=== PATIENT | female | born 1935 | race Caucasian/White ===

== ENCOUNTER 2020-07-20 19:39 | Emergency (ER) | payer MEDICARE, OTHER, SELFPAY ==
[2020-07-20 19:41] VITALS: BP 150/90; PULSE 66; RESP 17; TEMP 36.1; O2SAT 98; BMI 19.8
[2020-07-20 19:44] VITALS: BP 150/90; PULSE 66; RESP 17; TEMP 36.1; O2SAT 98
--- NOTE | 2020-07-20 19:52 | ED.DCSUM_ITS ---
History of Present Illness Chief Complaint: Complaint Informant: Patient Onset: Today Current Severity: Mild Maximum Severity: Mild Narrative: Patient presents due to concern for possible UTI. She reports frequency and mild burning with urination that started this afternoon. She denies fever or chills. She denies abdominal pain or back pain. - Past Medical History (1) GERD (gastroesophageal reflux disease) Status: Chronic Past Medical History - Allergies and Home Meds Allergies/Adverse Reactions: Allergies aspirin Adverse Reaction (Verified 07/20/20 19:40) PT UNSURE OF REACTION Primary Care Physician: Leandra Carey MD [Primary Care Provider] - Surgical History: ligation Smoking Status: Never smoker Review of Systems General: Denies: Chills, Fever Eyes: Denies: Visual changes - bilaterally ENT: Denies: Bilateral ear pain Cardiovascular: Denies: Chest pain Respiratory: Denies: Dyspnea, Cough Gastrointestinal: Denies: Abdominal pain, Nausea, Vomiting, Diarrhea Genitourinary: Reports: Dysuria, Frequency Musculoskeletal: Denies: Extremity Pain Skin: Denies: Rash Hematologic: Denies: Easy bruising, Easy bleeding Allergy: Denies: Uticaria Physical Exam Vital Signs/Narrative: Vital Signs Temp Pulse Resp BP Pulse Ox 07/20/20 19:44 97.0 F L 66 17 150/90 H 98 07/20/20 19:41 97.0 F L 66 17 150/90 H 98 Inital Vital Signs reviewed: Yes General: Well nourished, Well developed Head: Normocephalic ENT: Moist mucous membranes Neck: Supple Cardiovascular: Regular rate, Regular rhythm Respiratory: No distress, CTA bilaterally Abdomen: Soft, Nontender Back: Negative for: CVA tenderness Skin: Normal color Neurological: Alert, Oriented x3 Psychological: Normal affect Diagnostic/Tx/Re-eval Laboratory Results 07/20/20 19:50 Urine Color Yellow Urine Clarity Sl. Cloudy Urine pH 6.0 Ur Specific [place] 1.020 Urine Protein 15 H Urine Glucose (UA) Normal Urine Ketones Negative Urine Occult Blood 25 H Urine Nitrite Negative Urine Bilirubin Negative Urine Urobilinogen Normal Ur Leukocyte Esterase 500 H Urine RBC 0-5 SEEN Urine WBC 25-50 SEEN Ur Squamous Epith Cells 0 SEEN Urine Bacteria 1+ Urine Mucus 0 SEEN - Medical Decision Making Patient's urinalysis does confirm infection. Urine culture has been sent. She will be treated with Keflex. ED Disposition - Plan for ED Patient: Disposition: Home or Assisted Living Diagnosis: Cystitis Instructions: ED CYSTITIS Female Adult Prescriptions: Cephalexin [Keflex] 500 mg PO Q12 #14 cap Transmission Status: Pending to [id number] Referrals: Leandra Carey MD [Primary Care Provider] - 3-5 Days if not improving
[2020-07-20 19:58] LABS: Mucous, Urine 0 SEEN /hpf (<or=2+); Squamous Epithelial Cells - UA 0 SEEN /hpf (5-10)
[2020-07-20 19:59] LABS: Color, Urine Yellow (Yellow); Glucose, Dipstick Normal (Normal); Ketone-Dipstick Negative (Negative); Leukocyte Esterase-Dipstick 500 /ul (Negative); Nitrite-Dipstick Negative (Negative); Occult Blood-Urine 25 /ul (Negative); Protein-Dipstick 15 mg/dl (Negative); Urine Bilirubin Dipstick Negative (Negative); Urine Clarity Sl. Cloudy (Clear); Urine Urobilinogen Normal (Normal)
[2020-07-20 20:19] LABS: Bacteria 1+ /hpf (None Seen); Red Blood Cells-Urine 0-5 SEEN /hpf (0-5); White Blood Cells 25-50 SEEN /hpf (0-5)
[2020-07-20] MEDS: Cephalexin 250 MG Capsule 500 MG PO (20:28)
== END 2020-07-20 20:32 | disposition home or self-care (01) ==
PROVIDERS: Emergency Provider Emergency Medicine; PCP Internal Medicine
DX: N30.90 Cystitis, unspecified without hematuria (principal); K21.9 Gastro-esophageal reflux disease without esophagitis
CPT/HCPCS: 81001; 87077; 87086; 87088; 87186; 99283

== ENCOUNTER 2023-04-13 20:52 | Emergency (ER) | payer MEDICARE, OTHER, SELFPAY ==
[2023-04-13 20:53] VITALS: BP 177/110; PULSE 118; RESP 18; TEMP 36.9; O2SAT 97; BMI 18.4
[2023-04-13 21:51] LABS: Absolute Neutrophil Count 3.9 X10^3/uL (2.0-7.7); Basophil# 0.05 X10^3/uL; Basophil% 0.7 % (0-1); Eosinophil# 0.17 X10^3/uL; Eosinophils% 2.3 % (0-5); Hematocrit 48.1 % (37-47); Hemoglobin 15.4 g/dL (12.0-15.0); Mean Corpuscular Hgb 26.6 pg (27.0-32.0); Mean Corpuscular Volume 82.9 fL (81-99); Mean Platelet Vol. 10.3 fl (6.2-12.0); Monocyte# 1.51 X10^3/uL; Monocyte% 20.8 % (0-10); NRBC Flagged by Analyzer 0 % (0-5); Neutrophil # 3.91 X10^3/uL (2.7-7.7); Neutrophil % 53.8 % (47-70); POSITIVE DIFFERENTIAL YES; Platelet Count 175 K/mm3 (150-450); RBC Distribution Width CV 15.5 % (11.6-14.6); RBC Distribution Width SD 46.4 fl (35.1-43.9); White Blood Count 7.3 K/mm3 (4.4-11.0)
--- NOTE | 2023-04-13 21:55 | RAD_ITS ---
STUDY: X-RAY CHEST REASON FOR EXAM: Female, 88 years old. chest pain TECHNIQUE: AP portable COMPARISON: None. FINDINGS: Minor discoid atelectasis or scarring in left lower lobe. There is no demonstrated pleural abnormality. Normal size heart. Normal mediastinum and sylvie. Normal visualized pulmonary arteries. Tortuous mildly calcified aortic arch and descending thoracic aorta. Dorsal spine and shoulders demonstrate degenerative change. Normal visualized ribs, clavicles, and shoulders. There is no demonstrated abnormality of the visualized soft tissue structures of the upper abdomen. RAD/Chest 1 View (Portable) IMPRESSION: Mild discoid atelectasis or scarring in left lower lobe. Electronically Signed: Dylon Peraza MD at 22:16 EDT ,
[2023-04-13 22:08] LABS: Anion Gap 7 (5-15); BUN 20 mg/dL (7-18); BUN/Creat Ratio 26.1 RATIO (10-20); Calcium,Total 9.5 mg/dL (8.5-10.1); Chloride 107 mmol/L (98-107); Creatinine, Serum 0.77 mg/dL (0.55-1.02); EST Glomerular Filtration Rate 76 mL/min (>60); Est Glom Filt Rate - Afr Amer 92 mL/min (>60); Glucose 153 mg/dL (74-106); Potassium 3.9 mmol/L (3.5-5.1); Sodium Level 141 mmol/L (136-145); Troponin-I HS (w/2H Reflex) 5 pg/mL (3.0-54.0)
--- NOTE | 2023-04-13 22:24 | EX.ED.DYSGE1 ---
HPI History of Present Illness Chief Complaint: Palpitations Detail of Chief Complaint: Palpitations Informant: patient Narrative Narrative: Patient presents to the emergency department complaint of heart racing is around 6:30 PM. She checked her pulse and it was 120. She denies chest pain. Denies shortness of breath. Patient states a couple of months ago she had an episode of palpitations for about 30 minutes or so and then resolved. She has no heart history. Patient has history of hypertension. She denies recent travel or surgery. No history of PE or DVT. Currently she feels improved and states her symptoms have resolved. PFSH PFS Home Medications amlodipine 2.5 mg tablet 2.5 mg PO DAILY 07/20/20 [History Last Taken Unknown] atenolol 25 mg tablet 25 mg PO DAILY 07/20/20 [History Last Taken Unknown] atorvastatin 20 mg tablet 20 mg PO DAILY 07/20/20 [History Last Taken Unknown] cephalexin 500 mg capsule 500 mg PO Q12 #14 caps 07/20/20 [Rx Last Taken Unknown] lisinopril 5 mg tablet 5 mg PO DAILY 07/20/20 [History Last Taken Unknown] apixaban 2.5 mg tablet (Eliquis) 2.5 mg PO BID #60 tabs 04/13/23 [Rx Last Taken Unknown] Allergy/AdvReac Type Severity Reaction Status Date / Time aspirin AdvReac PT UNSURE Verified 04/13/23 20:55 OF REACTION Social History Smoking Status: Never smoker ROS ROS ED Review of Systems ROS Unobtainable: other Constitutional Constitutional ED: Reports lethargy; Denies chills, fever(s), sweats or weight loss Eyes Eyes: Denies blurry vision, change in vision or diplopia ENT ENT ED: Denies rhinorrhea or sore throat Cardiovascular Cardiovascular: Reports palpitations and racing heartbeat; Denies chest pain or orthopnea Respiratory/Chest Respiratory/Chest: Denies cough, dyspnea, dyspnea on exertion, orthopnea or sputum Gastrointestinal Gastrointestinal: Denies abdominal pain, diarrhea, nausea or vomiting Genitourinary Genitourinary ED: Denies dysuria, hematuria or urinary frequency Musculoskeletal Musculoskeletal: Denies arthralgias, back pain, myalgias or neck pain Integumentary Denies abscess, Abrasions or rash Neurologic Neurologic: Denies headache(s) or weakness Psychiatric Psychiatric: Denies anxiety, depression or suicidal thoughts Endocrine Endocrinology: Denies polydipsia, polyphagia or polyuria Hematologic/Lymphatic Hematologic/Lymphatic: Denies easy bleeding, easy bruising or lymphadenopathy Allergic/Immunologic Allergic/Immunologic ED: Denies mouth swelling, tongue swelling or urticaria EXAM Physical Exam Const Vital Signs: 04/13/23 20:53 04/13/23 21:32 04/13/23 22:27 Temperature 98.4 F Temperature Source Temporal Pulse Rate 118 H 62 Respiratory Rate 18 18 Respiratory Effort Blood Pressure 177/110 H 149/86 H Blood Pressure Mean 132 107 Pulse Ox 97 95 Oxygen Delivery Method Room Air Room Air Room Air 04/13/23 22:47 Temperature Temperature Source Pulse Rate Respiratory Rate Respiratory Effort Short of Breath Blood Pressure Blood Pressure Mean Pulse Ox Oxygen Delivery Method Positive well nourished and well developed General Appearance ED: well developed and NAD HEENT Reports TM's clear and moist mucous membranes normocephalic and atraumatic; Negative for trauma or tenderness Tympanic Membrane ED: Yes TM's clear Eyes PERRL and EOMs intact bilaterally General Eye ED: Negative for pale conjunctiva or scleral icterus Neck no lymphadenopathy, supple and no JVD General: Negative for tenderness Chest Wall inspection of chest normal and palpation of chest normal Chest: Negative for tenderness Resp normal respiratory effort and clear to auscultation bilaterally Effort and Inspection: Negative for respiratory distress or pain with movement Auscultation: Negative for rhonchi, wheezes or diminished lung sounds Cardio regular rate, regular rhythm, S1 normal heart sound, S2 normal heart sound and no murmurs Peripheral Pulses: pulses 2+ throughout GI normal to inspection, nondistended, normoactive bowel sounds, soft to palpation, non-tender, non-distended and no masses Back/Spine no CVA tenderness and no thoracic nor lumbar tenderness Extremity normal to inspection General Extremety ED: Negative for edema General Extremity: Negative for edema Neuro oriented x3, CN's II-XII intact bilaterally, no sensory deficits noted and gait normal Sensorium / Orientation: awake, alert, oriented to person, oriented to place and oriented to time Motor Exam: strength 5/5 throughout and strength abnormal Psych mental status grossly normal Skin no rashes or lesions noted and no wounds MDM MDM MDM Narrative Medical decision making narrative: Patient was then in with tachycardia and palpitations. Nursing staff you protocol ordered EKG on arrival. Initial EKG showed atrial fibrillation with a rate of 118 bpm with old septal infarct. On my evaluation of the patient she is in sinus rhythm. Nursing staff ordered basic labs via protocol. EKG obtained showed a sinus rhythm on repeat EKG with a rate of 63 bpm. CBC with differential was unremarkable. Chemistries unremarkable. Troponin was normal. Case was discussed with industrial electrical engineer covering for Dr. Faustin who recommended anticoagulation with Eliquis 2.5 mg twice a day. Patient back into a sinus rhythm. She and I and her discussed risk of stroke with A-fib and risk of anticoagulation and they are comfortable proceeding with the anticoagulation. Advised to return if chest pain, shortness of breath, dizziness, or condition worsen anyway. Otherwise to follow-up with her industrial electrical engineer. Lab Data Attestation: I reviewed the patient's lab results. Labs: Laboratory Results - last 24 hr 04/13/23 04/13/23 20:21 20:21 WBC 7.3 RBC 5.80 H Hgb 15.4 H Hct 48.1 H MCV 82.9 MCH 26.6 L MCHC 32.0 RDW Std Deviation 46.4 H RDW Coeff of Jaci 15.5 H Plt Count 175 MPV 10.3 Immature Gran % (Auto) 0.400 Neut % (Auto) 53.8 Lymph % (Auto) 22.0 Howell % (Auto) 20.8 H Eos % (Auto) 2.3 Baso % (Auto) 0.7 Absolute Neuts (auto) 3.9 Absolute Lymphs (auto) 1.60 Nucleated RBC % 0 Differential Comment SEE COMMENT Platelet Estimate ADEQUATE Anisocytosis RARE Sodium 141 Potassium 3.9 Chloride 107 Carbon Dioxide 27.0 Anion Gap 7 BUN 20 H Creatinine 0.77 Estim Creat Clear Calc 31.50 Est GFR (MDRD) Af Amer 92 Est GFR (MDRD) Non-Af 76 BUN/Creatinine Ratio 26.1 H Glucose 153 H Calcium 9.5 Troponin I High Sens 5 Radiography Diagnostic Testing: Clinical Impression(s) from Imaging Studies Chest X-Ray 04/13/23 21:55 IMPRESSION: Mild discoid atelectasis or scarring in left lower lobe. Electronically Signed: Dylon Peraza MD at 22:16 EDT , 1 view chest x-ray obtained interpreted by myself as no evidence of infiltrate or pneumothorax or acute disease process. Radiology in agreement. Discharge Plan Triage Chief Complaint: Palpitations ED Provider: Uzma Lenz Dx/Rx/DC Orders Clinical Impression: AF (paroxysmal atrial fibrillation) Instructions: ED AFIB Prescriptions: New Eliquis 2.5 mg tablet 2.5 mg PO BID Qty: 60 0RF No Action atorvastatin 20 MG tablet 20 mg PO DAILY atenolol 25 MG tablet 25 mg PO DAILY amlodipine 2.5 MG tablet 2.5 mg PO DAILY lisinopril 5 MG tablet 5 mg PO DAILY cephalexin 500 MG capsule 500 mg PO Q12 Qty: 14 0RF Primary Care Provider: Leandra Carey Referrals: Leandra Carey MD [Primary Care Provider] - Activity Restrictions/Additional Instructions: Follow-up with Dr. Faustin within the next 3 to 5 days Disposition Disposition: Home, Self Care
[2023-04-13 22:26] LABS: Differential Indicated SCAN CRITERIA MET
[2023-04-13 22:27] VITALS: BP 149/86; PULSE 62; RESP 18; O2SAT 95
[2023-04-13 22:29] LABS: Anisocytosis RARE; Platelet Estimate ADEQUATE (ADEQ)
[2023-04-13 23:16] VITALS: BP 147/80; PULSE 61; RESP 17; O2SAT 97
[2023-04-13] MEDS: APIXABAN 2.5 MG TABLET (WCH) PO (23:24)
[2023-04-13 23:46] LABS: Reflex Troponin-HS? (from REC) Y
== END 2023-04-13 23:40 | disposition home or self-care (01) ==
PROVIDERS: Emergency Provider Emergency Medicine; PCP Internal Medicine; Visit Provider Emergency Medicine
DX: I48.0 Paroxysmal atrial fibrillation (principal); Z79.01 Long term (current) use of anticoagulants
CPT/HCPCS: 71045; 80048; 84484; 85025; 93005; 99285; A4216

== ENCOUNTER 2025-09-28 13:03 | Emergency (ER) | payer MEDICARE, OTHER, SELFPAY ==
[2025-09-28 13:05] VITALS: BP 198/81; PULSE 58; RESP 16; TEMP 36.5; O2SAT 97; BMI 18.3
--- NOTE | 2025-09-28 13:27 | CT_ITS ---
PROCEDURE: SPINE THORACIC WITHOUT CONTRAS 09/28/2025 REASON FOR EXAM: PAIN Initial encounter. TECHNIQUE: Procedure Code: modality: CT Procedure: SPINE THORACIC WITHOUT CONTRAS Coronal and Sagittal reconstruction series were provided. One or more dose reduction techniques were used (e.g., Automated exposure control, adjustment of the mA and/or kV according to patient size, use of iterative reconstruction technique). RADIATION DOSE SUMMARY: CTDlvol: 18 0.42; 14.41 mGy DLP: 1059.7 mGycm COMPARISON: None FINDINGS: Alignment: Grossly intact dorsal kyphosis Bones: A upper/mid thoracic spine moderate anterior wedge compression fracture. Likely T 6 but additional imaging could be performed to determine precise level of the fracture if clinically needed.. Likely osteoporotic in etiology. Indeterminate age. Comparison with older studies could help determine the age of the fracture. Minimal central canal stenosis body inferior endplate retropulsion. An endplate compression deformity of presumed T 10. Soft Tissues: Unremarkable soft tissues. Other: CT/Spine Thoracic without Contras IMPRESSION: Anterior wedge compression deformity and superior endplate compression of presu med T 6 and T 10. Additional study could be performed to determine precise level of these 2 fractures. No central spinal c anal significant stenosis. Comparison with appropriate prior imaging study could be helpful do determine age and stability of these fractures. Reading Location: [facility]
--- NOTE | 2025-09-28 13:27 | CT_ITS ---
PROCEDURE: SPINE LUMBAR WITHOUT CONTRAST 09/28/2025 REASON FOR EXAM: PAIN TECHNIQUE: Procedure Code: CTSPL Modality: CT Procedure: SPINE LUMBAR WITHOUT CONTRAST Coronal and Sagittal reconstruction series were provided. One or more dose reduction techniques were used (e.g., Automated exposure control, adjustment of the mA and/or kV according to patient size, use of iterative reconstruction technique COMPARISON: CT thoracic spine 09/28/2025 RADIATION DOSE SUMMARY: CTDlvol: 14.4 mGy DLP: 469 mGycm FINDINGS: There are 5 [id number] lumbar-type vertebral bodies. There is rightward curvature of the lumbar spine. Grade 1 retrolisthesis of L3 on L4 and L4 on L5. Mild diffuse height loss involving the L4 vertebral body. There is less than 20% height loss of L5 centrally. Diffuse osteopenia. There is multilevel disc height loss with endplate osteophyte formation and facet arthrosis, worst at L4-5 and L5-S1. Aortic atherosclerosis. Cystic lesion in the left pelvis measuring 2.3 cm. Remainder of the visualized abdominal and pelvic contents are unremarkable. CT/Spine Lumbar without Contrast IMPRESSION: 1. Age indeterminate compression deformity at L4, and possibly also of L5. 2. Advanced multilevel degenerative changes of the lumbar spine. 3. Cystic lesion in the left pelvis measuring 2.3 cm incompletely imaged, likel y a benign cyst. Reading Location: [id number]
--- NOTE | 2025-09-28 13:28 | ED.VIS.BACK ---
HPI <Naveen Carranza MD - Last Filed: 10/02/25 07:01> History of Present Illness Chief Complaint: Back Narrative Narrative: 89-year-old female past medical history of remote T7 vertebral compression fracture presents with back pain that she has had for the last 2 weeks. She denies any fevers or chills, no nausea or vomiting, no dysuria or hematuria but did notice that over the last few days she has had episodes of urinary incontinence. It is more of an urgency than incontinence. She still has a sensation that she has to urinate, but in the middle of the night was unable to make it to the bathroom in time. She denies any recent falls. However, she does note that she has osteopenia. She states that she had her last compression fractures from lifting things while they were trying to move. She now has mid to low back pain, and pain in the right paraspinal area. She denies any cough or difficulty breathing, no other symptoms. PFSH <Naveen Carranza MD - Last Filed: 10/02/25 07:01> [facility] Home Medications Medication Instructions Recorded Last Taken Type amlodipine 2.5 mg tablet 2.5 mg PO DAILY 07/20/20 Unknown History atenolol 25 mg tablet 25 mg PO DAILY 07/20/20 Unknown History atorvastatin 20 mg tablet 20 mg PO DAILY 07/20/20 Unknown History cephalexin 500 mg capsule 500 mg PO Q12 #14 caps 07/20/20 Unknown Rx lisinopril 5 mg tablet 5 mg PO DAILY 07/20/20 Unknown History apixaban 2.5 mg tablet (Eliquis) 2.5 mg PO BID #60 tabs 04/13/23 Unknown Rx Allergy/AdvReac Type Severity Reaction Status Date / Time aspirin AdvReac PT UNSURE Verified 04/13/23 20:55 OF REACTION Social History Smoking Status: Never smoker ROS <Nvaeen Carranza MD - Last Filed: 10/02/25 07:01> ROS ED ROS Narrative Review of systems positive for mid to low back pain, mainly right-sided. Sometimes sharp and stabbing. She took Tylenol and a tramadol, and feels improved. She has also had urinary frequency/urgency but no gross hematuria. No fevers or chills, no nausea or vomiting. EXAM <Naveen Carranza MD - Last Filed: 10/02/25 07:01> Physical Exam Narrative Exam Narrative: Afebrile. Vital signs noted. Nontoxic-appearing. Cardiovascular examination reveals mild bradycardia. Lungs are clear to auscultation bilaterally. No wheezing. Abdomen is soft and nontender. No CVA tenderness to percussion. No vertebral point tenderness or bony step-off, but she does have right sided paraspinal muscular tenderness without crepitance. Const Vital Signs: 09/28/25 13:05 09/28/25 17:19 Temperature 97.7 F L Temperature Source Oral Pulse Rate 58 L 54 L Respiratory Rate 16 16 Blood Pressure 198/81 H 180/83 H Blood Pressure Mean 120 115 Pulse Ox 97 98 Oxygen Delivery Method Room Air Room Air <Dr. Landen Pierson DO - Last Filed: 09/28/25 17:48> Physical Exam Const Vital Signs: 09/28/25 13:05 09/28/25 17:19 Temperature 97.7 F L Temperature Source Oral Pulse Rate 58 L 54 L Respiratory Rate 16 16 Blood Pressure 198/81 H 180/83 H Blood Pressure Mean 120 115 Pulse Ox 97 98 Oxygen Delivery Method Room Air Room Air MDM <Naveen Carranza MD - Last Filed: 10/02/25 07:01> [facility] MDM Narrative Medical decision making narrative: Differential diagnosis includes but not limited to nonspecific back pain versus upper lumbar radiculopathy. I doubt rib fracture. Regarding her urinary urgency, she may have more of a UTI versus pyelonephritis, however her exam is not indicative of this. She does have reproducible musculoskeletal back pain, and she may have more of a vertebral compression fracture given her age of 89. CT will be obtained of the thoracic and lumbar spine as well as UA to look for infection. On review of her urinalysis, she has 0-5 WBCs with 0 bacteria. I do not feel that antibiotics are indicated for a urinary tract infection. This point in time, there is delay in the reading of the CT imaging of the thoracic and lumbar spine. Patient signed out to the oncoming physician to check the CT results for compression fractures, and make disposition as appropriate. Disposition is pending. Patient is in stable condition. History & Record Review Discussion w/independent historian: Patient and Family () Lab Data Labs: Laboratory Results - last 24 hr 09/28/25 14:34 Urine Color Yellow Urine Clarity Clear Urine pH 5.0 Ur Specific [place] 1.020 Urine Protein 30 H Urine Glucose (UA) Normal Urine Ketones Negative Urine Occult Blood 25 H Urine Nitrite Negative Urine Bilirubin Negative Urine Urobilinogen Normal Ur Leukocyte Esterase 100 H Urine RBC 0 SEEN Urine WBC 0-5 SEEN Ur Squamous Epith Cells 0-5 SEEN Urine Bacteria 0 SEEN Urine Mucus 0 SEEN Radiography Diagnostic Testing: Clinical Impression(s) from Imaging Studies Lumbar Spine CT 09/28/25 13:27 IMPRESSION: 1. Age indeterminate compression deformity at L4, and possibly also of L5. 2. Advanced multilevel degenerative changes of the lumbar spine. 3. Cystic lesion in the left pelvis measuring 2.3 cm incompletely imaged, likely a benign cyst. Reading Location: [id number] Thoracic Spine CT 09/28/25 13:27 IMPRESSION: Anterior wedge compression deformity and superior endplate compression of presumed T 6 and T 10. Additional study could be performed to determine precise level of these 2 fractures. No central spinal canal significant stenosis. Comparison with appropriate prior imaging study could be helpful do determine age and stability of these fractures. Reading Location: [facility] <Dr. Landen Pierson, DO - Last Filed: 09/28/25 17:48> [facility] Lab Data Labs: Laboratory Results - last 24 hr 09/28/25 14:34 Urine Color Yellow Urine Clarity Clear Urine pH 5.0 Ur Specific [place] 1.020 Urine Protein 30 H Urine Glucose (UA) Normal Urine Ketones Negative Urine Occult Blood 25 H Urine Nitrite Negative Urine Bilirubin Negative Urine Urobilinogen Normal Ur Leukocyte Esterase 100 H Urine RBC 0 SEEN Urine WBC 0-5 SEEN Ur Squamous Epith Cells 0-5 SEEN Urine Bacteria 0 SEEN Urine Mucus 0 SEEN Radiography Diagnostic Testing: Clinical Impression(s) from Imaging Studies Lumbar Spine CT 09/28/25 13:27 IMPRESSION: 1. Age indeterminate compression deformity at L4, and possibly also of L5. 2. Advanced multilevel degenerative changes of the lumbar spine. 3. Cystic lesion in the left pelvis measuring 2.3 cm incompletely imaged, likely a benign cyst. Reading Location: [id number] Thoracic Spine CT 09/28/25 13:27 IMPRESSION: Anterior wedge compression deformity and superior endplate compression of presumed T 6 and T 10. Additional study could be performed to determine precise level of these 2 fractures. No central spinal canal significant stenosis. Comparison with appropriate prior imaging study could be helpful do determine age and stability of these fractures. Reading Location: [facility] Treatment and Re-Evaluation Narrative: Care of the patient was turned over to me pending CT results. CT scan of the thoracic spine showed compression fractures of T6 and T10 that were age-indeterminate. There is no cord compression. This was interpreted by the radiologist. I also independently reviewed the images and noted the fractures as well. CT scan of the lumbar spine showed compression fracture of L4 and possibly L5. There is no cord compression. This was interpreted by the radiologist. I also independently reviewed the images and noted the fractures. Patient and spouse were advised of the findings. Patient was instructed to follow-up with her primary care physician in 5 to 7 days. Patient was instructed to return if worse in any way. Patient understood and was agreeable with plan. All questions were answered. Discharge Plan Triage Chief Complaint: Back ED Provider: Naveen Carranza Dx/Rx/DC Orders Clinical Impression: Closed compression fracture of lumbar vertebra, Closed compression fracture of thoracic vertebra Instructions: ED Fracture, Vertebral Compression Prescriptions: No Action atorvastatin 20 MG tablet 20 mg PO DAILY atenolol 25 MG tablet 25 mg PO DAILY amlodipine 2.5 MG tablet 2.5 mg PO DAILY lisinopril 5 MG tablet 5 mg PO DAILY cephalexin 500 MG capsule 500 mg PO Q12 Qty: 14 0RF Eliquis 2.5 mg tablet 2.5 mg PO BID Qty: 60 0RF Primary Care Provider: Leandra Carey Referrals: Leandra Carey MD [Primary Care Provider, Internal Medicine] - 5-7 Days Print Language: Pashto Disposition Disposition: Home, Self Care Discharge Date/Time: 09/28/25 18:08
--- OUTSIDE RECORDS SUMMARY | 2025-09-28 14:22 | XMS RPT_ITS | CCD ---
Author Organization [facility] Care Team Providers Care Manager Rehab Name Role Phone ILIANA ZAFARNETH Unavailable Unavailable CHARISMA, SAEED Unavailable Unavailable [facility] Unavailable Unavailable CHARISMA, SAEED Unavailable Unavailable CHARISMA, SAEED Unavailable Unavailable [facility] Unavailable Unavailable Jesus Mg MD Primary Care Provider Jesus Mg MD Primary Care Provider Jesus Mg MD Primary Care Provider GANTA, JESUS Primary Care Unavailable GABE ALMANZA Referring Unavailable Uzma Lenz Attending Unavailable Ganta, Jesus Primary Care Unavailable Jesus Mg MD Primary Care Provider GANTA, JESUS Primary Care Unavailable LEVI CREWS Referring Unavailable LEVI CREWS Attending Unavailable GANTA, JESUS Primary Care Unavailable LEVI CREWS Referring Unavailable GANTA, JESUS Primary Care Unavailable LEVI CREWS Attending Unavailable GANTA, JESUS Primary Care Unavailable LEVI CREWS Referring Unavailable LEVI CREWS Attending Unavailable GANTA, JESUS Primary Care Unavailable LEVI CREWS Referring Unavailable Jesus Mg MD Primary Care Provider Kelly Joiner PA-C L Unavailable [phone] 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, Rashmi Unavailable Clifford Joe PA-Cadette Unavailable Rhys CARLSON Kelly L Unavailable [phone] Tatyana CHEN-Rocio Jeanie Unavailable GANTA, JESUS Referring Unavailable GANTA, JESUS Primary Care Unavailable GANTA, JESUS Referring Unavailable GANTA, JESUS Primary Care Unavailable GANTA, JESUS Attending Unavailable GANTA, JESUS Primary Care Unavailable GANTA, JESUS Primary Care Unavailable NEYHART GOMEZ, ANTOINETTE Referring Unavail able NEYHART GOMEZ, ANTOINETTE Attending Unavail able GANTA, JESUS Primary Care Unavailable NEYHART GOMEZ, ANTOINETTE Referring Unavail able GANTA, JESUS Primary Care Unavailable OLDER, RASHMI Attending Unavailable GANTA, JESUS Primary Care Unavailable OLDER, RASHMI Referring Unavailable GANTA, JESUS Primary Care Unavailable OLDER, RASHMI Referring Unavailable GANTA, JESUS Primary Care Unavailable OLDER, RASHMI Attending Unavailable GANTA, JESUS Referring Unavailable GANTA, JESUS Primary Care Unavailable GANTA, JESUS Attending Unavailable GANTA, JESUS Primary Care Unavailable SELF Referring Unavailable GANTA, JESUS Attending Unavailable GANTA, JESUS Primary Care Unavailable ARCHIE V, GABE Attending Unavailable GANTA, JESUS Primary Care Unavailable ARCHIE V, GABE Referring Unavailable GANTA, JESUS Primary Care Unavailable Allergies Allergy Classification Reported Allergen(s) Allergy Type Date of Onset Reaction(s) Facility (1 source) alendronate; Translations: [ALENDRONATE SODIUM] Drug Allergy [facility] Repository (20 sources) risedronate; Translations: [RISEDRONATE] Drug Allergy 7 Other: See Comments [facility] Rep[facility] (20 sources) salicylic acid; Translations: [SALICYLATES] Drug Allergy 5 [facility] (20 sources) Aspirin; Translations: [ASPIRIN] Drug Allergy 0 [facility] (1 source) Aspirin Drug Allergy 3 [facility] Repository Medications Current Medications Medication Drug Class(es) Dates Sig (Normalized) Sig (Original) acyclovir 800 mg oral tablet (20 sources) Herpesvirus Nucleoside Analog DNA Polymerase Inhibitor, Herpes Simplex Virus Nucleoside Analog DNA Polymerase Inhibitor, Herpes Zoster Virus Nucleoside Analog DNA Polymerase Inhibitor Start: 05-23-2022 End: 11-29-2023 take 1 tablet by mouth three times daily as needed acyclovir (ZOVIRAX) 800 mg tablet Indications: Blister Take 1 tablet by mouth three times a day as needed (cold sores). 30 tablet 2 11/29/2023 Active Start: 02-01-2021 End: 05-21-2022 take 1 tablet by mouth three times daily as needed acyclovir (ZOVIRAX) 800 mg tablet Indications: Blister Take 1 tablet by mouth three times daily as needed (cold sores). 30 tablet 2 02/01/2021 05/21/2022 Discontinued Comment on above: Take 1 tablet by angel th three times daily as needed (cold sores). Take 1 tablet by angel th three times a day as needed (cold sores). amLODIPine 5 mg oral tablet (20 sources) Dihydropyridine Calcium Channel Ricky Start: 12-27-19 End: 11-28-19 take 1 tablet by mouth once daily amLODIPine (NORVASC) 5 mg tablet Indications: Essential hypertension TAKE 1 TABLET BY MOUTH EVERY DAY 90 tablet 3 11/28/2024 Active Start: 07-20-2020 take 2.5 mg by mouth once you y Amlodipine Active 2.5 MG PO DAILY July 20, 2020 12:00am Comment on above: Take 1 tablet by angel th once daily. TAKE 1 TABLET BY ANGEL TH EVERY DAY apixaban 2.5 mg oral tablet (20 sources) Factor Xa Inhibitor Start: 01-26-2024 End: 01-15-2025 take 1 tablet by mouth twice daily ELIQUIS 2.5 mg tab(s) Indications: Paroxysmal atrial fibrillation (HCC) Take 1 tablet by mouth two times a day. 180 tablet 3 01/15/2025 Active Start: 04-13-2023 End: 01-24-2024 take 1 tablet by mouth twice daily ELIQUIS 2.5 mg tab(s) Indications: Paroxysmal atrial fibrillation (HCC) Take 1 tablet by mouth twice daily. 180 tablet 3 05/01/2023 01/24/2024 Discontinued Comment on above: Take 1 tablet by angel th twice daily. twice daily. Take 1 tablet by angel th two times a day. atenolol 25 mg oral tablet (20 sources) beta-Adrenergic Ricky Start: 05-26-2025 take 0.5 tablet by mouth every twelve hours atenolol (TENORMIN) 25 mg tablet Indications: Paroxysmal atrial fibrillation (HCC) Take 0.5 tablets by mouth every 12 hours. 90 tablet 1 05/26/2025 Active Start: 05-01-2023 End: 05-21-2025 take 0.5 tablet by mouth twice daily atenolol (TENORMIN) 25 mg tablet Indications: Paroxysmal atrial fibrillation (HCC) TAKE 1/2 TABLET BY MOUTH TWICE A DAY 90 tablet 1 09/13/2024 05/21/2025 Discontinued Start: 01-12-2022 End: 05-01-2023 take 0.5 tablet by mouth once daily atenolol (TENORMIN) 25 mg tablet Take 0.5 tablets by mouth once daily. 45 tablet 3 01/12/2022 01/24/2023 Discontinued Start: 07-20-2020 take 25 mg by mouth once daily Atenolol Active 25 MG PO DAILY July 20, 2020 12:00am Comment on above: Take 0.5 tablets by mouth once daily. Take 0.5 tablets by mouth twice daily. atorvastatin 10 mg oral tablet (20 sources) HMG-CoA Reductase Inhibitor Start: take 0.5 tablet by mouth once daily at bedtime atorvastatin (LIPITOR) 10 mg tablet Take 0.5 tablets by mouth daily at bedtime. 45 tablet 3 05/22/2025 Active Start: 06-02-2023 End: 05-20-2025 take 0.5 tablet by mouth once daily at bedtime atorvastatin (LIPITOR) 10 mg tablet Take 0.5 tablets by mouth daily at bedtime. 45 tablet 3 05/07/2024 05/20/2025 Discontinued Start: 04-16-2021 End: 05-29-2023 take 0.5 tablet by mouth once daily at bedtime atorvastatin (LIPITOR) 10 mg tablet Take 0.5 tablets by mouth daily at bedtime. 45 tablet 3 04/16/2021 03/30/2022 Discontinued Start: 07-20-2020 take 20 mg by mouth once daily Atorvastatin Active 20 MG PO DAILY July 20, 2020 12:00am Comment on above: Take 0.5 tablets by mouth daily at bedtime. TAKE 1/2 TABLET YOU Y AT BEDTIME Calcium Citrate-Vitamin D3 630-400 mg-unit ORAL (20 sources) Start: 02-27-2012 take 1 tablet by mouth every other day Calcium Citrate-Vitamin D3 630-400 mg-unit ORAL Take 1 tablet by mouth every other day. Takes daily 60 Each 02/27/2012 Active Start: 02-27-2012 take 1 tablet by angel th every other day Calcium Citrate-Vitamin D3 630-400 mg-unit ORAL Take 1 tablet by mouth every other day. 60 Each 02/27/2012 Active Comment on above: Take 1 tablet by angel th every other day. Take 1 tablet by angel th every other day. Takes daily cephalexin 500 mg oral capsule (1 source) Cephalosporin Antibacterial Start: take 500 mg by mouth every twelve hours Cephalexin Active 500 MG PO EVERY 12 HOURS July 20, 2020 12:00am 1 ml denosumab 60 mg/ml prefilled syringe (1 source) RANK Ligand Inhibitor Start: End: inject 1 mL by subcutaneous injection once denosumab (PROLIA) 60 mg/mL Indications: Age-related osteoporosis with current pathological fracture with routine healing, subsequent encounter Inject 1 mL subcutaneously one time only for 1 dose. 1 mL 08/15/2024 08/15/2024 Active fluticasone propionate 0.05 mg/actuat metered dose nasal spray (15 sources) Corticosteroid Start: 025 take 2 spray(s) by mouth once daily fluticasone (FLONASE) 50 mcg/actuation nasal spray Use 2 sprays in each nostril once daily. Rinse mouth after use. 1 each 3 07/04/2025 Active Start: 08-04-2023 End: 02-20-2024 take 2 spray(s) by mouth once daily fluticasone (FLONASE) 50 mcg/actuation nasal spray Use 2 Sprays in each nostril once daily. Rinse mouth after use. 1 Each 5 08/04/2023 02/20/2024 Discontinued (Discontinued by Patient) Comment on above: Use 2 Sprays in each nostril once daily. Rinse mouth after use. gabapentin 100 mg oral capsule (19 sources) Anti-epileptic Agent Start: 5 End: 5 take 1 capsule by mouth once daily at bedtime gabapentin (NEURONTIN) 100 mg capsule Take 1 capsule by mouth daily at bedtime for 90 days. 30 capsule 2 02/03/2025 Active 12 hr guaiFENesin 600 mg extended release oral tablet (8 sources) Start: 5 take 1 tablet by mouth twice daily guaiFENesin (MUCINEX) 600 mg 12 hr tablet Indications: Cough, unspecified type Take 1 tablet by mouth two times a day. 60 tablet 1 03/10/2025 Active levothyroxine sodium 0.025 mg oral tablet (20 sources) l-Thyroxine Start: levothyroxine (LEVOXYL) 25 mcg tablet Indications: Hypothyroidism, unspecified type Take 1 tablet by mouth once daily. Except take 1.5 tablets on Monday and Monday . Take on empty stomach. For Thyroid 100 tablet 3 08/30/2024 Active Start: 10-23-2023 levothyroxine (LEVOXYL) 25 mcg tablet Indications: Hypothyroidism, unspecified type Take 1 tablet by mouth once daily. Except take 1.5 tablets on Monday. Take on empty stomach. For Thyroid 90 tablet 1 10/23/2023 Active Start: 02-03-2022 End: 08-14-2023 levothyroxine (LEVOXYL) 25 m cg tablet Indications: Hypothyroidism, unspecified type Take 1 tablet by mouth once daily. Except take 1.5 tablets on Monday. Take on empty stomach. For Thyroid 90 tablet 1 08/14/2023 Active Comment on above: Take 1 tablet by angel th once daily. Take on empty stomach. For Thyroid Take 1 tablet by angel th once daily. Except take 1.5 tablets on Monday. Take on empty stomach. For Thyroid Take 1 tablet by angel th once daily. Except take 1/2 tablet on Monday. Take on empty stomach. For Thyroid lisinopril 40 mg oral tablet (20 sources) Angiotensin Converting Enzyme Inhibitor Start: 12-09-2024 End: 06-13-2025 take 1 tablet by mouth once daily lisinopril (ZESTRIL) 40 mg tablet Take 1 tablet by mouth once daily. 30 tablet 11 06/13/2025 Active Start: 03-19-2024 End: 12-09-2024 take 1 tablet by mouth once daily lisinopril (ZESTRIL) 20 mg tablet Take 1 tablet by mouth once daily. 90 tablet 1 12/06/2024 12/09/2024 Discontinued Start: 02-05-2024 End: 03-19-2024 take 1 tablet by mouth once daily lisinopril (ZESTRIL) 10 mg tablet Indications: Essential hypertension TAKE 1 TABLET BY MOUTH EVERY DAY 90 tablet 1 03/04/2024 03/19/2024 Discontinued (Dosage adjustment) Start: 01-29-2024 End: 02-05-2024 take 1 tablet by mouth once daily lisinopril (ZESTRIL) 5 mg tablet Indications: Essential hypertension Take 1 tablet by mouth once daily. 90 tablet 3 01/29/2024 02/05/2024 Discontinued Start: 07-20-2020 End: 01-24-2024 take 1 tablet by mouth once daily lisinopril (ZESTRIL, PRINIVIL) 5 mg tablet Indications: Essential hypertension Take 1 tablet by mouth once daily. 90 tablet 3 07/26/2021 07/22/2022 Discontinued Comment on above: Take 1 tablet by angel th once daily. MULTIVITAMIN TAB (20 sources) Start: 10-27-2005 take 1 tablet by mouth every other day MULTIVITAMIN TAB Take 1 tablet by mouth. Every other day 0 10/27/2005 Active Start: 10-27-2005 MULTIVITAMIN T AB Take one(1) tablet every other day 0 10/27/2005 Active Comment on above: Take one(1) tablet e very other day perflutren lipid microspheres 1.3 mL in NaCl (PF) 0.9% 10 mL injection (DEFINITY) (20 sources) Start: 05-01-2023 End: 07-30-2024 perflutren lipid microspheres 1.3 mL in NaCl (PF) 0.9% 10 mL injection (DEFINITY) 125 ml sodium chloride 9 mg/ml prefilled syringe (20 sources) Start: 05-01-2023 End: 07-30-2024 sodium chloride 0.9 % (flush) 10 mL (BD POSIFLUSH) Completed/Discontinued Medications Medication Drug Class(es) Dates Sig (Normalized) Sig (Original) alendronic acid 70 mg oral tablet (20 sources) Bisphosphonate Start: 02-28-2023 End: 10-17-2023 take 1 tablet by mouth every week alendronate (FOSAMAX) 70 mg tablet Take 1 tablet by mouth one time a week. Take with a full glass of water, on an empty stomach; do NOT lie down for 30minutes. 12 tablet 1 02/28/2023 10/17/2023 Discontinued Start: 01-02-2023 take 1 tablet by angel th every week alendronate (FOSAMAX) 70 mg tablet TAKE 1 TABLET BY MOUTH ONCE A WEEK. TAKE ON AN EMPTY STOMACH WITH FULL GLASS OF WATER. DO NOT LIE DOWN FOR 30 MINUTES AFTER TAKING 12 tablet 1 01/02/2023 Active Start: 07-06-2022 take 1 tablet by angel th every week alendronate (FOSAMAX) 70 mg tablet Take 1 tablet by mouth one time a week. Take with a full glass of water, on an empty stomach; do NOT lie down for 30minutes. 12 tablet 1 07/06/2022 Active Start: 01-17-2022 End: 07-03-2022 take 1 tablet by mouth every week alendronate (FOSAMAX) 70 mg tablet Take 1 tablet by mouth one time a week. Take with a full glass of water, on an empty stomach; do NOT lie down for 30minutes. 12 tablet 1 01/17/2022 07/03/2022 Discontinued Comment on above: Take 1 tablet by angel th one time a week. Take with a full glass of water, on an empty stomach; do NOT lie down for 30minutes. TAKE 1 TABLET BY ANGEL TH ONCE A WEEK. TAKE ON AN EMPTY STOMACH WITH FULL GLASS OF WATER. DO NOT LIE DOWN FOR 30 MINUTES AFTER TAKING ascorbic acid 113 mg / beta carotene 7160 mg / cuprous oxide 0.4 mg / dl-alpha tocopheryl acetate 100 unt / zinc oxide 17.4 mg oral tablet (20 sources) Vitamin C Start: 02-27-20 12 End: 08-15-20 vit A,C,H-Pyls-Rnusbg (PRESERVISION AREDS) 2,148 mcg-113 mg-45 mg-17.4mg tab Take by mouth once daily. 0 02/27/2012 08/15/2024 Discontinued Comment on above: Take by mouth once d aily. lidocaine 0.05 mg/mg medicated patch (6 sources) Antiarrhythmic, Amide Local Anesthetic Start: 02-04-20 End: 02-18-20 23 apply 1 dose transdermal route once daily, then apply 1 dose transdermal route every twelve hours lidocaine (LIDODERM) 5 % Indications: Pain Apply 1 Patch as directed once daily for 14 days. Remove old patch prior to placing new patch. Location: Patch on for 12 hours take the edge off for [address] a new patch on for another 12 hours. 14 Patch 02/03/2023 02/17/2023 Comment on above: Apply 1 Patch as dir ected once daily for 14 days. Remove old patch prior to placing new patch. Location: Patch on for 12 hours take the edge off for [address] a new patch on for another 12 hours. 24 hr mirabegron 25 mg extended release oral tablet (4 sources) beta3-Adrenergic Agonist Start: 06-29-20 End: 08-28-20 take 1 tablet by mouth once daily mirabegron (MYRBETRIQ) 25 mg Tb24 Take 1 tablet by mouth once daily. 30 tablet 1 06/29/2023 08/28/2023 Comment on above: Take 1 tablet by angel th once daily. tiZANidine 4 mg oral tablet (16 sources) Central alpha-2 Adrenergic Agonist Start: 02-03-20 End: 08-04-20 take 1 tablet by mouth every eight hours as needed tiZANidine (ZANAFLEX) 4 mg tablet Take 1 tablet by mouth every 8 hours as needed (muscle spasms). 15 tablet 02/02/2023 08/04/2023 Discontinued Comment on above: Take 1 tablet by angel th every 8 hours as needed (muscle spasms). traMADol hydrochloride 50 mg oral tablet (20 sources) Opioid Agonist Start: 10-28-20 End: 06-13-20 take 1 tablet by mouth twice daily as needed for pain traMADol (ULTRAM) 50 mg tablet Indications: Compression fracture of L1 vertebra, sequela Take 1 tablet by mouth two times a day as needed for pain for up to 30 days. 30 tablet 10/28/2024 06/13/2025 Discontinued Start: 02-15-2023 End: 08-04-2023 take 1 tablet by mouth twice daily as needed for pain traMADol (ULTRAM) 50 mg tablet Indications: Compression fracture of T7 vertebra, initial encounter ([facility]) Take 1 tablet by mouth twice daily as needed for pain (take at bedtime). 14 tablet 0 02/15/2023 08/04/2023 Discontinued Comment on above: Take 1 tablet by angel th twice daily as needed for pain (take at bedtime). Problems Active Problems Problem Classification Problem Date Documented Da te Episodic/Chronic Cardiac dysrhythmias (20 sources) Supraventricular tachycardia; Translations: [Supraventricular tachycardia] Onset: 8 09-24-2018 Chronic Cardiac dysrhythmias (1 source) Palpitations; Translations: [Palpitations] Onset: 3 Episodic Diabetes mellitus without complication (6 sources) Prediabetes; Translations: [Prediabetes] Onset: 5 Episodic Diseases of mouth; excluding dental (3 sources) Xerostomia; Translations: [Dry mouth, unspecified] Onset: 5 06-13-2025 Episodic Disorders of lipid metabolism (20 sources) Hyperlipidemia; Translations: [Hyperlipidemia, unspecified] Onset: 5 11-08-2021 Chronic Diverticulosis and diverticulitis (20 sources) Diverticulosis of colon; Translations: [Diverticulosis of large intestine without perforation or abscess without bleeding] Onset: 2 03-01-2012 Chronic Esophageal disorders (20 sources) Gastroesophageal reflux disease; Translations: [Gastro-esophageal reflux disease without esophagitis] Onset: 5 12-15-2008 Chronic Essential hypertension (20 sources) Essential hypertension; Translations: [Essential (primary) hypertension] Onset: 5 10-01-2015 Chronic Genitourinary symptoms and ill-defined conditions (20 sources) Female stress incontinence; Translations: [Stress incontinence (female) (male)] Onset: 8 Resolved: 3 12-05-2014 Chronic Genitourinary symptoms and ill-defined conditions (2 sources) Increased frequency of urination; Translations: [Frequency of micturition] Episodic Hypertension with complications and secondary hypertension (1 source) Secondary hypertension; Translations: [Secondary hypertension, unspecified] 12-09-2024 Chronic Malaise and fatigue (1 source) Fatigue; Translations: [Other fatigue] 08-15-2024 Episodic Neoplasms of unspecified nature or uncertain behavior (1 source) Monoclonal gammopathy of uncertain significance; Translations: [Monoclonal gammopathy] 08-15-2024 Chronic Nutritional deficiencies (1 source) Vitamin D deficiency; Translations: [Vitamin D deficiency, unspecified] 08-15-2024 Chronic Nutritional deficiencies (2 sources) Cobalamin deficiency; Translations: [Deficiency of other specified B group vitamins] 08-15-2024 Episodic Osteoporosis (20 sources) Osteoporosis; Translations: [Age-related osteoporosis without current pathological fracture] Onset: 5 11-08-2021 Chronic Other circulatory disease (20 sources) Raynaud's disease; Translations: [Raynaud's syndrome without gangrene] Onset: 6 11-24-2015 Chronic Other circulatory disease (1 source) Stricture of artery; 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] Onset: 5 Chronic Other connective tissue disease (1 source) Muscle pain; Translations: [Myalgia, unspecified site] Episodic Other connective tissue disease (1 source) Cramp in lower limb; Translations: [Cramp and spasm] Episodic Other fractures (2 sources) Compression fracture of lumbar spine; Translations: [Wedge compression fracture of first lumbar vertebra, sequela] 10-28-2024 Episodic Other gastrointestinal disorders (20 sources) Irritable bowel syndrome; Translations: [Mixed irritable bowel syndrome] Onset: 6 10-10-2016 Chronic Other hematologic conditions (1 source) Increased globulin; Translations: [Abnormality of globulin] Episodic Other injuries and conditions due to external causes (1 source) Blister; Translations: [Other injury of unspecified body region, initial encounter] Episodic Other lower respiratory disease (2 sources) Cough; Translations: [Cough, unspecified type] 06-13-2025 Episodic Other nervous system disorders (1 source) Other chronic pain; Translations: [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] Onset: 5 Chronic Other non-traumatic joint disorders (3 sources) Hip pain; Translations: [Pain in unspecified hip] 01-24-2022 Episodic Other non-traumatic joint disorders (1 source) Pain in right knee; Translations: [Pain in joint, lower leg] 12-01-2021 Episodic Other nutritional; endocrine; and metabolic disorders (1 source) Weight loss; Translations: [Abnormal weight loss] Episodic Other nutritional; endocrine; and metabolic disorders (1 source) Weight increased; Translations: [Abnormal weight gain] 08-15-2024 Episodic Other screening for suspected conditions (not mental disorders or infectious disease) (1 source) Abnormal findings on diagnostic imaging of other specified body structures; Translations: [Abnormal chest x-ray] Onset: 5 Chronic Other screening for suspected conditions (not mental disorders or infectious disease) (20 sources) Mammography abnormal; Translations: [Other abnormal and inconclusive findings on diagnostic imaging of breast] Onset: 9 Resolved: 6 Episodic Other upper respiratory disease (1 source) Congestion of nasal sinus; Translations: [Nasal congestion] 08-04-2023 Episodic Rehabilitation care; fitting of prostheses; and adjustment of devices (20 sources) Patient encounter status; Translations: [Other physical therapy] Onset: 0 Resolved: 5 10-27-2010 Episodic Residual codes; unclassified (3 sources) Pain; Translations: [Pain, unspecified] Episodic Residual codes; unclassified (1 source) Personal history of other specified conditions; Translations: [H/O syncope] Onset: 5 Episodic Retinal detachments; defects; vascular occlusion; and retinopathy (20 sources) Nonexudative age-related macular degeneration; Translations: [Nonexudative age-related macular degeneration, unspecified eye, early dry stage] Onset: 1 07-26-2021 Chronic Thyroid disorders (20 sources) Hypothyroidism; Translations: [Hypothyroidism, unspecified] Onset: 4 Chronic Unclassified (1 source) Unknown / UNK(Unknown) Onset: 8 Unclassified (1 source) Cough, unspecified type; Translations: [Cough, unspecified type] Onset: 5 Unclassified (1 source) 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; Translations: [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] Onset: 5 Urinary tract infections (1 source) Cystitis; Translations: [Cystitis, unspecified without hematuria] 07-21-2020 Episodic Past or Other Problems Problem Classification Problem Date Documented Date Episodic/Chronic Allergic reactions (20 sources) Radiation-induced dermatosis; Translations: [Other skin changes due to chronic exposure to nonionizing radiation] Onset: 7 Resolved: 5 12-06-2013 Episodic Disorders of teeth and jaw (20 sources) Temporomandibular [id number] syndrome; Translations: [Arthralgia of temporomandibular joint, unspecified side] Onset: 9 01-07-2010 Episodic Immunizations and screening for infectious disease (1 source) Encounter for immunization; Translations: [Encounter for immunization] Onset: 5 Episodic Neoplasms of unspecified nature or uncertain behavior (20 sources) Neoplasm of uncertain behavior of skin; Translations: [Neoplasm of uncertain behavior of skin] Onset: 7 Resolved: 3 12-24-2012 Episodic Nonspecific chest pain (20 sources) Chest pain, unspecified; Translations: [Chest pain] Onset: 0 Resolved: 0 08-23-2010 Episodic Open wounds of head; neck; and trunk (20 sources) Open wound of nose; Translations: [Unspecified open wound of nose, initial encounter] Onset: 9 Resolved: 3 12-24-2012 Episodic Other and unspecified benign neoplasm (20 sources) History of polyp of colon; Translations: [Personal history of colonic polyps] Onset: 2 03-01-2012 Episodic Other and unspecified benign neoplasm (20 sources) Melanocytic nevus of lower limb; Translations: [Melanocytic nevi of unspecified lower limb, including hip] Onset: 2 05-29-2012 Episodic Other and unspecified benign neoplasm (20 sources) Melanocytic nevus of trunk; Translations: [Melanocytic nevi of trunk] Onset: 4 12-06-2013 Episodic Other and unspecified benign neoplasm (20 sources) Benign neoplasm of skin of face; Translations: [Other benign neoplasm of skin of unspecified part of face] Onset: 7 Resolved: 4 12-06-2013 Episodic Other and unspecified benign neoplasm (20 sources) Hemangioma; Translations: [Hemangioma unspecified site] Onset: 2 Resolved: 5 10-01-2015 Episodic Other and unspecified benign neoplasm (20 sources) Senile angioma; Translations: [Hemangioma of skin and subcutaneous tissue] Onset: 2 Resolved: 5 10-01-2015 Episodic Other bone disease and musculoskeletal deformities (20 sources) Osteopenia; Translations: [Other specified disorders of bone density and structure, unspecified site] Onset: 9 Resolved: 1 01-14-2021 Episodic Other circulatory disease (20 sources) Non-neoplastic nevus; Translations: [Nevus, non-neoplastic] Onset: 7 Resolved: 4 12-06-2013 Episodic Other fractures (20 sources) Fracture of seventh thoracic vertebra; Translations: [Wedge compression fracture of T7-T8 vertebra, initial encounter for closed fracture] Onset: 3 Episodic Other fractures (1 source) Wedge compression fracture of T7-T8 vertebra, initial encounter for closed fracture; Translations: [Compression fracture of T7 vertebra, initial encounter ([facility])] Onset: 3 Episodic Other inflammatory condition of skin (20 sources) Lichen planus; Translations: [Lichen planus, unspecified] Onset: 6 11-09-2021 Episodic Other injuries and conditions due to external causes (20 sources) Open wound; Translations: [Other injury of unspecified body region, initial encounter] Onset: 7 Resolved: 0 08-23-2010 Episodic Other non-epithelial cancer of skin (20 sources) Malignant neoplasm of skin of face; Translations: [Other and unspecified malignant neoplasm of skin of other and unspecified parts of face] Onset: 7 Resolved: 5 12-24-2012 Episodic Other non-traumatic joint disorders (1 source) Pain in left hip; Translations: [Pain in left hip] Onset: 4 Episodic Other skin disorders (20 sources) Seborrheic keratosis; Translations: [Other seborrheic keratosis] Onset: 7 Resolved: 5 12-06-2013 Episodic Other skin disorders (20 sources) Disorder of sebaceous gland; Translations: [Follicular disorder, unspecified] Onset: 7 Resolved: 3 12-24-2012 Episodic Other skin disorders (20 sources) Inflamed seborrheic keratosis; Translations: [Inflamed seborrheic keratosis] Onset: 7 Resolved: 4 12-06-2013 Episodic Other skin disorders (20 sources) Scar conditions and fibrosis of skin; Translations: [Scar conditions and fibrosis of skin] Onset: 7 Resolved: 4 12-06-2013 Episodic Other skin disorders (20 sources) Disorder of skin pigmentation; Translations: [Disorder of pigmentation, unspecified] Onset: 7 Resolved: 3 12-24-2012 Episodic Other skin disorders (20 sources) Keloid scar; Translations: [Hypertrophic scar] Onset: 7 Resolved: 4 12-06-2013 Episodic Other skin disorders (20 sources) Solar lentigo; Translations: [Other melanin hyperpigmentation] Onset: 2 Resolved: 5 10-01-2015 Episodic Other skin disorders (20 sources) Scar; Translations: [Scar conditions and fibrosis of skin] Onset: 4 Resolved: 5 10-01-2015 Episodic Other skin disorders (20 sources) Actinic keratosis; Translations: [Actinic keratosis] Onset: 4 Resolved: 5 10-01-2015 Episodic Pathological fracture (6 sources) Pathological fracture; Translations: [Pathological fracture, other site, initial encounter for fracture] Onset: 1 Episodic Screening and history of mental health and substance abuse codes (2 sources) Encounter for screening for depression; Translations: [Encounter for screening examination for other mental health and behavioral disorders] Onset: 5 Episodic Spondylosis; intervertebral disc disorders; other back problems (20 sources) Backache; Translations: [Dorsalgia, unspecified] Onset: 0 Resolved: 6 Episodic Sprains and strains (20 sources) Low back strain; Translations: [Strain of muscle, fascia and tendon of lower back, subsequent encounter] Onset: 9 06-24-2019 Episodic Unclassified (1 source) Patient encounter status 07-07-2025 Viral infection (20 sources) Viral disease; Translations: [Viral infection, unspecified] Onset: 2 Resolved: 5 Episodic Results Test Name Value Interpretation Reference Range Facility [facility] 08-18-2025 CNOV Office Visit (INTMWS ) TAWANA FARRAR ([id number]) 1935 F Date Time Provider Department 08/18/25 3:40 PM JESUS MG During your visit today, we recorded the following information about you: Pulse Respiration Blood pressure Weight 54/minute 16/minute 206/100 49.7 kg Jesus Mg MD 09/03/2025 6:22 PM Signed Reason for Visit Follow up HPI The Tawana is a 89-year-old female, with a history of HTN, presenting for evaluation of a recent episode of lightheadedness and diaphoresis. The Tawana reports an episode of lightheadedness and diaphoresis that occurred one week ago on Monday morning. She woke up feeling fine, but upon going to the restroom, she felt lightheaded and as if she would faint if she did not sit down. Her checked her blood pressure at that time, which was 120/70-80 mmHg. She lay down and felt better after an hour. She denies any changes to her antihypertensive medication and cannot recall any specific triggers for the episode. She does note having a glass of wine the evening before, which is a usual occurrence once a week. She denies any significant changes in her diet or activity level that day. The Tawana reports drinking approximately 5.5-6.5 cups of fluid daily, including 3-4 cups of water, 1.5 cups of coffee, 1 cup of milk, and occasionally some orange juice. She lives in independent living at [place] with her and has been there for 2.5 years. Today, she reports a mild headache that started just now, described as a "strange" feeling rather than a typical headache. She notes that her blood pressure was over 200 mmHg, which is higher than usual for her. She has been waiting for about an hour and needs to pickle processor her from physical therapy, which she thinks might be contributing to her elevated blood pressure. She reports that her blood pressure is usually in the 130s-140s mmHg. SOCIAL HISTORY[1] Past medical history, appointments, medications, allergies reviewed. Pertinent Lab/Diagnostic Studies are reviewed and discussed today Current Outpatient Medications: lisinopril (ZESTRIL) 40 mg tablet atenolol (TENORMIN) 25 mg tablet atorvastatin (LIPITOR) 10 mg tablet ELIQUIS 2.5 mg tab(s) amLODIPine (NORVASC) 5 mg tablet levothyroxine (LEVOXYL) 25 mcg tablet acyclovir (ZOVIRAX) 800 mg tablet Calcium Citrate-Vitamin D3 630-400 mg-unit ORAL MULTIVITAMIN TAB gabapentin (NEURONTIN) 100 mg capsule fluticasone (FLONASE) 50 mcg/actuation nasal spray guaiFENesin (MUCINEX) 600 mg 12 hr tablet Health Maintenance DTaP,Tdap,Td Vaccine(1 - Tdap) Medicare Annual Wellness Visit Bone Density Screening@ Review Of Systems Head: (+) headache Psychiatric: (+) anxiety Physical Exam BP (!) 206/100 Pulse (!) 54 Resp 16 Wt 49.7 kg (109 lb 9.6 oz) BMI 19.41 kg/m? GENERAL: NAD, alert and oriented SKIN: unremarkable, no rash or skin lesions. HEAD: normocephalic EYES: PERRLA, EOMI, conjunctiva clear EARS: external ears normal, canals clear, TM's normal. LUNGS: Clear to auscultation bilaterally, no wheezes/rhonchi/rales . HEART: Regular rate and rhythm, no murmurs. No ectopy. EXTREMITIES: Normal, No deformities, No skin discoloration, No edema. NEURO: Awake, alert and oriented x3, cranial nerves II-XII grossly intact, normal gait, no involuntary motions Assessment and Plan 1. Uncontrolled hypertension (I10) Systolic BP measured over 200 in clinic today, likely exacerbated by acute situational anxiety; home BP readings over the past week have generally been in the 130s-140s. - Advised patient to increase daily fluid intake to at least 8 cups per day. - Will call patient at 5:00 PM to confirm safe arrival with her . 2. H/O syncope (Z87.898) Single episode of lightheadedness and near-syncope one week ago, resolved with rest and hydration; no recent changes in medication or routine identified. - Orthostatic vital signs to be obtained by nursing staff. Voice recognition software was used to compose this office note. Please excuse any unintended typographical errors. Recording using ambient Within3 software for draft documentation of the visit was discussed with the patient/authorized school admissions representative; all questions welcomed and answered. Patient/authorized school admissions representative agreed to proceed Jesus Mg MD [1] Social History Tobacco Use Smoking status: Never Smokeless tobacco: Never Vaping Use Vaping status: Never Used Substance Use Topics Alcohol use: Yes Comment: Occasionally Drug use: No Allergies As of Date: 08/18/2025 Noted Allergy Reaction ASA (SALICYLATES) 10/05/2005 Comments: THROMBOCYTOPENIA ASPIRIN 07/20/2020 2 - Rash RISEDRONATE 04/11/2017 14 - Other: See Comments Comments: Jaw issues Date Reviewed: 08/18/2025 Reviewed by: Theresa Henriquez MA - Fully Assessed Reason for Visit: (more content not included)... Normal [facility] CNOVon 07-07-2025 CNOV Office Visit (OBGYWM ) TAWANA FARRAR ([id number]) 1935 F Date Time Provider Department 07/07/25 2:00 PM ANTOINETTE MALIK OBGYWM During your visit today, we recorded the following information about you: Blood pressure Weight Height 126/72 49.9 kg 1.6 m Antoinette Malik MD 07/07/2025 2:50 PM Signed Morale Officer offered: Patient declines. Gilliam is a 89 year old who presents for an annual gynecologic exam with complaints of urinary leaking at night intermittently and occasional incontinence with urgency. Pt reports is drinking fluids until around 10pm, drinks about 1.5 cups of caffeine per day. Pt reports no dysuria. Postmenopausal: yes HRT use: No. History of abnormal pap: No Bothersome pelvic pain: No Last mammogram: 2024 pending today History of abnormal mammogram: No OB History Gravida3 Para3 Term3 Preterm0 AB0 Living3 SAB0 IAB0 Ectopic0 Multiple0 Live Births0 Medical Insurance Collector History LMP: Postmenopausal Age at Menarche: Age at First : Age at Menopause: Medical Insurance Collector History Comments: Sexual Activity: Not Currently; Male Contraception: Tubal Ligation PAST MEDICAL HISTORY Diagnosis Date Arrhythmia Benign neoplasm of colon Compression fracture of cervical spine (HCC) 2022 Esophageal reflux 10/05/2005 HYPERLIPIDEMIA NEC/NOS 10/05/2005 HYPERTENSION NOS 10/05/2005 Macular degeneration of both eyes 2020 MGUS (monoclonal gammopathy of unknown significance) OSTEOPOROSIS NOS 10/05/2005 PAST SURGICAL HISTORY Procedure Laterality Date COAPTITE INJECTION 1ML 12/05/[address] Luo COLONOSCOPY FLX DX W/COLLJ SPEC WHEN PFRMD Colonoscopy COLONOSCOPY FLX DX W/COLLJ SPEC WHEN PFRMD 03/05/15 Colonoscopy Repeat 02/2020 COLONOSCOPY FLX DX W/COLLJ SPEC WHEN PFRMD 01/29/2018 Colonoscopy COLONOSCOPY W/BIOPSY SINGLE/MULTIPLE 01/24/11 repeat in COLONOSCOPY W/BIOPSY SINGLE/MULTIPLE 03/01/2012 HYSTEROSCOPY BX W/WO DANDC 01/14/14 Hysteroscopy DANDC LIG/TRNSXJ FLP TUBE ABDL/VAG APPR UNI/BI 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 2017 spot taken off of back PAST SURGICAL HISTORY OF cataract SIMP REPAIR FACE,EAR,EYE <2.5CM 02/04/09 Simple repair nasal bridge laceration SLING OPER STRES INCONTINENCE 01/15/08 Midurethral sling, transobturator approach FAMILY HISTORY Problem Relation Age of Onset Osteoporosis Mother Heart Father - [place] Prostate Cancer Son Heart Brother Breast Cancer Maternal Aunt SOCIAL HISTORY Social History Tobacco Use Smoking status: Never Smokeless tobacco: Never Vaping Use Vaping status: Never Used Substance Use Topics Alcohol use: Yes Comment: Occasionally Drug use: No REVIEW OF SYSTEMS Abdomen: No abdominal pain, nausea, vomiting, diarrhea, or constipation. No bloating, early satiety, indigestion, or increased flatulence. Bladder: see hpi Breast: No breast lumps, nipple d/c, overlying skin changes, redness or skin retraction Allergies and current medication updated:Yes SENSITIVE EXAM: The sensitive examination was discussed with the Patient or Patient's Authorized House Wirer. As applicable, any other physician, advance practice provider, medical student, or other health professional student that will be observing or involved in the sensitive examination for educational or training purposes was discussed with the Patient or Authorized House Wirer. The Patient or Authorized House Wirer has agreed to proceed with the sensitive examination. (Sensitive examination includes inspection and/or palpation of the breasts, pelvis, prostate and anorectal regions). EXAM: BP 126/72 Ht 5' 3" (1.60m) Wt 110 lb (49.9kg) BMI 19.49 kg/(m2). GENERAL: pleasant, female in no apparent distress HEENT: Normocephalic, atraumatic, mucus membranes moist, and no lesions NECK: Supple, full range of motion, no adenopathy, and thyroid normal DERMATOLOGY: Normal, without lesions, non-icteric, and non-hirsute BREAST: soft, non-tender, symmetric, no dominant mass, normal nipple-areolar complex, no lymphadenopathy, and no nipple discharge CHEST: Normal inspiratory effort ABDOMEN: soft, non-tender, and no masses PELVIC: external genitalia normal, normal Bartholin's glands, urethra, [place]'s glands, no vulvar lesions, no cervical lesions, good vaginal support, physiologic discharge present, normal appearing perineal body and perianal region BIMANUAL: uterus normal size, shape and consistency, no adnexal masses, and non-tender RECTOVAGINAL: deferred. NEURO: alert and oriented x3,exam grossly non-focal EXTREMITIES: normal ASSESSMENT/PLAN: 1) Health maintenance: Pap/HPV screening no longer needed Mammogram ordered Mammogram up to date Nutrition, exercise and routine health maintenance exams reviewed. Colon cancer screening: up to date with screening BMD (more content not included)... Normal [facility] SCREENING W TOMOon 07-07 ARASH SCREENING W TRISTIN * * *Final Report* * * DATE OF EXAM: Jul 07 2025 1:42PM [facility] [id number] - RAASH SCREENING W TRISTIN / PROCEDURE REASON: Encounter for screening mammogram for breast cancer * * * * Physician Interpretation * * * * RESULT: [facility] [address] [id number] #[id number] - ARASH SCREENING W TRISTIN HISTORY: 89 year-old patient presents for screening. Patient is asymptomatic in both breasts. Patient states no personal history of breast cancer. The patient has a family history of breast cancer. COMPARISON STUDIES: The present examination has been compared to prior imaging studies dated 06/23/2021 (mammogram), 06/28/2022 (mammogram), 06/29/2023 (mammogram) and 07/02/2024 (mammogram). MAMMOGRAM TECHNIQUE: The study was acquired using full field digital technology and interpreted from soft copy. Digital Breast Tomosynthesis (DBT) images were obtained and used to assist in the interpretation of this examination. MAMMOGRAM FINDINGS: There are scattered areas of fibroglandular density. No suspicious masses, calcifications or other abnormalities are seen in either breast. The study is limited in positioning due to the patient's limited mobility. IMPRESSION: There is no mammographic evidence of malignancy in either breast. Routine screening mammogram is recommended. Annual mammogram will be due in 1 year. BI-RADS Category 1: Negative Interpreting Radiologist: Sudha Alfred M.D. Electronically signed on: 07/08/2025 Cell Operation Supervisor: MEGHAN Transcribe Date/Time: Jul 07 2025 1:27P Dictated by: SUDHA ALFERD MD This examination was interpreted and the report reviewed and electronically signed by: SUDHA ALFRED MD on Jul 08 2025 1:56PM EST [id number] Normal [facility] CNOVon 07-04-2025 CNOV Office Visit (INTMWS ) TAWANA FARRAR ([id number]) 1935 F Date Time Provider Department 07/04/25 9:40 AM RASHMI HENDRIX INTMTRINITY During your visit today, we recorded the following information about you: Pulse Respiration Blood pressure Weight 60/minute 16/minute 132/80 49.4 kg Rashmi Hendrix APRN.CNP 07/04/2025 11:19 AM Signed CC: Patient presents with: Recheck: BP follow up, review results HPI Tawana Olena Charan is a 89 year old female who presents today for BP follow up. Recording using Penxy software for draft documentation of the visit was discussed with the patient/authorized school admissions representative; all questions welcomed and answered. Patient/authorized school admissions representative agreed to proceed Hypertension: - Home BP readings since April: majority in 120s/70s mmHg,. - Three readings <110 mmHg; several readings >140 mmHg. - Noted improvement in BP readings after sitting for 10-15 minutes. - Denies chest pain edema, palpitations, or dyspnea. Chronic Cough: - Persistent cough x6 months, initiated in winter and occurs in AM. - Described as a "heavy cough" that almost induces gagging. - Often followed by sneezing and rhinorrhea or epiphora. - Cough is intermittent, not occurring every morning. - Last episode occurred this morning. - Tried mucolytic 4 months ago with no significant improvement. - Denies sinus pain, sinus drainage, headaches, or otalgia. - Suspects sleeping with mouth open; experiences xerostomia at night. - Recent CXR showed potential aortic abnormality; echocardiogram revealed normal aorta, normal LV and RV size, normal EF, and no valvular issues. Gastroesophageal Reflux Disease: - History of GERD; cough potentially related to reflux. - Consumed quiche, corn on the cob, bread, and milk yesterday. - Takes Tums PRN, approximately once every three weeks. - Denies frequent heartburn, abdominal pain, or nausea. REVIEW OF SYSTEMS See HPI PAST MEDICAL HISTORY Diagnosis Date Arrhythmia Benign neoplasm of colon Compression fracture of cervical spine (HCC) 2022 Esophageal reflux 10/05/2005 HYPERLIPIDEMIA NEC/NOS 10/05/2005 HYPERTENSION NOS 10/05/2005 Macular degeneration of both eyes 2020 MGUS (monoclonal gammopathy of unknown significance) OSTEOPOROSIS NOS 10/05/2005 PAST SURGICAL HISTORY Procedure Laterality Date COAPTITE INJECTION 1ML 12/05/[address] Luo COLONOSCOPY FLX DX W/COLLJ SPEC WHEN PFRMD Colonoscopy COLONOSCOPY FLX DX W/COLLJ SPEC WHEN PFRMD 03/05/15 Colonoscopy Repeat 02/2020 COLONOSCOPY FLX DX W/COLLJ SPEC WHEN PFRMD 01/29/2018 Colonoscopy COLONOSCOPY W/BIOPSY SINGLE/MULTIPLE 01/24/11 repeat in -2013 COLONOSCOPY W/BIOPSY SINGLE/MULTIPLE 03/01/2012 HYSTEROSCOPY BX W/WO DANDC 01/14/14 Hysteroscopy DANDC LIG/TRNSXJ FLP TUBE ABDL/VAG APPR UNI/BI 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 2018 spot taken off of back PAST SURGICAL HISTORY OF cataract SIMP REPAIR FACE,EAR,EYE <2.5CM 02/04/09 Simple repair nasal bridge laceration SLING OPER STRES INCONTINENCE 01/15/08 Midurethral sling, transobturator approach ALLERGIES Asa [Salicylates], Aspirin, and Risedronate MEDICATIONS fluticasone (FLONASE) 50 mcg/actuation nasal spray Use 2 sprays in each nostril once daily. Rinse mouth after use. lisinopril (ZESTRIL) 40 mg tablet Take 1 tablet by mouth once daily. atenolol (TENORMIN) 25 mg tablet Take 0.5 tablets by mouth every 12 hours. atorvastatin (LIPITOR) 10 mg tablet Take 0.5 tablets by mouth daily at bedtime. guaiFENesin (MUCINEX) 600 mg 12 hr tablet Take 1 tablet by mouth two times a day. gabapentin (NEURONTIN) 100 mg capsule Take 1 capsule by mouth daily at bedtime for 90 days. ELIQUIS 2.5 mg tab(s) Take 1 tablet by mouth two times a day. amLODIPine (NORVASC) 5 mg tablet TAKE 1 TABLET BY MOUTH EVERY DAY levothyroxine (LEVOXYL) 25 mcg tablet Take 1 tablet by mouth once daily. Except take 1.5 tablets on Monday and Monday . Take on empty stomach. For Thyroid acyclovir (ZOVIRAX) 800 mg tablet Take 1 tablet by mouth three times a day as needed (cold sores). Calcium Citrate-Vitamin D3 630-400 mg-unit ORAL Take 1 tablet by mouth every other day. Takes daily MULTIVITAMIN TAB Take 1 tablet by mouth. Every other day FAMILY HISTORY Problem Relation Age of Onset Osteoporosis Mother Heart Father - [place] Prostate Cancer Son Heart Brother Breast Cancer Maternal Aunt SOCIAL HISTORY[1] PHYSICAL EXAM BP 142/84 Pulse 60 Resp 16 Wt 49.4 kg (109 lb) SpO2 97% BMI 18.38 kg/m? General Appearance: well appearing, in no acute distress, alert Eyes: conjunctiva pink and moist, no icterus, sclera white, non-injected Nose/sinus: No sinus tenderness Neck: Thyroid normal size and symmetric without palpable nodules, Neck supple, No adenopathy Oropharynx: normal Lymph nodes: No cervical lymphaden (more content not included)... Normal [facility] ECHOon 06-27-2025 Echocardiography Echocardiography Report: Transthoracic Echo [facility] Date of service: 06/27/2025 10:27:50 AM APPRENTICE WOOD Ordering physician: RASHMI HENDRIX Exam indication: Atrial fibrillation Technologist: Elly Jeffrey [facility] Interpreting physician: Alessandra Dunlap MD PATIENT: Name: MRS. TAWANA FARRAR : 1935 Age: 89 years Gender: F History of hypertension and dyslipidemia. Primary rhythm: sinus. Height: 164.00 cm BSA: 1.49 m Weight: 48.99 kg BMI: 18.2 kg/m Heart rate 54 bpm Technically difficult exam due to body habitus. Color Doppler was utilized to interrogate the cardiac valves assessed and spectral Doppler was utilized to determine the flow velocities and pressure gradients reported in this exam. MEASUREMENTS: Value Indexed Normal Max aortic dimension 3.0 cm Ao < 3.8 Left atrial volume 41 ml (biplane A-L) 28 ml/m Anibal <= 34 LV ID (diastole) 3.5 cm (2D) 2.33 cm/m LV ID (systole) 1.9 cm (2D) 1.30 cm/m IVS, leaflet tips 1.1 cm (2D) Posterior wall thickness 0.9 cm (2D) Left ventricular mass 107 g (2D) 72 g/m LV stroke volume 34 ml (2D biplane) LV end diastolic volume 56 ml (2D biplane) 37.2 ml/m 29<=EDVi<62 LV end systolic volume 21 ml (2D biplane) 14.3 ml/m Ejection Fraction 62 % (2D biplane) EF > 54 FINDINGS: LEFT VENTRICLE The left ventricle is normal in size. Left ventricular systolic function is normal. Indeterminate left ventricular diastolic function. Mitral annular lateral E/e': 11.1. Mitral annular septal E/e': 17.7. Wall Motion: All scored segments are normal. RIGHT VENTRICLE The right ventricle is normal in size. Right ventricular systolic function is normal. RV systolic tissue Doppler velocity is 12.0 cm/s. Tricuspid annular displacement is 1.7 cm. Estimated right ventricular systolic pressure is 34 mmHg consistent with normal pulmonary artery pressures. Estimated right atrial pressure is 3 mmHg (although IVC not seen). LEFT ATRIUM The left atrial cavity is normal in size. RIGHT ATRIUM The right atrial cavity is normal in size. Inferior Vena Cava: The inferior vena cava appears normal measuring 1.8 cm. MITRAL VALVE The mitral valve leaflets are structurally normal. There is trace (trace - 1+) mitral valve regurgitation. The pressure half time is 46 msec. The peak mitral E/A ratio is 1.55. The average mitral E/e' ratio is 14.4. The mitral flow deceleration time is 157 msec. TRICUSPID VALVE The tricuspid valve leaflets are structurally normal. There is mild (1+) tricuspid valve regurgitation. AORTIC VALVE The aortic valve cusps are structurally normal. There is trace (trace - 1+) aortic valve regurgitation. Tricuspid aortic valve. The peak gradient is 5 mmHg (peak velocity = 106.5 cm/s). PULMONIC VALVE The pulmonic valve cusps are structurally normal. There is no pulmonic valve regurgitation. AORTA The visualized aorta is normal in size. Measurements - Mid ascending aorta 3.0 cm. INTERATRIAL SEPTUM There is no evidence of intracardiac shunting as detected by Doppler. PERICARDIUM There is no pericardial effusion. There is an epicardial fat pad. CONCLUSIONS: - Technically difficult exam due to body habitus. - Exam indication: Atrial fibrillation - The left ventricle is normal in size. Left ventricular systolic function is normal. EF = 62 5% (2D biplane) Indeterminate left ventricular diastolic function. - The right ventricle is normal in size. Right ventricular systolic function is normal. - There are no significant valvular abnormalities. - Exam was compared with the prior echocardiographic exam performed on 05/23/2023, no significant change. * * * Final * * * [facility] Medical Image : [id number] amicsSISUID Normal [facility] XR CHEST 2V FRONTAL/LATon XR CHEST 2V FRONTAL/LAT * * *Final Repor t* * * DATE OF EXAM: Jun 19 2025 2:09PM WOX [id number] - XR CHEST 2V FRONTAL/LAT / PROCEDURE REASON: Cough, unspecified type * * * * Physician Interpretation * * * * EXAMINATION: CHEST RADIOGRAPH (2 VIEW FRONTAL and LATERAL) CLINICAL HISTORY: Cough, unspecified type MQ: XC2_6 EXAM DATE/TIME: 06/19/2025 2:09 PM COMPARISON: 04/02/2015 RESULT: Lines, tubes, and devices: None. Lungs and pleura: Mild inflation. No atelectasis, consolidation, or pleural effusions, and no evidence of pneumothorax. Cardiomediastinal silhouette: Stable cardiac size. Tortuous aorta. Bones and soft tissues: Unremarkable. IMPRESSION: No acute radiographic abnormality. Cell Operation Supervisor: PSCB Transcribe Date/Time: Jun 20 2025 10:34A Dictated by : KARLEE HU MD This examination was interpreted and the report reviewed and electronically signed by: KARLEE HU MD on Jun 20 2025 10:35AM EST [id number] N Normal [facility] CNOVon 06-13-2025 CNOV Office Visit (INTMWS ) [place] Olena ([id number]) 1935 F Date Time Provider Department 06/13/25 9:40 AM RASHMI HENDRIX During your visit today, we recorded the following information about you: Pulse Respiration Blood pressure Weight 60/minute 16/minute 140/82 49 kg Rashmi Hendrix APRN.CNP 06/13/2025 4:25 PM Signed CC: Patient presents with: Recheck: 3 month follow up HPI Tawanadarryn Farrar is a 89 year old female who presents today for follow up but with multiple concerns. Recording using Penxy software for draft documentation of the visit was discussed with the patient/authorized school admissions representative; all questions welcomed and answered. Patient/authorized school admissions representative agreed to proceed Chronic Cough: - Persistent cough, primarily in the mornings, with occasional clear sputum production. - No associated wheezing, dyspnea, fever, chills, chest pressure, palpitations, orthopnea, heartburn, or upper abdominal pain. - No history of acid reflux. - No changes in sleeping environment or presence of animals in the bedroom. - No known snoring or mouth breathing during sleep. - Mucinex has been ineffective. Xerostomia: - Onset 3-4 months ago, primarily at night. - No associated increased thirst, hunger, or urination. - No new medications or supplements. - No recent dental issues or cavities. - Denies daytime xerostomia. - does take gabapentin sometimes at bedtime for back pain but the dry mouth occurs even without usage of this Prediabetes: - A1c I office today 6.0. - Diet includes carbohydrates such as bread and sandwiches. With carbs typically at dinner as well. Denies any increase hunger or urination. No symptoms of hypoglycemia dizziness or syncope. HTN: Ms. Farrar denies headache, chest pain, palpitations, dyspnea, and peripheral edema. Patient denies any side effects of her medication(s) and is compliant with their regimen. She does check BP's away from this office with average BP's varying but 120-130s/80s after resting. . Last 3 Encounter BP Readings: Date: BP: 06/13/2025 140/82 03/10/2025 126/80 12/09/2024 126/82 Sacroiliac Pain: - has this chronically as it comes and goes and she treats with gabapentin when this flares up. - Onset last Monday; no known trauma or new activities. - Pain localized to the left side, no radiation to legs. - No loss of bowel or bladder control, weakness, numbness, or falls. - Aggravated by lifting heavy objects and excessive activity. - Alleviated by gabapentin and rest. - Tawana denies use of tramadol, physical therapy, or pain management. - [facility] Osteoporosis: - History of compression fractures at L1, L2, and T7. - Tawana declined Prolia injections due to concerns about side effects. REVIEW OF SYSTEMS See HPI PAST MEDICAL HISTORY Diagnosis Date Arrhythmia Benign neoplasm of colon Compression fracture of cervical spine (HCC) 2022 Esophageal reflux 10/05/2005 HYPERLIPIDEMIA NEC/NOS 10/05/2005 HYPERTENSION NOS 10/05/2005 Macular degeneration of both eyes 2020 MGUS (monoclonal gammopathy of unknown significance) OSTEOPOROSIS NOS 10/05/2005 PAST SURGICAL HISTORY Procedure Laterality Date COAPTITE INJECTION 1ML 12/05/[address] Luo COLONOSCOPY FLX DX W/COLLJ SPEC WHEN PFRMD Colonoscopy COLONOSCOPY FLX DX W/COLLJ SPEC WHEN PFRMD 03/05/15 Colonoscopy Repeat 02/2020 COLONOSCOPY FLX DX W/COLLJ SPEC WHEN PFRMD 01/29/2018 Colonoscopy COLONOSCOPY W/BIOPSY SINGLE/MULTIPLE 01/24/11 repeat in COLONOSCOPY W/BIOPSY SINGLE/MULTIPLE 03/01/2012 HYSTEROSCOPY BX W/WO DANDC 01/14/14 Hysteroscopy DANDC LIG/TRNSXJ FLP TUBE ABDL/VAG APPR UNI/BI 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 atenolol (TENORMIN) 25 mg tablet Take 0.5 tablets by mouth every 12 hours. atorvastatin (LIPITOR) 10 mg tablet Take 0.5 tablets by mouth daily at bedtime. guaiFENesin (MUCINEX) 600 mg 12 hr tablet Take 1 tablet by mouth two times a day. gabapentin (NEURONTIN) 100 mg capsule Take 1 capsule by mouth daily at bedtime for 90 days. ELIQUIS 2.5 mg tab(s) Take 1 tablet by mouth two times a day. amLODIPine (NORVASC) 5 mg tablet TAKE 1 TABLET BY MOUTH EVERY DAY levothyroxine (LEVOXYL) 25 mcg tablet Take 1 tablet by mouth once daily. Except take 1.5 tablets on Monday and Monday . Take on empty stomach. For Thyroid acyclovir (ZOVIRAX) 800 mg tablet Take 1 tablet by mouth three times a day as needed (cold sore (more content not included)... Normal [facility] HEMOGLOBIN A1C (POC)on 06-13 HbA1c (Bld) [Mass fraction] 6 % Abnormal 4.3 - 5.6 % [facility] Comment on above: Location: [place], [address] [place] [address] Rd, [place], [address] Point of care (POC) Hemoglobin A1c (HGBA1C) testing is intended to assess glucose control and provide a management tool for patients known to have diabetes and their healthcare providers. Target HGBA1C levels may depend on specific clinical circumstances. POC HGBA1C is not intended for use as a diagnostic or screening test; laboratory-based testing should be used for diagnostic purposes. The following information is supplemental and may not be applicable to specific diabetes management situations: The POC device call center operations manager provides a normal range of 4.2% to 6.5% for the HGBA1C POC test. However, the [place] Diabetes Association guidelines indicate that patients with HGBA1C in the range of 5.7% to 6.4% are at increased risk for development of diabetes and that intervention by lifestyle modification may be beneficial. A HGBA1C level greater than or equal to 6.5% is considered diagnostic of diabetes, pending confirmatory testing. Use of HGBA1C testing to evaluate glucose control may not be appropriate for patients with hemoglobin variants or other conditions (e.g. anemia) that alter red blood cell lifespan. Interpretation and review of laboratory results Abnormal [facility] CBC panel Auto (Bld)on 06-09 Erythrocyte distribution width (RBC) [Ratio] 17.6 % High 11.5-15.0 [facility] Comment on above: Order Comment: Alma chairez Type: BLOOD SPECIMENOrdering Facility: [facility] Address: [address] [place] [address] Performed By: #### 5 8410-2 ####[facility] LABIA [id number] [place] [address] [place] Hematocrit (Bld) [Volume fraction] 49.2 % High 36.0-46.0 [facility] Comment on above: Order Comment: Alma chairez Type: BLOOD SPECIMENOrdering Facility: [facility] Address: [address] [place] [address] Performed By: #### 5 8410-2 ####[facility] LABIA [id number] [place] [address] [place] Hemoglobin (Bld) [Mass/Vol] 15.7 g/dL High 11.5-15.5 [facility] Comment on above: Order Comment: Speci men Type: BLOOD SPECIMENOrdering Facility: [facility] Address: [address] [place] [address] Performed By: #### 5 8410-2 ####[facility] LABIA [id number] [place] [address] [place] MCH (RBC) [Entitic mass] 25.0 pg Low 26.0-34.0 [facility] Comment on above: Order Comment: Speci men Type: BLOOD SPECIMENOrdering Facility: [facility] Address: [address] [place] [address] Performed By: #### 5 8410-2 ####[facility] LABIA [id number] [place] [address] [place] MCHC (RBC) [Mass/Vol] 31.9 g/dL Normal 30.5-36.0 [facility] Comment on above: Order Comment: Speci men Type: BLOOD SPECIMENOrdering Facility: [facility] Address: [address] [place] [address] Performed By: #### 5 8410-2 ####[facility] [id number] [place] [address] [place] MCV (RBC) [Entitic vol] 78.5 fL Low 80.0-100.0 [facility] Comment on above: Order Comment: Speci men Type: BLOOD SPECIMENOrdering Facility: [facility] Address: [address] [place] [address] Performed By: #### 5 8410-2 ####[facility] LABIA [id number] [place] [address] [place] Nucleated RBC (Bld) [#/Vol] 10*3/uL Normal <0.01 [facility] Comment on above: Order Comment: Speci men Type: BLOOD SPECIMENOrdering Facility: [facility] Address: [address] [place] [address] Performed By: #### 5 8410-2 ####[facility] LABCLIA [id number] [address] [place] [address] [place] Platelet mean volume (Bld) [Entitic vol] 11.1 fL Normal 9.0-12.7 [facility] Comment on above: Order Comment: Speci men Type: BLOOD SPECIMENOrdering Facility: [facility] Address: [address] [place] [address] Performed By: #### 5 8410-2 ####[facility] LABCLIA [id number] [address] [place] [address] [place] Platelets (Bld) [#/Vol] 180 10*3/uL Normal 150-400 [facility] Comment on above: Order Comment: Speci men Type: BLOOD SPECIMENOrdering Facility: [facility] Address: [address] [place] [address] Performed By: #### 5 8410-2 ####[facility] LABIA [id number] [address], [place] [address] [place] RBC (Bld) [#/Vol] 6.27 10*6/uL High 3.90-5.20 [facility] Comment on above: Order Comment: Speci men Type: BLOOD SPECIMENOrdering Facility: [facility] Address: [address] [place] [address] Performed By: #### 5 8410-2 ####[facility] LABIA [id number] [address] [address] [place] WBC (Bld) [#/Vol] 7.81 10*3/uL Normal 3.70-11.00 [facility] Comment on above: Order Comment: Speci men Type: BLOOD SPECIMENOrdering Facility: [facility] Address: [address] [place] [address] Performed By: #### 5 8410-2 ####[facility] LABIA [id number] [address] [address] [place] Comprehensive metabolic 2000 panelon 06-09-2025 Albumin [Mass/Vol] 4.0 g/dL Normal 3.9-4.9 [facility] Comment on above: Order Comment: Speci men Type: BLOOD SPECIMENOrdering Facility: [facility] Address: [address] [place] [address] Performed By: #### 3 016-3, LIPNF, 82332-0 ####[facility] LABCLIA [id number] [place] [address] [place] ALP [Catalytic activity/Vol] 81 U/L Normal 34-123 [facility] Comment on above: Order Comment: Speci men Type: BLOOD SPECIMENOrdering Facility: [facility] Address: [address] [place] [address] Performed By: #### 3 016-3, LIPNF, 58637-1 ####[facility] LABCLIA [id number] [place] [address] [place] ALT [Catalytic activity/Vol] 19 U/L Normal 7-38 [facility] Comment on above: Order Comment: Speci men Type: BLOOD SPECIMENOrdering Facility: [facility] Address: [address] [place] [address] Performed By: #### 3 016-3, LIPNF, 58639-7 ####[facility] LABIA [id number] [place] [id number] [place] Anion gap [Moles/Vol] 11 mmol/L Normal 8-15 [facility] Comment on above: Order Comment: Speci men Type: BLOOD SPECIMENOrdering Facility: [facility] Address: [address] [place] [address] Performed By: #### 3 016-3, LIPNF, 75328-0 ####[facility] LABCLIA [id number] [place] [id number] [place] AST [Catalytic activity/Vol] 21 U/L Normal 13-35 [facility] Comment on above: Order Comment: Speci men Type: BLOOD SPECIMENOrdering Facility: [facility] Address: [address] [place] [address] Performed By: #### 3 016-3, LIPNF, ####[facility] LABCLIA [id number] [place] [id number] [place] Bilirubin [Mass/Vol] 0.6 mg/dL Normal 0.2-1.3 [facility] Comment on above: Order Comment: Speci men Type: BLOOD SPECIMENOrdering Facility: [facility] Address: [address] [place] [address] Performed By: #### 3 016-3, LIPNF, ####[facility] LABCLIA [id number] [place] [address] [place] Calcium [Mass/Vol] 9.2 mg/dL Normal 8.5-10.2 [facility] Comment on above: Order Comment: Speci men Type: BLOOD SPECIMENOrdering Facility: [facility] Address: [address] [place] [address] Performed By: #### 3 016-3, LIPNF, ####[facility] LABCLIA [id number] [place] [address] [place] Chloride [Moles/Vol] 103 mmol/L Normal 98-107 [facility] Comment on above: Order Comment: Speci men Type: BLOOD SPECIMENOrdering Facility: [facility] Address: [address] [place], [place] [address] Performed By: #### 3 016-3, LIPNF, 93236-0 ####[facility] LABCLIA [id number] [place] [address] [place] CO2 [Moles/Vol] 26 mmol/L Normal 22-30 [facility] Comment on above: Order Comment: Speci men Type: BLOOD SPECIMENOrdering Facility: [facility] Address: [address] [place] [address] Performed By: #### 3 016-3, LIPNF, 95120-3 ####[facility] [id number] [place] [address] [place] Creatinine [Mass/Vol] 0.78 mg/dL Normal 0.58-0.96 [facility] Comment on above: Order Comment: Speci men Type: BLOOD SPECIMENOrdering Facility: [facility] Address: [address] [place] [address] Performed By: #### 3 016-3, LIPNF, 79185-7 ####[facility] [id number] [place] [address] [place] eGFRcr SerPlBld CKD-EPI 2020 73 mL/min/1.73m??? Normal >=60 [facility] Comment on above: Order Comment: Speci men Type: BLOOD SPECIMENOrdering Facility: [facility] Address: [address] [place] [address] Result Comment: Chelsie mated Glomerular Filtration Rate (eGFR) is calculated using the 2020 CKD-EPI creatinine equation. This equation utilizes serum creatinine, sex, and age as parameters. The creatinine assay has traceable calibration to isotope dilution-mass spectrometry. Refer to KDIGO guidelines for clinical interpretation. In patients with unstable renal function, e.g. those with acute kidney injury, the eGFR may not accurately reflect actual GFR. Performed By: #### 3 016-3, LIPNF, 62044-4 ####[facility] LABIA [id number] [place] [address] [place] Glucose [Mass/Vol] 118 mg/dL High 74-99 [facility] Comment on above: Order Comment: Speci men Type: BLOOD SPECIMENOrdering Facility: [facility] Address: [address] [place] [address] Result Comment: The [place] Diabetes Association (ADA) provides guidance for cutoff values for fasting glucose and random glucose. The ADA defines fasting as no caloric intake for at least 8 hours. Fasting plasma glucose results between 100 to 125 mg/dL indicate increased risk for diabetes (prediabetes). Fasting plasma glucose results greater than or equal to 126 mg/dL meet the criteria for diagnosis of diabetes. In the absence of unequivocal hyperglycemia, results should be confirmed by repeat testing. In a patient with classic symptoms of hyperglycemia or hyperglycemic crisis, random plasma glucose results greater than or equal to 200 mg/dL meet the criteria for diagnosis of diabetes. Reference: Standards of Medical Care in Diabetes 2016, [place] Diabetes Association. Diabetes Care. 2016.39(Suppl 1). Performed By: #### 3 016-3, LIPNF, ####[facility] LABCLIA [id number] [place] [address] [place] Potassium [Moles/Vol] 4.0 mmol/L Normal 3.7-5.1 [facility] Comment on above: Order Comment: Speci men Type: BLOOD SPECIMENOrdering Facility: [facility] Address: [address] [place] [address] Performed By: #### 3 016-3, LIPNF, 57247-9 ####[facility] LABCLIA [id number] [place] [address] [place] Protein [Mass/Vol] 7.1 g/dL Normal 6.3-8.0 [facility] Comment on above: Order Comment: Speci men Type: BLOOD SPECIMENOrdering Facility: [facility] Address: [address] [place] [address] Performed By: #### 3 016-3, LIPNF, ####[facility] LABCLIA [id number] [place] [id number] [place] Sodium [Moles/Vol] 140 mmol/L Normal 136-144 [facility] Comment on above: Order Comment: Speci men Type: BLOOD SPECIMENOrdering Facility: [facility] Address: [address] [place] [address] Performed By: #### 3 016-3, LIPNF, 34418-1 ####[facility] LABCLIA [id number] [address] [place] [address] [place] Urea nitrogen [Mass/Vol] 12 mg/dL Normal 7-21 [facility] Comment on above: Order Comment: Speci men Type: BLOOD SPECIMENOrdering Facility: [facility] Address: [address] [place] [address] Performed By: #### 3 016-3, LIPNF, 05164-2 ####[facility] LABCLIA [id number] [address] [place] [address] [place] LIPID PANEL, NONFASTINGon Cholesterol [Mass/Vol] 175 mg/dL Normal <200 [facility] Comment on above: Order Comment: Speci men Type: BLOOD SPECIMENOrdering Facility: [facility] Address: [address] [place] [address] Result Comment: <200 mg/dL, Desirable 200-239 mg/dL, Borderline high >239 mg/dL, High Performed By: #### 3 016-3, LIPNF, 76500-0 ####[facility] LABCLIA [id number] [address] [place] [address] [place] HDL CHOLESTEROL, NF 48 mg/dL Normal >39 [facility] Comment on above: Order Comment: Speci men Type: BLOOD SPECIMENOrdering Facility: [facility] Address: [address] [place] [address] Result Comment: 40-5 9 mg/dL, Acceptable >59 mg/dL, High: Negative risk factor for coronary heart disease <40 mg/dL, Low: Positive risk factor for coronary heart disease Performed By: #### 3 016-3, LIPNF, 93999-7 ####[facility] LABCLIA [id number] [address] [place] [address] [place] LDL CHOLESTEROL CALCULATED, NF 107 mg/dL High <100 [facility] Comment on above: Order Comment: Speci men Type: BLOOD SPECIMENOrdering Facility: [facility] Address: [address] [place] [address] Result Comment: <100 mg/dL, Optimal 100-129 mg/dL, Near optimal/above optimal 130-159 mg/dL, Borderline high 160-189 mg/dL, High >189 mg/dL, Very high Secondary prevention optimal LDL Cholesterol levels are recommended to be <70 mg/dL LDL cholesterol is calculated using the Queen-NIH equation. Performed By: #### 3 016-3, LIPCASSY, 73434-1 ####[facility] LABCLIA [id number] [address] [facility] LDL/HDL RATIO, NF 2.23 mg/dL Normal <2.54 [facility] Comment on above: Order Comment: Alma chairez Type: BLOOD SPECIMENOrdering Facility: [facility] Address: [address] [place] [address] Result Comment: Refe rence: 1. National Cholesterol Education Program ATP III Guideline At-A-Glance Quick Desk Reference: National Heart, Lung, and Blood [place]. National Institutes of Health. 2001: NIH Publication No. 01-3305. 2. An International Atherosclerosis Society position paper: global recommendations for the management of dyslipidemia: executive summary, Atherosclerosis. 2014: 232(2):410-413. Performed By: #### 3 016-3, TRIHN, ####[facility] LABCLIA [id number] [address] NON HDL CHOL, NF 127 mg/dL Normal <130 [facility] Comment on above: Order Comment: Alma chairez Type: BLOOD SPECIMENOrdering Facility: [facility] Address: [address] [place] [address] Result Comment: <130 mg/dL, Optimal 130-159 mg/dL, Near optimal/above optimal 160-189 mg/dL, Borderline high 190-219 mg/dL, High >219 mg/dL, Very high Secondary prevention optimal non HDL Cholesterol levels are recommended to be <100 mg/dL Performed By: #### 3 016-3, LIPNF, 78314-1 ####[facility] LABCLIA [id number] [address] [facility] T CHOL/HDL RATIO NF 3.65 mg/dL Normal <5.10 [facility] Comment on above: Order Comment: Speci men Type: BLOOD SPECIMENOrdering Facility: [facility] Address: [address] [place] [address] Performed By: #### 3 016-3, LIPNF, 25497-2 ####[facility] LABCLIA [id number] [place] [address] [place] TRIGLYCERIDES, NF 109 mg/dL Normal <150 [facility] Comment on above: Order Comment: Speci men Type: BLOOD SPECIMENOrdering Facility: [facility] Address: [address] [place] [address] Result Comment: <150 mg/dL, Normal 150-199 mg/dL, Borderline high 200-499 mg/dL, High >499 mg/dL, Very high Performed By: #### 3 016-3, LIPNF, 81656-3 ####[facility] LABCLIA [id number] [address] [place] VLDL CHOLESTEROL, NF 18 mg/dL Normal <30 [facility] Comment on above: Order Comment: Speci men Type: BLOOD SPECIMENOrdering Facility: [facility] Address: [address] [place] [address] Performed By: #### 3 016-3, LIPNF, 82234-7 ####[facility] LABCLIA [id number] [place] [address] [place] TSH SerPl-aCncon 06-09-2025 TSH Qn 3.480 m[IU]/L Normal 0.270-4.200 [facility] Comment on above: Order Comment: Speci men Type: BLOOD SPECIMENOrdering Facility: [facility] Address: [address] [place] [address] Performed By: #### 3 016-3, LIPNF, 78535-4 ####[facility]CLIA [id number] [address] [address] [facility] CNOVon 03-10-2025 CNOV Office Visit (INTMWS ) TAWANA FARRAR ([id number]) 1935 F Date Time Provider Department 03/10/25 9:20 AM JESUS MG INTMWS During your visit today, we recorded the following information about you: Temperature Pulse Respiration Blood pressure 69.6 degrees 58/minute 12/minute 126/80 Weight 49.4 kg Jesus Mg MD 03/10/2025 11:22 AM Signed Reason for Visit Follow up SRINIVASA Gilliam is a 89-year-old female, with a history of back pain, presenting with a 2-week history of a productive cough. Tawana reports a 2-week history of a productive cough, described as "juicy" and originating from the chest. The cough is more pronounced in the evening and has been disruptive to sleep and social interactions. She has been using cough drops for relief and notes that the cough is gradually improving. She denies fever, chills, fatigue, or exposure to sick contacts. She also denies any recent choking incidents or changes in medication. She has a history of back pain and is currently taking gabapentin at night, which has provided some relief. The pain is described as periodic and is exacerbated by prolonged standing. She has not tried Prolia due to concerns about potential side effects. She also reports home blood pressure readings ranging from 140-150 mmHg, noting that she has not been resting before taking these measurements. She is on multiple antihypertensive medications. She also reports a slight weight loss, with her current weight at 109 lbs, down from 110 lbs. She is on cholesterol-lowering medication and Eliquis for a history of paroxysmal atrial fibrillation. She is also taking thyroid medication. Social History Tobacco Use Smoking status: Never Smokeless tobacco: Never Vaping Use Vaping status: Never Used Substance Use Topics Alcohol use: Yes Comment: Occasionally Drug use: No Past medical history, appointments, medications, allergies reviewed. Pertinent Lab/Diagnostic Studies are reviewed and discussed today Current Outpatient Medications: gabapentin (NEURONTIN) 100 mg capsule ELIQUIS 2.5 mg tab(s) lisinopril (ZESTRIL) 40 mg tablet amLODIPine (NORVASC) 5 mg tablet atenolol (TENORMIN) 25 mg tablet levothyroxine (LEVOXYL) 25 mcg tablet atorvastatin (LIPITOR) 10 mg tablet acyclovir (ZOVIRAX) 800 mg tablet Calcium Citrate-Vitamin D3 630-400 mg-unit ORAL MULTIVITAMIN TAB traMADol (ULTRAM) 50 mg tablet Health Maintenance Depression Screening Anxiety Screening DTaP,Tdap,Td Vaccine(1 - Tdap) Advance Directive Discussion Covid-19 Vaccine( season)@ Review Of Systems Physical Exam BP 126/80 Pulse (!) 58 Temp (!) 20.9 ?C (69.6 ?F) (Temporal) Resp 12 Wt 49.4 kg (109 lb) SpO2 98% BMI 18.38 kg/m? GENERAL: NAD, alert and oriented. SKIN: Unremarkable, no rash or skin lesions. HEAD: Normocephalic. EYES: PERRLA, EOMI, conjunctiva clear. EARS: External ears normal, canals clear, TM's normal. NOSE/SINUSES: Nares normal. Septum midline. OROPHARYNX: Lips, mucosa, and tongue normal, good dentition. No oral lesions noted. NECK: Supple, no lymphadenopathy, normal thyroid, no carotid bruits. LUNGS: Clear to auscultation bilaterally, no wheezes/rhonchi/rales . HEART: Regular rate and rhythm, no murmurs. No ectopy. EXTREMITIES: Normal, no deformities, no skin discoloration, no edema. NEURO: Awake, alert and oriented x3, cranial nerves II-XII grossly intact, normal gait, no involuntary motions. Assessment and Plan 1. Cough, unspecified type (R05.9) Acute onset, productive cough for 2 weeks, no associated fever, chills, or significant fatigue. No history of asthma or bronchitis. Lungs clear on auscultation. - Recommended Mucinex to facilitate expectoration. - Advised monitoring for symptoms such as confusion, extreme fatigue, or fever with chills, which may indicate pneumonia. 2. Hypothyroidism, unspecified type (E03.9) Stable on current thyroid medication. - Ordered TSH level to be drawn at next visit. 3. Encounter for immunization (Z23) 4. Essential hypertension (I10) Blood pressure readings at home reportedly between 140-150 mmHg. Office BP readings are satisfactory. Patient not resting before home measurements. - Educated patient on the importance of resting for 10 minutes before taking BP measurements at home. - Continue current antihypertensive regimen. 5. Mixed hyperlipidemia (E78.2) Well-controlled on current lipid-lowering therapy. Recent lipid panel results are near target levels. 6. Paroxysmal atrial fibrillation (HCC) (I48.0) On Eliquis for anticoagulation. 7. Screening for depression (Z13.31) 8. Encounter for screening examination for other mental health and behavioral disorders (Z13.39) Voice recognition software was used to compose this office note. Please excuse any unintended typographical errors. Recordin (more content not included)... Normal [facility] CNOVon 12-09-2024 CNOV Office Visit (INTMWS ) CHARANTAWANA Olena ([id number]) 1935 F Date Time Provider Department 12/09/24 9:20 AM JESUS MG INTMWS During your visit today, we recorded the following information about you: Pulse Respiration Blood pressure Weight 60/minute 16/minute 126/82 49.9 kg Jesus Mg MD 12/09/2024 11:08 AM Signed Reason for Visit Patient presents with: Follow Up Tawanadarryn Farrar is a 89 year old female who presents here today for Above Complaints.. Health Maintenance Depression Screening Anxiety Screening Influenza Vaccine(1) Covid-19 Vaccine( season) HPI This is a very pleasant 89-year-old woman with a past medical history of MGUS, Raynaud's phenomena, paroxysmal A-fib ASCUS in female, hypothyroidism, kyphosis, severe osteoporosis, early stage nonexudative macular degeneration, essential hypertension. In November 04 she was seen for severe osteoporosis and was advised to get onto Forteo, followed by Prolia. She has not yet got onto the. She does have a T12 fracture. She has been at least on 10 years on Fosamax. She and her are not very happy to consider the teriparatide for many reasons, but will consider the prolia. Has been feeling tired of late. She is not going to the [employer] to exercise due to back pain Hypertension: BP controlled today at 112/64. Occasionally checks BP at home. Averages around 130/70. Compliant with medication. Voices no issues. No chest pain, palpitations, edema or SOB. Monitors sodium, fat, and cholesterol - eats 3 meals a day with some snacks throughout the day. Good fluid intake. Takes part in [employer] twice a week, followed by some walking. Hypothyroidism: Stable. Last TSH level 4.040. Tolerating levothyroxine well. Voices no side effects. CARDIO: HR is stable. Denies any recent tachycardic episodes. Hx of SVT. Plans to see cardio in the new year. MGUS: Mild elevation is M protein. Recent calcium and creatinine levels were stable. No concerns aside to mild incontinence. Denies any achy bones. Sleep: Sleeping well. Average 6-7 hours a night. Stress: Denies being stressed. 12/09/24: Has a lumbar 1 fracture which is causing her to have pain, on gabapentin, seeing Dr Almanza, no procedure was offered. Discussed in detail about worsening bone density despite being on oral Bisphosphonates and the need for prolia or IV meds. She will consider it. Bp is high likely due to the pain in the back. It is a getting now, but it was very painful at night time No problem-specific Assessment AND Plan notes found for this encounter. PAST MEDICAL HISTORY Diagnosis Date Arrhythmia Benign neoplasm of colon Compression fracture of cervical spine (HCC) 2022 Esophageal reflux 10/05/2005 HYPERLIPIDEMIA NEC/NOS 10/05/2005 HYPERTENSION NOS 10/05/2005 Macular degeneration of both eyes 2020 MGUS (monoclonal gammopathy of unknown significance) OSTEOPOROSIS NOS 10/05/2005 PAST SURGICAL HISTORY Procedure Laterality Date COAPTITE INJECTION 1ML 12/05/[address] Luo COLONOSCOPY FLX DX W/COLLJ SPEC WHEN PFRMD Colonoscopy COLONOSCOPY FLX DX W/COLLJ SPEC WHEN PFRMD 03/05/15 Colonoscopy Repeat 02/2020 COLONOSCOPY FLX DX W/COLLJ SPEC WHEN PFRMD 01/29/2018 Colonoscopy COLONOSCOPY W/BIOPSY SINGLE/MULTIPLE 01/24/11 repeat in COLONOSCOPY W/BIOPSY SINGLE/MULTIPLE 03/01/2012 HYSTEROSCOPY BX W/WO DANDC 01/14/14 Hysteroscopy DANDC LIG/TRNSXJ FLP TUBE ABDL/VAG APPR UNI/BI 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 2017 spot taken off of back PAST SURGICAL HISTORY OF cataract SIMP REPAIR FACE,EAR,EYE <2.5CM 02/04/09 Simple repair nasal bridge laceration SLING OPER STRES INCONTINENCE 01/15/08 Midurethral sling, transobturator approach FAMILY HISTORY Problem Relation Age of Onset Osteoporosis Mother Heart Father - [place] Prostate Cancer Son Heart Brother Breast Cancer Maternal Aunt Social History Tobacco Use Smoking status: Never Smokeless tobacco: Never Vaping Use Vaping status: Never Used Substance Use Topics Alcohol use: Yes Comment: Occasionally Drug use: No Past medical history, appointments, medications, allergies reviewed. Pertinent Lab/Diagnostic Studies are reviewed and discussed today Current Outpatient Medications: lisinopril (ZESTRIL) 20 mg tablet amLODIPine (NORVASC) 5 mg tablet gabapentin (NEURONTIN) 100 mg capsule traMADol (ULTRAM) 50 mg tablet atenolol (TENORMIN) 25 mg tablet levothyroxine (LEVOXYL) 25 mcg tablet atorvastatin (LIPITOR) 10 mg tablet ELIQUIS 2.5 mg tab(s) acyclovir (ZOVIRAX) 800 mg tablet Calcium Citrate-Vitamin D3 630-400 mg-unit ORAL MULTIVITAMIN TAB Review of Systems CONSTITUTIONAL: No fevers, chills night sweats, unintended weight loss CARDIOVASCULAR: No chest pain, dyspnea, palpitations, orthopne (more content not included)... Normal [facility] Lipid 1996 panelon 5 Cholesterol [Mass/Vol] 207 mg/dL High <200 Cl [facility] Comment on above: Order Comment: Speci men Type: BLOOD SPECIMENOrdering Facility: [facility] Address: [address] [place] [address] Result Comment: <200 mg/dL, Desirable 200-239 mg/dL, Borderline high >239 mg/dL, High Performed By: #### 2 4331-1 ####[facility] LABCLIA [id number] [address] Cholesterol in HDL [Mass/Vol] 54 mg/dL Normal >39 [facility] Comment on above: Order Comment: Gabrielai men Type: BLOOD SPECIMENOrdering Facility: [facility] Address: [address] [place] [address] Result Comment: 40-5 9 mg/dL, Acceptable >59 mg/dL, High: Negative risk factor for coronary heart disease <40 mg/dL, Low: Positive risk factor for coronary heart disease Performed By: #### 2 4331-1 ####[facility]CLIA [id number] [address] Cholesterol in LDL [Mass/Vol] 125 mg/dL High <100 [facility] Comment on above: Order Comment: [facility] Type: BLOOD SPECIMENOrdering Facility: [facility] Address: [address] [place] [address] Result Comment: <100 mg/dL, Optimal 100-129 mg/dL, Near optimal/above optimal 130-159 mg/dL, Borderline high 160-189 mg/dL, High >189 mg/dL, Very high Secondary prevention optimal LDL Cholesterol levels are recommended to be < 70 mg/dL Performed By: #### 2 4331-1 ####[facility]CLIA [id number] [address] [facility] Cholesterol in LDL/Cholesterol in HDL [Mass ratio] 2.31 {ratio} Normal <2.54 [facility] Comment on above: Order Comment: Gabrielarhoda chairez Type: BLOOD SPECIMENOrdering Facility: [facility] Address: [address] [place] [address] Result Comment: Eva andres: 1. National Cholesterol Education Program ATP III Guideline At-A-Glance Quick Desk Reference: National Heart, Lung, and Blood [place]. National Institutes of Health. 2001: NIH Publication No. 01-3305. 2. An International Atherosclerosis Society position paper: global recommendations for the management of dyslipidemia: executive summary, Atherosclerosis. 2014: 232(2):410-413. Performed By: #### 2 4331-1 ####[facility] LABCLIA [id number] [place] [address] [place] Cholesterol in VLDL [Mass/Vol] 28 mg/dL Normal <30 [facility] Comment on above: Order Comment: Speci men Type: BLOOD SPECIMENOrdering Facility: [facility] Address: [address] [place] [address] Performed By: #### 2 4331-1 ####[facility] LABCLIA [id number] [place] [address] [place] Cholesterol non HDL [Mass/Vol] 153 mg/dL High <130 [facility] Comment on above: Order Comment: Speci men Type: BLOOD SPECIMENOrdering Facility: [facility] Address: [address] [place] [address] Result Comment: <130 mg/dL, Optimal 130-159 mg/dL, Near optimal/above optimal 160-189 mg/dL, Borderline high 190-219 mg/dL, High >219 mg/dL, Very high Secondary prevention optimal non HDL Cholesterol levels are recommended to be <100 mg/dL Performed By: #### 2 4331-1 ####[facility]CLIA [id number] [place] [address] [place] Cholesterol.total/Shena sterol in HDL [Mass ratio] 3.83 {ratio} Normal <5.10 [facility] Comment on above: Order Comment: Speci men Type: BLOOD SPECIMENOrdering Facility: [facility] Address: [address] [place] [address] Performed By: #### 2 4331-1 ####[facility] LABCLIA [id number] [place] [address] [place] FASTING TIME 12 hrs Normal [facility] Comment on above: Order Comment: Speci men Type: BLOOD SPECIMENOrdering Facility: [facility] Address: [address] [id number] Performed By: #### 2 4331-1 ####[facility] LABCLIA [id number] [place] [address] [place] Triglyceride [Mass/Vol] 140 mg/dL Normal <150 C [facility] Comment on above: Order Comment: Speci men Type: BLOOD SPECIMENOrdering Facility: [facility] Address: [address] [place] [address] Result Comment: <150 mg/dL, Normal 150-199 mg/dL, Borderline high 200-499 mg/dL, High >499 mg/dL, Very high Performed By: #### 2 4331-1 ####[facility] LABCLIA [id number] [address] [place] CNOVon 11-20-2024 CNOV Office Visit (FRWS ) TAWANA FARRAR ([id number]) 1935 F Date Time Provider Department 11/20/24 1:30 PM GABE ALMANZA V [facility] During your visit today, we recorded the following information about you: Anne Lane MA 11/20/2024 2:08 PM Signed Patient presents with: Back Pain AMB ROOMING INTAKE FLOWSHEET DATA Pain Pain Level: 7 Pain Location: Back-Lower Description: Sharp, Dull Duration Amount of Time: 6 Duration Units: Weeks Frequency: Intermittent Intervention/Comfort measure: Medication Patient states she is having low back, SI joint pain. Taking Tylenol for the pain and helps some. Gabe Almanza V, DO 11/20/2024 2:08 PM Signed SERVICE DATE: November 20, 2024 PCP: Jesus Mg MD Subjective Patient ID: Tawana is a 89 year old female. Chief Complaint: Patient presents with: Back Pain PAIN EVALUATION 11/13/2024 1738 11/20/2024 1325 Pain Level: -- 7 Pain Location: Back-Lower Back-Lower Description: Stiffness Sharp;Dull Duration Amount of Time: -- 6 Duration Units: Days Weeks Frequency: Intermittent Intermittent Intervention/Comfort measure: Medication Medication SRINIVASA Gilliam presents today for low back pain and left hip pain. She has a L1 compression fracture that is recent. She states the pain is worse at night particularly when if she has to get up to go to the bathroom. She takes Tylenol approximately 1100 mg daily and tramadol 1 a day as needed for more severe pain. Review of Systems ACTIVE PROBLEM LIST Esophageal Reflux Essential Hypertension Osteoporosis Hyperlipidemia TMJ Syndrome Other Physical Therapy Personal History of Colonic Polyps Diverticulosis of Colon (Without Mention of Hemorrhage) Melanocytic Nevu of lower extremity: R leg: mid anterior thigh: Intradermal Nevus Melanocytic Nevus of trunk: IDN Nevus at right upper outer chest area Female Stress Incontinence Raynaud's Disease Without Gangrene Lichen Planus Irritable Bowel Syndrome With Both Constipation and Diarrhea Svt (Supraventricular Tachycardia) (Hcc) Lumbar Spine Strain, Subsequent Encounter 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 Compression Fracture of T7 Vertebra (Hcc) Paroxysmal Atrial Fibrillation (Hcc) Hypothyroidism Acute Midline Low Back Pain With Sciatica PAST MEDICAL HISTORY Diagnosis Date Arrhythmia Benign neoplasm of colon Compression fracture of cervical spine (HCC) 2022 Esophageal reflux 10/05/2005 HYPERLIPIDEMIA NEC/NOS 10/05/2005 HYPERTENSION NOS 10/05/2005 Macular degeneration of both eyes 2020 MGUS (monoclonal gammopathy of unknown significance) OSTEOPOROSIS NOS 10/05/2005 PAST SURGICAL HISTORY Procedure Laterality Date COAPTITE INJECTION 1ML 12/05/[address] Luo COLONOSCOPY FLX DX W/COLLJ SPEC WHEN PFRMD Colonoscopy COLONOSCOPY FLX DX W/COLLJ SPEC WHEN PFRMD 03/05/15 Colonoscopy Repeat 02/2020 COLONOSCOPY FLX DX W/COLLJ SPEC WHEN PFRMD 01/29/2018 Colonoscopy COLONOSCOPY W/BIOPSY SINGLE/MULTIPLE 01/24/11 repeat in -2013 COLONOSCOPY W/BIOPSY SINGLE/MULTIPLE 03/01/2012 HYSTEROSCOPY BX W/WO DANDC 01/14/14 Hysteroscopy DANDC LIG/TRNSXJ FLP TUBE ABDL/VAG APPR UNI/BI 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 2017 spot taken off of back PAST SURGICAL HISTORY OF cataract SIMP REPAIR FACE,EAR,EYE <2.5CM 02/04/09 Simple repair nasal bridge laceration SLING OPER STRES INCONTINENCE 01/15/08 Midurethral sling, transobturator approach FAMILY HISTORY Problem Relation Age of Onset Osteoporosis Mother Heart Father - [place] Prostate Cancer Son Heart Brother Breast Cancer Maternal Aunt Social History Tobacco Use Smoking status: Never Smokeless tobacco: Never Vaping Use Vaping status: Never Used Substance Use Topics Alcohol use: Yes Comment: Occasionally Drug use: No ALLERGIES Allergen Reactions Asa [Salicylates] THROMBOCYTOPENIA Aspirin Rash Risedronate Other: See Comments Jaw issues MEDICATIONS: traMADol (ULTRAM) 50 mg tabletTake 1 tablet by mouth two times a day as needed for pain for up to 30 days.Disp: 30 tabletRfl: 0 atenolol (TENORMIN) 25 mg tabletTAKE 1/2 TABLET BY MOUTH TWICE A DAYDisp: 90 tabletRfl: 1 levothyroxine (LEVOXYL) 25 mcg tabletTake 1 tablet by mouth once daily. Except take 1.5 tablets on Monday and Monday . Take on empty stomach. For ThyroidDisp: 100 tabletRfl: 3 lisinopril (ZESTRIL) 20 mg tabletTAKE 1 TABLET BY MOUTH EVERY DAYDisp: 90 tabletRfl: 1 atorvastatin (LIPITOR) 10 mg tabletTake 0.5 tablets by mouth daily at bedtime.Disp: 45 tabletRfl: 3 ELIQUIS 2.5 mg tab(s)Take 1 tablet by mouth two times a day.Disp: 180 tabletRfl: 3 amLODIPine (NORVASC) 5 mg tabletTake 1 tablet by mouth once daily.Disp: 90 tabletRfl: 3 acyclovir (ZOVIRAX) 800 mg tabletTake 1 tablet by mouth three times a day as nee (more content not included)... 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 Degenerative change in the lower lumbar spine. No fracture or dislocation. Significant colonic stool content suggesting constipation. IMPRESSION: Stable findings. Cell Operation Supervisor: JORDI Transcribe Date/Time: Nov 08 2024 9:36A Dictated by : REINA FRENCH MD This examination was interpreted and the report reviewed and electronically signed by: REINA FRENCH MD on Nov 08 2024 9:37AM EST [id number] Normal [facility] TSH SerPl-aCncon 10-05-2024 TSH Qn 3.840 m[IU]/L Normal 0.270-4.200 [facility] Comment on above: Order Comment: Speci men Type: BLOOD SPECIMENOrdering Facility: [facility] Address: [address] [place] [address] Performed By: #### 3 016-3 ####[facility] LABCLIA [id number] [place] [address] [place] CBC W Auto Differential pane l (Bld)on 08-15-2024 Basophils (Bld) [#/Vol] 0.06 10*3/uL [facility] Basophils/100 WBC (Bld) 0.8 % [facility] Differential cell count method Nom (Bld) Auto [facility] Eosinophils (Bld) [#/Vol] 0.25 10*3/uL [facility] Eosinophils/100 WBC (Bld) 3.3 % [facility] Erythrocyte distribution width (RBC) [Ratio] 15.1 % High 11.5 - 15.0 % [facility] Hematocrit (Bld) [Volume fraction] 49.2 % High 36.0 - 46.0 % [facility] Hemoglobin (Bld) [Mass/Vol] 15.6 g/dL High 11.5 - 15.5 g/dL [facility] Immature granulocytes (Bld) [#/Vol] 0.03 10*3/uL [facility] Immature granulocytes/100 WBC (Bld) 0.4 % [facility] Interpretation and review of laboratory results Abnormal [facility] Lymphocytes (Bld) [#/Vol] 1.39 10*3/uL [facility] Lymphocytes/100 WBC (Bld) 18.2 % [facility] MCH (RBC) [Entitic mass] 25.7 pg Low 26.0 - 34.0 pg [facility] MCHC (RBC) [Mass/Vol] 31.7 g/dL 30.5 - 36.0 g/dL [facility] MCV (RBC) [Entitic vol] 80.9 fL 80.0 - 100.0 fL [facility] Monocytes (Bld) [#/Vol] 1.64 10*3/uL High [facility] Monocytes/100 WBC (Bld) 21.4 % [facility] Neutrophils (Bld) [#/Vol] 4.28 10*3/uL [facility] Neutrophils/100 WBC (Bld) 55.9 % [facility] Nucleated RBC (Bld) [#/Vol] [facility] Nucleated RBC/100 WBC (Bld) [Ratio] 0.0 % /100 WBC [facility] Platelet mean volume (Bld) [Entitic vol] 10.6 fL 9.0 - 12.7 fL [facility] Platelets (Bld) [#/Vol] 189 10*3/uL [facility] RBC (Bld) [#/Vol] 6.08 10*6/uL High 3.90 - 5.2 0 m/uL [facility] WBC (Bld) [#/Vol] 7.65 10*3/uL [facility] DBT Breast - bilateral scree liat 07-02-2024 IMPRESSION: NEGATIVE There is no mammographic evidence of malignancy. A 1 year screening mammogram is recommended. The exam was reviewed by a staff physician. Jaime Alcantara M.D. ghassan,radha/dipti: 12:05:13 Slubber Hand(s): RT Sheila(R)(M), [facility] letter sent: Normal over 40 Mammogram BI-RADS: Category 1: Negative Multiple national specialty organizations have released breast cancer screening guidelines for women at average risk for developing breast cancer - guidelines that are based on both evidence and opinion, yet differ on when to start and how often to screen for breast cancer. With representation from Breast Imaging, Internal Medicine, Women's Health, Family Medicine, and Medical/Surgical Oncology, the [facility] has carefully reviewed the data and reached the following consensus: 1) All women should engage in shared decision-making with their providers to decide when to start and how often to screen; 2) All women should have the opportunity to start screening mammography at age 40; 3) For women ages 45-55, we recommend annual screening mammograms; 4) For women ages 55 and over, we support both the transition from an annual to a biennial interval if this aligns more with patient's values and preferences, or continuation with annual screening; 5) All women should discuss with their providers when to stop screening mammograms. Cell Operation Supervisor: Dipti Transcribe Date/Time: Jul 02 2024 9:10A Dictated by: SETH ALCANTARA MD This examination was interpreted and the report reviewed and electronically signed by: JAIME JOYA MD on Jul 02 2024 12:05PM [facility] DIVISION OF RADIOLOGY * * *Final Report* * * DATE OF EXAM: Jul 02 2024 2:26PM [facility] [id number] - [facility] SCREENING W TRISTIN / PROCEDURE REASON: Encounter for screening mammogram for malignant neoplasm of breast * * * * Physician Interpretation * * * * RESULT: #[id number] - [facility] SCREENING W TRISTIN BILATERAL DIGITAL SCREENING MAMMOGRAM TOMOSYNTHESIS WITH CAD: 07/02/2024 HISTORY: Encounter For Screening Mammogram For Malignant Neoplasm Of Breast / Screening Mammogram-Patient reports NO symptoms. /priors available for comparison The technologist notes that positioning was limited secondary to physical constraints of the patient. The best images possible were obtained. RESULT: TECHNIQUE: The study was acquired using full field digital technology and interpreted from soft copy. Digital Breast Tomosynthesis (DBT) images were obtained and used to assist in the interpretation of this examination. Current study was also evaluated with a Computer Aided Detection (CAD). Comparison is made to exams dated: 06/29/2023 mammogram, 07/27/2022 mammogram, 06/28/2022 mammogram, and 06/23/2021 mammogram - [facility]. There are scattered areas of fibroglandular density. No significant masses, calcifications, or other findings are seen in either breast. There has been no significant interval change. DIVISION [facility]OLOGY [facility] * * *Final Report* * * DATE OF EXAM: Jul 02 2024 2:26PM [id number] [id number] - [facility] SCREENING W TRISTIN / PROCEDURE REASON: Encounter for screening mammogram for malignant neoplasm of breast * * * * Physician Interpretation * * * * RESULT: #[id number] - [facility] SCREENING W TRISTIN BILATERAL DIGITAL SCREENING MAMMOGRAM TOMOSYNTHESIS WITH CAD: 07/02/2024 HISTORY: Encounter For Screening Mammogram For Malignant Neoplasm Of Breast / Screening Mammogram-Patient reports NO symptoms. /priors available for comparison The technologist notes that positioning was limited secondary to physical constraints of the patient. The best images possible were obtained. RESULT: TECHNIQUE: The study was acquired using full field digital technology and interpreted from soft copy. Digital Breast Tomosynthesis (DBT) images were obtained and used to assist in the interpretation of this examination. Current study was also evaluated with a Computer Aided Detection (CAD). Comparison is made to exams dated: 06/29/2023 mammogram, 07/27/2022 mammogram, 06/28/2022 mammogram, and 06/23/2021 mammogram - [facility]. There are scattered areas of fibroglandular density. No significant masses, calcifications, or other findings are seen in either breast. There has been no significant interval change. IMPRESSION IMPRESSION: NEGATIVE There is no mammographic evidence of malignancy. A 1 year screening mammogram is recommended. The exam was reviewed by a staff physician. Jaime Alcantara M.D. radha ferrell/dipti: 4 12:05:13 Slubber Hand(s): RT Sheila(R)(M), [facility] letter sent: Normal over 40 Mammogram BI-RADS: Category 1: Negative Multiple national specialty organizations have released breast cancer screening guidelines for women at average risk for developing breast cancer - guidelines that are based on both evidence and opinion, yet differ on when to start and how often to screen for breast cancer. With representation from Breast Imaging, Internal Medicine, Women's Health, Family Medicine, and Medical/Surgical Oncology, the [facility] has carefully reviewed the data and reached the following consensus: 1) All women should engage in shared decision-making with their providers to decide when to start and how often to screen; 2) All women should have the opportunity to start screening mammography at age 40; 3) For women ages 45-55, we recommend annual screening mammograms; 4) For women ages 55 and over, we support both the transition from an annual to a biennial interval if this aligns more with patient's values and preferences, or continuation with annual screening; 5) All women should discuss with their providers when to stop screening mammograms. Cell Operation Supervisor: Dipti Transcribe Date/Time: Jul 02 2024 9:10A Dictated by: SETH ALCANTARA MD This examination was interpreted and the report reviewed and electronically signed by: JAIME JOYA MD on Jul 02 2024 12:05PM EST [facility] Radiology Study observation (narrative) [place] [facility] DBT Breast - bilateral scree ningOrdered By: Ccf Provider on 07-02-2024 [facility] CNOVon 09-29-2023 CNOV Office Visit (AGOCMR ) TAWANA FARRAR ([id number]) 1935 F Date Time Provider Department 09/29/23 11:00 AM LEVI CREWS AGOCMR During your visit today, we recorded the following information about you: Pulse Blood pressure Weight Height 65/minute 153/87 51.2 kg 1.651 Levi Ashraf MD 09/29/2023 11:30 AM Signed Levi Crews M.D. ORTHOPEDIC SPINE FOLLOW UP NOTE Date of visit: September 29, 2023 Patient Name: Ms.Catherine Olena Farrar Date of : 1935 Current Age: [age] year old Sex: female PCP: Jesus Mg MD Chief Complaint:Patient presents with: Established Patient HPI Ms.Catherine Olena Farrar has a past medical history of arrhythmia, HLD, HTN, and osteoporosis- was on fosamax for 7 years, discontinued in October of 2022. Patient was last seen in the office on 03/29/2023 and reported improved mid back pain from T7 compression fracture since February 2023 after moving heavy objects. She denied lower extremity radiculopathy, weakness, or bowel/bladder incontinence. Denied dexterity or imbalance issues as well. Denied any falls or use of assistive devices. Radiographic imaging of thoracic spine demonstrated slight interval increase of the compression fracture, kyphotic alignment through the thoracic spine. She was recommended to mobilize as tolerated, participate in physical therapy and follow-up in 6 months time, prompting visit today. She reports doing well since last office visit. She denies any pain or radicular symptoms. She notes mild low back discomfort with prolonged standing and notes after participating at [employer] she gets sore between her shoulder blades. Additionally, she notices some imbalance issues recently, denies any falls. Full symptomology and conservative treatment outlined below. She presents to the office for image review, evaluation and plan of care. Pain: Denies Duration: February 2023 Radiation: Denies Numbness / tingling: Denies Weakness: Denies Dexterity: Denies Imbalance: Endorses Bowel/bladder dysfcn: Denies PREVIOUS CONSERVATIVE TREATMENT: 1) Medication: Tramadol, Zanaflex, Tylenol 2) Physical therapy: 2-3 times a week at [employer] for 5-6 years 3) Pain Management: No recent participation 4) Injections: No recent injections PREVIOUS SPINE SURGERY: Denies Surgical Risk Factors: Smoking status: Denies Anticoagulants/antipl atelets: No Diabetic: No BMI: 18.47 Osteoporosis- dexa scan from 02/2021. Treated with fosamax for 7 years, discontinued in October 2022 REVIEW OF SYSTEMS: Review of Systems Constitutional: Negative for chills, fatigue, fever and unexpected weight change. HENT: Negative for trouble swallowing and voice change. Eyes: Negative for visual disturbance. Respiratory: Negative for shortness of breath, wheezing and stridor. Cardiovascular: Negative for chest pain, palpitations and leg swelling. Gastrointestinal: Negative for diarrhea, nausea and vomiting. Endocrine: Negative for cold intolerance and heat intolerance. Genitourinary: Negative for difficulty urinating, dysuria and urgency. Musculoskeletal: Negative for back pain, gait problem and neck pain. Skin: Negative for color change and pallor. Allergic/Immunologic: Negative for immunocompromised state. Neurological: Negative for speech difficulty, weakness, numbness and headaches. Hematological: Does not bruise/bleed easily. Psychiatric/Behaviora l: Negative for agitation, behavioral problems and confusion. OBJECTIVE: BP 153/87 (BP Site: Right Arm, BP Position: Sitting, BP Cuff Size: Small Adult) Pulse 65 Ht 5' 5" (1.651 m) Wt 112 lb 14 oz (51.2 kg) SpO2 98% BMI 18.78 kg/m? PHYSICAL EXAM: 5 out of 5 motor strength bilateral upper and lower extremities. Sensation tact light touch throughout. slight +left dallas's sign and hyperreflexic in left bicep Data Review: XR of thoracic spine from 09/29/2023: Stable appearance of T7 compression fracture and alignment compared to previous imaging ASSESSMENT/PLAN Tawana Farrar will continue with medical management of his/her condition. Chronic T7 compression fracture Activity as tolerated Natural history of compression fractures discussed For pain management purposes they may take OTC NSAIDs such as Advil or Aleve, and Tylenol if tolerated and if the patient knows of no allergies or contraindications. The risks and complications of these medications were discussed. The patient understands that if they are currently taking a NSAIDs or are prescribed one in the future they should not take Advil, Aleve, ibuprofen, naproxen or other OTC NSAIDs. They were also told that if any unusual symptoms develop, that the medication should be stopped immediately and that their primary care physician as well as our office should be notified. If they take this medication chcf (more content not included)... Normal [facility] XR THORACIC 2V AP/LATon 09-13 XR THORACIC 2V AP/LAT * * *Final Report* * * DATE OF EXAM: Sep 29 2023 10:47AM [id number] - XR THORACIC 2V AP/LAT / PROCEDURE REASON: Compression fracture of T7 vertebra, initial encounter ([facility]) * * * * Physician Interpretation * * * * HISTORY: 88-YEAR-OLD FEMALE WITH Compression fracture of T7 vertebra, initial encounter ([facility]) . injury january 2023, T7 compression fracture, pt states her back feels good TECHNIQUE: XR THORACIC 2V AP/LAT Laterality: NOT APPLICABLE Number of different views (projections): 2 COMPARISON: 03/29/2023 RESULT: Thoracic spine: Counting reference, the first rib-bearing vertebral bodies considered T1. There are 12 thoracic vertebrae. Mild dextroscoliosis of the thoracic spine centered at T5. As the second curve in the lower thoracic spine convex left centered at T10. Superior, in near vertebral plana compression fracture of T7. Prominent thoracic kyphosis centered at T7. Degenerative disc disease throughout the thoracic spine. Bones are osteopenic. 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 Cell Operation Supervisor: PSCB Transcribe Date/Time: Sep 30 2023 11:45A Dictated by : DONNA MANNING MD This examination was interpreted and the report reviewed and electronically signed by: DONNA MANNING MD on Sep 30 2023 11:48AM EST [id number] Normal [facility] DXA-AXIAL SKELETONon 023 [facility] ARASH SCREENING W TOMOon 06-29 [facility] UA DIP, URINE (POC)on 2022 BILIRUBIN UA (POCT) Negative Negative [facility] CLARITY UA (POCT) Clear [facility] COLOR UA (POCT) Yellow [facility] GLUCOSE UA (POCT) Negative Negative mg/dL [facility] Hemoglobin Ql (U) Trace-intact Abnormal Negative [facility] KETONE UA (POCT) Negative Negative mg/dL [facility] LEUKOCYTES UA (POCT) Negative Negative [facility] NITRITE UA (POCT) Negative Negative [facility] PH UA (POCT) 5.5 4.5 - 8.0 [facility] Protein Ql (U) Negative Negative mg/dL [facility] SPECIFIC GRAVITY UA (POCT) 1.010 1.005 - 1.030 [facility] UROBILINOGEN UA (POCT) 0.2 E.U./dL Allegra l E.U./dL [facility] CNPNon 05-24-2023 CNPN Telephone (AGCARDHWW ) TAWANA FARRAR ([id number]) 1935 F Date Time Provider Department 05/24/23 CARLITA GILLIS AGCARDHWW During your visit today, we recorded the following information about you: Pallavi Lind LPN 05/24/2023 4:13 PM Signed ----- Message from Carlita Gillis APRN.MACHINE [employer]ER sent at 05/24/2023 3:46 PM EDT ----- Please call the patient and report echo results revealed preserved EF of 60% and did not reveal any significant valvular or structural abnormalities. Carlita Gillis APRN.MACHINE [employer]ER Pallavi Lind LPN 05/24/2023 4:17 PM Signed Spoke with patient about test results. Patient verbalizes understanding. Pallavi Lind LPN Allergies As of Date: 05/24/2023 Noted Allergy Reaction ASA (SALICYLATES) 10/05/2005 Comments: THROMBOCYTOPENIA ASPIRIN 07/20/2020 2 - Rash RISEDRONATE 04/11/2017 14 - Other: See Comments Comments: Jaw issues Date Reviewed: 05/01/2023 Reviewed by: Rancho Michaud MD - Fully Assessed Reason for Visit: Results [95] Prescriptions as of 08/07/2023 - fluticasone (FLONASE) 50 mcg/actuation nasal spray Use 2 Sprays in each nostril once daily. Rinse mouth after use. - mirabegron (MYRBETRIQ) 25 mg Tb24 Take 1 tablet by mouth once daily. - atorvastatin (LIPITOR) 10 mg tablet Take 0.5 tablets by mouth daily at bedtime. - ELIQUIS 2.5 mg tab(s) Take 1 tablet by mouth twice daily. - atenolol (TENORMIN) 25 mg tablet Take 0.5 tablets by mouth twice daily. - levothyroxine (LEVOXYL) 25 mcg tablet Take 1 tablet by mouth once daily. Take on empty stomach. For Thyroid - alendronate (FOSAMAX) 70 mg tablet Take 1 tablet by mouth one time a week. Take with a full glass of water, on an empty stomach; do NOT lie down for 30minutes. - lisinopril (ZESTRIL) 5 mg tablet Take 1 tablet by mouth once daily. - amLODIPine (NORVASC) 5 mg tablet TAKE 1 TABLET BY MOUTH EVERY DAY - acyclovir (ZOVIRAX) 800 mg tablet Take 1 tablet by mouth three times daily as needed (cold sores). - Calcium Citrate-Vitamin D3 630-400 mg-unit ORAL Take 1 tablet by mouth every other day. Takes daily - vit A,C,U-Bmiu-Snmmiq (PRESERVISION AREDS) 2,148 mcg-113 mg-45 mg-17.4mg tab Take by mouth once daily. - MULTIVITAMIN TAB Take one(1) tablet every other day Facility-Administered Medications as of 08/07/2023 - perflutren lipid microspheres 1.3 mL in NaCl (PF) 0.9% 10 mL injection (DEFINITY) - sodium chloride 0.9 % (flush) 10 mL (BD POSIFLUSH) Problem List As Of Date 05/24/2023 Noted Resolved ESOPHAGEAL REFLUX [K21.9] 10/05/2005 Essential hypertension [I10] 10/05/2005 Osteoporosis [M81.0] 10/05/2005 Hyperlipidemia [E78.5] 10/05/2005 Neoplasm of uncertain behavior of skin [D48.5] 11/29/2006 12/24/2012 Other seborrheic keratosis [L82.1] 11/29/2006 12/06/2013 SEBACEOUS HYPERPLASIA///SEBACEO US GLAND DIS NOS*11/29/2006 12/24/2012 Benign neoplasm of skin of other and unspecifie*11/29/2006 12/06/2013 [place] ANGIOMA///NEVUS, NON-NEOPLASTIC [I78.1] 11/29/2006 12/06/2013 Other chronic 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*11/29/2006 12/06/2013 Inflamed seborrheic keratosis [L82.0] 01/04/2007 12/06/2013 BCC///MALIG NEOPLASM SKIN FACE NEC [173.3] 01/11/2007 12/24/2012 Open wnd site [T14.8XXA] 01/31/2007 08/23/2010 Scar condition and fibrosis of skin [L90.5] 05/14/2007 12/06/2013 H/O BCC'S///PERS HX SKIN MALIGNANCY NEC [Z85.82*05/14/2007 12/24/2012 SOLAR LENGINES///DYSCHROMIA OTHER [L81.9] 05/14/2007 12/24/2012 Keloid scar [L91.0] 09/05/2007 12/06/2013 Female stress incontinence [N39.3] 12/28/2007 12/24/2012 HYPERGLYCEMIA [R79.89] 12/15/2008 10/10/2016 LACERATION -NOT COMPLICATED NOSE [S01.20XA] 02/04/2009 12/24/2012 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] 07/10/2009 Chest pain [R07.9] 04/07/2010 08/23/2010 Lumbago [M54.50] 10/01/2010 10/10/2016 Other physical therapy [HBZ0242] 10/27/2010 Special screening for malignant neoplasms, colo*01/24/2011 10/01/2015 Personal history of colonic polyps [Z86.010] 03/01/2012 Diverticulosis of colon (without mention of hem*03/01/2012 Viral warts, unspecified [B07.9] 05/29/2012 10/01/2015 Melanocytic Nevu of lower extremity: R leg: mid*05/29/2012 Solar Lentigines [L81.4] 05/29/2012 10/01/2015 Actinic skin damage [L57.8] 05/29/2012 10/01/2015 Hemangioma [D18.00] 05/29/2012 10/01/2015 [place]enport angiomas [D18.01] 05/29/2012 10/01/2015 Seborrheic Keratoses [L82.1] 12/06/2013 10/01/2015 Melanocytic Nevus of trunk: IDN Nevus at right *12/06/2013 Personal history of other malignant neoplasm of*12/06/2013 10/01/2015 Scars [L90.5] 12/06/2013 10/01/2015 Actinic Keratoses: 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 Normal [facility] ECHOon 05-23-2023 [facility] Basic Metabolic Profile (BMP )on 04-14-2023 BUN/CRE 26.1 RATIO High 10-20 [facility] Comment on above: Order Comment: 1 Y Performed By: #### L 100.0100, L501.5425, L500.2500 #### [facility] [address] [place], [address] CA,Total 9.5 mg/dL Normal 8.5-10.1 [facility] Comment on above: Order Comment: 1 Y Performed By: #### L 100.0100, L501.5425, L500.2500 #### [facility] [address] [place], [address] Chloride [Moles/Vol] 107 mmol/L Normal 98-107 [facility] Comment on above: Order Comment: 1 Y Performed By: #### L 100.0100, L501.5425, L500.2500 #### [facility] [address] [place], [address] CO2 [Moles/Vol] 27.0 mmol/L Normal 21.0-32.0 [facility] Comment on above: Order Comment: 1 Y Performed By: #### L 100.0100, L501.5425, L500.2500 #### [facility] [address] [place], [address] Creatinine [Mass/Vol] 0.77 mg/dL Normal 0.55-1.02 [facility] Comment on above: Order Comment: 1 Y Result Comment: The validity of the calculated GFR GFRAA in patients over 70 years has not been determined. Clinical correlation is essential. Performed By: #### L 100.0100, L501.5425, L500.2500 #### [facility] [address] [place], [address] ECRCL 31.50 ml/min Normal [facility] Comment on above: Order Comment: 1 Y Performed By: #### L 100.0100, L501.5425, L500.2500 #### [facility] [address] [place], [address] EST GFR - AA 92 mL/min Normal >60 [facility] Comment on above: Order Comment: 1 Y Result Comment: Afri can Eritrean GFR Calc Performed By: #### L 100.0100, L501.5425, L500.2500 #### [facility] [address] [place], [address] GAP 7 Normal 5-15 [facility] Comment on above: Order Comment: 1 Y Performed By: #### L 100.0100, L501.5425, L500.2500 #### [facility] [address] [place], [address] GFR/1.73 sq M.predicted among non-blacks MDRD (S/P/Bld) [Vol rate/Area] 76 mL/min/{1.73_m2} Normal >60 [facility] Comment on above: Order Comment: 1 Y Result Comment: Non- GFR Calc Performed By: #### L 100.0100, L501.5425, L500.2500 #### [facility] [address] [place], [address] Glucose [Mass/Vol] 153 mg/dL High 74-106 [facility] Comment on above: Order Comment: 1 Y Result Comment: Fast ing Glucose result greater than or equal to 126 mg/dL suggests DIABETES MELLITUS per A.D.A. criteria. Performed By: #### L 100.0100, L501.5425, L500.2500 #### [facility] [address] [place], [address] Potassium [Moles/Vol] 3.9 mmol/L Normal 3.5-5.1 [facility] Comment on above: Order Comment: 1 Y Performed By: #### L 100.0100, L501.5425, L500.2500 #### [facility] [address] [place], [address] Sodium [Moles/Vol] 141 mmol/L Normal 136-145 [facility] Comment on above: Order Comment: 1 Y Performed By: #### L 100.0100, L501.5425, L500.2500 #### [facility] [address] [place], [address] Urea nitrogen [Mass/Vol] 20 mg/dL High 7-18 [facility] Comment on above: Order Comment: 1 Y Performed By: #### L 100.0100, L501.5425, L500.2500 #### [facility] [address] [place], [address] CBC W/Diff, Automatedon 06-0 Anisocytosis Ql (Bld) RARE Normal [facility] Comment on above: Performed By: #### L 100.0100, L501.5425, L500.2500 #### [facility] [address] [place], [address] PLT EST ADEQUATE Normal ADEQ [facility] Comment on above: Performed By: #### L 100.0100, L501.5425, L500.2500 #### [facility] [address] [place], [address] SMEAR COMMENT SEE COMMENT Normal [facility] Comment on above: Result Comment: MONO CYTOSIS NOTED Performed By: #### L 100.0100, L501.5425, L500.2500 #### [facility] [address] [place], [address] CNPNon 04-14-2023 CNPN Telephone (AGCARDPOB ) TAWANA FARRAR ([id number]) 1935 F Date Time Provider Department 04/14/23 RANCHO ROSA During your visit today, we recorded the following information about you: Rancho Rosa MD 04/14/2023 6:30 AM Signed I received a call last night from [place] [facility] on this patient of Rancho Michaud: She was there with fluttering and initially had some A-fib with slightly elevated rate but then about an hour later converted back to sinus and they sent her home. They were thinking about starting her on low-dose Eliquis but I was not clear that they would do this. She is already on atenolol. Heart rate was 62 after conversion. Please call her this morning for follow-up and to arrange management of A-fib Thx Lisandro Shelley Lind LPN 04/14/2023 9:26 AM Signed Spoke with patient to get update on how she is doing since ER visit. Patient reports she is feeling well, HR is around 70. RIKI Lucas LPN 04/17/2023 9:20 AM Signed Spoke to the patient. Instructed her to take her Atenolol 12.5 mg two times per day (currently taking once per day). She was given an Rx for Eliquis 2.5 mg bid which she is taking. She has an office visit with me on May 01 Lisandro Michaud Allergies As of Date: 04/14/2023 Noted Allergy Reaction ASA (SALICYLATES) 10/05/2005 Comments: THROMBOCYTOPENIA ASPIRIN 07/20/2020 2 - Rash RISEDRONATE 04/11/2017 14 - Other: See Comments Comments: Jaw issues Date Reviewed: 03/29/2023 Reviewed by: Chiqui Arceo Ma - Fully Assessed Reason for Visit: Patient Update [1234] Prescriptions as of 04/17/2023 - alendronate (FOSAMAX) 70 mg tablet Take 1 tablet by mouth one time a week. Take with a full glass of water, on an empty stomach; do NOT lie down for 30minutes. - traMADol (ULTRAM) 50 mg tablet Take 1 tablet by mouth twice daily as needed for pain (take at bedtime). - levothyroxine (LEVOXYL) 25 mcg tablet Take 1 tablet by mouth once daily. Take on empty stomach. For Thyroid - tiZANidine (ZANAFLEX) 4 mg tablet Take 1 tablet by mouth every 8 hours as needed (muscle spasms). - atenolol (TENORMIN) 25 mg tablet Take 0.5 tablets by mouth once daily. - lisinopril (ZESTRIL) 5 mg tablet Take 1 tablet by mouth once daily. - amLODIPine (NORVASC) 5 mg tablet TAKE 1 TABLET BY MOUTH EVERY DAY - acyclovir (ZOVIRAX) 800 mg tablet Take 1 tablet by mouth three times daily as needed (cold sores). - atorvastatin (LIPITOR) 10 mg tablet TAKE 1/2 TABLET DAILY AT BEDTIME - Calcium Citrate-Vitamin D3 630-400 mg-unit ORAL Take 1 tablet by mouth every other day. Takes daily - vit A,C,X-Pbmz-Vkcjfu (PRESERVISION AREDS) 2,148 mcg-113 mg-45 mg-17.4mg tab Take by mouth once daily. - MULTIVITAMIN TAB Take one(1) tablet every other day Problem List As Of Date 04/14/2023 Noted Resolved ESOPHAGEAL REFLUX [K21.9] 10/05/2005 Essential hypertension [I10] 10/05/2005 Osteoporosis [M81.0] 10/05/2005 Hyperlipidemia [E78.5] 10/05/2005 Neoplasm of uncertain behavior of skin [D48.5] 11/29/2006 12/24/2012 Other seborrheic keratosis [L82.1] 11/29/2006 12/06/2013 SEBACEOUS HYPERPLASIA///SEBACEO US GLAND DIS NOS*11/29/2006 12/24/2012 Benign neoplasm of skin of other and unspecifie*11/29/2006 12/06/2013 [place] ANGIOMA///NEVUS, NON-NEOPLASTIC [I78.1] 11/29/2006 12/06/2013 Other chronic 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*11/29/2006 12/06/2013 Inflamed seborrheic keratosis [L82.0] 01/04/2007 12/06/2013 BCC///MALIG NEOPLASM SKIN FACE NEC [173.3] 01/11/2007 12/24/2012 Open wnd site [T14.8XXA] 01/31/2007 08/23/2010 Scar condition and fibrosis of skin [L90.5] 05/14/2007 12/06/2013 H/O BCC'S///PERS HX SKIN MALIGNANCY NEC [Z85.82*05/14/2007 12/24/2012 SOLAR LENGINES///DYSCHROMIA OTHER [L81.9] 05/14/2007 12/24/2012 Keloid scar [L91.0] 09/05/2007 12/06/2013 Female stress incontinence [N39.3] 12/28/2007 12/24/2012 HYPERGLYCEMIA [R79.89] 12/15/2008 10/10/2016 LACERATION -NOT COMPLICATED NOSE [S01.20XA] 02/04/2009 12/24/2012 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] 07/10/2009 Chest pain [R07.9] 04/07/2010 08/23/2010 Lumbago [M54.50] 10/01/2010 10/10/2016 Other physical therapy [YCX3202] 10/27/2010 Special screening for malignant neoplasms, colo*01/24/2011 10/01/2015 Personal history of colonic polyps [Z86.010] 03/01/2012 Diverticulosis of colon (without mention of hem*03/01/2012 Viral warts, unspecified [B07.9] 05/29/2012 10/01/2015 Melanocytic Nevu of lower extremity: R leg: mid*05/29/2012 Solar Lentigines [L81.4] 05/29/2012 10/01/2015 Actinic skin damage [L57.8] 05/29/2012 10/01/2015 Hemangioma [D18.00] 05/29/2012 10/01/2015 [place]en[place] angiomas [D18.01] 05/29/2012 10/01/2015 Seborrheic Keratoses [L82.1] 12/06/2013 10/01/2015 Melanocytic Nevus of trunk: IDN Nevus at right *12/06/2013 Personal history of other malignant neoplasm of*12/06/2013 10/01/2015 Scars [L90.5] 12/06/ (more content not included)... Normal [facility] Emergency Department Summary on 04-14-2023 Emergency Department Summary [facility] Medical Records Department [address] [place] [address] Emergency Department Summary 04/13/23 MR#: [id number] Acct: [id number] Name: TAWANA FARRAR Rep #: [id number] : 1935 88 From: Uzma Lenz DO PCP: Dr. Jesus Mg MD Status:DEP ER Location: ED HPI History of Present Illness Chief Complaint: Palpitations Detail of Chief Complaint: Palpitations Informant: patient Narrative Narrative: Patient presents to the emergency department complaint of heart racing is around 6:30 PM. She checked her pulse and it was 120. She denies chest pain. Denies shortness of breath. Patient states a couple of months ago she had an episode of palpitations for about 30 minutes or so and then resolved. She has no heart history. Patient has history of hypertension. She denies recent travel or surgery. No history of PE or DVT. Currently she feels improved and states her symptoms have resolved. PFSH [facility] Home Medications amlodipine 2.5 mg tablet 2.5 mg PO DAILY 07/20/20 [History Last Taken Unknown] atenolol 25 mg tablet 25 mg PO DAILY 07/20/20 [History Last Taken Unknown] atorvastatin 20 mg tablet 20 mg PO DAILY 07/20/20 [History Last Taken Unknown] cephalexin 500 mg capsule 500 mg PO Q12 #14 caps 07/20/20 [Rx Last Taken Unknown] lisinopril 5 mg tablet 5 mg PO DAILY 07/20/20 [History Last Taken Unknown] apixaban 2.5 mg tablet (Eliquis) 2.5 mg PO BID #60 tabs 04/13/23 [Rx Last Taken Unknown] Allergy/AdvReac Type Severity Reaction Status Date / Time aspirin AdvReac PT UNSURE Verified 04/13/23 20:55 OF REACTION Social History Smoking Status: Never smoker ROS ROS ED Review of Systems ROS Unobtainable: other Constitutional Constitutional ED: Reports lethargy; Denies chills, fever(s), sweats or weight loss Eyes Eyes: Denies blurry vision, change in vision or diplopia ENT ENT ED: Denies rhinorrhea or sore throat Cardiovascular Cardiovascular: Reports palpitations and racing heartbeat; Denies chest pain or orthopnea Respiratory/Chest Respiratory/Chest: Denies cough, dyspnea, dyspnea on exertion, orthopnea or sputum Gastrointestinal Gastrointestinal: Denies abdominal pain, diarrhea, nausea or vomiting Genitourinary Genitourinary ED: Denies dysuria, hematuria or urinary frequency Musculoskeletal Musculoskeletal: Denies arthralgias, back pain, myalgias or neck pain Integumentary Denies abscess, Abrasions or rash Neurologic Neurologic: Denies headache(s) or weakness Psychiatric Psychiatric: Denies anxiety, depression or suicidal thoughts Endocrine Endocrinology: Denies polydipsia, polyphagia or polyuria Hematologic/Lymphatic Hematologic/Lymphatic : Denies easy bleeding, easy bruising or lymphadenopathy Allergic/Immunologic Allergic/Immunologic ED: Denies mouth swelling, tongue swelling or urticaria EXAM Physical Exam Const Vital Signs: 04/13/23 20:53 04/13/23 21:32 04/13/23 22:27 Temperature 98.4 F Temperature Source Temporal Pulse Rate 118 H 62 Respiratory Rate 18 18 Respiratory Effort Blood Pressure 177/110 H 149/86 H Blood Pressure Mean 132 107 Pulse Ox 97 95 Oxygen Delivery Method Room Air Room Air Room Air 04/13/23 22:47 Temperature Temperature Source Pulse Rate Respiratory Rate Respiratory Effort Short of Breath Blood Pressure Blood Pressure Mean Pulse Ox Oxygen Delivery Method Positive well nourished and well developed General Appearance ED: well developed and NAD HEENT Reports TM's clear and moist mucous membranes normocephalic and atraumatic; Negative for trauma or tenderness Tympanic Membrane ED: Yes TM's clear Eyes PERRL and EOMs intact bilaterally General Eye ED: Negative for pale conjunctiva or scleral icterus Neck no lymphadenopathy, supple and no JVD General: Negative for tenderness Chest Wall inspection of chest normal and palpation of chest normal Chest: Negative for tenderness Resp normal respiratory effort and clear to auscultation bilaterally Effort and Inspection: Negative for respiratory distress or pain with movement Auscultation: Negative for rhonchi, wheezes or diminished lung sounds Cardio regular rate, regular rhythm, S1 normal heart sound, S2 normal heart sound and no murmurs Peripheral Pulses: pulses 2+ throughout GI normal to inspection, nondistended, normoactive bowel sounds, soft to palpation, non-tender, non- distended and no masses Back/Spine no CVA tenderness and no thoracic nor lumbar tenderness Extremity normal to inspection General Extremety ED: Negative for edema General Extremity: Negative for edema Neuro oriented x3, CN's II-XII intact bilaterally, no sensory deficits noted and gait normal Sensorium / Orientation: awake, alert, oriented to person, oriented to place and oriented to (more content not included)... Normal [facility] L501.5425on 04-14-2023 TROPONIN-I HS 5 pg/mL Normal 3.0-54.0 [facility] Comment on above: Order Comment: 1 Y Result Comment: Martin hamilton Note: New Test Units and Gender Specific Reference Ranges. For more information see Policy Stat Procedure [place] High Sensitivity Troponin (TNIH) and attachments. Performed By: #### L 100.0100, L501.5425, L500.2500 #### [facility] Laboratory [address] [place], [address] Absolute lymphocyte countOrd ered By: Dr. Lenz on 04-13-2023 Lymphocytes Auto (Unsp spec) [#/Vol] 1.60 10*3/uL 0.83-4.51 [facility] Basophil percentageOrdered B y: Dr. Lenz on 04-13-2023 Basophils/100 WBC (Bld) 0.7 % 0-1 [facility] Eosinophils/100 WBC (Bld) 2.3 % 0-5 [facility] Neutrophils (Bld) [#/Vol] 3.9 10*3/uL 2.0-7.7 [facility] Neutrophils/100 WBC (Bld) 53.8 % 47-70 [facility] WBC (Bld) [#/Vol] 7.3 10*3/uL 4.4-11.0 [facility] Basophil percentageOrdered B y: ED PROVIDER on 04-13-2023 Chloride [Moles/Vol] 107 mmol/L 98-107 [facility] Glucose [Mass/Vol] 153 mg/dL 74-106 [facility] Comment on above: Fasting Glucose resu lt greater than or equal to 126 mg/dL suggests DIABETES MELLITUS per A.D.A. criteria. Potassium [Moles/Vol] 3.9 mmol/L 3.5-5.1 [facility] Sodium [Moles/Vol] 141 mmol/L 136-145 [facility] Blood erythrocytes count (nu mber/volume)Ordered By: Dr. Lenz on 04-13-2023 RBC (Bld) [#/Vol] 5.80 10*6/uL 4.2-5.4 [facility] Blood hemoglobin measurement (mass/volume)Ordered By: Dr. Lenz on 04-13-2023 Hemoglobin (Bld) [Mass/Vol] 15.4 g/dL 12.0-15.0 [facility] Blood lymphocytes/100 leukoc ytesOrdered By: Dr. Lenz on 04-13-2023 Lymphocytes/100 WBC (Bld) 22.0 % 19-41 [facility] Blood manual differential co mment interpretation (narrative result)Ordered By: Dr. Lenz on 04-13-2023 Manual differential comment Keith (Bld) [Interp] SEE COMMENT [facility] Comment on above: MONOCYTOSIS NOTED Blood monocytes/100 leukocyt esOrdered By: Dr. Lenz on 04-13-2023 Monocytes/100 WBC (Bld) 20.8 % 0-10 [facility] Blood platelet adequacy dete ction by light microscopyOrdered By: Dr. Lenz on 04-13-2023 Platelets LM Ql (Bld) ADEQUATE ADEQ [facility] Blood platelet mean volumeOr dered By: Dr. Lenz on 04-13-2023 Platelet mean volume (Bld) [Entitic vol] 10.3 fL 6.2-12.0 [facility] Chest 1 View (Portable)on Chest 1 View (Portable) [facility] Imaging Services [address] [place] [address] Chest 1 View (Portable) MR#: [id number] Acct: [id number] Name: TAWANA FARRAR Rep #: [id number] : 1935 F 88 From: Dylon Peraza MD PCP: Dr. Jesus Mg MD Status: REG ER Study: Chest 1 View (Portable) Date of Exam: 04/13/23 Exam# [id number] Ordering Dr: Uzma Lenz DO STUDY: X-RAY CHEST REASON FOR EXAM: Female, 88 years old. chest pain TECHNIQUE: AP portable COMPARISON: None. FINDINGS: Minor discoid atelectasis or scarring in left lower lobe. There is no demonstrated pleural abnormality. Normal size heart. Normal mediastinum and sylvie. Normal visualized pulmonary arteries. Tortuous mildly calcified aortic arch and descending thoracic aorta. Dorsal spine and shoulders demonstrate degenerative change. Normal visualized ribs, clavicles, and shoulders. There is no demonstrated abnormality of the visualized soft tissue structures of the upper abdomen. RAD/Chest 1 View (Portable) IMPRESSION: Mild discoid atelectasis or scarring in left lower lobe. Electronically Signed: Dylon Peraza MD at 22:16 EDT , CC: Dr. Jesus Mg MD; Dr. Uzma Lenz DO Cell Operation Supervisor: Signed Normal [facility] Determination of erythrocyte mean corpuscular volume (MCV)Ordered By: Dr. Lenz on 04-13-2023 MCV (RBC) [Entitic vol] 82.9 fL 81-99 [facility] Hematocrit Auto (Bld) [Volum e fraction]Ordered By: Dr. Lenz on 04-13-2023 Hematocrit (Bld) [Volume fraction] 48.1 % 37-47 [facility] Laboratory - Chemistry and C hemistry - challengeOrdered By: ED PROVIDER on 04-13-2023 CO2 [Moles/Vol] 27.0 mmol/L 21.0-32.0 [facility] Urea nitrogen/Creatinine [Mass ratio] 26.1 mg/mg 10-20 [facility] Laboratory - Hematology and Cell countsOrdered By: Dr. Lenz on 04-13-2023 Anisocytosis Ql (Bld) RARE [facility] Erythrocyte distribution width (RBC) [Entitic vol] 46.4 fL 35.1-43.9 [facility] Erythrocyte distribution width (RBC) [Ratio] 15.5 % 11.6-14.6 [facility] Immature granulocytes/100 WBC (Bld) 0.400 % 0.0-0.9 [facility] Comment on above: IG% - Immature Granu locytes (promyelocytes, myelocytes and metamyelocytes) > 1% indicates that a LEFT SHIFT is Present. MCH (RBC) [Entitic mass] 26.6 pg 27.0-32.0 [facility] Nucleated RBC/100 WBC (Bld) [Ratio] 0 % 0-5 [facility] MCHC Auto (RBC) [Mass/Vol]Or dered By: Dr. Lenz on 04-13-2023 MCHC (RBC) [Mass/Vol] 32.0 g/dL 32-36 [facility] No Panel InformationOrdered By: ED PROVIDER on 04-13-2023 Estimated Creatinine Clearance Calc 31.50 ml/min [facility] Estimated GFR (MDRD) Amer 92 mL/min >60 [facility] Comment on above: GFR Calc Estimated GFR (MDRD) Non-Af Amer 76 mL/min >60 [facility] Comment on above: Non- GFR Calc Troponin I High Sensitivity 5 pg/mL 3.0-54.0 [facility] Comment on above: Please Note: [place] t Units and Gender Specific Reference Ranges. For more information see Policy Stat Procedure [place] High Sensitivity Troponin (TNIH) and attachments. Platelets bldOrdered By: Dr. Lenz on 04-13-2023 Platelets (Bld) [#/Vol] 175 10*3/uL 150-450 [facility] Serum or plasma calcium mikhail urement (mass/volume)Ordered By: ED PROVIDER on 04-13-2023 Calcium [Mass/Vol] 9.5 mg/dL 8.5-10.1 [facility] Serum or plasma creatinine m easurement (mass/volume)Ordered By: ED PROVIDER on 04-13-2023 Creatinine [Mass/Vol] 0.77 mg/dL 0.55-1.02 [facility] Comment on above: The validity of the calculated GFR & GFRAA in patients over 70 years has not been determined. Clinical correlation is essential. Serum or plasma urea nitroge n measurement (mass/volume)Ordered By: ED PROVIDER on 04-13-2023 Urea nitrogen [Mass/Vol] 20 mg/dL 7-18 [facility] Thin prep Papanicolaou smear with manual screeningOrdered By: ED PROVIDER on 04-13-2023 Thin prep Papanicolaou smear with manual screening 7 5-15 [facility] CNOVon 03-29-2023 CNOV Office Visit (AGOCMR ) TAWANA FARRAR ([id number]) 1935 F Date Time Provider Department 03/29/23 12:00 PM LEVI CREWS [facility] During your visit today, we recorded the following information about you: Pulse Blood pressure Weight Height 60/minute 170/90 49.4 kg 1.651 m Levi Crews MD 03/31/2023 7:49 AM Signed Levi Crews M.D. ORTHOPEDIC SPINE FOLLOW UP NOTE Date of visit: March 29, 2023 Patient Name: Ms.Catherine Olena Farrar Date of : 1935 Current Age: [age] year old Sex: female PCP: Jesus Mg MD Chief Complaint:Patient presents with: Established Patient HPI Ms.Catherine Olena Farrar has a past medical history of arrhythmia, HLD, HTN, and osteoporosis- was on fosamax for 7 years, discontinued in October of 2022. Patient reported mid back pain for 4 weeks after moving heavy objects. Radiographic images demonstrated T7 compression fracture. She was recommended to follow-up with myself after obtaining MRI of thoracic spine for possible kyphoplasty discussion. She was last seen on 02/24/2023 and reported improved pain. Denied lower extremity pain, paresthesia, weakness or bowel/bladder incontinence. Pain worsened with prolonged standing and walking, relieved with sitting. Radiographic imaging of thoracic spine demonstrated acute T7 compression fracture, no stenosis, no PLC injury. Discussed to continue with conservative treatment due to improving pain. She was recommended to follow-up in 4 weeks time with repeat radiographs of the thoracic spine, prompting visit today. She reports improved mid back pain. She denies lower extremity radiculopathy, weakness, or bowel/bladder incontinence. Denies dexterity or imbalance issues as well. She continues to deny falls or use of assistive devices. She presents to the office for image review, evaluation and plan of care. PREVIOUS CONSERVATIVE TREATMENT: 1) Medication: Tramadol, Zanaflex, Tylenol 2) Physical therapy: No recent participation 3) Pain Management: No recent participation 4) Injections: No recent injections PREVIOUS SPINE SURGERY: Denies Surgical Risk Factors: Smoking status: Denies Anticoagulants/antipl atelets: No Diabetic: No BMI: 18.27 Osteoporosis- dexa scan from 02/2021. Treated with fosamax for 7 years, discontinued in October 2022 PAIN EVALUATION 03/26/2023 193 Pain Level: 6 Pain Location: Back-Middle Description: Burning;Radiating Duration Amount of Time: 2 Duration Units: Hours Frequency: Intermittent Intervention/Comfort measure: Medication;Relaxation ;Heat;Massage;Positio dk Comments: More common in late afternoon and evening ACTIVE PROBLEM LIST Esophageal Reflux Essential Hypertension Osteoporosis Hyperlipidemia TMJ Syndrome Other Physical Therapy Personal History of Colonic Polyps Diverticulosis of Colon (Without Mention of Hemorrhage) Melanocytic Nevu of lower extremity: R leg: mid anterior thigh: Intradermal Nevus Melanocytic Nevus of trunk: IDN Nevus at right upper outer chest area Female Stress Incontinence Raynaud's Disease Without Gangrene Lichen Planus Irritable Bowel Syndrome With Both Constipation and Diarrhea Svt (Supraventricular Tachycardia) (Hcc) Lumbar Spine Strain, Subsequent Encounter 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 Compression Fracture of T7 Vertebra (Hcc) PAST MEDICAL HISTORY Diagnosis Date Arrhythmia Benign neoplasm of colon Esophageal reflux 10/05/2005 HYPERLIPIDEMIA NEC/NOS 10/05/2005 HYPERTENSION NOS 10/05/2005 Macular degeneration of both eyes 2020 MGUS (monoclonal gammopathy of unknown significance) OSTEOPOROSIS NOS 10/05/2005 PAST SURGICAL HISTORY Procedure Laterality Date COAPTITE INJECTION 1ML 12/05/[address] Luo COLONOSCOPY FLX DX W/COLLJ SPEC WHEN PFRMD Colonoscopy COLONOSCOPY FLX DX W/COLLJ SPEC WHEN PFRMD 03/05/15 Colonoscopy Repeat 02/2020 COLONOSCOPY FLX DX W/COLLJ SPEC WHEN PFRMD 01/29/2018 Colonoscopy COLONOSCOPY W/BIOPSY SINGLE/MULTIPLE 01/24/11 repeat in COLONOSCOPY W/BIOPSY SINGLE/MULTIPLE 03/01/2012 HYSTEROSCOPY BX W/WO DANDC 01/14/14 Hysteroscopy DANDC LIG/TRNSXJ FLP TUBE ABDL/VAG APPR UNI/BI 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 2017 spot taken off of back PAST SURGICAL HISTORY OF cataract SIMP REPAIR FACE,EAR,EYE <2.5CM 02/04/09 Simple repair nasal bridge laceration SLING OPER STRES INCONTINENCE 01/15/08 Midurethral sling, transobturator approach FAMILY HISTORY Problem Relation Age of Onset Osteoporosis Mother Heart Father - [place] Prostate Cancer Son Heart Brother Breast Cancer Maternal Aunt Social History Tobacco Use Smoking status: Never Smokeless tobacco: Never Vaping Use Vaping Use: Never used Substance Use Topics Alcohol use: Yes Comment: Occasionally Drug use: No ALLERGIES (more content not included)... Normal [facility] CNPNon 03-29-2023 CNPN Telephone (TOTEMS (formerly Nitrogram)R) TAWANA FARRAR ([id number]) 1935 F Date Time Provider Department 03/29/23 LEVI CREWS [facility] During your visit today, we recorded the following information about you: Chiqui Arceo Ma 03/29/2023 3:00 PM Signed Referral placed for physical therapy in the [facility] Internal Referral Portal. Confirmation # [id number] Chiqui Arceo Ma Allergies As of Date: 03/29/2023 Noted Allergy Reaction ASA (SALICYLATES) 10/05/2005 Comments: THROMBOCYTOPENIA ASPIRIN 07/20/2020 2 - Rash RISEDRONATE 04/11/2017 14 - Other: See Comments Comments: Jaw issues Date Reviewed: 03/29/2023 Reviewed by: Chiqui Arceo Ma - Fully Assessed Reason for Visit: Internal Referrals/resources [908] Prescriptions as of 03/29/2023 - alendronate (FOSAMAX) 70 mg tablet Take 1 tablet by mouth one time a week. Take with a full glass of water, on an empty stomach; do NOT lie down for 30minutes. - traMADol (ULTRAM) 50 mg tablet Take 1 tablet by mouth twice daily as needed for pain (take at bedtime). - levothyroxine (LEVOXYL) 25 mcg tablet Take 1 tablet by mouth once daily. Take on empty stomach. For Thyroid - tiZANidine (ZANAFLEX) 4 mg tablet Take 1 tablet by mouth every 8 hours as needed (muscle spasms). - atenolol (TENORMIN) 25 mg tablet Take 0.5 tablets by mouth once daily. - lisinopril (ZESTRIL) 5 mg tablet Take 1 tablet by mouth once daily. - amLODIPine (NORVASC) 5 mg tablet TAKE 1 TABLET BY MOUTH EVERY DAY - acyclovir (ZOVIRAX) 800 mg tablet Take 1 tablet by mouth three times daily as needed (cold sores). - atorvastatin (LIPITOR) 10 mg tablet TAKE 1/2 TABLET DAILY AT BEDTIME - Calcium Citrate-Vitamin D3 630-400 mg-unit ORAL Take 1 tablet by mouth every other day. Takes daily - vit A,C,E-Mggl-Bxohfm (PRESERVISION AREDS) 2,148 mcg-113 mg-45 mg-17.4mg tab Take by mouth once daily. - MULTIVITAMIN TAB Take one(1) tablet every other day Problem List As Of Date 03/29/2023 Noted Resolved ESOPHAGEAL REFLUX [K21.9] 10/05/2005 Essential hypertension [I10] 10/05/2005 Osteoporosis [M81.0] 10/05/2005 Hyperlipidemia [E78.5] 10/05/2005 Neoplasm of uncertain behavior of skin [D48.5] 11/29/2006 12/24/2012 Other seborrheic keratosis [L82.1] 11/29/2006 12/06/2013 SEBACEOUS HYPERPLASIA///SEBACEO US GLAND DIS NOS*11/29/2006 12/24/2012 Benign neoplasm of skin of other and unspecifie*11/29/2006 12/06/2013 [place] ANGIOMA///NEVUS, NON-NEOPLASTIC [I78.1] 11/29/2006 12/06/2013 Other chronic 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*11/29/2006 12/06/2013 Inflamed seborrheic keratosis [L82.0] 01/04/2007 12/06/2013 BCC///MALIG NEOPLASM SKIN FACE NEC [173.3] 01/11/2007 12/24/2012 Open wnd site [T14.8XXA] 01/31/2007 08/23/2010 Scar condition and fibrosis of skin [L90.5] 05/14/2007 12/06/2013 H/O BCC'S///PERS HX SKIN MALIGNANCY NEC [Z85.82*05/14/2007 12/24/2012 SOLAR LENGINES///DYSCHROMIA OTHER [L81.9] 05/14/2007 12/24/2012 Keloid scar [L91.0] 09/05/2007 12/06/2013 Female stress incontinence [N39.3] 12/28/2007 12/24/2012 HYPERGLYCEMIA [R79.89] 12/15/2008 10/10/2016 LACERATION -NOT COMPLICATED NOSE [S01.20XA] 02/04/2009 12/24/2012 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] 07/10/2009 Chest pain [R07.9] 04/07/2010 08/23/2010 Lumbago [M54.50] 10/01/2010 10/10/2016 Other physical therapy [RDZ0549] 10/27/2010 Special screening for malignant neoplasms, colo*01/24/2011 10/01/2015 Personal history of colonic polyps [Z86.010] 03/01/2012 Diverticulosis of colon (without mention of hem*03/01/2012 Viral warts, unspecified [B07.9] 05/29/2012 10/01/2015 Melanocytic Nevu of lower extremity: R leg: mid*05/29/2012 Solar Lentigines [L81.4] 05/29/2012 10/01/2015 Actinic skin damage [L57.8] 05/29/2012 10/01/2015 Hemangioma [D18.00] 05/29/2012 10/01/2015 Davenport angiomas [D18.01] 05/29/2012 10/01/2015 Seborrheic Keratoses [L82.1] 12/06/2013 10/01/2015 Melanocytic Nevus of trunk: IDN Nevus at right *12/06/2013 Personal history of other malignant neoplasm of*12/06/2013 10/01/2015 Scars [L90.5] 12/06/2013 10/01/2015 Actinic Keratoses: 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] 03/25/2014 10/01/2015 Female stress incontinence [N39.3] 12/05/2014 Encounter for screening colonoscopy [Z12.11] 03/05/2015 03/05/2015 Raynaud's disease without gangrene [I73.00] 11/24/2015 Lichen planus [L43.9] 10/10/2016 Irritable bowel syndrome with both constipation*10/10/20 16 SVT (supraventricular tachycardia) (HCC) [I47.1]09/24/2018 Osteopenia [M85.80] 04/09/2019 01/14/2021 Lumbar spine strain, subsequent encounter [S39.*06/24/2019 Early dry stage nonexudative age-related macula*07/26/2021 Compression fracture of T7 vertebra (HCC) [S22.*02/24/2023 Encounter Status:Closed by CHIQUI ARCEO MA on 03/29/23 [facility] XR THORACIC 2V AP/LATon 05- XR THORACIC 2V AP/LAT * * *Final Report* * * DATE OF EXAM: Mar 29 2023 11:37AM A1X 5262 - XR THORACIC 2V AP/LAT / PROCEDURE REASON: Compression fracture of T7 vertebra, initial encounter ([facility]) * * * * Physician Interpretation * * * * CLINICAL: Back pain TECHNIQUE:3 views of the thoracic spine RESULT: COMPARISON: 02/11/2023 THORACIC SPINE FINDINGS: A moderate anterior T7 compression deformity is again noted with slight interval increase in the degree of compression 10 mm compared to 7 mm on the current exam anteriorly. The vertebral body height and discs spaces are well maintained. The alignment demonstrates mild S-shaped scoliosis. IMPRESSION: Slight interval increase in the compression deformity of T7 anteriorly. Cell Operation Supervisor: PSCB Transcribe Date/Time: Apr 01 2023 7:35A Dictated by : TOÑITO ARELLANO MD This examination was interpreted and the report reviewed and electronically signed by: TOÑITO ARELLANO MD on Apr 01 2023 7:41AM EST [id number] Normal [facility] CNOVon 02-24-2023 CNOV Office Visit (AGOCMR ) TAWANA FARRAR ([id number]) 1935 F Date Time Provider Department 02/24/23 2:15 PM [facility] During your visit today, we recorded the following information about you: Pulse Blood pressure Weight Height 81/minute 160/88 49.8 kg 1.651 m Levi Crews MD 02/24/2023 2:43 PM Signed Levi Crews M.D. ORTHOPEDIC SPINE CONSULT NOTE Date of visit: February 24, 2023 Patient Name: Ms.Catherine Olena Farrar Date of : 1935 Current Age: [age] year old Sex: female PCP: Jesus Mg MD Chief Complaint:Patient presents with: New Patient HPI Ms.Catherine Olena Farrar has a past medical history of arrhythmia, HLD, HTN, and osteoporosis. Patient presents to the office today as a new patient with MRI and radiographic imaging for evaluation of thoracic fracture . The patient is referred by Dr. Gabe Almanza, Orthopedic, for orthopedic spine evaluation. She reported mid back pain for the past few weeks after moving heavy objects. Radiographic images demonstrated T7 compression fracture. She was recommended to follow-up with myself after obtaining MRI of thoracic spine for possible kyphoplasty discussion, prompting visit today. She reports continued mid back pain for the last few weeks. Denies lower extremity pain, paresthesia, weakness or bowel/bladder incontinence. Pain worsens with prolonged standing and walking, relieved with sitting. She denies recent participation in conservative treatment. She has a history of osteoporosis and was on fosamax for 7 years, discontinued in October of 2022. She presents to the office for image review, evaluation and plan of care. PREVIOUS CONSERVATIVE TREATMENT: 1) Medication: Tramadol, Zanaflex, Tylenol 2) Physical therapy: No recent participation 3) Pain Management: No recent participation 4) Injections: No recent injections PREVIOUS SPINE SURGERY: Denies Surgical Risk Factors: Smoking status: Denies Anticoagulants/antipl atelets: No Diabetic: No BMI: 18.84 Osteoporosis- dexa scan from 02/2021. Treated with fosamax for 7 years, discontinued in October 2022 PAIN EVALUATION 02/17/2023 1509 Pain Level: 7 Pain Location: Back-Middle Description: Aching;Burning Duration Amount of Time: 3 Duration Units: Weeks Frequency: Continuous Intervention/Comfort measure: Medication;Relaxation ;Cold;Heat;Massage Comments: TEMPORARY REDUCTION WITH Tylenol ACTIVE PROBLEM LIST Esophageal Reflux Essential Hypertension Osteoporosis Hyperlipidemia TMJ Syndrome Other Physical Therapy Personal History of Colonic Polyps Diverticulosis of Colon (Without Mention of Hemorrhage) Melanocytic Nevu of lower extremity: R leg: mid anterior thigh: Intradermal Nevus Melanocytic Nevus of trunk: IDN Nevus at right upper outer chest area Female Stress Incontinence Raynaud's Disease Without Gangrene Lichen Planus Irritable Bowel Syndrome With Both Constipation and Diarrhea Svt (Supraventricular Tachycardia) (Hcc) Lumbar Spine Strain, Subsequent Encounter 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 PAST MEDICAL HISTORY Diagnosis Date Arrhythmia Benign neoplasm of colon Esophageal reflux 10/05/2005 HYPERLIPIDEMIA NEC/NOS 10/05/2005 HYPERTENSION NOS 10/05/2005 Macular degeneration of both eyes 2020 MGUS (monoclonal gammopathy of unknown significance) OSTEOPOROSIS NOS 10/05/2005 PAST SURGICAL HISTORY Procedure Laterality Date COAPTITE INJECTION 1ML 12/05/[address] Luo COLONOSCOPY FLX DX W/COLLJ SPEC WHEN PFRMD Colonoscopy COLONOSCOPY FLX DX W/COLLJ SPEC WHEN PFRMD 03/05/15 Colonoscopy Repeat 02/2020 COLONOSCOPY FLX DX W/COLLJ SPEC WHEN PFRMD 01/29/2018 Colonoscopy COLONOSCOPY W/BIOPSY SINGLE/MULTIPLE 01/24/11 repeat in COLONOSCOPY W/BIOPSY SINGLE/MULTIPLE 03/01/2012 HYSTEROSCOPY BX W/WO DANDC 01/14/14 Hysteroscopy DANDC LIG/TRNSXJ FLP TUBE ABDL/VAG APPR UNI/BI 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 2018 spot taken off of back PAST SURGICAL HISTORY OF cataract SIMP REPAIR FACE,EAR,EYE <2.5CM 02/04/09 Simple repair nasal bridge laceration SLING OPER STRES INCONTINENCE 01/15/08 Midurethral sling, transobturator approach FAMILY HISTORY Problem Relation Age of Onset Osteoporosis Mother Heart Father - [place] Prostate Cancer Son Heart Brother Breast Cancer Maternal Aunt Social History Tobacco Use Smoking status: Never Smokeless tobacco: Never Vaping Use Vaping Use: Never used Substance Use Topics Alcohol use: Yes Comment: Occasionally Drug use: No ALLERGIES Allergen Reactions Asa [Salicylates] THROMBOCYTOPENIA Aspirin Rash Risedronate Other: See Comments Jaw issues MEDICATIONS: levothyroxine (LEVOXYL) 25 mcg tablet Take 1 tablet by mouth once daily. Take on empty stomach. For Thyroid atenolol (TE (more content not included)... Normal [facility] MRI THORACIC SPINE WO IVCONo n 02-18-2023 MRI THORACIC SPINE WO IVCON * * *Final Report* * * DATE OF EXAM: Feb 18 2023 1:58PM [facility] 0325 - MRI THORACIC SPINE WO IVCON / PROCEDURE REASON: M84.48XA-Pathological fracture, other site, initial encounter for fracture * * * * Physician Interpretation * * * * EXAMINATION: MRI THORACIC SPINE WO IVCON CLINICAL HISTORY: Pathological fracture, other site, initial encounter for fracture T7 compression deformity. TECHNIQUE: Routine thoracic spine MR protocol. MQ: [id number] COMPARISON: Thoracic spine radiographs 02/11/2023. CT chest 01/31/2012. RESULT: Counting reference: Craniocervical and lumbosacral junctions. For the purposes of this report, L4-5 is considered the level of the iliac crest and assume there are 5 lumbar-type vertebrae. Anatomic variant: None. Localizer images: No significant findings. Alignment: Focal kyphosis at T7 due to compression deformity. Cord: The visualized cord is within normal limits of signal intensity and morphology. Bone marrow signal/fracture: There is moderate to severe compression deformity of T7 with approximately 65% loss of height, without involvement of the posterior elements, and only minimal retropulsion of bone. There is edema in this fracture likely indicating acute to subacute fracture. Type I degenerative change at T7-T8, T8-T9, T9-T10, T10-T11, and T11-T12 anteriorly. Thoracic paraspinal soft tissues: Only minimal paraspinal edema adjacent to the T7 compression deformity, likely indicating non-pathologic fracture. Small amount of edema in the dorsal paraspinous ligaments and T7-T8, likely mechanical stress. Canal and foramina: Mild retropulsion of bone at T7-T8 and facet arthropathy causes mild to moderate canal narrowing, without significant foraminal stenosis. No cord compression or abnormal cord signal. Otherwise, mild thoracic spondylosis with diffuse disc bulges at T1-T2, T2-T3, T9-T10, T11-T12, and T12-L1 without significant canal or foraminal narrowing. Incompletely evaluated lower thoracic spondylosis, with moderate canal narrowing at C6-C7. IMPRESSION: Acute to subacute moderate to severe compression deformity T7 with only minimal retropulsion of bone causing mild to moderate canal narrowing. No cord compression or abnormal cord signal. Partially visualized lower cervical spondylosis with moderate canal narrowing at C6-C7. Anatomic Thoracic/Lumbar Variant: None. L4-5 is considered the level of the iliac crest and assume there are 5 lumbar-type vertebrae. Cell Operation Supervisor: JRODI Transcribe Date/Time: Feb 18 2023 2:15P Dictated by : CHANDA HALL MD This examination was interpreted and the report reviewed and electronically signed by: CHANDA HALL MD on Feb 18 2023 2:24PM EST [id number] N [facility] XR [facility]ula - [facility] IMPRESSION: Osseous demineralization. Cell Operation Supervisor[facility] Transcribe Date/Time: Feb 14 2023 5:32A Dictated by : CHALO PRUITT MD This examination was interpreted and the report reviewed and electronically signed by: CHALO PRUITT MD on Feb 14 2023 5:34AM EST DIVISION OF RADIOLOGY * * *Final Report* * * DATE OF EXAM: Feb 11 2023 10:19AM WOX [id number] - XR SCAPULA 2V AP/LAT LT / PROCEDURE REASON: multiple diagnoses * * * * Physician Interpretation * * * * TITLE: XR SCAPULA 2V AP/LAT LT CLINICAL INDICATION: Osteoporosis. Pain. TECHNIQUE: 2 view radiographic study of the left scapula COMPARISON: Correlation made to bone survey dated December 14, 2015 FINDINGS: Osseous demineralization. No acute fracture or dislocation identified. DIVISION OF RADIOLOGY Provider, [facility] - 02/14/2023 * * *Final Report* * * DATE OF EXAM: Feb 11 2023 10:19AM WOX [id number] - XR SCAPULA 2V AP/LAT LT / PROCEDURE REASON: multiple diagnoses * * * * Physician Interpretation * * * * TITLE: XR SCAPULA 2V AP/LAT LT CLINICAL INDICATION: Osteoporosis. Pain. TECHNIQUE: 2 view radiographic study of the left scapula COMPARISON: Correlation made to bone survey dated December 14, 2015 FINDINGS: Osseous demineralization. No acute fracture or dislocation identified. IMPRESSION IMPRESSION: Osseous demineralization. Cell Operation Supervisor[facility] Transcribe Date/Time: Feb 14 2023 5:32A Dictated by : CHALO PRUITT MD This examination was interpreted and the report reviewed and electronically signed by: CHALO PRUITT MD on Feb 14 2023 5:34AM [facility] XR Thoracic spine AP and Lat [facility] 02-14-2023 IMPRESSION: Moderate age indeterminate wedge compression deformity of a mid thoracic vertebral body, likely T7. Cell Operation Supervisor: [facility] Transcribe Date/Time: Feb 14 2023 10:35A Dictated by : CHALO PRUITT MD This examination was interpreted and the report reviewed and electronically signed by: CHALO PRUITT MD on Feb 14 2023 10:37AM [facility] DIVISION OF RADIOLOGY * * *Final Report* * * DATE OF EXAM: Feb 11 2023 10:19AM WOX [id number] - XR THORACIC 2V AP/LAT / PROCEDURE REASON: multiple diagnoses * * * * Physician Interpretation * * * * TITLE: XR THORACIC 2V AP/LAT CLINICAL INDICATION: Pain. Osteoporosis TECHNIQUE: AP and lateral radiographs of the thoracic spine COMPARISON: Radiograph dated October 23, 2018 FINDINGS: Osseous demineralization. Stable mild S-shaped curvature. Multilevel degenerative changes with scattered mild to moderate disc space narrowing, endplate sclerosis and marginal osteophyte formation which appears most pronounced in the mid to lower thoracic spine. Moderate age indeterminate wedge compression deformity of a mid thoracic vertebral body, likely T7. DIVISION OF RADIOLOGY Provider, [facility] - 02/14/2023 * * *Final Report* * * DATE OF EXAM: Feb 11 2023 10:19AM WOX [id number] - XR THORACIC 2V AP/LAT / PROCEDURE REASON: multiple diagnoses * * * * Physician Interpretation * * * * TITLE: XR THORACIC 2V AP/LAT CLINICAL INDICATION: Pain. Osteoporosis TECHNIQUE: AP and lateral radiographs of the thoracic spine COMPARISON: Radiograph dated October 23, 2018 FINDINGS: Osseous demineralization. Stable mild S-shaped curvature. Multilevel degenerative changes with scattered mild to moderate disc space narrowing, endplate sclerosis and marginal osteophyte formation which appears most pronounced in the mid to lower thoracic spine. Moderate age indeterminate wedge compression deformity of a mid thoracic vertebral body, likely T7. IMPRESSION IMPRESSION: Moderate age indeterminate wedge compression deformity of a mid thoracic vertebral body, likely T7. Cell Operation Supervisor: JORDI Transcribe Date/Time: Feb 14 2023 10:35A Dictated by : CHALO PRUITT MD This examination was interpreted and the report reviewed and electronically signed by: CHALO PRUITT MD on Feb 14 2023 10:37AM EST [facility] XR Thoracic spine AP and Lat eralOrdered By: Ccf Provider on 02-14-2023 [facility] No Panel Informationon 02-11 Radiology Study observation (narrative) [place] [facility] URINE CULTUREon 02-04-2023 Bacteria identified Cx Nom (U) 10,000 -<50,000 CFU/ml Mixed microbiota Abnormal [facility] CBC W Auto Differential pane l (Bld)on 02-03-2023 Anisocytosis Ql (Bld) Present [facility] Basophils (Bld) [#/Vol] 0.00 10*3/uL <0.11 k/uL [facility] Basophils/100 WBC (Bld) 0.0 % [facility] Differential cell count method Nom (Bld) Manual [facility] Eosinophils (Bld) [#/Vol] 0.10 10*3/uL <0.46 k/uL [facility] Eosinophils/100 WBC (Bld) 1.0 % [facility] Erythrocyte distribution width (RBC) [Ratio] 15.5 % High 11.5 - 15.0 % [facility] Hematocrit (Bld) [Volume fraction] 45.2 % 36.0 - 46.0 % [facility] Hemoglobin (Bld) [Mass/Vol] 14.7 g/dL 11.5 - 15.5 g/dL [facility] Lymphocytes (Bld) [#/Vol] 1.56 10*3/uL 1.00 - 4.00 k/uL [facility] Lymphocytes/100 WBC (Bld) 16.0 % [facility] MCH (RBC) [Entitic mass] 26.3 pg 26.0 - 34.0 pg [facility] MCHC (RBC) [Mass/Vol] 32.5 g/dL 30.5 - 36.0 g/dL [facility] MCV (RBC) [Entitic vol] 80.7 fL 80.0 - 100.0 fL [facility] Monocytes (Bld) [#/Vol] 1.66 10*3/uL High <0.87 k/uL [facility] Monocytes/100 WBC (Bld) 17.0 % [facility] Neutrophils (Bld) [#/Vol] 6.44 10*3/uL 1.45 - 7.50 k/uL [facility] Neutrophils/100 WBC (Bld) 66.0 % [facility] Nucleated RBC (Bld) [#/Vol] <0.01 k/uL [facility] Nucleated RBC/100 WBC (Bld) [Ratio] 0.0 /100 WBC [facility] Ovalocytes LM Ql (Bld) Few Cl [facility] Platelet mean volume (Bld) [Entitic vol] 11.1 fL 9.0 - 12.7 fL [facility] Platelets (Bld) [#/Vol] 177 10*3/uL 150 - 400 k/uL [facility] Platelets Estimate (Bld) [#/Vol] Adequate [facility] Polychromasia LM Ql (Bld) Slight [facility] RBC (Bld) [#/Vol] 5.60 10*6/uL High 3.90 - 5.2 0 m/uL [facility] Red Cell Morph Reviewed: see result s of individual morphologies [facility] WBC (Bld) [#/Vol] 9.76 10*3/uL 3.70 - 11. 00 k/uL [facility] Comprehensive metabolic 2000 panelon 02-03-2023 Albumin [Mass/Vol] 4.3 g/dL 3.9 - 4.9 g/dL [facility] ALP [Catalytic activity/Vol] 76 U/L 34 - 123 U/L [facility] ALT [Catalytic activity/Vol] 18 U/L 7 - 38 U/L [facility] Anion gap [Moles/Vol] 11 mmol/L 9 - 18 mmol/L [facility] AST [Catalytic activity/Vol] 18 U/L 13 - 35 U/L [facility] Bilirubin [Mass/Vol] 0.5 mg/dL 0.2 - 1 .3 mg/dL [facility] Calcium [Mass/Vol] 9.4 mg/dL 8.5 - 10. 2 mg/dL [facility] Chloride [Moles/Vol] 104 mmol/L 97 - 10 5 mmol/L [facility] CO2 [Moles/Vol] 24 mmol/L 22 - 30 mmol/L [facility] Creatinine [Mass/Vol] 0.75 mg/dL 0.58 - 0.96 mg/dL [facility] Estimated Glomerular Filtration Rate 78 mL/min/1.73m >=60 mL/min/1.73m [facility] Glucose [Mass/Vol] 105 mg/dL High 74 - 99 mg/dL [facility] Potassium [Moles/Vol] 4.3 mmol/L 3.7 - 5.1 mmol/L [facility] Protein [Mass/Vol] 7.3 g/dL 6.3 - 8.0 g/dL [facility] Sodium [Moles/Vol] 139 mmol/L 136 - 144 mmol/L [facility] Urea nitrogen [Mass/Vol] 13 mg/dL 7 - 21 mg/dL [facility] MAGNESIUM [facility] 02-03-2023 Magnesium [Mass/Vol] 2.4 mg/dL High 1.7 - 2 .3 mg/dL [facility] T3 [facility] 02-03-2023 T3 [Mass/Vol] 79 ng/dL 79 - 165 ng/dL [facility] T4 FREE/FREE THYROXon 2022 Free T4 [Mass/Vol] 1.3 ng/dL 0.9 - 1.7 ng/dL [facility] TSH [facility] 02-03-2023 TSH Qn 3.670 m[IU]/L 0.270 - 4.200 mIU/L [facility] Urinalysis complete panel (U )on 02-03-2023 Bilirubin Ql (U) Negative Negative [facility] Clarity (Unsp spec) Clear Clear [facility] Color (U) Yellow Yellow [facility] Epithelial cells LM.HPF (Urine sed) [#/Area] Few [facility] Glucose Test strip (U) [Mass/Vol] 2+ Abnormal Trace, Negative [facility] Hemoglobin Ql (U) Negative Negative, Trace [facility] Hyaline casts (Urine sed) [#/Area] 1-3 /LPF Abnormal 0 /LPF [facility] Ketones Ql (U) Negative Trace, Negative [facility] Leukocyte esterase Test strip Ql (U) 75 Erica/uL Abnormal Negative, 25 Erica/uL [facility] Nitrite Ql (U) Negative Negative [facility] pH (U) 6.0 [pH] 5.0 - 8.0 [facility] Protein (U) [Mass/Vol] Trace Trace , Negative [facility] RBC LM.HPF (Urine sed) [#/Area] 3-5 /HPF Abnormal 0-3 /HPF [facility] Specific gravity (U) [Rel density] 1.022 1.005 - 1.030 [facility] Urobilinogen Ql (U) Negative Negative [facility] WBC LM.HPF (Urine sed) [#/Area] 11-25 /HPF Abnormal 0-5 /HPF [facility] HbA1c (Bld)on 02-02-2023 Average glucose Estimated from glycated hemoglobin (Bld) [Mass/Vol] 123 mg/dL [facility] HbA1c (Bld) [Mass fraction] 5.9 % High 4.3 - 5.6 % [facility] UA DIP, URINE (POC)on 2022 BILIRUBIN UA (POCT) Negative Negative [facility] CLARITY UA (POCT) Clear [facility] COLOR UA (POCT) Yellow [facility] GLUCOSE UA (POCT) 100 mg/dL Abnormal Negative mg/dL [facility] HEMOGLOBIN/BLOOD UA (POCT) Negative Negative [facility] KETONE UA (POCT) Trace Negative mg/dL [facility] LEUKOCYTES UA (POCT) Small Abnormal Negative [facility] NITRITE UA (POCT) Negative Negative [facility] PH UA (POCT) 5.5 4.5 - 8.0 [facility] Protein Ql (U) Trace Abnormal Negative mg/dL [facility] SPECIFIC GRAVITY UA (POCT) 1.015 1.005 - 1.030 [facility] UROBILINOGEN UA (POCT) 0.2 E.U./dL Allegra l E.U./dL [facility] ARASH JONO CROW RTon 022 [facility] UA DIP, URINE (POC)on 2021 BILIRUBIN UA (POCT) Negative Negative [facility] CLARITY UA (POCT) Clear [facility] COLOR UA (POCT) Yellow [facility] GLUCOSE UA (POCT) Negative Negative mg/dL [facility] HEMOGLOBIN/BLOOD UA (POCT) Negative Negative [facility] KETONE UA (POCT) Negative Negative mg/dL [facility] LEUKOCYTES UA (POCT) Negative Negative [facility] NITRITE UA (POCT) Negative Negative [facility] PH UA (POCT) 5.5 4.5 - 8.0 [facility] Protein Ql (U) Negative Negative mg/dL [facility] SPECIFIC GRAVITY UA (POCT) 1.010 1.005 - 1.030 [facility] UROBILINOGEN UA (POCT) 0.2 E.U./dL Allegra l E.U./dL [facility] XR Pelvis and Hip - left AP and Lateral frogon 01-24-2022 IMPRESSION: 1. LEFT hip joint appears well-preserved. 2. Very large amount of fecal debris 3. 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 Cell Operation Supervisor: JORDI Transcribe Date/Time: Jan 24 2022 11:59A Dictated by : PALOMA LIZ DO This examination was interpreted and the report reviewed and electronically signed by: PALOMA LIZ DO on Jan 24 2022 12:00PM [facility] DIVISION OF RADIOLOGY * * *Final Report* * * DATE OF EXAM: Jan 24 2022 10:39AM WOX [id number] - XR HIP 3V PELV+ AP/LAT LT / PROCEDURE REASON: Hip pain * * * * Physician Interpretation * * * * Pelvis and left hip HISTORY: Indication: Hip pain TECHNIQUE: Images: XR HIP 3V PELV+ AP/LAT LT Comparison: \\ Spine lumbar 09/09/2010 RESULT: Findings: Very large amount fecal debris is present throughout the colon. Severe degenerative changes throughout the lumbar spine again noted. Pelvis: No fractures or dislocations are seen. Left hip: No fractures or dislocations are seen. Hip joint appears well-preserved. DIVISION OF RADIOLOGY Provider, Ledy Garcialakeshia fragoso [place] - 01/24/2022 * * *Final Report* * * DATE OF EXAM: Jan 24 2022 10:39AM WOX 5351 - XR HIP 3V PELV+ AP/LAT LT / PROCEDURE REASON: Hip pain * * * * Physician Interpretation * * * * Pelvis and left hip HISTORY: Indication: Hip pain TECHNIQUE: Images: XR HIP 3V PELV+ AP/LAT LT Comparison: \\ Spine lumbar 09/09/2010 RESULT: Findings: Very large amount fecal debris is present throughout the colon. Severe degenerative changes throughout the lumbar spine again noted. Pelvis: No fractures or dislocations are seen. Left hip: No fractures or dislocations are seen. Hip joint appears well-preserved. IMPRESSION IMPRESSION: 1. LEFT hip joint appears well-preserved. 2. Very large amount of fecal debris 3. 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 XR Pelvis and Hip - left AP and Lateral frogOrdered By: Ccf Provider on 01-24-2022 [facility] XR Knee - right AP and Later mariely 12-01-2021 IMPRESSION: 1. Mild degenerative changes. 2. Meniscal chondrocalcinosis. 3. Atherosclerotic disease. Cell Operation Supervisor: JORDI Transcribe Date/Time: Dec 01 2021 4:23P Dictated by : CHALO PRUITT MD This examination was interpreted and the report reviewed and electronically signed by: CHALO PRUITT MD on Dec 01 2021 4:26PM [facility] DIVISION OF RADIOLOGY * * *Final Report* * * DATE OF EXAM: Dec 01 2021 4:20PM WOX 5207 - XR KNEE 2V AP/LAT RT / PROCEDURE REASON: Acute pain of right knee * * * * Physician Interpretation * * * * CLINICAL INDICATION: Knee pain TECHNIQUE: AP and lateral radiographs of the right knee COMPARISON: None FINDINGS: Right knee: Small suprapatellar joint effusion. No acute fracture or dislocation. Mild medial compartmental joint space narrowing. Superior patellar enthesophyte. Meniscal chondrocalcinosis. Atherosclerotic calcification of the vasculature. Comparison radiograph of the left knee demonstrates mild medial compartmental joint space narrowing and atherosclerotic calcifications. DIVISION OF RADIOLOGY Provider, Effie Madelaine [facility] - 12/01/2021 * * *Final Report* * * DATE OF EXAM: Dec 01 2021 4:20PM WOX 5207 - XR KNEE 2V AP/LAT RT / PROCEDURE REASON: Acute pain of right knee * * * * Physician Interpretation * * * * CLINICAL INDICATION: Knee pain TECHNIQUE: AP and lateral radiographs of the right knee COMPARISON: None FINDINGS: Right knee: Small suprapatellar joint effusion. No acute fracture or dislocation. Mild medial compartmental joint space narrowing. Superior patellar enthesophyte. Meniscal chondrocalcinosis. Atherosclerotic calcification of the vasculature. Comparison radiograph of the left knee demonstrates mild medial compartmental joint space narrowing and atherosclerotic calcifications. IMPRESSION IMPRESSION: 1. Mild degenerative changes. 2. Meniscal chondrocalcinosis. 3. Atherosclerotic disease. Cell Operation Supervisor: JORDI Transcribe Date/Time: Dec 01 2021 4:23P Dictated by : CHALO PRUITT MD This examination was interpreted and the report reviewed and electronically signed by: CHALO PRUITT MD on Dec 01 2021 4:26PM EST [facility] Radiology Study observation (narrative) Joseluis story [facility] XR Knee - right AP and Later alOrdered By: Ccf Provider on 12-01-2021 [facility] Vital Signs Date Time Vital Sign Value Performing Clinician Facility 07-07-2025 14:05-0400 Body height 160 cm Antoinette Gomez MD Work Phone: [facility] 07-07-2025 14:05-0400 Body mass index (BMI) [Ratio] 19.49 kg/m2 Antoinette Gomez MD Work Phone: [facility] 07-07-2025 14:05-0400 Body weight 49.9 kg Antoinette Gomez MD Work Phone: [facility] 07-07-2025 14:05-0400 Diastolic blood pressure 72 mm[Hg] Antoinette Gomez MD Work Phone: [facility] 07-07-2025 14:05-0400 Systolic blood pressure 126 mm[Hg] Antoinette Gomez MD Work Phone: [facility] 07-04-2025 09:55-0400 Diastolic blood pressure 80 mm[Hg] Rashmi 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 Work Phone: [facility] 07-04-2025 09:55-0400 Systolic blood pressure 132 mm[Hg] Rashmi 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 Work Phone: [facility] 07-04-2025 09:32-0400 Body mass index (BMI) [Ratio] 18.38 kg/m2 Rashmi 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 Work Phone: [facility] 07-04-2025 09:32-0400 Body weight 49.44 kg Rashmi 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 Work Phone: [facility] 07-04-2025 09:32-0400 Heart rate 60 /min Rashmi 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 Work Phone: [facility] 07-04-2025 09:32-0400 Respiratory rate 16 /min Rashmi 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 Work Phone: [facility] 07-04-2025 09:32-0400 SaO2% (BldA) [Mass fraction] 97 % Rashmi 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 Work Phone: [facility] 06-13-2025 09:43-0400 Body mass index (BMI) [Ratio] 18.21 kg/m2 Rashmi 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 Work Phone: [facility] 06-13-2025 09:43-0400 Body weight 48.99 kg Rashmi 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 Work Phone: [facility] 06-13-2025 09:43-0400 Diastolic blood pressure 82 mm[Hg] Rashmi 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 Work Phone: [facility] 06-13-2025 09:43-0400 Heart rate 60 /min Rashmi 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 Work Phone: [facility] 06-13-2025 09:43-0400 Respiratory rate 16 /min Rashmi 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 Work Phone: [facility] 06-13-2025 09:43-0400 SaO2% (BldA) [Mass fraction] 92 % Rashmi 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 Work Phone: [facility] 06-13-2025 09:43-0400 Systolic blood pressure 140 mm[Hg] Rashmi 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 Work Phone: [facility] 12-09-2024 09:26-0500 Body mass index (BMI) [Ratio] 18.55 kg/m2 Jesus Mg MD Work Phone: [facility] 12-09-2024 09:26-0500 Body weight 49.9 kg Jesus Mg MD Work Phone: [facility] 12-09-2024 09:26-0500 Diastolic blood pressure 82 mm[Hg] Jesus Mg MD Work Phone: [facility] 12-09-2024 09:26-0500 Heart rate 60 /min Jesus Mg MD Work Phone: [facility] 12-09-2024 09:26-0500 Respiratory rate 16 /min Jesus Mg MD Work Phone: [facility] 12-09-2024 09:26-0500 Systolic blood pressure 126 mm[Hg] Jesus Mg MD Work Phone: [facility] 08-15-2024 09:59-0400 Body height 164 cm Jesus Mg MD Work Phone: [facility] 08-15-2024 09:59-0400 Body mass index (BMI) [Ratio] 19.08 kg/m2 Jesus Mg MD Work Phone: [facility] 08-15-2024 09:59-0400 Body weight 51.31 kg Jesus Mg MD Work Phone: [facility] 08-15-2024 09:59-0400 Diastolic blood pressure 64 mm[Hg] Jesus Mg MD Work Phone: [facility] 08-15-2024 09:59-0400 Heart rate 51 /min Jesus Mg MD Work Phone: [facility] 08-15-2024 09:59-0400 SaO2% (BldA) [Mass fraction] 97 % Jesus Mg MD Work Phone: [facility] 08-15-2024 09:59-0400 Systolic blood pressure 112 mm[Hg] Jesus Mg MD Work Phone: [facility] 07-02-2024 08:54-0400 Body height 160 cm Antoinette Gomez MD Work Phone: [facility] 07-02-2024 08:54-0400 Body mass index (BMI) [Ratio] 20.02 kg/m2 Antoinette Gomez MD Work Phone: [facility] 07-02-2024 08:54-0400 Body weight 51.26 kg Antoinette Gomez MD Work Phone: [facility] 07-02-2024 08:54-0400 Diastolic blood pressure 60 mm[Hg] Antoinette Gomez MD Work Phone: [facility] 07-02-2024 08:54-0400 Systolic blood pressure 114 mm[Hg] Antoinette Gomez MD Work Phone: [facility] 04-01-2024 10:29-0400 Diastolic blood pressure 72 mm[Hg] Rancho Michaud MD Work Phone: [facility] 04-01-2024 10:29-0400 Systolic blood pressure 138 mm[Hg] Rancho Michaud MD Work Phone: [facility] 04-01-2024 10:18-0400 Body height 163.8 cm Rancho Michaud MD Work Phone: [facility] 04-01-2024 10:18-0400 Body mass index (BMI) [Ratio] 19.23 kg/m2 Rancho Michaud MD Work Phone: [facility] 04-01-2024 10:18-0400 Body weight 51.62 kg Rancho Michaud MD Work Phone: [facility] 04-01-2024 10:18-0400 Heart rate 49 /min Rancho Michaud MD Work Phone: [facility] 04-01-2024 10:18-0400 SaO2% (BldA) [Mass fraction] 97 % Rancho Michaud MD Work Phone: [facility] 03-19-2024 09:24-0400 Diastolic blood pressure 76 mm[Hg] Lizett Martínez 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 [employer] Work Phone: [facility] Comment on above: bp rao average 03-19-2024 09:24-0400 Heart rate 50 /min Lizett Martínez 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 [employer] Work Phone: [facility] 03-19-2024 09:24-0400 Systolic blood pressure 153 mm[Hg] Lizett Martínez 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 [employer] Work Phone: [facility] Comment on above: bp rao average 03-19-2024 09:04-0400 Body mass index (BMI) [Ratio] 19.06 kg/m2 Lizett Martínez 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 [employer] Work Phone: [facility] 03-19-2024 09:04-0400 Body weight 51.26 kg Lizett Martínez 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 [employer] Work Phone: [facility] 03-19-2024 09:04-0400 Respiratory rate 16 /min Lizett Martínez 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 [employer] Work Phone: [facility] 03-19-2024 09:04-0400 SaO2% (BldA) [Mass fraction] 95 % Lizett Martínez 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 [employer] Work Phone: [facility] 02-20-2024 11:07-0400 Diastolic blood pressure 80 mm[Hg] Lizett Martínez 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 [employer] Work Phone: [facility] 02-20-2024 11:07-0400 Systolic blood pressure 148 mm[Hg] Lizett Martínez 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 [employer] Work Phone: [facility] 02-20-2024 10:41-0400 Body weight 50.8 kg Lizett Martínez 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 [employer] Work Phone: [facility] 02-20-2024 10:41-0400 Heart rate 80 /min Lizett Martínez 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 [employer] Work Phone: [facility] 02-20-2024 10:41-0400 Respiratory rate 14 /min Lizett Martínez 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 [employer] Work Phone: [facility] 02-20-2024 10:41-0400 SaO2% (BldA) [Mass fraction] 95 % Lizett Martínez 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 [employer] Work Phone: [facility] 02-05-2024 11:50-0400 Diastolic blood pressure 86 mm[Hg] Rashmi 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 Work Phone: [facility] 02-05-2024 11:50-0400 Systolic blood pressure 166 mm[Hg] Rashmi 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 Work Phone: [facility] 02-05-2024 11:27-0400 Body height 164 cm Rashmi 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 Work Phone: [facility] 02-05-2024 11:27-0400 Body weight 51.26 kg Rashmi 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 Work Phone: [facility] 02-05-2024 11:27-0400 Heart rate 52 /min Rashmi 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 Work Phone: [facility] 02-05-2024 11:27-0400 Respiratory rate 16 /min Rashmi 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 Work Phone: [facility] 02-05-2024 11:27-0400 SaO2% (BldA) [Mass fraction] 97 % Rashmi 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 Work Phone: [facility] 10-17-2023 11:01-0500 Diastolic blood pressure 81 mm[Hg] Aleksey Nina 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 [employer] Work Phone: [facility] 10-17-2023 11:01-0500 Heart rate 60 /min Aleksey Nina 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 [employer] Work Phone: [facility] 10-17-2023 11:01-0500 Systolic blood pressure 187 mm[Hg] Aleksey Nina 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 [employer] Work Phone: [facility] 10-17-2023 10:58-0500 Body height 163.8 cm Aleksey Nina 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 [employer] Work Phone: [facility] 10-17-2023 10:58-0500 Body temperature 97.5 [degF] Aleksey Maico 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 [employer]ER Work Phone: [facility] 10-17-2023 10:58-0500 Body weight 49.9 kg Aleksey Nina 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 [employer] Work Phone: [facility] 08-04-2023 10:07-0400 Body weight 50.35 kg Rashmi 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 Work Phone: [facility] 08-04-2023 10:07-0400 Diastolic blood pressure 82 mm[Hg] Rashmi 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 Work Phone: [facility] 08-04-2023 10:07-0400 Heart rate 62 /min Rashmi 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 Work Phone: [facility] 08-04-2023 10:07-0400 Respiratory rate 16 /min Rashmi 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 Work Phone: [facility] 08-04-2023 10:07-0400 SaO2% (BldA) [Mass fraction] 98 % Rashmi 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 Work Phone: [facility] 08-04-2023 10:07-0400 Systolic blood pressure 144 mm[Hg] Rashmi 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 Work Phone: [facility] 06-29-2023 08:05-0400 Body height 165.1 cm Antoinette Gomez MD Work Phone: [facility] 06-29-2023 08:05-0400 Body weight 49.44 kg Antoinette Gomez MD Work Phone: [facility] 06-29-2023 08:05-0400 Diastolic blood pressure 80 mm[Hg] Antoinette Gomez MD Work Phone: [facility] 06-29-2023 08:05-0400 Systolic blood pressure 128 mm[Hg] Atnoinette Gomez MD Work Phone: [facility] 05-01-2023 10:58-0400 Body weight 50.35 kg Rancho Michaud MD Work Phone: [facility] 05-01-2023 10:58-0400 Diastolic blood pressure 90 mm[Hg] Rancho Michaud MD Work Phone: [facility] 05-01-2023 10:58-0400 Heart rate 56 /min Rancho Michaud MD Work Phone: [facility] 05-01-2023 10:58-0400 SaO2% (BldA) [Mass fraction] 98 % Rancho Michaud MD Work Phone: [facility] 05-01-2023 10:58-0400 Systolic blood pressure 160 mm[Hg] Rancho Michaud MD Work Phone: [facility] 04-13-2023 23:16-0400 Diastolic blood pressure 80 mm[Hg] [facility] 04-13-2023 23:16-0400 Heart rate 61 /min [facility] 04-13-2023 23:16-0400 Respiratory rate 17 /min [facility] 04-13-2023 23:16-0400 SaO2% (BldA) [Mass fraction] 97 % [facility] 04-13-2023 23:16-0400 Systolic blood pressure 147 mm[Hg] [facility] 04-13-2023 20:53-0400 Body height 165.1 cm [facility] 04-13-2023 20:53-0400 Body mass index (BMI) [Ratio] 18.4 kg/m2 [facility] 04-13-2023 20:53-0400 Body temperature 98.4 [degF] [facility] 04-13-2023 20:53-0400 Body weight 50.34 kg [facility] 02-03-2023 17:09-0400 Body temperature 97.59 [degF] Julianna Hong APRN.MACHINE [employer] Work Phone: [facility] 02-03-2023 17:09-0400 Body weight 51.35 kg Julianna Hong APRN.MACHINE [employer] Work Phone: [facility] 02-03-2023 17:09-0400 Diastolic blood pressure 80 mm[Hg] Julianna Hong APRN.MACHINE [employer] Work Phone: [facility] 02-03-2023 17:09-0400 Heart rate 66 /min Julianna Hong APRN.MACHINE [employer] Work Phone: [facility] 02-03-2023 17:09-0400 Respiratory rate 18 /min Julianna Hong APRN.MACHINE [employer] Work Phone: [facility] 02-03-2023 17:09-0400 SaO2% (BldA) [Mass fraction] 97 % Julianna Hong APRN.MACHINE [employer] Work Phone: [facility] 02-03-2023 17:09-0400 Systolic blood pressure 126 mm[Hg] Julianna Hong APRN.MACHINE [employer] Work Phone: [facility] 02-02-2023 11:01-0400 Body temperature 97.81 [degF] Rashmi Hendrix APRN.MACHINE [employer] Work Phone: [facility] 02-02-2023 11:01-0400 Body weight 50.8 kg Rashmi Hendrix 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 [employer]ER Work Phone: [facility] 02-02-2023 11:01-0400 Diastolic blood pressure 72 mm[Hg] Rashmi 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 Work Phone: [facility] 02-02-2023 11:01-0400 Heart rate 58 /min Rashmi 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 Work Phone: [facility] 02-02-2023 11:01-0400 Respiratory rate 16 /min Rashmi 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 Work Phone: [facility] 02-02-2023 11:01-0400 SaO2% (BldA) [Mass fraction] 98 % Rashmi 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 Work Phone: [facility] 02-02-2023 11:01-0400 Systolic blood pressure 128 mm[Hg] Rashmi 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 Work Phone: [facility] 10-28-2022 16:20-0500 Body height 165.1 cm Jesus Mg MD Work Phone: [facility] 10-28-2022 16:20-0500 Body temperature 98.91 [degF] Jesus Mg MD Work Phone: [facility] 10-28-2022 16:20-0500 Body weight 51.71 kg Jesus Mg MD Work Phone: [facility] 10-28-2022 16:20-0500 Diastolic blood pressure 70 mm[Hg] Jesus Mg MD Work Phone: [facility] 10-28-2022 16:20-0500 Heart rate 60 /min Jesus Mg MD Work Phone: [facility] 10-28-2022 16:20-0500 Respiratory rate 12 /min Jesus Mg MD Work Phone: [facility] 10-28-2022 16:20-0500 SaO2% (BldA) [Mass fraction] 97 % Jesus Mg MD Work Phone: [facility] 10-28-2022 16:20-0500 Systolic blood pressure 134 mm[Hg] Jesus Mg MD Work Phone: [facility] 07-27-2022 08:58-0400 Body weight 52.16 kg Jesus Mg MD Work Phone: [facility] 07-27-2022 08:58-0400 Diastolic blood pressure 82 mm[Hg] Jesus Mg MD Work Phone: [facility] 07-27-2022 08:58-0400 Heart rate 52 /min Jesus Mg MD Work Phone: [facility] 07-27-2022 08:58-0400 Respiratory rate 14 /min Jesus Mg MD Work Phone: [facility] 07-27-2022 08:58-0400 SaO2% (BldA) [Mass fraction] 100 % Jesus Mg MD Work Phone: [facility] 07-27-2022 08:58-0400 Systolic blood pressure 134 mm[Hg] Jesus Mg MD Work Phone: [facility] 07-25-2022 09:14-0400 Body height 165.1 cm Rancho Michaud MD Work Phone: [facility] 07-25-2022 09:14-0400 Body weight 52.62 kg Rancho Michaud MD Work Phone: [facility] 07-25-2022 09:14-0400 Diastolic blood pressure 64 mm[Hg] Rancho Michaud MD Work Phone: [facility] 07-25-2022 09:14-0400 Heart rate 56 /min Ranhco Michaud MD Work Phone: [facility] 07-25-2022 09:14-0400 Respiratory rate 14 /min Rancho Michaud MD Work Phone: [facility] 07-25-2022 09:14-0400 Systolic blood pressure 116 mm[Hg] Rancho Michaud MD Work Phone: [facility] 06-28-2022 11:02-0400 Body weight 51.71 kg Antoinette Gomez MD Work Phone: [facility] 06-28-2022 11:02-0400 Diastolic blood pressure 72 mm[Hg] Antoinette Gomez MD Work Phone: [facility] 06-28-2022 11:02-0400 Systolic blood pressure 120 mm[Hg] Antoinette Gomez MD Work Phone: [facility] Encounters Encounter Date Encounter Type Care Provider Facility Start: 08-18-2025 End: 08-18-2025 [facility] Facility:[facility] Start: 07-07-2025 End: 07-07-2025 Patient encounter procedure Antoinette Gomez MD Work Phone: OB/Gynecology Comment on above: Encounter for gyneco logical examination (general) (routine) without abnormal findings (Primary Dx); Encounter for screening mammogram for breast cancer Start: 07-07-2025 End: 07-07-2025 Patient encounter status Antoinette Gomez MD Work Phone: [facility] Start: 07-07-2025 Encounter for gynecological examination (general) (routine) without abnormal findings ANTOINETTE GOMEZ [facility] Start: 07-07-2025 End: 07-07-2025 [facility] Facility:[facility] Start: 07-07-2025 End: 07-07-2025 Subsequent hospital visit by physician Screen Mammo [facility] Comment on above: Encounter for screen ing mammogram for breast cancer [Z12.31] Start: 07-04-2025 End: 07-04-2025 Office outpatient visit 25 minutes Rashmi Hendrix APRN.CNP Work Phone: [facility] [place] Comment on above: Essential hypertensi on (Primary Dx); Cough, unspecified type; Dry mouth; Gastro-esophageal reflux disease without esophagitis Start: 07-04-2025 End: 07-04-2025 [facility] Facility:[facility] Start: 06-27-2025 End: 06-27-2025 [facility] Facility:[facility] Start: 06-19-2025 [facility] Start: 06-13-2025 End: 06-13-2025 Office outpatient visit 25 minutes Rashmi Hendrix APRN.MACHINE [employer] Work Phone: [facility] [place] Comment on above: Essential hypertensi on (Primary Dx); Cough, unspecified type; Dry mouth; Elevated glucose; Pre-diabetes; Age-related osteoporosis with current pathological fracture, sequela; 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 Start: 06-13-2025 End: 06-13-2025 [facility] Facility:[facility] Start: 06-09-2025 End: 06-09-2025 [facility] Facility:[facility] Start: 05-26-2025 End: 05-26-2025 ambulatory Rashmi Hendrix APRN.MACHINE [employer] Work Phone: [facility] Comment on above: Lab work Start: 05-23-2025 End: 05-23-2025 Refill Rancho Michaud MD Work Phone: [facility] Cardiology [place] Comment on above: Refill Request Start: 05-21-2025 End: 05-26-2025 Refill Rancho Michaud MD Work Phone: [facility] Cardiology [place] Comment on above: Refill Request Start: 05-20-2025 End: 05-22-2025 Refill Jesus Mg MD Work Phone: Internal [facility] [place] Comment on above: Refill Request Start: 03-10-2025 End: 03-10-2025 [facility] Facility:[facility] Start: 02-03-2025 End: 02-03-2025 Refill Gabe Almanza DO Work Phone: Orthopaedics Start: 02-01-2025 End: 02-04-2025 ambulatory Gabe Almanza DO Work Phone: [facility] Comment on above: Gabapentin Start: 01-15-2025 End: 01-15-2025 Refill Rancho Michaud MD Work Phone: Cardiology Comment on above: Refill Request Start: 12-09-2024 End: 12-17-2024 ambulatory Gabe Almanza DO Work Phone: [facility] [place] Comment on above: Osteoporosis treatme nt Prolia Start: 12-09-2024 End: 12-09-2024 Office outpatient visit 25 minutes Jesus Mg MD Work Phone: [facility] Comment on above: Age-related osteopor osis with current pathological fracture with delayed healing, subsequent encounter (Primary Dx); Chronic thoracic back pain, unspecified back pain laterality; Secondary hypertension; Hypothyroidism, unspecified type Start: 12-05-2024 End: 12-06-2024 Refill Vicky Miller APRN.CNP Work Phone: [facility] [place] Comment on above: Refill Request Start: 11-30-2024 End: 11-30-2024 ambulatory JESUS MG Facility:[facility] Start: 11-28-2024 End: 11-28-2024 Refill Rancho Michaud MD Work Phone: Cardiology Comment on above: Refill Request Start: 11-26-2024 End: 11-29-2024 ambulatory Jesus Mg MD Work Phone: Internal Medicine [place] [id number] Start: 11-20-2024 End: 11-20-2024 ambulatory GABE ALMANZA V Facility:[facility] Start: 11-20-2024 End: 11-20-2024 Patient encounter procedure Gabe Almanza DO Work Phone: [facility] [place] Comment on above: Compression fracture of L1 lumbar vertebra, with delayed healing, subsequent encounter (Primary Dx) Start: 11-01-2024 End: 11-01-2024 Orders Only Gabe Almanza DO Work Phone: Orthopaedics Comment on above: Pain in left hip (Pr imary Dx) Pain in left hip [M2 5.552] Start: 10-29-2024 End: 10-29-2024 Refill Rancho Michaud MD Work Phone: Cardiology Comment on above: Refill Request Start: 10-28-2024 End: 10-28-2024 Orders Only Gabe Almanza DO Work Phone: Orthopaedics Comment on above: Compression fracture of L1 vertebra, sequela (Primary Dx) Start: 10-27-2024 End: 10-31-2024 ambulatory Gabe Archie DO Work Phone: [facility] [place] Comment on above: Tawana's low back pain Start: 10-05-2024 End: 10-05-2024 ambulatory JESUS MG Facility:[facility] Start: 09-13-2024 End: 09-13-2024 Refill Rancho Michaud MD Work Phone: Cardiology Comment on above: Refill Request Start: 08-30-2024 End: 08-30-2024 ambulatory Jesus Mg MD Work Phone: [facility] [place] Comment on above: Thyroid medication Start: 08-24-2024 End: 08-24-2024 ambulatory [facility] Work Phone: [facility] Start: 08-24-2024 End: 08-24-2024 Patient encounter procedure [facility] Nurse [place] Work Phone: [facility] Start: 08-15-2024 End: 08-15-2024 Office outpatient visit 25 minutes Jesus Mg MD Work Phone: [facility] [place] Comment on above: Age-related osteopor osis with current pathological fracture with routine healing, subsequent encounter (Primary Dx); MGUS (monoclonal gammopathy of unknown significance); Vitamin D deficiency; Vitamin B12 deficiency; Weight gain; Fatigue, unspecified type; Iron deficiency Start: 07-16-2024 End: 07-16-2024 ambulatory Rex Lind PT Work Phone: [facility] Comment on above: Acute midline low ba ck pain with sciatica, sciatica laterality unspecified (Primary Dx) Start: 07-09-2024 End: 07-09-2024 ambulatory Rex Lind PT Work Phone: [facility] Comment on above: Acute midline low ba ck pain with sciatica, sciatica laterality unspecified (Primary Dx) Start: 07-02-2024 End: 07-03-2024 Documentation procedure Mammography Coordinator [facility] inic Department Start: 07-02-2024 End: 07-03-2024 Letter encounter Mammography Coordinator [facility] Department Start: 07-02-2024 End: 07-02-2024 Subsequent hospital visit by physician Screen Mammo [facility] Comment on above: Encounter for screen ing mammogram for malignant neoplasm of breast [Z12.31] Start: 07-02-2024 End: 07-02-2024 Patient encounter procedure Antoinette Gomez MD Work Phone: OB/Gynecology Comment on above: Encounter for gyneco logical examination (general) (routine) without abnormal findings (Primary Dx); Encounter for screening mammogram for breast cancer Start: 07-02-2024 End: 07-02-2024 Patient encounter status Antoinette Gomez MD Work Phone: [facility] Start: 06-17-2024 End: 06-17-2024 ambulatory Rex Lind PT Work Phone: [facility] Comment on above: Acute midline low ba ck pain with sciatica, sciatica laterality unspecified Start: 06-13-2024 Refill Vicky ALVARADOMACHINE [employer] Work Phone: Internal Medicine [place] Comment on above: Med Change Request Start: 06-07-2024 End: 06-07-2024 Subsequent hospital visit by physician [facility] [facility] Work Phone: Radiology Comment on above: Acute midline low ba ck pain with sciatica, sciatica laterality unspecified [M54.40] Start: 06-07-2024 End: 06-07-2024 Patient encounter procedure Gabe Almanza DO Work Phone: Family Medicine [facility] Comment on above: Acute midline low ba ck pain with sciatica, sciatica laterality unspecified (Primary Dx) Start: 05-13-2024 Refill Lizett latham 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 [employer] WINDER Work Phone: Internal Medicine [facility] Comment on above: Refill Request Start: 05-13-2024 Refill Rancho wei MD Work Phone: Cardiology Comment on above: Refill Request Start: 05-07-2024 Refill Lizett latham 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 [employer] W[employer]ER Work Phone: [facility] Comment on above: Refill Request Start: 04-01-2024 End: 04-01-2024 Patient encounter procedure Rancho Michaud MD Work Phone: Cardiology Comment on above: Paroxysmal atrial fi brillation (HCC) (Primary Dx); SVT (supraventricular tachycardia) (HCC); Essential hypertension; Mixed hyperlipidemia; Raynaud's disease without gangrene Start: 03-19-2024 End: 03-19-2024 Patient encounter procedure Lizett Soliz 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 [employer] WINDER Work Phone: Internal Medicine [facility] Comment on above: Essential hypertensi on (Primary Dx) Start: 03-03-2024 Refill Rashmi Hendrix APRN .MACHINE [employer] W[employer] Work Phone: Internal Medicine [facility] Comment on above: Med Change Request Start: 02-20-2024 End: 02-20-2024 Patient encounter procedure Lizett Soliz 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 [employer] W[employer]ER Work Phone: Internal Medicine [facility] Comment on above: Primary hypertension (Primary Dx); Hypothyroidism, unspecified type Start: 02-05-2024 End: 02-05-2024 Patient encounter procedure Rashmi Hendrix APRN.MACHINE [employer] Work Phone: Internal Medicine [facility] Comment on above: Essential hypertensi on (Primary Dx); Hypothyroidism, unspecified type; Paroxysmal atrial fibrillation (HCC) Start: 01-29-2024 ambulatory Rashmi Hendrix APRN .MACHINE [employer] Work Phone: Internal Medicine [facility] Comment on above: My oversight Start: 01-24-2024 Refill Rancho wei MD Work Phone: Cardiology Comment on above: Refill Request Start: 10-18-2023 Telephone encounter Aleksey mccormick 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 [employer] W[employer]ER Work Phone: Rheumatology Comment on above: Results Start: 10-17-2023 End: 10-17-2023 Patient encounter procedure Aleksey Nina 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 [employer] W[employer]ER Work Phone: Rheumatology Comment on above: Osteoporosis, unspec ified osteoporosis type, unspecified pathological fracture presence Start: 09-29-2023 End: 09-29-2023 ambulatory LEVI CREWS Facility:[facility] Start: 09-29-2023 End: 09-29-2023 Subsequent hospital visit by physician Xr [place] [facility] [employer] [facility] [employer] Comment on above: Compression fracture of T7 vertebra, initial encounter ([facility]) [S22.060A] Start: 09-11-2023 ambulatory Rashmi Ruma HYDROMETER FINISHER .MACHINE [employer] Work Phone: Internal Medicine [facility] Comment on above: RSV vaccine Start: 08-14-2023 Telephone encounter Rashmiedmundo Hendrix 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 [employer] Work Phone: Internal Medicine [facility] Comment on above: Results Start: 08-09-2023 End: 08-09-2023 Subsequent hospital visit by physician Bone Density [facility] Work Phone: Radiology Comment on above: Osteoporosis, unspec ified osteoporosis type, unspecified pathological fracture presence [M81.0] Start: 08-04-2023 End: 08-04-2023 Patient encounter procedure Rashmi Ruma HERNANDEZN.MACHINE [employer] W[employer]ER Work Phone: Internal Medicine [place] Comment on above: Essential hypertensi on (Primary Dx); Other hyperlipidemia; Paroxysmal atrial fibrillation (HCC); Prediabetes; Hypothyroidism, unspecified type; Osteoporosis, unspecified osteoporosis type, unspecified pathological fracture presence; Sinus congestion Start: 06-29-2023 End: 06-29-2023 Patient encounter procedure Antoinette Gomez MD Work Phone: OB/Gynecology Comment on above: Encounter for gyneco logical examination (general) (routine) without abnormal findings (Primary Dx); Encounter for screening mammogram for malignant neoplasm of breast; Continuous leakage of urine Start: 06-29-2023 End: 06-29-2023 Patient encounter status Antoinette Gomez MD Work Phone: [facility] Start: 06-29-2023 End: 06-29-2023 Subsequent hospital visit by physician Screen Mammo [facility] Comment on above: Encounter for screen ing mammogram for malignant neoplasm of breast [Z12.31] Start: 06-09-2023 Refuriel wei MD Work Phone: Cardiology Comment on above: Refill Request Start: 05-27-2023 Refill Rashmi Hendrix HYDROMETER FINISHER .MACHINE [employer] W[employer] Work Phone: Internal Medicine [place] Comment on above: Refill Request Start: 05-24-2023 Telephone encounter Carlita Kj Gillis APRN.MACHINE [employer] W[employer]ER Work Phone: [facility] Comment on above: Results Start: 05-23-2023 End: 05-23-2023 Patient encounter procedure [facility] Work Phone: Cardiology Comment on above: Paroxysmal atrial fi brillation (HCC) Start: 05-01-2023 End: 05-01-2023 Patient encounter procedure Rancho Michaud MD Work Phone: Cardiology Comment on above: Paroxysmal atrial fi brillation (HCC) (Primary Dx); SVT (supraventricular tachycardia) (HCC); Essential hypertension; Other hyperlipidemia; Raynaud's disease without gangrene Start: 04-14-2023 Telephone encounter Rancho carl MD Work Phone: [facility] Comment on above: Patient Update Start: 04-13-2023 End: 04-14-2023 Emergency department patient visit [facility] Facility:[facility] Start: 04-13-2023 End: 04-13-2023 Emergency department patient visit [facility] Start: 03-29-2023 End: 03-29-2023 ambulatory EMERSON Rocio [facility] Facility:[facility] Start: 02-24-2023 End: 02-24-2023 ambulatory [facility] Facility:[facility] Start: 02-18-2023 ambulatory [facility] Facility:[facility] Start: 02-18-2023 End: 02-18-2023 Subsequent hospital visit by physician [facility] (1.5t) Radiology Comment on above: Pathological fractur e, other site, initial encounter for fracture [M84.48XA] Start: 02-17-2023 Telephone encounter Gabe raza DO Work Phone: Orthopaedics Comment on above: Patient Update Start: 02-15-2023 End: 02-15-2023 Patient encounter procedure Gabe Almanza DO Work Phone: Family Medicine [facility] Comment on above: Compression fracture of T7 vertebra, initial encounter ([facility]) (Primary Dx) Start: 02-15-2023 Telephone encounter Gabe raza DO Work Phone: Orthopaedics Comment on above: Medication Problem Start: 02-11-2023 End: 02-11-2023 Subsequent hospital visit by physician Mary [facility] Work Phone: Radiology Comment on above: Pain [R52] Start: 02-07-2023 ambulatory Rashmi Hendrix APRN .MACHINE [employer] W[employer]ER Work Phone: Internal Medicine [facility] Comment on above: Tawana Doll ba ck pain Start: 02-03-2023 End: 02-03-2023 Patient encounter procedure Julianna Hong APRN.MACHINE [employer]LE[employer] WINDER Work Phone: [facility] Comment on above: Pain (Primary Dx); Muscle pain Start: 02-02-2023 End: 02-02-2023 Patient encounter procedure Rashmi Hendrix APRN.MACHINE [employer] W[employer]ER Work Phone: Internal Medicine [place] Comment on above: Medicare annual well ness visit, subsequent (Primary Dx); Acute back pain, unspecified back location, unspecified back pain laterality; Weight loss; Essential hypertension; Other hyperlipidemia; Hypothyroidism, unspecified type; Prediabetes; Leg cramps; Osteoporosis, unspecified osteoporosis type, unspecified pathological fracture presence; Abnormal urinalysis Start: 01-24-2023 Refill Rashmi Hendrix APRN .MACHINE [employer] W[employer]ER Work Phone: Internal Medicine [place] Comment on above: Refill Request Start: 01-16-2023 ambulatory Jesus Story Work Phone: Internal Medicine [place] Comment on above: Fosamax Start: 10-28-2022 End: 10-28-2022 Patient encounter procedure Jesus Mg MD Work Phone: Internal Medicine [place] Comment on above: Osteoporosis, unspec ified osteoporosis type, unspecified pathological fracture presence (Primary Dx); Viral illness; Essential hypertension; Other hyperlipidemia Start: 09-01-2022 ambulatory Jesus Story Work Phone: Internal Medicine [facility] Comment on above: Fosamax Start: 08-13-2022 End: 08-13-2022 ambulatory Immun[facility] Nurse [facility] Work Phone: Family Medicine [facility] Start: 07-27-2022 Telephone encounter Jesus garcia MD Work Phone: Internal Medicine [facility] Comment on above: Erroneous encounter- disregard Start: 07-27-2022 End: 07-27-2022 Subsequent hospital visit by physician Diagnostic Mammo [facility] Start: 07-27-2022 End: 07-27-2022 Patient encounter procedure Jesus Mg MD Work Phone: Internal Medicine [place] Comment on above: Essential hypertensi on (Primary Dx); Other hyperlipidemia; SVT (supraventricular tachycardia) (HCC); Hypothyroidism, unspecified type; Elevated serum globulin level Start: 07-25-2022 End: 07-25-2022 Patient encounter procedure Rancho Michaud MD Work Phone: Cardiology Comment on above: SVT (supraventricula r tachycardia) (HCC) (Primary Dx); Essential hypertension; Other hyperlipidemia; Raynaud's disease without gangrene Start: 07-22-2022 Refill Jesus Story Work Phone: Internal Medicine [facility] Comment on above: Refill Request Start: 07-03-2022 Refill Rashmi Hendrix APRN, .CNP Work Phone: Internal Medicine [facility] Comment on above: Refill Request Start: 06-28-2022 Documentation procedure Mammography Coordinator [facility] Start: 06-28-2022 Letter encounter Mammography Coordin ator [facility] Department Start: 06-28-2022 Telephone encounter Antoinette Gomez MD Work Phone: OB/Gynecology Comment on above: Results Start: 06-28-2022 End: 06-28-2022 Patient encounter procedure Antoinette Gomez MD Work Phone: OB/Gynecology Comment on above: Encounter for screen ing mammogram for malignant neoplasm of breast (Primary Dx); Urinary incontinence, unspecified type; Encounter for gynecological examination with abnormal finding; Urinary frequency Start: 06-28-2022 End: 06-28-2022 Patient encounter status Antoinette Gomez MD Work Phone: OB/Gynecology Start: 05-21-2022 Refill Mook Diaz PRN.MACHINE [employer] W[employer]ER Work Phone: Internal Medicine [facility] Comment on above: Refill Request Start: 03-30-2022 Refill Mook Diaz PRN.MACHINE [employer] W[employer]ER Work Phone: Internal Medicine [facility] Comment on above: Refill Request Start: 03-17-2022 Telephone encounter Jesus garcia MD Work Phone: Internal Medicine [facility] Comment on above: Results Start: 01-24-2022 End: 01-24-2022 Subsequent hospital visit by physician Xr [facility] Work Phone: Radiology Comment on above: Hip pain [M25.559] Start: 12-01-2021 End: 12-01-2021 Subsequent hospital visit by physician Xr [facility] Work Phone: Radiology Comment on above: Acute pain of right knee [M25.561] Start: 09-24-2018 [facility] Facility :[facility] Start: 01-22-2018 End: 01-22-2018 [facility] Facility:[facility] Procedures Date Procedure Procedure Detail Performing Clinician Start: 06-13-2025 Hemoglobin A1c/Hemoglobin.total in Blood Rashmi 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 Work Phone: Start: 03-10-2025 Adult depression scr eening assessment Jesus Mg MD Work Phone: Start: 08-24-2024 PFIZER-BIONTECH COVI D-19 VACCINE AGE 12+ YR (COMIRNATY) Viki Castellanos MD Work Phone: Start: 07-02-2024 Screening digital br east tomosynthesis bi Antoinette Gomez MD Work Phone: Start: 08-09-2023 Dxa bone density ida dy 1/> sites axial skel Rashmi 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 Work Phone: Start: 06-29-2023 Screening digital br east tomosynthesis bi Antoinette Yi Gomez MD Work Phone: Start: 06-29-2023 Urnls dip stick/tabl et rgnt auto w/o microscopy Antoinette Gomez MD Work Phone: Start: 05-23-2023 Echo tthrc r-t 2d w/wom-mode compl spec&colr d Rancho Michaud MD Work Phone: Start: 04-13-2023 Plain chest X-ray Start: 02-18-2023 Mri spinal canal tho racic w/o contrast matrl Gabe Almanza DO Work Phone: Start: 02-11-2023 Radex scapula complete Rashmi 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 Work Phone: Start: 02-02-2023 Culture bacterial quanttative colony count urine Rashmi 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 Work Phone: Start: 02-02-2023 Urnls dip stick/tabl et rgnt auto w/o microscopy Rashmi 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 Work Phone: Start: 08-13-2022 [employer] COVI D-19 BIVALENT BOOSTER VACCINE, AGE 12+ YR Jesus Mg MD Work Phone: Start: 08-13-2022 INFLUENZA SEASONAL QUADRIVALENT HIGH DOSE AGE 65+ Jesus Mg MD Work Phone: Start: 07-27-2022 ARASH DIAG W TRISTIN RT Deid re Yi Gomez MD Work Phone: Start: 06-28-2022 Urnls dip stick/tabl et rgnt auto w/o microscopy Antoinette Gomez MD Work Phone: Start: 01-24-2022 Radex hip unilateral with pelvis 2-3 views Jesus Mg MD Work Phone: Start: 12-01-2021 Radiologic examinati on knee 1/2 views Goldy Roman MD Work Phone: Plan of Treatment Date Care Activity Detail Author Start: 06-13-2028 Diabetes Screening Diabetes Screenin g [facility] Start: 08-15-2027 Diabetes Screening Diabetes Screenin g [facility] Start: 02-04-2027 Diabetes Screening Diabetes Screenin g [facility] Start: 08-11-2026 Diabetes Screening Diabetes Screenin g [facility] Start: 03-10-2026 Anxiety Screening Anxiety Screening [facility] Start: 03-10-2026 Depression Screening Depression Scre ening [facility] Start: 02-02-2026 DIABETES SCREEN DIABETES SCREEN [facility] Start: 02-02-2026 Diabetes Screening Diabetes Screenin g [facility] Start: 09-29-2025 End: 09-29-2025 Patient encounter procedure 09/29/2025 10:00 AM EST Office Visit [facility] [address] [place], [place] [phone] Jesus Mg MD [address] [place], [place] [id number] Medicare Wellness [facility] Comment on above: Medicare Wellness Start: 08-18-2025 End: 08-18-2025 Patient encounter procedure 08/18/2025 2:40 PM EDT Office Visit Cardiology [address] [place], [place] [phone] Rancho Michaud MD [address] [facility] [address] [place], [place] [phone] 6 month follow up Cardiology Comment on above: 6 month follow up Start: 08-09-2025 Screening for osteoporosis Bone Density Screening [facility] Start: 07-29-2025 DIABETES SCREEN DIABETES SCREEN [facility] Start: 07-14-2025 Influenza vaccination Influenza Vacc ine (#1) [facility] Start: 07-07-2025 End: 07-07-2025 Patient encounter procedure Mammogram Comment on above: Encounter for screen ing mammogram for breast cancer [Z12.31] annual Start: 07-03-2025 End: 07-03-2025 Patient encounter procedure Mammogram Comment on above: Encounter for screen ing mammogram for breast cancer [Z12.31] annual Start: 06-27-2025 End: 06-27-2025 Patient encounter procedure 06/27/2025 9:20 AM EDT Office Visit [facility] [address] [facility] [place] [address] Rashmi Hendrix APRN.MACHINE [employer]LE[employer] WINDER [address] [place] [address] 2 week follow up Internal Medicine [facility] Comment on above: 2 week follow up Start: 06-19-2025 End: 06-19-2025 Patient encounter procedure 06/19/2025 2:00 PM EDT Appointment Radiology [address] [place] [address] Dx: Cough, unspecified type [R05.9] Radiology Comment on above: Dx: Cough, unspecifi ed type [R05.9] Start: 06-13-2025 End: 06-13-2025 Patient encounter procedure 06/13/2025 9:40 AM EDT Office Visit Internal Medicine [facility] [address] [facility] [place] [address] Rashmi Hendrix APRN.MACHINE DEIC[employer]LEMENT WINDER [address] [facility] [place] [address] follow up 3 months Internal Medicine [facility] Comment on above: follow up 3 months Start: 03-10-2025 End: 03-10-2025 Patient encounter procedure 03/10/2025 9:20 AM EDT Office Visit Internal Medicine [facility] [address] [facility] [place] [address] Jesus Mg MD [address] [facility] [place] [place] [address] 3 month follow up Internal Medicine [facility] Comment on above: 3 month follow up Start: 02-22-2025 Covid-19 Vaccine ( season) Covid-19 Vaccine ( season) [facility] Start: 02-04-2025 Urine microalbumin profile DTaP,Tdap,Td Vaccine (1 - Tdap) [facility] Comment on above: Postponed from 07/22 (Declined at this time) Start: 01-25-2025 DIABETES SCREEN DIABETES SCREEN [facility] Start: 01-20-2025 End: 01-20-2025 Patient encounter procedure Cardiology Comment on above: 6 month follow up Start: 12-09-2024 End: 12-09-2024 Patient encounter procedure Internal Medicine [facility] Comment on above: 3 month follow up 3 month follow up/re view lab results Start: 11-30-2024 End: 11-30-2024 ambulatory 11/30/2024 8:30 AM EST [facility] [address] [facility] [place] [address] [facility] Start: 11-26-2024 End: 2025 Lipid 1996 panel - Serum or Plasma LIPID PANEL BASIC Lab Routine Hyperlipidemia Expected: 11/26/2024, Expires: [address] [facility] Work Phone: Comment on above: Expected: 11/26/2024 , Expires: 2025 Start: 11-20-2024 End: 11-20-2024 Patient encounter procedure 11/20/2024 1:30 PM EST Office Visit [facility] [address] [place] [address] Gabe Almanza V, DO [address] [place] [address] Back pain Family Medicine [facility] Comment on above: Back pain Start: 11-15-2024 End: 11-15-2024 Patient encounter procedure 11/15/2024 9:20 AM EST Office Visit [facility] [address] [place] [address] Jesus Mg MD [address] [place] [address] 3 month follow up Internal Medicine [facility] Comment on above: 3 month follow up Start: 11-13-2024 Advance Directive Discussion Advance Directive Discussion [facility] Start: 11-11-2024 End: 11-11-2024 Patient encounter procedure 11/11/2024 3:20 PM EST Office Visit Cardiology [address] [place] [address] Rancho Michaud MD [address] [place] [address] 6 month follow up Cardiology Comment on above: 6 month follow up Start: 10-05-2024 End: 10-05-2024 ambulatory 10/05/2024 10:00 AM EST Results Only [facility] [address] [place] [address] [facility] Start: 09-16-2024 End: 09-16-2024 Nursing evaluation of patient and report 09/16/2024 9:45 AM EST Nurse Visit [facility] [address] [place] [address] Nurse, Mi [address] [place], [place] [phone] nurse visit [facility] Comment on above: nurse visit Start: 08-26-2024 End: 08-26-2024 Patient encounter procedure 08/26/2024 3:45 PM EDT Office Visit General Surgery [address] [place] [address] Kentrell Dumont MD [address] [place] [address] groin lymph node, no referral, no imaging bjs General Surgery Comment on above: groin lymph node, no referral, no imaging bjs Start: 08-24-2024 End: 08-24-2024 Patient encounter procedure 08/24/2024 10:00 AM EDT Immunization [facility] [address] [place] [address] [facility] Immun[facility] Clinic Nurse [address] [place] [address] flu vaccine/ covid vaccine [facility] Comment on above: flu vaccine/ covid v accine Start: 08-15-2024 End: 11-14-2024 25-hydroxyvitamin D3 [Mass/volume] in Serum or Plasma [facility] Work Phone: Comment on above: Expected: 08/15/2024 , Expires: 11/14/2024 Start: 08-15-2024 End: 11-14-2024 Cobalamin (Vitamin B12) [Mass/volume] in Serum or Plasma [facility] Comment on above: Expected: 08/15/2024 , Expires: 11/14/2024 Start: 08-15-2024 End: 11-14-2024 Comprehensive metabolic 2000 panel - Serum or Plasma [facility] Comment on above: Expected: 08/15/2024 , Expires: 11/14/2024 Start: 08-15-2024 End: 11-14-2024 Ferritin [Mass/volume] in Serum or Plasma [facility] Comment on above: Expected: 08/15/2024 , Expires: 11/14/2024 Start: 08-15-2024 End: 11-14-2024 Iron and Iron binding capacity panel - Serum or Plasma [facility] Comment on above: Expected: 08/15/2024 , Expires: 11/14/2024 Start: 07-30-2024 End: 07-30-2024 ambulatory 07/30/2024 9:30 AM EDT OT/PT/Speech Visit [facility] [address] [place] [address] Rex Lind, PT [address] [place], [place] [id number] M54.40 (ICD-10-CM) - Acute midline low back pain with sciatica, sciatica laterality unspecified [facility] Comment on above: M54.40 (ICD-10-CM) - Acute midline low back pain with sciatica, sciatica laterality unspecified Start: 07-23-2024 End: 07-23-2024 ambulatory 07/23/2024 9:30 AM EDT OT/PT/Speech Visit [facility] [address] [place] [address] Rex Lind, PT [address] [place] [address] M54.40 (ICD-10-CM) - Acute midline low back pain with sciatica, sciatica laterality unspecified [facility] Comment on above: M54.40 (ICD-10-CM) - Acute midline low back pain with sciatica, sciatica laterality unspecified Start: 07-16-2024 End: 07-16-2024 ambulatory 07/16/2024 11:00 AM EDT OT/PT/Speech Visit [facility] [address] [place] [address] Rex Lind, PT [address] [place], [place] [address] M54.40 (ICD-10-CM) - Acute midline low back pain with sciatica, sciatica laterality unspecified [facility] Comment on above: M54.40 (ICD-10-CM) - Acute midline low back pain with sciatica, sciatica laterality unspecified Start: 07-14-2024 Covid-19 Vaccine ( season) Covid-19 Vaccine ( season) [facility] Start: 07-14-2024 Covid-19 Vaccine ( season) Covid-19 Vaccine ( season) [facility] Start: 07-14-2024 Influenza vaccination Influenza Vacc ine (#1) [facility] Start: 07-09-2024 End: 07-09-2024 ambulatory 07/09/2024 9:30 AM EDT OT/PT/Speech Visit [facility] [address] [place] [address] Rex Lind, PT [address] [place], [place] [address] M54.40 (ICD-10-CM) - Acute midline low back pain with sciatica, sciatica laterality unspecified [facility] Comment on above: M54.40 (ICD-10-CM) - Acute midline low back pain with sciatica, sciatica laterality unspecified Start: 07-02-2024 End: 07-02-2024 Patient encounter procedure OB/Gynecology Comment on above: Annual Exam Encounter for screen ing mammogram for malignant neoplasm of breast [Z12.31 Start: 06-17-2024 End: 06-17-2024 ambulatory 06/17/2024 3:30 PM EDT OT/PT/Speech Visit [facility] [address] [place] [address] Rex Lind, PT [address] [place] [address] Acute midline low back pain with sciatica, sciatica laterality unspecified [M54.40] [facility] Comment on above: Acute midline low ba ck pain with sciatica, sciatica laterality unspecified [M54.40] Start: 05-21-2024 End: 08-20-2024 Thyrotropin [Units/volume] in Serum or Plasma TSH BLD Lab Routine Hypothyroidism, unspecified type Expected: 05/21/2024 (Approximate), Expires: 08/20/[address] [facility] Work Phone: Comment on above: Expected: 05/21/2024 (Approximate), Expires: 08/20/2024 Start: 05-12-2024 Influenza vaccination Influenza Vacc ine (#1) [facility] Comment on above: Postponed from 07/14 (Declined at this time) Start: 04-01-2024 End: 04-01-2024 Patient encounter procedure 04/01/2024 10:20 AM EDT Office Visit Cardiology [address] [place] [id number] Rancho Michaud MD [address] [address] 4 month follow up per jaswant to nazia at time chose Cardiology Comment on above: 4 month follow up stephanie michaud to nazia at time gary Start: 03-19-2024 End: 03-19-2024 Patient encounter procedure 03/19/2024 9:00 AM EDT Office Visit [facility] [address] [facility] [place] [id number] Lizett Soliz, 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 DEICER ELEMENT WINDER [address] [facility] [place] [address] 4 week follow up Internal Medicine [facility] Comment on above: 4 week follow up Start: 02-05-2024 End: 05-06-2024 Basic metabolic 2000 panel - Serum or Plasma [facility] Work Phone: Comment on above: Expected: 02/05/2024 , Expires: 05/06/2024 Start: 02-05-2024 End: 05-06-2024 Thyrotropin [Units/volume] in Serum or Plasma [facility] Work Phone: Comment on above: Expected: 02/05/2024 , Expires: 05/06/2024 Start: 02-03-2024 Medicare Annual Well ness Visit Medicare Annual Wellness Visit [facility] Start: 02-03-2024 Urine microalbumin profile [facility] Comment on above: Postponed from 07/22 (Declined at this time) Start: 12-26-2023 Covid-19 Vaccine () Covid-19 Vaccine () [facility] Start: 11-13-2023 Advance Directive Discussion Advance Directive Discussion [facility] Start: 11-13-2023 Behavioral Health Screening Behavioral Health Screening [facility] Start: 11-13-2023 Depression Assessment Depression Ass essment [facility] Start: 10-17-2023 End: 10-16-2024 25-hydroxyvitamin D3 [Mass/volume] in Serum or Plasma [facility] Work Phone: Comment on above: Expected: 10/17/2023 (Approximate), Expires: 10/16/2024 Start: 10-17-2023 End: 10-16-2024 Calcium [Mass/volume] in Serum or Plasma [facility] Work Phone: Comment on above: Expected: 10/17/2023 (Approximate), Expires: 10/16/2024 Start: 10-17-2023 End: 10-16-2024 CREATININE BLD [facility] Work Phone: Comment on above: Expected: 10/17/2023 (Approximate), Expires: 10/16/2024 Start: 10-17-2023 End: 01-16-2024 Magnesium [Mass/volume] in Serum or Plasma [facility] Work Phone: Comment on above: Expected: 10/17/2023 (Approximate), Expires: 01/16/2024 Start: 10-17-2023 End: 01-16-2024 Parathyrin.intact [Mass/volume] in Serum or Plasma [facility] Work Phone: Comment on above: Expected: 10/17/2023 (Approximate), Expires: 01/16/2024 Start: 10-17-2023 End: 01-16-2024 Phosphate [Mass/volume] in Serum or Plasma [facility] Work Phone: Comment on above: Expected: 10/17/2023 (Approximate), Expires: 01/16/2024 Start: 09-14-2023 End: 11-14-2023 Thyrotropin [Units/volume] in Serum or Plasma TSH BLD Lab Routine Hypothyroidism, unspecified type Expected: 09/14/2023 (Approximate), Expires: 11/14/[address] [facility] Work Phone: Comment on above: Expected: 09/14/2023 (Approximate), Expires: 11/14/2023 Start: 08-04-2023 End: 10-04-2023 CBC panel - Blood by Automated count CBC Lab Routine Essential hypertension Paroxysmal atrial fibrillation (HCC) Prediabetes Expected: 08/04/2023, Expires: 10/04/[address] [facility] Work Phone: Comment on above: Expected: 08/04/2023 , Expires: 10/04/2023 Start: 08-04-2023 End: 10-04-2023 Comprehensive metabolic 2000 panel - Serum or Plasma COMP METABOLIC PANEL Lab Routine Essential hypertension Other hyperlipidemia Paroxysmal atrial fibrillation (HCC) Prediabetes Expected: 08/04/2023, Expires: 10/04/[address] [facility] Work Phone: Comment on above: Expected: 08/04/2023 , Expires: 10/04/2023 Start: 08-04-2023 End: 10-04-2023 Hemoglobin A1c in Blood HGB A1C Lab Routine Prediabetes Expected: 08/04/2023, Expires: 10/04/[address] [facility] Work Phone: Comment on above: Expected: 08/04/2023 , Expires: 10/04/2023 Start: 08-04-2023 End: 10-04-2023 Lipid 1996 panel - Serum or Plasma LIPID PANEL BASIC Lab Routine Other hyperlipidemia Expected: 08/04/2023, Expires: 10/04/[address] [facility] Work Phone: Comment on above: Expected: 08/04/2023 , Expires: 10/04/2023 Start: 08-04-2023 End: 10-04-2023 Thyrotropin [Units/volume] in Serum or Plasma TSH BLD Lab Routine Hypothyroidism, unspecified type Expected: 08/04/2023, Expires: 10/04/[address] [facility] Work Phone: Comment on above: Expected: 08/04/2023 , Expires: 10/04/2023 Start: 08-04-2023 End: 10-04-2023 Thyroxine (T4) free [Mass/volume] in Serum or Plasma T4 FREE/FREE THYROX Lab Routine Hypothyroidism, unspecified type Expected: 08/04/2023, Expires: 10/04/[address] [facility] Work Phone: Comment on above: Expected: 08/04/2023 , Expires: 10/04/2023 Start: 07-14-2023 Covid-19 Vaccine ( season) Covid-19 Vaccine ( season) [facility] Start: 07-14-2023 Influenza vaccination INFLUENZA (#1) [facility] Start: 05-12-2023 Influenza vaccination INFLUENZA (#1) [facility] Comment on above: Postponed from 07/14 (Declined at this time) Start: 04-13-2023 [facility] Start: 04-13-2023 Blood chemistry [facility] Start: 04-13-2023 [facility] Start: 12-14-2022 COVID-19 VACCINE (6 - Moderna series) COVID-19 VACCINE (6 - Moderna series) [facility] Start: 11-13-2022 ADVANCE DIRECTIVE DISCUSSION ADVANCE DIRECTIVE DISCUSSION [facility] Start: 11-13-2022 DEPRESSION ASSESSMENT DEPRESSION ASS ESSMENT [facility] Start: 07-27-2022 End: 09-26-2022 CBC W Auto Differential panel - Blood CBC + DIFF Lab Routine Essential hypertension Expected: 07/27/2022, Expires: 09/26/[address] [facility] Work Phone: Comment on above: Expected: 07/27/2022 , Expires: 09/26/2022 Start: 07-27-2022 End: 09-26-2022 Comprehensive metabolic 2000 panel - Serum or Plasma COMP METABOLIC PANEL Lab Routine Essential hypertension Expected: 07/27/2022, Expires: 09/26/[address] [facility] Work Phone: Comment on above: Expected: 07/27/2022 , Expires: 09/26/2022 Start: 07-27-2022 End: 09-26-2022 Lipid 1996 panel - Serum or Plasma LIPID PANEL BASIC Lab Routine Other hyperlipidemia Expected: 07/27/2022, Expires: 09/26/[address] [facility] Work Phone: Comment on above: Expected: 07/27/2022 , Expires: 09/26/2022 Start: 07-27-2022 End: 09-26-2022 PROTEIN ELECTROPHORESIS SERUM W/INTERP PROTEIN ELECTROPHORESIS SERUM W/INTERP Lab Routine Elevated serum globulin level Expected: 07/27/2022, Expires: 09/26/[address] [facility] Work Phone: Comment on above: Expected: 07/27/2022 , Expires: 09/26/2022 Start: 07-27-2022 End: 09-26-2022 Thyrotropin [Units/volume] in Serum or Plasma TSH BLD Lab Routine Hypothyroidism, unspecified type Expected: 07/27/2022, Expires: 09/26/[address] [facility] Work Phone: Comment on above: Expected: 07/27/2022 , Expires: 09/26/2022 Start: 07-14-2022 Influenza vaccination INFLUENZA (#1) [facility] Start: 11-13-2021 ADVANCE DIRECTIVE DISCUSSION ADVANCE DIRECTIVE DISCUSSION [facility] Start: 11-13-2021 DEPRESSION ASSESSMENT DEPRESSION ASS ESSMENT [facility] Start: 01-16-2012 SHINGRIX VACCINE (2 of 3) COOK GRIX VACCINE (2 of 3) [facility] Start: 07-22-2010 Urine microalbumin profile [facility] Start: 02-24-1953 Anxiety Screening Anxiety Screening [facility] Start: 02-24-1953 Depression Screening Depression Scre ening [facility] Bacteria identified in Urine by Culture URINE CULTURE Microbiology Routine Continuous leakage of urine 06/29/2023 8:52 AM EDT [facility] Work Phone: CBC W Auto Different ial panel - Blood CBC + DIFF Lab Routine Essential hypertension 02/05/2024 12:11 PM EDT [facility] Work Phone: End: 08-01-2025 DBT Breast - bilateral screening ARASH SCREENING W TRISTIN Radiology Routine Encounter for screening mammogram for breast cancer 1 Occurrences starting 07/02/2024 until 08/01/[address] [facility] Work Phone: Comment on above: 1 Occurrences starti ng 07/02/2024 until 08/01/2025 End: 08-06-2026 DBT Breast - bilateral screening ARASH SCREENING W [facility] Radiology Routine Encounter for screening mammogram for breast cancer 1 Occurrences starting 07/07/2025 until 08/06/[address] [facility] Work Phone: Comment on above: 1 Occurrences starti ng 07/07/2025 until 08/06/2026 DBT Breast - bilater al screening ARASH SCREENING W TRISTIN Radiology Routine Encounter for screening mammogram for breast cancer 07/07/2025 1:42 PM EDT [facility] Work Phone: End: 07-28-2023 Diagnostic mammography computer-aided detcj uni ARASH DIAGNOSTIC RT Radiology Routine Abnormal screening mammogram 1 Occurrences starting 06/28/2022 until 07/28/[address] [facility] Work Phone: Comment on above: 1 Occurrences starti ng 06/28/2022 until 07/28/2023 End: 09-02-2024 DXA-AXIAL SKELETON DXA-AXIAL SKELETON Radiology Routine Osteoporosis, unspecified osteoporosis type, unspecified pathological fracture presence 1 Occurrences starting 08/04/2023 until 09/02/[address] [facility] Work Phone: Comment on above: 1 Occurrences starti ng 08/04/2023 until 09/02/2024 End: 04-24-2024 ECG COMPLETE ECG COMPLETE ECG Routine 1 Occurrences starting 04/24/2023 until 04/24/[address] [facility] Work Phone: Comment on above: 1 Occurrences starti ng 04/24/2023 until 04/24/2024 End: 05-01-2024 Echocardiography ECHO Cardiology Routine Paroxysmal atrial fibrillation (HCC) 1 Occurrences starting 05/01/2023 until 05/01/[address] [facility] Work Phone: Comment on above: 1 Occurrences starti ng 05/01/2023 until 05/01/2024 End: 07-28-2023 ARASH SCREENING W TRISTIN ARASH SCREENING W TRISTIN Radiology Routine Encounter for screening mammogram for malignant neoplasm of breast 1 Occurrences starting 06/28/2022 until 07/28/[address] [facility] Work Phone: Comment on above: 1 Occurrences starti ng 06/28/2022 until 07/28/2023 End: 07-28-2024 ARASH SCREENING W TRISTIN ARASH SCREENING W [facility]IN Radiology Routine Encounter for screening mammogram for malignant neoplasm of breast 1 Occurrences starting 06/29/2023 until 07/28/[address] [facility] Work Phone: Comment on above: 1 Occurrences starti ng 06/29/2023 until 07/28/20[address] AFIB [facility] Work Phone: Patient referral [facility] Work Phone: Radex spine thoracic 2 views XR THORACIC LIMITED 2V AP/LAT Radiology Routine Compression fracture of T7 vertebra, initial encounter ([facility]) 09/29/2023 10:47 AM EST [facility] Work Phone: End: 07-28-2023 Us breast uni real time with image limited US BREAST LTD RT Radiology Routine Abnormal screening mammogram 1 Occurrences starting 06/28/2022 until 07/28/[address] [facility] Work Phone: Comment on above: 1 Occurrences starti ng 06/28/2022 until 07/28/2023 End: 07-13-2026 XR Chest PA and Lateral XR CHEST 2V FRONTAL/LAT Radiology Routine Cough, unspecified type 1 Occurrences starting 06/13/2025 until 07/13/[address] [facility] Work Phone: Comment on above: 1 Occurrences starti ng 06/13/2025 until 07/13/2026 End: 07-07-2025 XR Lumbar spine 3 Views XR LUMBAR GENERAL 3V AP/LAT/L5-S1 Radiology Routine Acute midline low back pain with sciatica, sciatica laterality unspecified 1 Occurrences starting 06/07/2024 until 07/07/[address] [facility] Work Phone: Comment on above: 1 Occurrences starti ng 06/07/2024 until 07/07/2025 XR Lumbar spine 3 Views XR LUMBA R GENERAL 3V AP/LAT/L5-S1 Radiology Routine Acute midline low back pain with sciatica, sciatica laterality unspecified 06/07/2024 3:35 PM EDT [facility] End: 12-01-2025 XR Pelvis and Hip - left AP and Lateral frog XR HIP GENERAL 3V PELV/AP/LAT LEFT Radiology Routine Pain in left hip 1 Occurrences starting 11/01/2024 until 12/01/[address] [facility] Work Phone: Comment on above: 1 Occurrences starti ng 11/01/2024 until 12/01/2025 XR Pelvis and Hip - left AP and Lateral frog XR HIP GENERAL 3V PELV/AP/LAT LEFT Radiology Routine Pain in left hip 11/01/2024 2:55 PM EST [facility] Immunizations Immunization Date Immunization Notes Care Provider Irasema cervantes 03-10-2025 COVID-19 vaccine, ag e 12+ yr (PFIZER-BIONTECH COMIRNATY) Jesus Mg MD Work Phone: [facility] 08-24-2024 COVID-19 vaccine, ag e 12+ yr (PFIZER-BIONTECH COMIRNATY) Immunization [facility] Work Phone: [facility] 08-24-2024 influenza, high dose seasonal, preservative-free Immunization [facility] Work Phone: [facility] 08-24-2024 influenza virus vaccine, unspecified formulation Jesus Mg MD Work Phone: [facility] 09-10-2023 respiratory syncytia l virus (RSV) vaccine, adjuvanted (AREXVY) Rashmi Hendrix 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 DEICER ELEMENT WINDER Work Phone: [facility] 08-25-2023 COVID-19 vaccine, ag e 12+ yr, season (PFIZER-BIONTECH) Rashmi Hendrix 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 DEICER ELEMENT WINDER Work Phone: [facility] Work Phone: 08-25-2023 influenza (HD-IIV4) vaccine, age 65+ yr, high dose, quadrivalent, PF (FLUZONE HIGH-DOSE) Rashmi Hendrix 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 DEICER ELEMENT WINDER Work Phone: [facility] Work Phone: 08-25-2023 influenza virus vaccine, unspecified formulation Lizett Soliz 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 DEICER ELEMENT WINDER Work Phone: [facility] 08-13-2022 COVID-19 booster vaccine, age 12+ yr, bivalent (PFIZER-BIONTECH) Immunization [facility] Work Phone: [facility] Work Phone: 08-13-2022 influenza, high-dose , quadrivalent vaccine (FLUZONE HIGH DOSE QUADRIVALENT) Immunization [facility] Work Phone: [facility] 08-13-2022 influenza virus vaccine, unspecified formulation Rsahmi Hendrix 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 DEICER ELEMENT WINDER Work Phone: [facility] 07-26-2021 influenza, high-dose , quadrivalent vaccine (FLUZONE HIGH DOSE QUADRIVALENT) Jesus Mg MD Work Phone: [facility] 12-04-2020 COVID-19 vaccine, fu ll dose (MODERNA) Jesus Mg MD Work Phone: [facility] 08-15-2020 influenza, high-dose , quadrivalent vaccine (FLUZONE HIGH DOSE QUADRIVALENT) Jesus Mg MD Work Phone: [facility] 12-16-2019 zoster vaccine recombinant Rashmi Hendrix 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 DEIC[employer] ELEMENT WINDER Work Phone: [facility] Work Phone: 09-10-2019 zoster vaccine recombinant Rashmi Hendrix 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 DEIC[employer]MENT WINDER Work Phone: [facility] Work Phone: 08-16-2019 influenza, high dose seasonal, preservative-free Jesus Mg MD Work Phone: [facility] 08-25-2018 influenza, high dose seasonal, preservative-free Jesus Mg MD Work Phone: [facility] 08-23-2017 influenza, high dose seasonal, preservative-free Jesus Mg MD Work Phone: [facility] Work Phone: 09-03-2016 influenza, high dose seasonal, preservative-free Jesus Mg MD Work Phone: [facility] Work Phone: 10-01-2015 pneumococcal conjuga te vaccine, 13 valent Jesus Mg MD Work Phone: [facility] 09-03-2015 influenza, high dose seasonal, preservative-free Jesus Mg MD Work Phone: [facility] Work Phone: 08-28-2014 influenza, seasonal, injectable Jesus Mg MD Work Phone: [facility] 09-28-2013 influenza virus vaccine, unspecified formulation Jesus Mg MD Work Phone: [facility] Work Phone: 09-11-2012 influenza virus vaccine, unspecified formulation Jesus Mg MD Work Phone: [facility] 11-21-2011 zoster vaccine, live Jesus Mg MD Work Phone: [facility] 09-03-2011 influenza virus vaccine, unspecified formulation Jesus Mg MD Work Phone: [facility] Work Phone: 12-24-2010 hepatitis A and hepatitis B vaccine Jesus Mg MD Work Phone: [facility] Work Phone: 08-23-2010 influenza virus vaccine, unspecified formulation Jesus Mg MD Work Phone: [facility] Work Phone: 07-23-2010 hepatitis A and hepatitis B vaccine Jesus Mg MD Work Phone: [facility] Work Phone: 07-21-2010 tetanus and diphther ia toxoids, not adsorbed, for adult use Jesus Mg MD Work Phone: [facility] Work Phone: 07-05-2010 typhoid vaccine, unspecified formulation Jesus Mg MD Work Phone: [facility] Work Phone: 06-21-2010 hepatitis A and hepatitis B vaccine Jesus Mg MD Work Phone: [facility] Work Phone: 06-21-2010 yellow fever vaccine Jesus Mg MD Work Phone: [facility] Work Phone: 11-10-2009 novel [id number], all formulations Jesus Mg MD Work Phone: [facility] 08-15-2009 influenza virus vaccine, unspecified formulation Jesus Mg MD Work Phone: [facility] 09-19-2008 influenza virus vaccine, unspecified formulation Jesus Mg MD Work Phone: [facility] Work Phone: 09-12-2007 influenza virus vaccine, unspecified formulation Jesus Mg MD Work Phone: [facility] Work Phone: 09-11-2006 influenza virus vaccine, unspecified formulation Jesus Mg MD Work Phone: [facility] Work Phone: 10-27-2005 pneumococcal polysaccharide vaccine, 23 valent Jesus Mg MD Work Phone: [facility] Work Phone: 09-08-2005 influenza virus vaccine, unspecified formulation Jesus Mg MD Work Phone: [facility] Work Phone: Payers Date Payer Category Payer Private Health Insurance [id number] 2023 Self-pay [id number] 2021 Private Health Insurance [facility] AET NA EHP RETIREE OVER 65 / EHP CC Retiree Over 65 [id number] 2021-Present [address] [place] [address] [facility] [id number] 2021 Private Health Insurance [id number] 2021 Unknown [id number] 2007 Unknown [facility] [id number] 2001 Medicare MEDICARE MEDICAR E A AND B [id number] 2001-Present [phone] [address] [address] [place] [address] Medicare [id number] 2001 Medicare [id number] 2001 Medicare [id number] Medicare [id number] Unknown [facility] [id number] Unknown [id number] Social History Date Type Detail Facility Tobacco smoking stat us NHIS Never smoked tobacco [facility] Start: 01-24-2022 End: 07-07-2025 Alcohol intake Current drinker of alcohol (finding) [facility] Start: 01-12-2021 History SDOH Alcohol Frequency 2 [facility] Start: 01-12-2021 History SDOH Alcohol Std Drinks 1 [facility] Start: 01-12-2021 History SDOH Social Connections Phone 5 [facility] Start: 01-12-2021 History SDOH Social Connections Get Together 3 [facility] Start: 01-12-2021 Education 17 [facility] Start: 1935 Sex Assigned At Not on file [facility] Start: 01-14-2022 End: 08-09-2022 Exposure to SARS-CoV-2 (event) Not sure [facility] Start: 04-13-2023 Tobacco smoking status NHIS Unknown if ever smoked [facility] Start: 04-13-2023 Homeless [facility] Start: 1935 Sex Assigned At Female [facility] Start: 01-12-2021 End: 08-15-2024 History of Social function [facility] Start: 01-12-2021 End: 08-15-2024 Social connection and isolation panel [facility] Start: 10-14-2012 Active Member of Clubs or Organizations Not on file [facility] Work Phone: Are you now , , , , never or living with a partner? [facility] How often to you hav e a drink containing alcohol? Monthly or less [facility] How many standard dr inks containing alcohol do you have on a typical day? 1 or 2 [facility] How often do you hav e 6 or more drinks on 1 occasion? Never [facility] Do you feel stress - tense, restless, nervous, or anxious, or unable to sleep at night because your mind is troubled all the time - these days [OSQ] Only a little [facility] (I/We) worried saranya er (my/our) food would run out before (I/we) got money to buy more. Never true [facility] In the past 12 month s, was there a time when you were not able to pay the mortgage or rent on time? No [facility] Start: 10-25-2021 Gender identity Identifies as female gender (finding) [facility] Start: 02-23-2021 Sexual orientation Heterosexual (finding) [facility] Start: 11-01-2021 End: 12-01-2021 Do you belong to any clubs or organizations such as evangelical groups, unions, fraternal or athletic groups, or school groups? Yes [facility] How often to you hav e a drink containing alcohol? 2-4 times a month [facility] Do you feel stress - tense, restless, nervous, or anxious, or unable to sleep at night because your mind is troubled all the time - these days [OSQ] Not at all [facility] Functional Status Date Assessment Result Facility 05-13-2015 Are you deaf, or do you have serious difficulty hearing No 05/13/2015 1:12 PM EDT Amber Nino (Riki)(Hist) No [facility] 05-13-2015 Are you blind, or do you have serious difficulty seeing, even when wearing glasses No 05/13/2015 1:12 PM EDT Amber Nino (Riki)(Hist) No [facility] 05-13-2015 Do you have serious difficulty walking or climbing stairs No 05/13/2015 1:12 PM EDT Amber Nino (Riki)(Hist) No [facility] 05-13-2015 Do you have difficul ty dressing or bathing No 05/13/2015 1:12 PM EDT Amber Nino (Riki)(Hist) No [facility] 05-13-2015 Because of a physica l, mental, or emotional condition, do you have difficulty doing errands alone such as visiting a physician's office or shopping No 05/13/2015 1:12 PM EDT TrungAmber marcano (Gypsum Roofer)(Hist) No [facility] Mental Status Date Assessment Result Facility 04-13-2023 Cognitive function Level Of Cons ciousness Awake;Alert;Appropriate;Fol lows Commands [facility] Work Phone: 05-13-2015 Because of a physica l, mental, or emotional condition, do you have serious difficulty concentrating, remembering, or making decisions No 05/13/2015 1:12 PM EDT Amber Nino (Gypsum Roofer)(Hist) No [facility] Clinical Notes 04-09-2019 to 08-18-2025 Antoinette Malik MD - 07/07/2025 2:04 PM EDTBTrinh morales Mammo Tech - 07/07/2025 1:30 PM EDTPatient InstructionsRashmi Hendrix APRN.[employer] - 07/04/2025 9:52 AM EDTPatient Instructions Note Date & Type Note Facility 08-18-2025 Note HNO ID: [id number] Author: JESUS MG MD Service: ? Author Type: Physician Type: Progress Notes Filed: 09/03/2025 18:22 Note Text: Reason for Visit Follow up HPI The Taawna is a 89-year-old female, with a history of HTN, presenting for evaluation of a recent episode of lightheadedness and diaphoresis. The Tawana reports an episode of lightheadedness and diaphoresis that occurred one week ago on Monday morning. She woke up feeling fine, but upon going to the restroom, she felt lightheaded and as if she would faint if she did not sit down. Her checked her blood pressure at that time, which was 120/70-80 mmHg. She lay down and felt better after an hour. She denies any changes to her antihypertensive medication and cannot recall any specific triggers for the episode. She does note having a glass of wine the evening before, which is a usual occurrence once a week. She denies any significant changes in her diet or activity level that day. The Tawana reports drinking approximately 5.5-6.5 cups of fluid daily, including 3-4 cups of water, 1.5 cups of coffee, 1 cup of milk, and occasionally some orange juice. She lives in independent living at [place] with her and has been there for 2.5 years. Today, she reports a mild headache that started just now, described as a "strange" feeling rather than a typical headache. She notes that her blood pressure was over 200 mmHg, which is higher than usual for her. She has been waiting for about an hour and needs to pickle processor her from physical therapy, which she thinks might be contributing to her elevated blood pressure. She reports that her blood pressure is usually in the 130s-140s mmHg. SOCIAL HISTORY[1] Past medical history, appointments, medications, allergies reviewed. Pertinent Lab/Diagnostic Studies are reviewed and discussed today Current Outpatient Medications: lisinopril (ZESTRIL) 40 mg tablet atenolol (TENORMIN) 25 mg tablet atorvastatin (LIPITOR) 10 mg tablet ELIQUIS 2.5 mg tab(s) amLODIPine (NORVASC) 5 mg tablet levothyroxine (LEVOXYL) 25 mcg tablet acyclovir (ZOVIRAX) 800 mg tablet Calcium Citrate-Vitamin D3 630-400 mg-unit ORAL MULTIVITAMIN TAB gabapentin (NEURONTIN) 100 mg capsule fluticasone (FLONASE) 50 mcg/actuation nasal spray guaiFENesin (MUCINEX) 600 mg 12 hr tablet Health Maintenance DTaP,Tdap,Td Vaccine(1 - Tdap) Medicare Annual Wellness Visit Bone Density Screening@ Review Of Systems Head: (+) headache Psychiatric: (+) anxiety Physical Exam BP (!) 206/100 Pulse (!) 54 Resp 16 Wt 49.7 kg (109 lb 9.6 oz) BMI 19.41 kg/m? GENERAL: NAD, alert and oriented SKIN: unremarkable, no rash or skin lesions. HEAD: normocephalic EYES: PERRLA, EOMI, conjunctiva clear EARS: external ears normal, canals clear, TM's normal. LUNGS: Clear to auscultation bilaterally, no wheezes/rhonchi/rales. HEART: Regular rate and rhythm, no murmurs. No ectopy. EXTREMITIES: Normal, No deformities, No skin discoloration, No edema. NEURO: Awake, alert and oriented x3, cranial nerves II-XII grossly intact, normal gait, no involuntary motions Assessment and Plan 1. Uncontrolled hypertension (I10) Systolic BP measured over 200 in clinic today, likely exacerbated by acute situational anxiety; home BP readings over the past week have generally been in the 130s-140s. - Advised patient to increase daily fluid intake to at least 8 cups per day. - Will call patient at 5:00 PM to confirm safe arrival with her . 2. H/O syncope (Z87.898) Single episode of lightheadedness and near-syncope one week ago, resolved with rest and hydration; no recent changes in medication or routine identified. - Orthostatic vital signs to be obtained by nursing staff. Voice recognition software was used to compose this office note. Please excuse any unintended typographical errors. Recording using Penxy software for draft documentation of the visit was discussed with the patient/authorized school admissions representative; all questions welcomed and answered. Patient/authorized school admissions representative agreed to proceed Jesus Mg MD [1] Social History Tobacco Use Smoking status: Never Smokeless tobacco: Never Vaping Use Vaping status: Never Used Substance Use Topics Alcohol use: Yes Comment: Occasionally Drug use: No [facility] 07-07-2025 Note HNO ID: [id number] Author: ANTOINETTE MALIK MD Service: ? Author Type: Physician Type: Progress Notes Filed: 07/07/2025 14:50 Note Text: Morale Officer offered: Patient declinesNicholas Gilliam is a 89 year old who presents for an annual gynecologic exam with complaints of urinary leaking at night intermittently and occasional incontinence with urgency. Pt reports is drinking fluids until around 10pm, drinks about 1.5 cups of caffeine per day. Pt reports no dysuria. Postmenopausal: yes HRT use: No. History of abnormal pap: No Bothersome pelvic pain: No Last mammogram: 2024 pending today History of abnormal mammogram: No OB History Gravida3 Para3 Term3 Preterm0 AB0 Living3 SAB0 IAB0 Ectopic0 Multiple0 Live Births0 Medical Insurance Collector History LMP: Postmenopausal Age at Menarche: Age at First : Age at Menopause: Medical Insurance Collector History Comments: Sexual Activity: Not Currently; Male Contraception: Tubal Ligation PAST MEDICAL HISTORY Diagnosis Date Arrhythmia Benign neoplasm of colon Compression fracture of cervical spine (HCC) 2022 Esophageal reflux 10/05/2005 HYPERLIPIDEMIA NEC/NOS 10/05/2005 HYPERTENSION NOS 10/05/2005 Macular degeneration of both eyes 2020 MGUS (monoclonal gammopathy of unknown significance) OSTEOPOROSIS NOS 10/05/2005 PAST SURGICAL HISTORY Procedure Laterality Date COAPTITE INJECTION 1ML 12/05/[address] Luo COLONOSCOPY FLX DX W/COLLJ SPEC WHEN PFRMD Colonoscopy COLONOSCOPY FLX DX W/COLLJ SPEC WHEN PFRMD 03/05/15 Colonoscopy Repeat 02/2020 COLONOSCOPY FLX DX W/COLLJ SPEC WHEN PFRMD 01/29/2018 Colonoscopy COLONOSCOPY W/BIOPSY SINGLE/MULTIPLE 01/24/11 repeat in COLONOSCOPY W/BIOPSY SINGLE/MULTIPLE 03/01/2012 HYSTEROSCOPY BX W/WO DANDC 01/14/14 Hysteroscopy DANDC LIG/TRNSXJ FLP TUBE ABDL/VAG APPR UNI/BI 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 2017 spot taken off of back PAST SURGICAL HISTORY OF cataract SIMP REPAIR FACE,EAR,EYE <2.5CM 02/04/09 Simple repair nasal bridge laceration SLING OPER STRES INCONTINENCE 01/15/08 Midurethral sling, transobturator approach FAMILY HISTORY Problem Relation Age of Onset Osteoporosis Mother Heart Father - [place] Prostate Cancer Son Heart Brother Breast Cancer Maternal Aunt SOCIAL HISTORY Social History Tobacco Use Smoking status: Never Smokeless tobacco: Never Vaping Use Vaping status: Never Used Substance Use Topics Alcohol use: Yes Comment: Occasionally Drug use: No REVIEW OF SYSTEMS Abdomen: No abdominal pain, nausea, vomiting, diarrhea, or constipation. No bloating, early satiety, indigestion, or increased flatulence. Bladder: see hpi Breast: No breast lumps, nipple d/c, overlying skin changes, redness or skin retraction Allergies and current medication updated:Yes SENSITIVE EXAM: The sensitive examination was discussed with the Patient or Patient's Authorized House Wirer. As applicable, any other physician, advance practice provider, medical student, or other health professional student that will be observing or involved in the sensitive examination for educational or training purposes was discussed with the Patient or Authorized House Wirer. The Patient or Authorized House Wirer has agreed to proceed with the sensitive examination. (Sensitive examination includes inspection and/or palpation of the breasts, pelvis, prostate and anorectal regions). EXAM: BP 126/72 Ht 5' 3" (1.60m) Wt 110 lb (49.9kg) BMI 19.49 kg/(m2). GENERAL: pleasant, female in no apparent distress HEENT: Normocephalic, atraumatic, mucus membranes moist, and no lesions NECK: Supple, full range of motion, no adenopathy, and thyroid normal DERMATOLOGY: Normal, without lesions, non-icteric, and non-hirsute BREAST: soft, non-tender, symmetric, no dominant mass, normal nipple-areolar complex, no lymphadenopathy, and no nipple discharge CHEST: Normal inspiratory effort ABDOMEN: soft, non-tender, and no masses PELVIC: external genitalia normal, normal Bartholin's glands, urethra, [place]'s glands, no vulvar lesions, no cervical lesions, good vaginal support, physiologic discharge present, normal appearing perineal body and perianal region BIMANUAL: uterus normal size, shape and consistency, no adnexal masses, and non-tender RECTOVAGINAL: deferred. NEURO: alert and oriented x3,exam grossly non-focal EXTREMITIES: normal ASSESSMENT/PLAN: 1) Health maintenance: Pap/HPV screening no longer needed Mammogram ordered Mammogram up to date Nutrition, exercise and routine health maintenance exams reviewed. Colon cancer screening: up to date with screening BMD: up to date- osteoporosis- declines treatment. 2) Follow up one year or sooner as needed 3) voiding diary, restriction of fluids and lifestyle modifications reviewed for urinary symptoms Antoinette Barbosa MD [facility] 07-07-2025 History of Presen t illness Narrative Morale Officer offered: Patient declines. Tawana is a 89 year old who presents for an annual gynecologic exam with complaints of urinary leaking at night intermittently and occasional incontinence with urgency. Pt reports is drinking fluids until around 10pm, drinks about 1.5 cups of caffeine per day. Pt reports no dysuria. Postmenopausal: yes HRT use: No. History of abnormal pap: No Bothersome pelvic pain: No Last mammogram: 2024 pending today History of abnormal mammogram: No OB History Gravida3 Para3 Term3 Preterm0 AB0 Living3 SAB0 IAB0 Ectopic0 Multiple0 Live Births0 Medical Insurance Collector History LMP: Postmenopausal Age at Menarche: Age at First : Age at Menopause: Medical Insurance Collector History Comments: Sexual Activity: Not Currently; Male Contraception: Tubal Ligation PAST MEDICAL HISTORY Diagnosis Date Arrhythmia Benign neoplasm of colon Compression fracture of cervical spine (HCC) 2022 Esophageal reflux 10/05/2005 HYPERLIPIDEMIA NEC/NOS 10/05/2005 HYPERTENSION NOS 10/05/2005 Macular degeneration of both eyes 2020 MGUS (monoclonal gammopathy of unknown significance) OSTEOPOROSIS NOS 10/05/2005 PAST SURGICAL HISTORY Procedure Laterality Date COAPTITE INJECTION 1ML 12/05/[address] Luo COLONOSCOPY FLX DX W/COLLJ SPEC WHEN PFRMD Colonoscopy COLONOSCOPY FLX DX W/COLLJ SPEC WHEN PFRMD 03/05/15 Colonoscopy Repeat 02/2020 COLONOSCOPY FLX DX W/COLLJ SPEC WHEN PFRMD 01/29/2018 Colonoscopy COLONOSCOPY W/BIOPSY SINGLE/MULTIPLE 01/24/11 repeat in COLONOSCOPY W/BIOPSY SINGLE/MULTIPLE 03/01/2012 HYSTEROSCOPY BX W/WO D&C 01/14/14 Hysteroscopy D&C LIG/TRNSXJ FLP TUBE ABDL/VAG APPR UNI/BI 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 2017 spot taken off of back PAST SURGICAL HISTORY OF cataract SIMP REPAIR FACE,EAR,EYE <2.5CM 02/04/09 Simple repair nasal bridge laceration SLING OPER STRES INCONTINENCE 01/15/08 Midurethral sling, transobturator approach FAMILY HISTORY Problem Relation Age of Onset Osteoporosis Mother Heart Father - [place] Prostate Cancer Son Heart Brother Breast Cancer Maternal Aunt SOCIAL HISTORY Social History Tobacco Use Smoking status: Never Smokeless tobacco: Never Vaping Use Vaping status: Never Used Substance Use Topics Alcohol use: Yes Comment: Occasionally Drug use: No REVIEW OF SYSTEMS Abdomen: No abdominal pain, nausea, vomiting, diarrhea, or constipation. No bloating, early satiety, indigestion, or increased flatulence. Bladder: see hpi Breast: No breast lumps, nipple d/c, overlying skin changes, redness or skin retraction Allergies and current medication updated:Yes SENSITIVE EXAM: The sensitive examination was discussed with the Patient or Patient's Authorized House Wirer. As applicable, any other physician, advance practice provider, medical student, or other health professional student that will be observing or involved in the sensitive examination for educational or training purposes was discussed with the Patient or Authorized House Wirer. The Patient or Authorized House Wirer has agreed to proceed with the sensitive examination. (Sensitive examination includes inspection and/or palpation of the breasts, pelvis, prostate and anorectal regions). EXAM: BP 126/72 Ht 5' 3" (1.60m) Wt 110 lb (49.9kg) BMI 19.49 kg/(m^2). GENERAL: pleasant, female in no apparent distress HEENT: Normocephalic, atraumatic, mucus membranes moist, and no lesions NECK: Supple, full range of motion, no adenopathy, and thyroid normal DERMATOLOGY: Normal, without lesions, non-icteric, and non-hirsute BREAST: soft, non-tender, symmetric, no dominant mass, normal nipple-areolar complex, no lymphadenopathy, and no nipple discharge CHEST: Normal inspiratory effort ABDOMEN: soft, non-tender, and no masses PELVIC: external genitalia normal, normal Bartholin's glands, urethra, [place]'s glands, no vulvar lesions, no cervical lesions, good vaginal support, physiologic discharge present, normal appearing perineal body and perianal region BIMANUAL: uterus normal size, shape and consistency, no adnexal masses, and non-tender RECTOVAGINAL: deferred. NEURO: alert and oriented x3,exam grossly non-focal EXTREMITIES: normal ASSESSMENT/PLAN: 1) Health maintenance: Pap/HPV screening no longer needed Mammogram ordered Mammogram up to date Nutrition, exercise and routine health maintenance exams reviewed. Colon cancer screening: up to date with screening BMD: up to date- osteoporosis- declines treatment. 2) Follow up one year or sooner as needed 3) voiding diary, restriction of fluids and lifestyle modifications reviewed for urinary symptoms Antoinette Barbosa MD documented in this encounter [facility] 07-07-2025 History of Presen t illness Narrative Radiology Service Progress Note PATIENT NAME: Tawana Farrar DATE OF SERVICE: July 07, 2025 TIME: 2:08 PM PATIENT IDENTITY VERIFICATION COMPLETED USING TWO (2) IDENTIFIERS: Name and Date of confirmed by patient verbally. FALL SCREENING: Has the patient had 2 falls in the last year or 1 fall with injury or currently using an Ambulatory Assistive Device (Walker, Cane, Wheelchair, Crutches, etc.)? No PATIENT GENDER DATA: Assigned female at . status: : No status: NO. PATIENT RELEVANT IMPLANT DATA REVIEWED: Not Applicable PATIENT PRESENTS WITH AN IMPLANTABLE OR ATTACHED CHAIRLIFT OPERATOR: No RADIOLOGY DEPARTMENT: Mammography PERIPHERAL IV DATA: Not applicable SIGNED BY: Domi De La Rosa July 07, 2025 2:08 PM documented in this encounter [facility] 07-07-2025 Note HNO ID: [id number] Author: TRINH ARRINGTON Mammo Tech Service: ? Author Type: Manager Hydraulic Type: Progress Notes Filed: 07/07/2025 14:08 Note Text: Radiology Service Progress Note PATIENT NAME: Tawana Farrar DATE OF SERVICE: July 07, 2025 TIME: 2:08 PM PATIENT IDENTITY VERIFICATION COMPLETED USING TWO (2) IDENTIFIERS: Name and Date of confirmed by patient verbally. FALL SCREENING: Has the patient had 2 falls in the last year or 1 fall with injury or currently using an Ambulatory Assistive Device (Walker, Cane, Wheelchair, Crutches, etc.)? No PATIENT GENDER DATA: Assigned female at . status: : No status: NO. PATIENT RELEVANT IMPLANT DATA REVIEWED: Not Applicable PATIENT PRESENTS WITH AN IMPLANTABLE OR ATTACHED CHAIRLIFT OPERATOR: No RADIOLOGY DEPARTMENT: Mammography PERIPHERAL IV DATA: Not applicable SIGNED BY: Domi De La Rosa July 07, 2025 2:08 PM [facility] 07-04-2025 Instructions Rashmi Hendrix APRN.[facility] - 07/04/2025 9:53 AM EDT - Your Flonase (steroid nasal spray) prescription has been sent to [facility]. Use 2 sprays in each nostril at bedtime, then rinse your mouth and throat. Aim the spray slightly outward (away from the middle of your nose). Stop the spray if you develop very dry sinuses, nosebleeds, or headaches. - If your morning cough does not improve after using Flonase, we can add a medicine to reduce stomach acid before bed. - Continue checking your blood pressure at home and stay on your current plan, since most readings are around 120/70s. - You are due for your Medicare wellness visit in [address] Mg; please schedule and attend that appointment. documented in this encounter [facility] 07-04-2025 Note HNO ID: [id number] Author: RASHMI HENDRIX APRN.CNP Service: ? Author Type: Nurse Practitioner Type: Progress Notes Filed: 07/04/2025 11:19 Note Text: CC: Patient presents with: Recheck: BP follow up, review results HPI Tawana Farrar is a 89 year old female who presents today for BP follow up. Recording using Penxy software for draft documentation of the visit was discussed with the patient/authorized school admissions representative; all questions welcomed and answered. Patient/authorized school admissions representative agreed to proceed Hypertension: - Home BP readings since April: majority in 120s/70s mmHg,. - Three readings <110 mmHg; several readings >140 mmHg. - Noted improvement in BP readings after sitting for 10-15 minutes. - Denies chest pain edema, palpitations, or dyspnea. Chronic Cough: - Persistent cough x6 months, initiated in winter and occurs in AM. - Described as a "heavy cough" that almost induces gagging. - Often followed by sneezing and rhinorrhea or epiphora. - Cough is intermittent, not occurring every morning. - Last episode occurred this morning. - Tried mucolytic 4 months ago with no significant improvement. - Denies sinus pain, sinus drainage, headaches, or otalgia. - Suspects sleeping with mouth open; experiences xerostomia at night. - Recent CXR showed potential aortic abnormality; echocardiogram revealed normal aorta, normal LV and RV size, normal EF, and no valvular issues. Gastroesophageal Reflux Disease: - History of GERD; cough potentially related to reflux. - Consumed quiche, corn on the cob, bread, and milk yesterday. - Takes Tums PRN, approximately once every three weeks. - Denies frequent heartburn, abdominal pain, or nausea. REVIEW OF SYSTEMS See HPI PAST MEDICAL HISTORY Diagnosis Date Arrhythmia Benign neoplasm of colon Compression fracture of cervical spine (HCC) 2022 Esophageal reflux 10/05/2005 HYPERLIPIDEMIA NEC/NOS 10/05/2005 HYPERTENSION NOS 10/05/2005 Macular degeneration of both eyes 2020 MGUS (monoclonal gammopathy of unknown significance) OSTEOPOROSIS NOS 10/05/2005 PAST SURGICAL HISTORY Procedure Laterality Date COAPTITE INJECTION 1ML 12/05/[address] Luo COLONOSCOPY FLX DX W/COLLJ SPEC WHEN PFRMD Colonoscopy COLONOSCOPY FLX DX W/COLLJ SPEC WHEN PFRMD 03/05/15 Colonoscopy Repeat 02/2020 COLONOSCOPY FLX DX W/COLLJ SPEC WHEN PFRMD 01/29/2018 Colonoscopy COLONOSCOPY W/BIOPSY SINGLE/MULTIPLE 01/24/11 repeat in COLONOSCOPY W/BIOPSY SINGLE/MULTIPLE 03/01/2012 HYSTEROSCOPY BX W/WO DANDC 01/14/14 Hysteroscopy DANDC LIG/TRNSXJ FLP TUBE ABDL/VAG APPR UNI/BI 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 2017 spot taken off of back PAST SURGICAL HISTORY OF cataract SIMP REPAIR FACE,EAR,EYE <2.5CM 02/04/09 Simple repair nasal bridge laceration SLING OPER STRES INCONTINENCE 01/15/08 Midurethral sling, transobturator approach ALLERGIES Asa [Salicylates], Aspirin, and Risedronate MEDICATIONS fluticasone (FLONASE) 50 mcg/actuation nasal spray Use 2 sprays in each nostril once daily. Rinse mouth after use. lisinopril (ZESTRIL) 40 mg tablet Take 1 tablet by mouth once daily. atenolol (TENORMIN) 25 mg tablet Take 0.5 tablets by mouth every 12 hours. atorvastatin (LIPITOR) 10 mg tablet Take 0.5 tablets by mouth daily at bedtime. guaiFENesin (MUCINEX) 600 mg 12 hr tablet Take 1 tablet by mouth two times a day. gabapentin (NEURONTIN) 100 mg capsule Take 1 capsule by mouth daily at bedtime for 90 days. ELIQUIS 2.5 mg tab(s) Take 1 tablet by mouth two times a day. amLODIPine (NORVASC) 5 mg tablet TAKE 1 TABLET BY MOUTH EVERY DAY levothyroxine (LEVOXYL) 25 mcg tablet Take 1 tablet by mouth once daily. Except take 1.5 tablets on Monday and Monday . Take on empty stomach. For Thyroid acyclovir (ZOVIRAX) 800 mg tablet Take 1 tablet by mouth three times a day as needed (cold sores). Calcium Citrate-Vitamin D3 630-400 mg-unit ORAL Take 1 tablet by mouth every other day. Takes daily MULTIVITAMIN TAB Take 1 tablet by mouth. Every other day FAMILY HISTORY Problem Relation Age of Onset Osteoporosis Mother Heart Father - [place] Prostate Cancer Son Heart Brother Breast Cancer Maternal Aunt SOCIAL HISTORY[1] PHYSICAL EXAM BP 142/84 Pulse 60 Resp 16 Wt 49.4 kg (109 lb) SpO2 97% BMI 18.38 kg/m? General Appearance: well appearing, in no acute distress, alert Eyes: conjunctiva pink and moist, no icterus, sclera white, non-injected Nose/sinus: No sinus tenderness Neck: Thyroid normal size and symmetric without palpable nodules, Neck supple, No adenopathy Oropharynx: normal Lymph nodes: No cervical lymphadenopathy and No supraclavicular lymphadenopathy Lungs: Lungs clear to auscultation. No wheezing, rhonchi, rales. Heart: RRR without murmur, gallop, or rubs. No ectopy Health maintenance reviewed with patient: DTaP,Tdap,Td Vaccine(1 - Tdap) due on 07/22/2010 (more content not included)... [facility] 07-04-2025 History of Presen t illness Narrative CC: Patient presents with: Recheck: BP follow up, review results HPI Tawana Farrar is a 89 year old female who presents today for BP follow up. Recording using Penxy software for draft documentation of the visit was discussed with the patient/authorized school admissions representative; all questions welcomed and answered. Patient/authorized school admissions representative agreed to proceed Hypertension: - Home BP readings since April: majority in 120s/70s mmHg,. - Three readings <110 mmHg; several readings >140 mmHg. - Noted improvement in BP readings after sitting for 10-15 minutes. - Denies chest pain edema, palpitations, or dyspnea. Chronic Cough: - Persistent cough x6 months, initiated in winter and occurs in AM. - Described as a "heavy cough" that almost induces gagging. - Often followed by sneezing and rhinorrhea or epiphora. - Cough is intermittent, not occurring every morning. - Last episode occurred this morning. - Tried mucolytic 4 months ago with no significant improvement. - Denies sinus pain, sinus drainage, headaches, or otalgia. - Suspects sleeping with mouth open; experiences xerostomia at night. - Recent CXR showed potential aortic abnormality; echocardiogram revealed normal aorta, normal LV and RV size, normal EF, and no valvular issues. Gastroesophageal Reflux Disease: - History of GERD; cough potentially related to reflux. - Consumed quiche, corn on the cob, bread, and milk yesterday. - Takes Tums PRN, approximately once every three weeks. - Denies frequent heartburn, abdominal pain, or nausea. REVIEW OF SYSTEMS See HPI PAST MEDICAL HISTORY Diagnosis Date Arrhythmia Benign neoplasm of colon Compression fracture of cervical spine (HCC) 2022 Esophageal reflux 10/05/2005 HYPERLIPIDEMIA NEC/NOS 10/05/2005 HYPERTENSION NOS 10/05/2005 Macular degeneration of both eyes 2020 MGUS (monoclonal gammopathy of unknown significance) OSTEOPOROSIS NOS 10/05/2005 PAST SURGICAL HISTORY Procedure Laterality Date COAPTITE INJECTION 1ML 12/05/[address] Luo COLONOSCOPY FLX DX W/COLLJ SPEC WHEN PFRMD Colonoscopy COLONOSCOPY FLX DX W/COLLJ SPEC WHEN PFRMD 03/05/15 Colonoscopy Repeat 02/2020 COLONOSCOPY FLX DX W/COLLJ SPEC WHEN PFRMD 01/29/2018 Colonoscopy COLONOSCOPY W/BIOPSY SINGLE/MULTIPLE 01/24/11 repeat in COLONOSCOPY W/BIOPSY SINGLE/MULTIPLE 03/01/2012 HYSTEROSCOPY BX W/WO D&C 01/14/14 Hysteroscopy D&C LIG/TRNSXJ FLP TUBE ABDL/VAG APPR UNI/BI 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 2017 spot taken off of back PAST SURGICAL HISTORY OF cataract SIMP REPAIR FACE,EAR,EYE <2.5CM 02/04/09 Simple repair nasal bridge laceration SLING OPER STRES INCONTINENCE 01/15/08 Midurethral sling, transobturator approach ALLERGIES Asa [Salicylates], Aspirin, and Risedronate MEDICATIONS fluticasone (FLONASE) 50 mcg/actuation nasal spray Use 2 sprays in each nostril once daily. Rinse mouth after use. lisinopril (ZESTRIL) 40 mg tablet Take 1 tablet by mouth once daily. atenolol (TENORMIN) 25 mg tablet Take 0.5 tablets by mouth every 12 hours. atorvastatin (LIPITOR) 10 mg tablet Take 0.5 tablets by mouth daily at bedtime. guaiFENesin (MUCINEX) 600 mg 12 hr tablet Take 1 tablet by mouth two times a day. gabapentin (NEURONTIN) 100 mg capsule Take 1 capsule by mouth daily at bedtime for 90 days. ELIQUIS 2.5 mg tab(s) Take 1 tablet by mouth two times a day. amLODIPine (NORVASC) 5 mg tablet TAKE 1 TABLET BY MOUTH EVERY DAY levothyroxine (LEVOXYL) 25 mcg tablet Take 1 tablet by mouth once daily. Except take 1.5 tablets on Monday and Monday . Take on empty stomach. For Thyroid acyclovir (ZOVIRAX) 800 mg tablet Take 1 tablet by mouth three times a day as needed (cold sores). Calcium Citrate-Vitamin D3 630-400 mg-unit ORAL Take 1 tablet by mouth every other day. Takes daily MULTIVITAMIN TAB Take 1 tablet by mouth. Every other day FAMILY HISTORY Problem Relation Age of Onset Osteoporosis Mother Heart Father - [place] Prostate Cancer Son Heart Brother Breast Cancer Maternal Aunt SOCIAL HISTORY[1] PHYSICAL EXAM BP 142/84 Pulse 60 Resp 16 Wt 49.4 kg (109 lb) SpO2 97% BMI 18.38 kg/m General Appearance: well appearing, in no acute distress, alert Eyes: conjunctiva pink and moist, no icterus, sclera white, non-injected Nose/sinus: No sinus tenderness Neck: Thyroid normal size and symmetric without palpable nodules, Neck supple, No adenopathy Oropharynx: normal Lymph nodes: No cervical lymphadenopathy and No supraclavicular lymphadenopathy Lungs: Lungs clear to auscultation. No wheezing, rhonchi, rales. Heart: RRR without murmur, gallop, or rubs. No ectopy Health maintenance reviewed with patient: DTaP,Tdap,Td Vaccine(1 - Tdap) due on 07/22/2010 Medicare Annual Wellness Visit due on 02/03/2024 Influenza Vaccine(1) due on 07/14/2025 Bone Density Screening due on 08/09/2025 Depression Screening due on 03/10/2026 Anxiety Screening due on 03/10/2026 Diabetes Screening due on 06/13/2028 Advance Directive Discussion Completed RSV Vaccine Completed Shingrix Vaccine Completed Pneumococcal Vaccine: 50+ Completed DATA REVIEWED: Most recent labs and imaging results. Assessment/Plan 1. Essential hypertension (I10) - controlled - Home BP readings predominantly in the 120s/70s, with occasional readings above 140 and a few below 110; no chest pain or dyspnea reported. - No changes to antihypertensive regimen at this time due to risk of hypotension. - Recheck BP at end of visit. - Follow-up in 3 months for Medicare wellness visit with Dr. Mg. 2. Cough, unspecified type (R05.9) 3. Dry mouth (R68.2) 4. Gastro-esophageal reflux disease without esophagitis (K21.9) - Chronic cough (6 months, improving) with associated dry mouth at night; no sinus or ear pain. - Echocardiogram normal; no aortic or valvular abnormalities. - Differential includes postnasal drip and GERD. - Start Flonase nasal spray, 2 sprays each nostril before bed; instructed to rinse mouth and throat after use and to avoid spraying directly at septum. - Advised to monitor for side effects (dryness, nosebleeds, headaches) and discontinue if they occur. - If no improvement, consider trial of acid suppression therapy before bed. Call if no improvement so this can be ordered. - Educated on potential link between reflux and cough; advised to monitor dietary triggers. Prescription instructions reviewed with patient as applicable. Potential red flag symptoms discussed with the patient. Reviewed appropriate action plan to take if red flag symptoms occur. Patient agreeable to treatment plan. Rashmi Hendrix APRN.CNP [1] Social History Tobacco Use Smoking status: Never Smokeless tobacco: Never Vaping Use Vaping status: Never Used Substance Use Topics Alcohol use: Yes Comment: Occasionally Drug use: No documented in this encounter [facility] 06-19-2025 Note HNO ID: [id number] Author: FARHANA VELA RT(R) Service: ? Author Type: Manager Hydraulic Type: Progress Notes Filed: 06/19/2025 14:08 Note Text: Radiology Service Progress Note PATIENT NAME: Tawana Farrar DATE OF SERVICE: June 19, 2025 TIME: 1:59 PM PATIENT IDENTITY VERIFICATION COMPLETED USING TWO (2) IDENTIFIERS: Name and Date of confirmed by patient verbally. FALL SCREENING: Has the patient had 2 falls in the last year or 1 fall with injury or currently using an Ambulatory Assistive Device (Walker, Cane, Wheelchair, Crutches, etc.)? No PATIENT GENDER DATA: Assigned female at . status: : No status: NO. PATIENT RELEVANT IMPLANT DATA REVIEWED: Yes PATIENT PRESENTS WITH AN IMPLANTABLE OR ATTACHED CHAIRLIFT OPERATOR: No RADIOLOGY DEPARTMENT: General X-ray: Exam(s) Completed: Chest X-Ray PERIPHERAL IV DATA: Not applicable SIGNED BY: RT Lizzie(R) June 19, 2025 1:59 PM [facility] 06-13-2025 Instructions Rashmi Hendrix APRN.CNP - 06/13/2025 10:36 AM EDT - Continue taking gabapentin at night as prescribed to help with sleep and low back pain; avoid heavy lifting and give it a few weeks to see if your symptoms improve. - Continue levothyroxine 1 tablet daily (and 1 tablets on Saturdays and Sundays) as before; - Hemoglobin A1c was checked today (6.0%), which is in the pre-diabetic range. - At dinner, limit carbohydrate portions and focus on higher-protein, high-fiber foods to help control blood sugar and possibly reduce nighttime dry mouth. - Note if you sleep with your mouth open or snore; ask your to observe and let us know. - Sip water during the night as needed for dry mouth. - Obtain a chest x-ray to evaluate your ongoing morning cough; results will help guide next steps. - Return in about 2 weeks to review your chest x-ray, recheck blood pressure in the office (please bring your home blood pressure monitor and your home readings), and discuss results. - If you decide to start Prolia injections for osteoporosis, schedule a dental exam within 6 months before your first dose and consider a consultation with an osteoporosis specialist (rheumatology or endocrinology) to discuss risks and benefits. documented in this encounter [facility] 06-13-2025 Note HNO ID: [id number] Author: RASHMI HENDRIX APRN.CNP Service: ? Author Type: Nurse Practitioner Type: Progress Notes Filed: 06/13/2025 16:25 Note Text: CC: Patient presents with: Recheck: 3 month follow up HPI Tawana Farrar is a 89 year old female who presents today for follow up but with multiple concerns. Recording using Penxy software for draft documentation of the visit was discussed with the patient/authorized school admissions representative; all questions welcomed and answered. Patient/authorized school admissions representative agreed to proceed Chronic Cough: - Persistent cough, primarily in the mornings, with occasional clear sputum production. - No associated wheezing, dyspnea, fever, chills, chest pressure, palpitations, orthopnea, heartburn, or upper abdominal pain. - No history of acid reflux. - No changes in sleeping environment or presence of animals in the bedroom. - No known snoring or mouth breathing during sleep. - Mucinex has been ineffective. Xerostomia: - Onset 3-4 months ago, primarily at night. - No associated increased thirst, hunger, or urination. - No new medications or supplements. - No recent dental issues or cavities. - Denies daytime xerostomia. - does take gabapentin sometimes at bedtime for back pain but the dry mouth occurs even without usage of this Prediabetes: - A1c I office today 6.0. - Diet includes carbohydrates such as bread and sandwiches. With carbs typically at dinner as well. Denies any increase hunger or urination. No symptoms of hypoglycemia dizziness or syncope. HTN: Ms. Farrar denies headache, chest pain, palpitations, dyspnea, and peripheral edema. Patient denies any side effects of her medication(s) and is compliant with their regimen. She does check BP's away from this office with average BP's varying but 120-130s/80s after resting. . Last 3 Encounter BP Readings: Date: BP: 06/13/2025 140/82 03/10/2025 126/80 12/09/2024 126/82 Sacroiliac Pain: - has this chronically as it comes and goes and she treats with gabapentin when this flares up. - Onset last Monday; no known trauma or new activities. - Pain localized to the left side, no radiation to legs. - No loss of bowel or bladder control, weakness, numbness, or falls. - Aggravated by lifting heavy objects and excessive activity. - Alleviated by gabapentin and rest. - Tawana denies use of tramadol, physical therapy, or pain management. - [facility] Osteoporosis: - History of compression fractures at L1, L2, and T7. - Tawana declined Prolia injections due to concerns about side effects. REVIEW OF SYSTEMS See HPI PAST MEDICAL HISTORY Diagnosis Date Arrhythmia Benign neoplasm of colon Compression fracture of cervical spine (HCC) 2022 Esophageal reflux 10/05/2005 HYPERLIPIDEMIA NEC/NOS 10/05/2005 HYPERTENSION NOS 10/05/2005 Macular degeneration of both eyes 2020 MGUS (monoclonal gammopathy of unknown significance) OSTEOPOROSIS NOS 10/05/2005 PAST SURGICAL HISTORY Procedure Laterality Date COAPTITE INJECTION 1ML 12/05/[address] Luo COLONOSCOPY FLX DX W/COLLJ SPEC WHEN PFRMD Colonoscopy COLONOSCOPY FLX DX W/COLLJ SPEC WHEN PFRMD 03/05/15 Colonoscopy Repeat 02/2020 COLONOSCOPY FLX DX W/COLLJ SPEC WHEN PFRMD 01/29/2018 Colonoscopy COLONOSCOPY W/BIOPSY SINGLE/MULTIPLE 01/24/11 repeat in COLONOSCOPY W/BIOPSY SINGLE/MULTIPLE 03/01/2012 HYSTEROSCOPY BX W/WO DANDC 01/14/14 Hysteroscopy DANDC LIG/TRNSXJ FLP TUBE ABDL/VAG APPR UNI/BI 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 atenolol (TENORMIN) 25 mg tablet Take 0.5 tablets by mouth every 12 hours. atorvastatin (LIPITOR) 10 mg tablet Take 0.5 tablets by mouth daily at bedtime. guaiFENesin (MUCINEX) 600 mg 12 hr tablet Take 1 tablet by mouth two times a day. gabapentin (NEURONTIN) 100 mg capsule Take 1 capsule by mouth daily at bedtime for 90 days. ELIQUIS 2.5 mg tab(s) Take 1 tablet by mouth two times a day. amLODIPine (NORVASC) 5 mg tablet TAKE 1 TABLET BY MOUTH EVERY DAY levothyroxine (LEVOXYL) 25 mcg tablet Take 1 tablet by mouth once daily. Except take 1.5 tablets on Monday and Monday . Take on empty stomach. For Thyroid acyclovir (ZOVIRAX) 800 mg tablet Take 1 tablet by mouth three times a day as needed (cold sores). Calcium Citrate-Vitamin D3 630-400 mg-unit ORAL Take 1 tablet by mouth every other day. Takes daily MULTIVITAMIN TAB Take 1 tablet by mouth. Every other day FAMILY HISTORY Problem Relation Age of Onset Osteoporosis Mother Heart Fath (more content not included)... [facility] 06-13-2025 History of en t illness Narrative CC: Patient presents with: Recheck: 3 month follow up HPI Tawana Farrar is a 89 year old female who presents today for follow up but with multiple concerns. Recording using Penxy software for draft documentation of the visit was discussed with the patient/authorized school admissions representative; all questions welcomed and answered. Patient/authorized school admissions representative agreed to proceed Chronic Cough: - Persistent cough, primarily in the mornings, with occasional clear sputum production. - No associated wheezing, dyspnea, fever, chills, chest pressure, palpitations, orthopnea, heartburn, or upper abdominal pain. - No history of acid reflux. - No changes in sleeping environment or presence of animals in the bedroom. - No known snoring or mouth breathing during sleep. - Mucinex has been ineffective. Xerostomia: - Onset 3-4 months ago, primarily at night. - No associated increased thirst, hunger, or urination. - No new medications or supplements. - No recent dental issues or cavities. - Denies daytime xerostomia. - does take gabapentin sometimes at bedtime for back pain but the dry mouth occurs even without usage of this Prediabetes: - A1c I office today 6.0. - Diet includes carbohydrates such as bread and sandwiches. With carbs typically at dinner as well. Denies any increase hunger or urination. No symptoms of hypoglycemia dizziness or syncope. HTN: Ms. Farrar denies headache, chest pain, palpitations, dyspnea, and peripheral edema. Patient denies any side effects of her medication(s) and is compliant with their regimen. She does check BP's away from this office with average BP's varying but 120-130s/80s after resting. . Last 3 Encounter BP Readings: Date: BP: 06/13/2025 140/82 03/10/2025 126/80 12/09/2024 126/82 Sacroiliac Pain: - has this chronically as it comes and goes and she treats with gabapentin when this flares up. - Onset last Monday; no known trauma or new activities. - Pain localized to the left side, no radiation to legs. - No loss of bowel or bladder control, weakness, numbness, or falls. - Aggravated by lifting heavy objects and excessive activity. - Alleviated by gabapentin and rest. - Tawana denies use of tramadol, physical therapy, or pain management. - [facility] to [facility]. Osteoporosis: - History of compression fractures at L1, L2, and T7. - Tawana declined Prolia injections due to concerns about side effects. REVIEW OF SYSTEMS See HPI PAST MEDICAL HISTORY Diagnosis Date Arrhythmia Benign neoplasm of colon Compression fracture of cervical spine (HCC) 2022 Esophageal reflux 10/05/2005 HYPERLIPIDEMIA NEC/NOS 10/05/2005 HYPERTENSION NOS 10/05/2005 Macular degeneration of both eyes 2020 MGUS (monoclonal gammopathy of unknown significance) OSTEOPOROSIS NOS 10/05/2005 PAST SURGICAL HISTORY Procedure Laterality Date COAPTITE INJECTION 1ML 12/05/[address] Luo COLONOSCOPY FLX DX W/COLLJ SPEC WHEN PFRMD Colonoscopy COLONOSCOPY FLX DX W/COLLJ SPEC WHEN PFRMD 03/05/15 Colonoscopy Repeat 02/2020 COLONOSCOPY FLX DX W/COLLJ SPEC WHEN PFRMD 01/29/2018 Colonoscopy COLONOSCOPY W/BIOPSY SINGLE/MULTIPLE 01/24/11 repeat in COLONOSCOPY W/BIOPSY SINGLE/MULTIPLE 03/01/2012 HYSTEROSCOPY BX W/WO D&C 01/14/14 Hysteroscopy D&C LIG/TRNSXJ FLP TUBE ABDL/VAG APPR UNI/BI 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 atenolol (TENORMIN) 25 mg tablet Take 0.5 tablets by mouth every 12 hours. atorvastatin (LIPITOR) 10 mg tablet Take 0.5 tablets by mouth daily at bedtime. guaiFENesin (MUCINEX) 600 mg 12 hr tablet Take 1 tablet by mouth two times a day. gabapentin (NEURONTIN) 100 mg capsule Take 1 capsule by mouth daily at bedtime for 90 days. ELIQUIS 2.5 mg tab(s) Take 1 tablet by mouth two times a day. amLODIPine (NORVASC) 5 mg tablet TAKE 1 TABLET BY MOUTH EVERY DAY levothyroxine (LEVOXYL) 25 mcg tablet Take 1 tablet by mouth once daily. Except take 1.5 tablets on Monday and Monday . Take on empty stomach. For Thyroid acyclovir (ZOVIRAX) 800 mg tablet Take 1 tablet by mouth three times a day as needed (cold sores). Calcium Citrate-Vitamin D3 630-400 mg-unit ORAL Take 1 tablet by mouth every other day. Takes daily MULTIVITAMIN TAB Take 1 tablet by mouth. Every other day FAMILY HISTORY Problem Relation Age of Onset Osteoporosis Mother Heart Father - [place] Prostate Cancer Son Heart Brother Breast Cancer Maternal Aunt Social History Tobacco Use Smoking status: Never Smokeless tobacco: Never Vaping Use Vaping status: Never Used Substance Use Topics Alcohol use: Yes Comment: Occasionally Drug use: No PHYSICAL EXAM BP 140/82 Pulse 60 Resp 16 Wt 49 kg (108 lb) SpO2 92% BMI 18.21 kg/m General Appearance: well appearing, in no acute distress, alert Pysch: mood and affect broad and appropriate Eyes: conjunctiva pink and moist, no icterus, sclera white, non-injected Neck: Thyroid normal size and symmetric without palpable nodules, Neck supple, No adenopathy Oropharynx: normal Lymph nodes: No cervical lymphadenopathy and No supraclavicular lymphadenopathy Lungs: Lungs clear to auscultation. No wheezing, rhonchi, rales. Heart: RRR without murmur, gallop, or rubs. No ectopy Health maintenance reviewed with patient: DTaP,Tdap,Td Vaccine(1 - Tdap) due on 07/22/2010 Medicare Annual Wellness Visit due on 02/03/2024 Influenza Vaccine(1) due on 07/14/2025 Bone Density Screening due on 08/09/2025 Depression Screening due on 03/10/2026 Anxiety Screening due on 03/10/2026 Diabetes Screening due on 06/13/2028 Advance Directive Discussion Completed RSV Vaccine Completed Shingrix Vaccine Completed Pneumococcal Vaccine: 50+ Completed DATA REVIEWED: No new labs Assessment/Plan 1. Essential hypertension (I10) - Blood pressure readings at home are variable but generally well-controlled when patient rests prior to measurement. - Continue current antihypertensive regimen. - Return in 2 weeks to recheck blood pressure; patient to bring home BP machine for validation along with home readings to review. 2. Cough, unspecified type (R05.9) 3. Dry mouth (R68.2) - Chronic morning cough with clear sputum; no associated wheezing, dyspnea, fever, chills, chest pressure, or orthopnea. - Differential includes post-nasal drip, mouth breathing, or asymptomatic reflux. - Lungs clear on auscultation; oropharynx without visible drainage. - Order chest X-ray to evaluate for underlying pulmonary pathology. - Advised patient to monitor for mouth breathing or snoring at night and to ask spouse for observations. - Discussed potential causes of dry mouth, including mouth breathing and elevated blood glucose. - Advised patient to maintain hydration and monitor for dental issues. 4. Elevated glucose (R73.09) 5. Pre-diabetes (R73.03) - Hemoglobin A1c 6.0%, consistent with pre-diabetes and higher than previous readings. - No increased hunger, or urination reported. - Advised patient to reduce carbohydrate intake, especially in the evening, and increase high-protein and high-fiber foods. 6. 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 - Discussed risks and benefits of Prolia injections for osteoporosis management, including potential side effects and the importance of dental evaluation prior to initiation. - Patient expressed concerns about side effects and has declined Prolia in the past. - Recommended consultation with rheumatology or endocrinology for specialized osteoporosis management and further discussion of treatment options. 7. 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 (M54.50) - Chronic left-sided sacroiliac pain without radiculopathy; recent flare-up since last Monday. - No new injuries or activities reported; no loss of bowel or bladder control, weakness, numbness, or falls. - Gabapentin recently started with some improvement in sleep; advised to continue gabapentin and rest. - If pain worsens or does not improve, will consider updated X-rays, physical therapy, or pain management referral. Prescription instructions reviewed with patient as applicable. Potential red flag symptoms discussed with the patient. Reviewed appropriate action plan to take if red flag symptoms occur. Patient agreeable to treatment plan. Rashmi Hendrix APRN.WIN documented in this encounter [facility] 05-23-2025 Telephone encounter Note Duplicate encounter. Grace Oreilly MA [facility] 05-23-2025 Miscellaneous Notes Duplicate encounter. Grace Oreilly MA documented in this encounter [facility] 05-21-2025 Telephone encounter Note Patient's request for medication is as follows: Requested Prescriptions Pending Prescriptions Disp Refills atenolol (TENORMIN) 25 mg tablet 90 tablet 1 Sig: Take 0.5 tablets by mouth every 12 hours. Last seen 04/01/2024. Next visit in [place] 08/18/2025. Prescription(s) as above. Please process accordingly. Pallavi Lind LPN [facility] 05-21-2025 Miscellaneous Notes Patient's request for medication is as follows: Requested Prescriptions Pending Prescriptions Disp Refills atenolol (TENORMIN) 25 mg tablet 90 tablet 1 Sig: Take 0.5 tablets by mouth every 12 hours. Last seen 04/01/2024. Next visit in [place] 08/18/2025. Prescription(s) as above. Please process accordingly. Pallavi Lind LPN documented in this encounter [facility] 05-20-2025 Telephone encounter Note Patient has been identified by name and date of : Yes Patient phones for refill(s): Requested Prescriptions Pending Prescriptions Disp Refills atorvastatin (LIPITOR) 10 mg tablet 45 tablet 3 Sig: Take 0.5 tablets by mouth daily at bedtime. Date of last office visit in primary care: 03/10/2025 Date of next office visit in primary care: 06/13/2025 Please advise. Thank you. Rylee Lin LPN. [facility] 05-20-2025 Miscellaneous Notes Patient has been identified by name and date of : Yes Patient phones for refill(s): Requested Prescriptions Pending Prescriptions Disp Refills atorvastatin (LIPITOR) 10 mg tablet 45 tablet 3 Sig: Take 0.5 tablets by mouth daily at bedtime. Date of last office visit in primary care: 03/10/2025 Date of next office visit in primary care: 06/13/2025 Please advise. Thank you. Rylee Lin LPN. documented in this encounter [facility] 03-10-2025 Note HNO ID: [id number] Author: JESUS MG MD Service: ? Author Type: Physician Type: Progress Notes Filed: 03/10/2025 11:22 Note Text: Reason for Visit Follow up SRINIVASA Gilliam is a 89-year-old female, with a history of back pain, presenting with a 2-week history of a productive cough. Tawana reports a 2-week history of a productive cough, described as "juicy" and originating from the chest. The cough is more pronounced in the evening and has been disruptive to sleep and social interactions. She has been using cough drops for relief and notes that the cough is gradually improving. She denies fever, chills, fatigue, or exposure to sick contacts. She also denies any recent choking incidents or changes in medication. She has a history of back pain and is currently taking gabapentin at night, which has provided some relief. The pain is described as periodic and is exacerbated by prolonged standing. She has not tried Prolia due to concerns about potential side effects. She also reports home blood pressure readings ranging from 140-150 mmHg, noting that she has not been resting before taking these measurements. She is on multiple antihypertensive medications. She also reports a slight weight loss, with her current weight at 109 lbs, down from 110 lbs. She is on cholesterol-lowering medication and Eliquis for a history of paroxysmal atrial fibrillation. She is also taking thyroid medication. Social History Tobacco Use Smoking status: Never Smokeless tobacco: Never Vaping Use Vaping status: Never Used Substance Use Topics Alcohol use: Yes Comment: Occasionally Drug use: No Past medical history, appointments, medications, allergies reviewed. Pertinent Lab/Diagnostic Studies are reviewed and discussed today Current Outpatient Medications: gabapentin (NEURONTIN) 100 mg capsule ELIQUIS 2.5 mg tab(s) lisinopril (ZESTRIL) 40 mg tablet amLODIPine (NORVASC) 5 mg tablet atenolol (TENORMIN) 25 mg tablet levothyroxine (LEVOXYL) 25 mcg tablet atorvastatin (LIPITOR) 10 mg tablet acyclovir (ZOVIRAX) 800 mg tablet Calcium Citrate-Vitamin D3 630-400 mg-unit ORAL MULTIVITAMIN TAB traMADol (ULTRAM) 50 mg tablet Health Maintenance Depression Screening Anxiety Screening DTaP,Tdap,Td Vaccine(1 - Tdap) Advance Directive Discussion Covid-19 Vaccine( season)@ Review Of Systems Physical Exam BP 126/80 Pulse (!) 58 Temp (!) 20.9 ?C (69.6 ?F) (Temporal) Resp 12 Wt 49.4 kg (109 lb) SpO2 98% BMI 18.38 kg/m? GENERAL: NAD, alert and oriented. SKIN: Unremarkable, no rash or skin lesions. HEAD: Normocephalic. EYES: PERRLA, EOMI, conjunctiva clear. EARS: External ears normal, canals clear, TM's normal. NOSE/SINUSES: Nares normal. Septum midline. OROPHARYNX: Lips, mucosa, and tongue normal, good dentition. No oral lesions noted. NECK: Supple, no lymphadenopathy, normal thyroid, no carotid bruits. LUNGS: Clear to auscultation bilaterally, no wheezes/rhonchi/rales. HEART: Regular rate and rhythm, no murmurs. No ectopy. EXTREMITIES: Normal, no deformities, no skin discoloration, no edema. NEURO: Awake, alert and oriented x3, cranial nerves II-XII grossly intact, normal gait, no involuntary motions. Assessment and Plan 1. Cough, unspecified type (R05.9) Acute onset, productive cough for 2 weeks, no associated fever, chills, or significant fatigue. No history of asthma or bronchitis. Lungs clear on auscultation. - Recommended Mucinex to facilitate expectoration. - Advised monitoring for symptoms such as confusion, extreme fatigue, or fever with chills, which may indicate pneumonia. 2. Hypothyroidism, unspecified type (E03.9) Stable on current thyroid medication. - Ordered TSH level to be drawn at next visit. 3. Encounter for immunization (Z23) 4. Essential hypertension (I10) Blood pressure readings at home reportedly between 140-150 mmHg. Office BP readings are satisfactory. Patient not resting before home measurements. - Educated patient on the importance of resting for 10 minutes before taking BP measurements at home. - Continue current antihypertensive regimen. 5. Mixed hyperlipidemia (E78.2) Well-controlled on current lipid-lowering therapy. Recent lipid panel results are near target levels. 6. Paroxysmal atrial fibrillation (HCC) (I48.0) On Eliquis for anticoagulation. 7. Screening for depression (Z13.31) 8. Encounter for screening examination for other mental health and behavioral disorders (Z13.39) Voice recognition software was used to compose this office note. Please excuse any unintended typographical errors. Recording using Penxy software for draft documentation of the visit was discussed with the patient/authorized school admissions representative; all questions welcomed and answered. Patient/authorized school admissions representative agreed to proceed Jesus Mg MD [facility] 02-03-2025 Telephone encounter Note Left message on 's phone Rx was sent to [facility]. [facility] 02-03-2025 Miscellaneous Notes Left message on 's phone Rx was sent to [facility]. See pt message, okay to restart Gabapentin? Please advise. Elmira Bella MA documented in this encounter [facility] 02-03-2025 Telephone encounter Note See pt message, okay to restart Gabapentin? Please advise. Elmira Bella MA [facility] 01-15-2025 Telephone encounter Note Patient requesting refills as follows: CALVIN - 04/01/24 Next OV 08/18/25 Requested Prescriptions Pending Prescriptions Disp Refills ELIQUIS 2.5 mg tab(s) 180 tablet 3 Sig: Take 1 tablet by mouth two times a day. Please review and advise. Isa Rosa RN [facility] 01-15-2025 Miscellaneous Notes Patient requesting refills as follows: CALVIN - 04/01/24 Next OV 08/18/25 Requested Prescriptions Pending Prescriptions Disp Refills ELIQUIS 2.5 mg tab(s) 180 tablet 3 Sig: Take 1 tablet by mouth two times a day. Please review and advise. Isa Rosa RN documented in this encounter [facility] 12-10-2024 Note HNO ID: [id number] Author: REX LIND PT Service: ? Author Type: Physical Therapist Type: Progress Notes Filed: 12/10/2024 12:41 Note Text: 12/10/2024 [facility] PHYSICAL THERAPY DISCONTINUANCE OF CARE Plan of Care Period: Start of Care Date: 06/17/24 Last Visit Date: 07/16/2024 Therapy Program: The following is a summary of the interventions provided for this episode of care; Therapeutic exercise Assessment: Based on most recent visit, patient was progressing as expected toward functional goals based on documented subjective information on progress. Unable to formally assess goal achievement, as patient has not returned to therapy or scheduled additional follow-up appointments. Reason for Discontinuation of Care: Patient has not returned to therapy or scheduled additional follow-up appointments. Rex Lind PT [facility] 12-09-2024 Instructions Jesus Mg MD - 12/09/2024 9:58 AM EST Not from last visit for to review She has severe osteoporosis of the back with a fragility fracture, and with being on 10 years of fosamax we would consider that it is not efficacious for her Current recommendations with her condition are for the daily shot- teriparatide- which is an anabolic medication and will help build bones but she does not want to take it Her other considerations are either prolia or zolindronic acid. The prolia is a 6 months shot and should be on of the better ones that may have a little more efficacy than all zolindronic acid, but coverage may be an issue. We could do the zolindronic acid infusion if needed. Currently we have ordered for the prolia I have also order a lot of labs to identify any cause of fatigue Please take the lisinopril [address] you choose, either morning and night 20 mgs or once a day. Let us know if any particular way helps with better sugar control. documented in this encounter [facility] 12-09-2024 Note HNO ID: [id number] Author: JESUS MG MD Service: ? Author Type: Physician Type: Progress Notes Filed: 12/09/2024 11:08 Note Text: Reason for Visit Patient presents with: Follow Up Tawana Farrar is a 89 year old female who presents here today for Above Complaints.. Health Maintenance Depression Screening Anxiety Screening Influenza Vaccine(1) Covid-19 Vaccine( season) HPI This is a very pleasant 89-year-old woman with a past medical history of MGUS, Raynaud's phenomena, paroxysmal A-fib ASCUS in female, hypothyroidism, kyphosis, severe osteoporosis, early stage nonexudative macular degeneration, essential hypertension. In November 04 she was seen for severe osteoporosis and was advised to get onto Forteo, followed by Prolia. She has not yet got onto the. She does have a T12 fracture. She has been at least on 10 years on Fosamax. She and her are not very happy to consider the teriparatide for many reasons, but will consider the prolia. Has been feeling tired of late. She is not going to the [employer] to exercise due to back pain Hypertension: BP controlled today at 112/64. Occasionally checks BP at home. Averages around 130/70. Compliant with medication. Voices no issues. No chest pain, palpitations, edema or SOB. Monitors sodium, fat, and cholesterol - eats 3 meals a day with some snacks throughout the day. Good fluid intake. Takes part in [employer] twice a week, followed by some walking. Hypothyroidism: Stable. Last TSH level 4.040. Tolerating levothyroxine well. Voices no side effects. CARDIO: HR is stable. Denies any recent tachycardic episodes. Hx of SVT. Plans to see cardio in the new year. MGUS: Mild elevation is M protein. Recent calcium and creatinine levels were stable. No concerns aside to mild incontinence. Denies any achy bones. Sleep: Sleeping well. Average 6-7 hours a night. Stress: Denies being stressed. 12/09/24: Has a lumbar 1 fracture which is causing her to have pain, on gabapentin, seeing Dr Almanza, no procedure was offered. Discussed in detail about worsening bone density despite being on oral Bisphosphonates and the need for prolia or IV meds. She will consider it. Bp is high likely due to the pain in the back. It is a getting now, but it was very painful at night time No problem-specific Assessment AND Plan notes found for this encounter. PAST MEDICAL HISTORY Diagnosis Date Arrhythmia Benign neoplasm of colon Compression fracture of cervical spine (HCC) 2022 Esophageal reflux 10/05/2005 HYPERLIPIDEMIA NEC/NOS 10/05/2005 HYPERTENSION NOS 10/05/2005 Macular degeneration of both eyes 2020 MGUS (monoclonal gammopathy of unknown significance) OSTEOPOROSIS NOS 10/05/2005 PAST SURGICAL HISTORY Procedure Laterality Date COAPTITE INJECTION 1ML 12/05/[address] Luo COLONOSCOPY FLX DX W/COLLJ SPEC WHEN PFRMD Colonoscopy COLONOSCOPY FLX DX W/COLLJ SPEC WHEN PFRMD 03/05/15 Colonoscopy Repeat 02/2020 COLONOSCOPY FLX DX W/COLLJ SPEC WHEN PFRMD 01/29/2018 Colonoscopy COLONOSCOPY W/BIOPSY SINGLE/MULTIPLE 01/24/11 repeat in COLONOSCOPY W/BIOPSY SINGLE/MULTIPLE 03/01/2012 HYSTEROSCOPY BX W/WO DANDC 01/14/14 Hysteroscopy DANDC LIG/TRNSXJ FLP TUBE ABDL/VAG APPR UNI/BI 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 2018 spot taken off of back PAST SURGICAL HISTORY OF cataract SIMP REPAIR FACE,EAR,EYE <2.5CM 02/04/09 Simple repair nasal bridge laceration SLING OPER STRES INCONTINENCE 01/15/08 Midurethral sling, transobturator approach FAMILY HISTORY Problem Relation Age of Onset Osteoporosis Mother Heart Father - [place] Prostate Cancer Son Heart Brother Breast Cancer Maternal Aunt Social History Tobacco Use Smoking status: Never Smokeless tobacco: Never Vaping Use Vaping status: Never Used Substance Use Topics Alcohol use: Yes Comment: Occasionally Drug use: No Past medical history, appointments, medications, allergies reviewed. Pertinent Lab/Diagnostic Studies are reviewed and discussed today Current Outpatient Medications: lisinopril (ZESTRIL) 20 mg tablet amLODIPine (NORVASC) 5 mg tablet gabapentin (NEURONTIN) 100 mg capsule traMADol (ULTRAM) 50 mg tablet atenolol (TENORMIN) 25 mg tablet levothyroxine (LEVOXYL) 25 mcg tablet atorvastatin (LIPITOR) 10 mg tablet ELIQUIS 2.5 mg tab(s) acyclovir (ZOVIRAX) 800 mg tablet Calcium Citrate-Vitamin D3 630-400 mg-unit ORAL MULTIVITAMIN TAB Review of Systems CONSTITUTIONAL: No fevers, chills night sweats, unintended weight loss CARDIOVASCULAR: No chest pain, dyspnea, palpitations, orthopnea, PND, ankle edema. PULM: No dyspnea, unexplained cough. GI: No dysphagia/odynophagia, problematic reflux, constipation, diarrhea, changes in stool habits, hematochezia, melena. : No new urinary complaints, including dysuria, gross hematuria or pyuria. NEURO: (more content not included)... [facility] 12-09-2024 History of Presen t illness Narrative Reason for Visit Patient presents with: Follow Up Tawana Farrar is a 89 year old female who presents here today for Above Complaints.. Health Maintenance Depression Screening Anxiety Screening Influenza Vaccine(1) Covid-19 Vaccine( season) HPI This is a very pleasant 89-year-old woman with a past medical history of MGUS, Raynaud's phenomena, paroxysmal A-fib ASCUS in female, hypothyroidism, kyphosis, severe osteoporosis, early stage nonexudative macular degeneration, essential hypertension. In November 04 she was seen for severe osteoporosis and was advised to get onto Forteo, followed by Prolia. She has not yet got onto the. She does have a T12 fracture. She has been at least on 10 years on Fosamax. She and her are not very happy to consider the teriparatide for many reasons, but will consider the prolia. Has been feeling tired of late. She is not going to the [employer] to exercise due to back pain Hypertension: BP controlled today at 112/64. Occasionally checks BP at home. Averages around 130/70. Compliant with medication. Voices no issues. No chest pain, palpitations, edema or SOB. Monitors sodium, fat, and cholesterol - eats 3 meals a day with some snacks throughout the day. Good fluid intake. Takes part in [employer] twice a week, followed by some walking. Hypothyroidism: Stable. Last TSH level 4.040. Tolerating levothyroxine well. Voices no side effects. CARDIO: HR is stable. Denies any recent tachycardic episodes. Hx of SVT. Plans to see cardio in the new year. MGUS: Mild elevation is M protein. Recent calcium and creatinine levels were stable. No concerns aside to mild incontinence. Denies any achy bones. Sleep: Sleeping well. Average 6-7 hours a night. Stress: Denies being stressed. 12/09/24: Has a lumbar 1 fracture which is causing her to have pain, on gabapentin, seeing Dr Almanza, no procedure was offered. Discussed in detail about worsening bone density despite being on oral Bisphosphonates and the need for prolia or IV meds. She will consider it. Bp is high likely due to the pain in the back. It is a getting now, but it was very painful at night time No problem-specific Assessment & Plan notes found for this encounter. PAST MEDICAL HISTORY Diagnosis Date Arrhythmia Benign neoplasm of colon Compression fracture of cervical spine (HCC) 2022 Esophageal reflux 10/05/2005 HYPERLIPIDEMIA NEC/NOS 10/05/2005 HYPERTENSION NOS 10/05/2005 Macular degeneration of both eyes 2020 MGUS (monoclonal gammopathy of unknown significance) OSTEOPOROSIS NOS 10/05/2005 PAST SURGICAL HISTORY Procedure Laterality Date COAPTITE INJECTION 1ML 12/05/[address] Luo COLONOSCOPY FLX DX W/COLLJ SPEC WHEN PFRMD Colonoscopy COLONOSCOPY FLX DX W/COLLJ SPEC WHEN PFRMD 03/05/15 Colonoscopy Repeat 02/2020 COLONOSCOPY FLX DX W/COLLJ SPEC WHEN PFRMD 01/29/2018 Colonoscopy COLONOSCOPY W/BIOPSY SINGLE/MULTIPLE 01/24/11 repeat in COLONOSCOPY W/BIOPSY SINGLE/MULTIPLE 03/01/2012 HYSTEROSCOPY BX W/WO D&C 01/14/14 Hysteroscopy D&C LIG/TRNSXJ FLP TUBE ABDL/VAG APPR UNI/BI 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 2017 spot taken off of back PAST SURGICAL HISTORY OF cataract SIMP REPAIR FACE,EAR,EYE <2.5CM 02/04/09 Simple repair nasal bridge laceration SLING OPER STRES INCONTINENCE 01/15/08 Midurethral sling, transobturator approach FAMILY HISTORY Problem Relation Age of Onset Osteoporosis Mother Heart Father - [place] Prostate Cancer Son Heart Brother Breast Cancer Maternal Aunt Social History Tobacco Use Smoking status: Never Smokeless tobacco: Never Vaping Use Vaping status: Never Used Substance Use Topics Alcohol use: Yes Comment: Occasionally Drug use: No Past medical history, appointments, medications, allergies reviewed. Pertinent Lab/Diagnostic Studies are reviewed and discussed today Current Outpatient Medications: lisinopril (ZESTRIL) 20 mg tablet amLODIPine (NORVASC) 5 mg tablet gabapentin (NEURONTIN) 100 mg capsule traMADol (ULTRAM) 50 mg tablet atenolol (TENORMIN) 25 mg tablet levothyroxine (LEVOXYL) 25 mcg tablet atorvastatin (LIPITOR) 10 mg tablet ELIQUIS 2.5 mg tab(s) acyclovir (ZOVIRAX) 800 mg tablet Calcium Citrate-Vitamin D3 630-400 mg-unit ORAL MULTIVITAMIN TAB Review of Systems CONSTITUTIONAL: No fevers, chills night sweats, unintended weight loss CARDIOVASCULAR: No chest pain, dyspnea, palpitations, orthopnea, PND, ankle edema. PULM: No dyspnea, unexplained cough. GI: No dysphagia/odynophagia, problematic reflux, constipation, diarrhea, changes in stool habits, hematochezia, melena. : No new urinary complaints, including dysuria, gross hematuria or pyuria. NEURO: No new balance problems, peripheral weakness/paresthesias or numbness of concern. Physical Exam BP 126/82 Pulse 60 Resp 16 Wt 49.9 kg (110 lb) BMI 18.55 kg/m General appearance: Well appearing, alert, in no acute distress, well nourished. Skin: Skin color, texture, turgor normal, no suspicious rashes or lesions Head: Normocephalic, no masses, lesions, tenderness or abnormalities Eyes: Anicteric sclera. Pupils are equally round and reactive to light. Extraocular movements are intact. Lungs: Lungs clear to auscultation. No wheezing, rhonchi, rales Heart: RRR without murmur, gallop, or rubs. Extremities: No deformities, edema, skin discoloration, clubbing or cyanosis. Good capillary refill. ASSESSMENT/PLAN: 1. Age-related osteoporosis with current pathological fracture with routine healing, subsequent encounter - ICD9: [id number], ICD10: M80.00XD (primary diagnosis) - PROLIA 60 MG/ML SUBCUTANEOUS SYRINGE She has severe osteoporosis of the back with a fragility fracture, and with being on 10 years of fosamax we would consider that it is not efficacious for her Current recommendations with her condition are for the daily shot- teriparatide- which is an anabolic medication and will help build bones but she does not want to take it Her other considerations are either prolia or zolindronic acid. The prolia is a 6 months shot and should be on of the better ones that may have a little more efficacy than all zolindronic acid, but coverage may be an issue. We could do the zolindronic acid infusion if needed. Currently we have ordered for the prolia I have also order a lot of labs to identify any cause of fatigue Information give to patient to help and her made a decision for bone density. Also discussed adequate vit d and calcium supplementation. 2. Chronic thoracic back pain, unspecified back pain laterality - ICD9: 724.1, 338.29, ICD10: M54.6, G89.29 See above, take calcium, vit d 3. Secondary hypertension - ICD9: 405.99, ICD10: I15.9 Please take the lisinopril [address] you choose, either morning and night 20 mgs or once a day. Let us know if any particular way helps with better sugar control. Jesus Mg MD documented in this encounter [facility] 12-05-2024 Telephone encounter Note Patient has been identified by name and date of : Yes Patient phones for refill(s): Requested Prescriptions Pending Prescriptions Disp Refills lisinopril (ZESTRIL) 20 mg tablet 90 tablet 1 Sig: Take 1 tablet by mouth once daily. Date of last office visit in primary care: 08/15/2024 Date of next office visit in primary care: 12/09/2024 Please advise. Thank you. Rylee Lin LPN. [facility] 12-05-2024 Miscellaneous Notes Patient has been identified by name and date of : Yes Patient phones for refill(s): Requested Prescriptions Pending Prescriptions Disp Refills lisinopril (ZESTRIL) 20 mg tablet 90 tablet 1 Sig: Take 1 tablet by mouth once daily. Date of last office visit in primary care: 08/15/2024 Date of next office visit in primary care: 12/09/2024 Please advise. Thank you. Rylee Lin LPN. documented in this encounter [facility] 11-28-2024 Telephone encounter Note Patient's request for medication is as follows: Requested Prescriptions Pending Prescriptions Disp Refills amLODIPine (NORVASC) 5 mg tablet [Pharmacy Med Name: AMLODIPINE BESYLATE 5 MG TAB] 90 tablet 3 Sig: TAKE 1 TABLET BY MOUTH EVERY DAY Patient was last seen on : 04/01/24 Next Scheduled on : 08/18/25 Prescription(s) as above. Please process accordingly. Lorelei Cotton MA [facility] 11-28-2024 Miscellaneous Notes Patient's request for medication is as follows: Requested Prescriptions Pending Prescriptions Disp Refills amLODIPine (NORVASC) 5 mg tablet [Pharmacy Med Name: AMLODIPINE BESYLATE 5 MG TAB] 90 tablet 3 Sig: TAKE 1 TABLET BY MOUTH EVERY DAY Patient was last seen on : 04/01/24 Next Scheduled on : 08/18/25 Prescription(s) as above. Please process accordingly. Lorelei Cotton MA documented in this encounter [facility] 11-26-2024 Note Patient Outreach (IN [facility]MM[facility]) TAWANA FARRAR ([id number]) 1935 F Date Time Provider Department 11/26/24 JESUS MG During your visit today, we recorded the following information about you: Allergies As of Date: 11/26/2024 Noted Allergy Reaction ASA (SALICYLATES) 10/05/2005 Comments: THROMBOCYTOPENIA ASPIRIN 07/20/2020 2 - Rash RISEDRONATE 04/11/2017 14 - Other: See Comments Comments: Jaw issues Date Reviewed: 11/20/2024 Reviewed by: Anne Lane MA - Fully Assessed Visit Diagnosis:Hyperlipidemia [E78.5] Order(s):LIPID PANEL BASIC [SQLIPB] Order #: [id number] FUTURE Prescriptions as of 11/29/2024 - amLODIPine (NORVASC) 5 mg tablet TAKE 1 TABLET BY MOUTH EVERY DAY - gabapentin (NEURONTIN) 100 mg capsule Take 1 capsule by mouth daily at bedtime for 30 days. - traMADol (ULTRAM) 50 mg tablet Take 1 tablet by mouth two times a day as needed for pain for up to 30 days. - atenolol (TENORMIN) 25 mg tablet TAKE 1/2 TABLET BY MOUTH TWICE A DAY - levothyroxine (LEVOXYL) 25 mcg tablet Take 1 tablet by mouth once daily. Except take 1.5 tablets on Monday and Monday . Take on empty stomach. For Thyroid - lisinopril (ZESTRIL) 20 mg tablet TAKE 1 TABLET BY MOUTH EVERY DAY - atorvastatin (LIPITOR) 10 mg tablet Take 0.5 tablets by mouth daily at bedtime. - ELIQUIS 2.5 mg tab(s) Take 1 tablet by mouth two times a day. - acyclovir (ZOVIRAX) 800 mg tablet Take 1 tablet by mouth three times a day as needed (cold sores). - Calcium Citrate-Vitamin D3 630-400 mg-unit ORAL Take 1 tablet by mouth every other day. Takes daily - MULTIVITAMIN TAB Take 1 tablet by mouth. Every other day Problem List As Of Date 11/26/2024 Noted Resolved ESOPHAGEAL REFLUX [K21.9] 10/05/2005 Essential hypertension [I10] 10/05/2005 Osteoporosis [M81.0] 10/05/2005 Hyperlipidemia [E78.5] 10/05/2005 Neoplasm of uncertain behavior of skin [D48.5] 11/29/2006 12/24/2012 Other seborrheic keratosis [L82.1] 11/29/2006 12/06/2013 SEBACEOUS HYPERPLASIA///SEBACEOUS GLAND DIS NOS*11/29/2006 12/24/2012 Benign neoplasm of skin of other and unspecifie*11/29/2006 12/06/2013 [place] ANGIOMA///NEVUS, NON-NEOPLASTIC [I78.1] 11/29/2006 12/06/2013 Other chronic 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*11/29/2006 12/06/2013 Inflamed seborrheic keratosis [L82.0] 01/04/2007 12/06/2013 BCC///MALIG NEOPLASM SKIN FACE NEC [173.3] 01/11/2007 12/24/2012 Open wnd site [T14.8XXA] 01/31/2007 08/23/2010 Scar condition and fibrosis of skin [L90.5] 05/14/2007 12/06/2013 H/O BCC'S///PERS HX SKIN MALIGNANCY NEC [Z85.82*05/14/2007 12/24/2012 SOLAR LENGINES///DYSCHROMIA OTHER [L81.9] 05/14/2007 12/24/2012 Keloid scar [L91.0] 09/05/2007 12/06/2013 Female stress incontinence [N39.3] 12/28/2007 12/24/2012 HYPERGLYCEMIA [R79.89] 12/15/2008 10/10/2016 LACERATION -NOT COMPLICATED NOSE [S01.20XA] 02/04/2009 12/24/2012 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] 07/10/2009 Chest pain [R07.9] 04/07/2010 08/23/2010 Lumbago [M54.50] 10/01/2010 10/10/2016 Other physical therapy [HRF0327] 10/27/2010 Special screening for malignant neoplasms, colo*01/24/2011 10/01/2015 Personal history of colonic polyps [Z86.0100] 03/01/2012 Diverticulosis of colon (without mention of hem*03/01/2012 Viral warts, unspecified [B07.9] 05/29/2012 10/01/2015 Melanocytic Nevu of lower extremity: R leg: mid*05/29/2012 Solar Lentigines [L81.4] 05/29/2012 10/01/2015 Actinic skin damage [L57.8] 05/29/2012 10/01/2015 Hemangioma [D18.00] 05/29/2012 10/01/2015 Davenport angiomas [D18.01] 05/29/2012 10/01/2015 Seborrheic Keratoses [L82.1] 12/06/2013 10/01/2015 Melanocytic Nevus of trunk: IDN Nevus at right *12/06/2013 Personal history of other malignant neoplasm of*12/06/2013 10/01/2015 Scars [L90.5] 12/06/2013 10/01/2015 Actinic Keratoses: 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] 03/25/2014 10/01/2015 Female stress incontinence [N39.3] 12/05/2014 Encounter for screening colonoscopy [Z12.11] 03/05/2015 03/05/2015 Raynaud's disease without gangrene [I73.00] 11/24/2015 Lichen planus [L43.9] 10/10/2016 Irritable bowel syndrome with both constipation*10/10/2016 SVT (supraventricular tachycardia) (HCC) [I47.1*09/24/2018 Osteopenia [M85.80] 04/09/2019 01/14/2021 Lumbar spine strain, subsequent encounter [S39.*06/24/2019 Early dry stage nonexudative age-related macula*07/26/2021 Compression fracture of T7 vertebra (HCC) [S22.*02/24/2023 Paroxysmal atrial fibrillation (HCC) [I48.0] 05/01/2023 Hypothyroidism [E03.9] 02/20/2024 Acute midline low back pain with sciatica [M54.*06/17/2024 Encounter Status:Closed by EPIC, PRODUSER on 11/29/24 [facility] 11-20-2024 Note HNO ID: [id number] Author: GABE ALMANZA, DO Service: ? Author Type: Physician Type: Progress Notes Filed: 11/20/2024 14:08 Note Text: SERVICE DATE: November 20, 2024 PCP: Jesus Mg MD Subjective Patient ID: Tawana is a 89 year old female. Chief Complaint: Patient presents with: Back Pain PAIN EVALUATION 11/13/2024 1738 11/20/2024 1325 Pain Level: -- 7 Pain Location: Back-Lower Back-Lower Description: Stiffness Sharp;Dull Duration Amount of Time: -- 6 Duration Units: Days Weeks Frequency: Intermittent Intermittent Intervention/Comfort measure: Medication Medication HPI Tawana presents today for low back pain and left hip pain. She has a L1 compression fracture that is recent. She states the pain is worse at night particularly when if she has to get up to go to the bathroom. She takes Tylenol approximately 1100 mg daily and tramadol 1 a day as needed for more severe pain. Review of Systems ACTIVE PROBLEM LIST Esophageal Reflux Essential Hypertension Osteoporosis Hyperlipidemia TMJ Syndrome Other Physical Therapy Personal History of Colonic Polyps Diverticulosis of Colon (Without Mention of Hemorrhage) Melanocytic Nevu of lower extremity: R leg: mid anterior thigh: Intradermal Nevus Melanocytic Nevus of trunk: IDN Nevus at right upper outer chest area Female Stress Incontinence Raynaud's Disease Without Gangrene Lichen Planus Irritable Bowel Syndrome With Both Constipation and Diarrhea Svt (Supraventricular Tachycardia) (Hcc) Lumbar Spine Strain, Subsequent Encounter 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 Compression Fracture of T7 Vertebra (Hcc) Paroxysmal Atrial Fibrillation (Hcc) Hypothyroidism Acute Midline Low Back Pain With Sciatica PAST MEDICAL HISTORY Diagnosis Date Arrhythmia Benign neoplasm of colon Compression fracture of cervical spine (HCC) 2022 Esophageal reflux 10/05/2005 HYPERLIPIDEMIA NEC/NOS 10/05/2005 HYPERTENSION NOS 10/05/2005 Macular degeneration of both eyes 2020 MGUS (monoclonal gammopathy of unknown significance) OSTEOPOROSIS NOS 10/05/2005 PAST SURGICAL HISTORY Procedure Laterality Date COAPTITE INJECTION 1ML 12/05/[address] Luo COLONOSCOPY FLX DX W/COLLJ SPEC WHEN PFRMD Colonoscopy COLONOSCOPY FLX DX W/COLLJ SPEC WHEN PFRMD 03/05/15 Colonoscopy Repeat 02/2020 COLONOSCOPY FLX DX W/COLLJ SPEC WHEN PFRMD 01/29/2018 Colonoscopy COLONOSCOPY W/BIOPSY SINGLE/MULTIPLE 01/24/11 repeat in COLONOSCOPY W/BIOPSY SINGLE/MULTIPLE 03/01/2012 HYSTEROSCOPY BX W/WO DANDC 01/14/14 Hysteroscopy DANDC LIG/TRNSXJ FLP TUBE ABDL/VAG APPR UNI/BI 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 2017 spot taken off of back PAST SURGICAL HISTORY OF cataract SIMP REPAIR FACE,EAR,EYE <2.5CM 02/04/09 Simple repair nasal bridge laceration SLING OPER STRES INCONTINENCE 01/15/08 Midurethral sling, transobturator approach FAMILY HISTORY Problem Relation Age of Onset Osteoporosis Mother Heart Father - [place] Prostate Cancer Son Heart Brother Breast Cancer Maternal Aunt Social History Tobacco Use Smoking status: Never Smokeless tobacco: Never Vaping Use Vaping status: Never Used Substance Use Topics Alcohol use: Yes Comment: Occasionally Drug use: No ALLERGIES Allergen Reactions Asa [Salicylates] THROMBOCYTOPENIA Aspirin Rash Risedronate Other: See Comments Jaw issues MEDICATIONS: traMADol (ULTRAM) 50 mg tabletTake 1 tablet by mouth two times a day as needed for pain for up to 30 days.Disp: 30 tabletRfl: 0 atenolol (TENORMIN) 25 mg tabletTAKE 1/2 TABLET BY MOUTH TWICE A DAYDisp: 90 tabletRfl: 1 levothyroxine (LEVOXYL) 25 mcg tabletTake 1 tablet by mouth once daily. Except take 1.5 tablets on Monday and Monday . Take on empty stomach. For ThyroidDisp: 100 tabletRfl: 3 lisinopril (ZESTRIL) 20 mg tabletTAKE 1 TABLET BY MOUTH EVERY DAYDisp: 90 tabletRfl: 1 atorvastatin (LIPITOR) 10 mg tabletTake 0.5 tablets by mouth daily at bedtime.Disp: 45 tabletRfl: 3 ELIQUIS 2.5 mg tab(s)Take 1 tablet by mouth two times a day.Disp: 180 tabletRfl: 3 amLODIPine (NORVASC) 5 mg tabletTake 1 tablet by mouth once daily.Disp: 90 tabletRfl: 3 acyclovir (ZOVIRAX) 800 mg tabletTake 1 tablet by mouth three times a day as needed (cold sores).Disp: 30 tabletRfl: 2 Calcium Citrate-Vitamin D3 630-400 mg-unit ORALTake 1 tablet by mouth every other day. Takes dailyDisp: 60 EachRfl: 11 MULTIVITAMIN TABTake 1 tablet by mouth. Every other dayDisp: Rfl: 0 Allergies, medications, past surgical history, family history and past medical history were reviewed per this encounter. Objective Ortho Exam 89-year-old female is pleasant cooperative with exam, in no acute distress. Structural examination shows pronounced kyphosis and lordosis. Right leg raise mildly positive bilaterally. There is good strength the lower extremities (more content not included)... [facility] 11-20-2024 History of Presen t illness Narrative Images from the original note were not included. SERVICE DATE: November 20, 2024 PCP: Jesus Mg MD Subjective Patient ID: Tawana is a 89 year old female. Chief Complaint: Patient presents with: Back Pain PAIN EVALUATION 11/13/2024 1738 11/20/2024 1325 Pain Level: -- 7 Pain Location: Back-Lower Back-Lower Description: Stiffness Sharp;Dull Duration Amount of Time: -- 6 Duration Units: Days Weeks Frequency: Intermittent Intermittent Intervention/Comfort measure: Medication Medication HPI Tawana presents today for low back pain and left hip pain. She has a L1 compression fracture that is recent. She states the pain is worse at night particularly when if she has to get up to go to the bathroom. She takes Tylenol approximately 1100 mg daily and tramadol 1 a day as needed for more severe pain. Review of Systems ACTIVE PROBLEM LIST Esophageal Reflux Essential Hypertension Osteoporosis Hyperlipidemia TMJ Syndrome Other Physical Therapy Personal History of Colonic Polyps Diverticulosis of Colon (Without Mention of Hemorrhage) Melanocytic Nevu of lower extremity: R leg: mid anterior thigh: Intradermal Nevus Melanocytic Nevus of trunk: IDN Nevus at right upper outer chest area Female Stress Incontinence Raynaud's Disease Without Gangrene Lichen Planus Irritable Bowel Syndrome With Both Constipation and Diarrhea Svt (Supraventricular Tachycardia) (Hcc) Lumbar Spine Strain, Subsequent Encounter 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 Compression Fracture of T7 Vertebra (Hcc) Paroxysmal Atrial Fibrillation (Hcc) Hypothyroidism Acute Midline Low Back Pain With Sciatica PAST MEDICAL HISTORY Diagnosis Date Arrhythmia Benign neoplasm of colon Compression fracture of cervical spine (HCC) 2022 Esophageal reflux 10/05/2005 HYPERLIPIDEMIA NEC/NOS 10/05/2005 HYPERTENSION NOS 10/05/2005 Macular degeneration of both eyes 2020 MGUS (monoclonal gammopathy of unknown significance) OSTEOPOROSIS NOS 10/05/2005 PAST SURGICAL HISTORY Procedure Laterality Date COAPTITE INJECTION 1ML 12/05/[address] Luo COLONOSCOPY FLX DX W/COLLJ SPEC WHEN PFRMD Colonoscopy COLONOSCOPY FLX DX W/COLLJ SPEC WHEN PFRMD 03/05/15 Colonoscopy Repeat 02/2020 COLONOSCOPY FLX DX W/COLLJ SPEC WHEN PFRMD 01/29/2018 Colonoscopy COLONOSCOPY W/BIOPSY SINGLE/MULTIPLE 01/24/11 repeat in COLONOSCOPY W/BIOPSY SINGLE/MULTIPLE 03/01/2012 HYSTEROSCOPY BX W/WO D&C 01/14/14 Hysteroscopy D&C LIG/TRNSXJ FLP TUBE ABDL/VAG APPR UNI/BI 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 2017 spot taken off of back PAST SURGICAL HISTORY OF cataract SIMP REPAIR FACE,EAR,EYE <2.5CM 02/04/09 Simple repair nasal bridge laceration SLING OPER STRES INCONTINENCE 01/15/08 Midurethral sling, transobturator approach FAMILY HISTORY Problem Relation Age of Onset Osteoporosis Mother Heart Father - [place] Prostate Cancer Son Heart Brother Breast Cancer Maternal Aunt Social History Tobacco Use Smoking status: Never Smokeless tobacco: Never Vaping Use Vaping status: Never Used Substance Use Topics Alcohol use: Yes Comment: Occasionally Drug use: No ALLERGIES Allergen Reactions Asa [Salicylates] THROMBOCYTOPENIA Aspirin Rash Risedronate Other: See Comments Jaw issues MEDICATIONS: traMADol (ULTRAM) 50 mg tablet^Take 1 tablet by mouth two times a day as needed for pain for up to 30 days.^Disp: 30 tablet^Rfl: 0 atenolol (TENORMIN) 25 mg tablet^TAKE 1/2 TABLET BY MOUTH TWICE A DAY^Disp: 90 tablet^Rfl: 1 levothyroxine (LEVOXYL) 25 mcg tablet^Take 1 tablet by mouth once daily. Except take 1.5 tablets on Monday and Monday . Take on empty stomach. For Thyroid^Disp: 100 tablet^Rfl: 3 lisinopril (ZESTRIL) 20 mg tablet^TAKE 1 TABLET BY MOUTH EVERY DAY^Disp: 90 tablet^Rfl: 1 atorvastatin (LIPITOR) 10 mg tablet^Take 0.5 tablets by mouth daily at bedtime.^Disp: 45 tablet^Rfl: 3 ELIQUIS 2.5 mg tab(s)^Take 1 tablet by mouth two times a day.^Disp: 180 tablet^Rfl: 3 amLODIPine (NORVASC) 5 mg tablet^Take 1 tablet by mouth once daily.^Disp: 90 tablet^Rfl: 3 acyclovir (ZOVIRAX) 800 mg tablet^Take 1 tablet by mouth three times a day as needed (cold sores).^Disp: 30 tablet^Rfl: 2 Calcium Citrate-Vitamin D3 630-400 mg-unit ORAL^Take 1 tablet by mouth every other day. Takes daily^Disp: 60 Each^Rfl: 11 MULTIVITAMIN TAB^Take 1 tablet by mouth. Every other day^Disp: ^Rfl: 0 Allergies, medications, past surgical history, family history and past medical history were reviewed per this encounter. Objective Ortho Exam 89-year-old female is pleasant cooperative with exam, in no acute distress. Structural examination shows pronounced kyphosis and lordosis. Right leg raise mildly positive bilaterally. There is good strength the lower extremities bilaterally. Assessment/Plan ASSESSMENT Diagnosis (S32.010G) Compression fracture of L1 lumbar vertebra, with delayed healing, subsequent encounter (primary encounter diagnosis) Plan: gabapentin 100 mg cap(s) (NEURONTIN) No orders found for this visit on 11/20/24. PLAN Unfortunately there are not a lot of great options for treatment of the current condition. We did discuss the use of calcitonin for acute compression fracture pain relief but will hold on that for now. We also discussed the use of gabapentin for the nerve related pain. We went over side effects and she would like to try low-dose gabapentin at bedtime. Also, she may increase Tylenol to 2000 mg/day in divided doses. FOLLOW-UP: No follow-ups on file. SIGNATURE: Gabe Almanza DO PATIENT NAME: Tawana Farrar DATE: November 20, 2024 TIME: 2:03 PM Patient presents with: Back Pain AMB ROOMING INTAKE FLOWSHEET DATA Pain Pain Level: 7 Pain Location: Back-Lower Description: Sharp, Dull Duration Amount of Time: 6 Duration Units: Weeks Frequency: Intermittent Intervention/Comfort measure: Medication Patient states she is having low back, SI joint pain. Taking Tylenol for the pain and helps some. documented in this encounter [facility] 11-20-2024 Note HNO ID: [id number] Author: ANNE LAEN MA Service: ? Author Type: Cruise Agent Type: Progress Notes Filed: 11/20/2024 14:08 Note Text: Patient presents with: Back Pain AMB ROOMING INTAKE FLOWSHEET DATA Pain Pain Level: 7 Pain Location: Back-Lower Description: Sharp, Dull Duration Amount of Time: 6 Duration Units: Weeks Frequency: Intermittent Intervention/Comfort measure: Medication Patient states she is having low back, SI joint pain. Taking Tylenol for the pain and helps some. [facility] 11-01-2024 History of Presen t illness Narrative Radiology Service Progress Note PATIENT NAME: Tawana Farrar DATE OF SERVICE: November 01, 2024 TIME: 2:44 PM PATIENT IDENTITY VERIFICATION COMPLETED USING TWO (2) IDENTIFIERS: Name and Date of confirmed by patient verbally. FALL SCREENING: Has the patient had 2 falls in the last year or 1 fall with injury or currently using an Ambulatory Assistive Device (Walker, Cane, Wheelchair, Crutches, etc.)? No PATIENT GENDER DATA: Female. status: : No status: NO. PATIENT RELEVANT IMPLANT DATA REVIEWED: Not Applicable PATIENT PRESENTS WITH AN IMPLANTABLE OR ATTACHED CHAIRLIFT OPERATOR: No RADIOLOGY DEPARTMENT: General X-ray: Exam(s) Completed: Pelvis X-Ray: Pelvis with Hip Left PERIPHERAL IV DATA: Not applicable SIGNED BY: RT Brandie(R) November 01, 2024 2:44 PM documented in this encounter [facility] 11-01-2024 Note HNO ID: [id number] Author: ROMELIA WEINSTEIN RT(R) Service: Radiology Author Type: Technologist Type: Progress Notes Filed: 11/01/2024 14:56 Note Text: Radiology Service Progress Note PATIENT NAME: Tawana Farrar DATE OF SERVICE: November 01, 2024 TIME: 2:44 PM PATIENT IDENTITY VERIFICATION COMPLETED USING TWO (2) IDENTIFIERS: Name and Date of confirmed by patient verbally. FALL SCREENING: Has the patient had 2 falls in the last year or 1 fall with injury or currently using an Ambulatory Assistive Device (Walker, Cane, Wheelchair, Crutches, etc.)? No PATIENT GENDER DATA: Female. status: : No status: NO. PATIENT RELEVANT IMPLANT DATA REVIEWED: Not Applicable PATIENT PRESENTS WITH AN IMPLANTABLE OR ATTACHED CHAIRLIFT OPERATOR: No RADIOLOGY DEPARTMENT: General X-ray: Exam(s) Completed: Pelvis X-Ray: Pelvis with Hip Left PERIPHERAL IV DATA: Not applicable SIGNED BY: RT Brandie(R) November 01, 2024 2:44 PM [facility] 10-29-2024 Telephone encounter Note Patient's request for medication is as follows: Requested Prescriptions Refused Prescriptions Disp Refills atenolol (TENORMIN) 25 mg tablet 90 tablet 1 Sig: Take 0.5 tablets by mouth every 12 hours. Refused By: ELIZABETH BERMAN Reason for Refusal: Patient has requested refill too soon Refilled 09/13/2024 for 90 tabs and [facility] Prescription(s) as above. Please process accordingly. Elizabeth Berman LPN [facility] 10-29-2024 Miscellaneous Notes Patient's request for medication is as follows: Requested Prescriptions Refused Prescriptions Disp Refills atenolol (TENORMIN) 25 mg tablet 90 tablet 1 Sig: Take 0.5 tablets by mouth every 12 hours. Refused By: ELIZABETH BERMAN Reason for Refusal: Patient has requested refill too soon Refilled 09/13/2024 for 90 tabs and 1 refill [facility]. Prescription(s) as above. Please process accordingly. Elizabeth Berman LPN documented in this encounter [facility] 10-28-2024 Telephone encounter Note Message sent to Izaiah Phan from [facility]ames[facility] Caraballo. [facility] 10-28-2024 Miscellaneous Notes Message sent to Izaiah Phan from [facility] Caraballo. Images from the original note were not included. Gabe Almanza V, DO [facility]17 minutes ago (10:57 AM) I spoke with Mrs. Farrar. She would like to make an appointment with the [facility] to fit a lumbar support brace. I addressed her questions and will provide a refill on medication. Gabe Almanza DO documented in this encounter [facility] 10-28-2024 Telephone encounter Note Images from the original note were not included. Gabe Almanza V, DO [facility]17 minutes ago (10:57 AM) I spoke with Mrs. Farrar. She would like to make an appointment with the [facility] to fit a lumbar support brace. I addressed her questions and will provide a refill on medication. Gabe Almanza DO [facility] 09-13-2024 Telephone encounter Note Patient's request for medication is as follows: Requested Prescriptions Pending Prescriptions Disp Refills atenolol (TENORMIN) 25 mg tablet [Pharmacy Med Name: ATENOLOL 25 MG TABLET] 90 tablet 1 Sig: TAKE 1/2 TABLET BY MOUTH TWICE A DAY Patient was last seen on : 04/01/24 Next Scheduled on : 11/01/24 Prescription(s) as above. Please process accordingly. Lorelei Cotton MA [facility] 09-13-2024 Miscellaneous Notes Patient's request for medication is as follows: Requested Prescriptions Pending Prescriptions Disp Refills atenolol (TENORMIN) 25 mg tablet [Pharmacy Med Name: ATENOLOL 25 MG TABLET] 90 tablet 1 Sig: TAKE 1/2 TABLET BY MOUTH TWICE A DAY Patient was last seen on : 04/01/24 Next Scheduled on : 11/01/24 Prescription(s) as above. Please process accordingly. Lorelei Cotton MA documented in this encounter [facility] 08-30-2024 Telephone encounter Note Patient's spouse, Kirk, given provider's message, as copied below. Soila Nicholson RN 08/30/24 11:38 AM Please let patient know that she needs to take the thyroid medication, 1.5 tablets on Monday and Monday and recheck tsh in a months time Regards, Jesus Mg MD [facility] 08-30-2024 Miscellaneous Notes Patient's spouse, Kirk, given provider's message, as copied below. Soila Nicholson RN 08/30/24 11:38 AM Please let patient know that she needs to take the thyroid medication, 1.5 tablets on Monday and Monday and recheck tsh in a months time Regards, Jesus Mg MD documented in this encounter [facility] 08-15-2024 Instructions Jesus Mg MD - 08/15/2024 10:40 AM EDT She has severe osteoporosis of the back with a fragility fracture, and with being on 10 years of fosamax we would consider that it is not efficacious for her Current recommendations with her condition are for the daily shot- teriparatide- which is an anabolic medication and will help build bones but she does not want to take it Her other considerations are either prolia or zolindronic acid. The prolia is a 6 months shot and should be on of the better ones that may have a little more efficacy than all zolindronic acid, but coverage may be an issue. We could do the zolindronic acid infusion if needed. Currently we have ordered for the prolia I have also order a lot of labs to identify any cause of fatigue documented in this encounter [facility] 08-15-2024 History of Presen t illness Narrative Reason for Visit Patient presents with: Physical Tawana Farrar is a 89 year old female who presents here today for Above Complaints.. Health Maintenance Depression Screening Anxiety Screening Influenza Vaccine(1) Covid-19 Vaccine( season) HPI This is a very pleasant 89-year-old woman with a past medical history of MGUS, Raynaud's phenomena, paroxysmal A-fib ASCUS in female, hypothyroidism, kyphosis, severe osteoporosis, early stage nonexudative macular degeneration, essential hypertension. In November 04 she was seen for severe osteoporosis and was advised to get onto Forteo, followed by Prolia. She has not yet got onto the. She does have a T12 fracture. She has been at least on 10 years on Fosamax. She and her are not very happy to consider the teriparatide for many reasons, but will consider the prolia. Has been feeling tired of late. She is not going to the silver sneakers to exercise due to back pain Hypertension: BP controlled today at 112/64. Occasionally checks BP at home. Averages around 130/70. Compliant with medication. Voices no issues. No chest pain, palpitations, edema or SOB. Monitors sodium, fat, and cholesterol - eats 3 meals a day with some snacks throughout the day. Good fluid intake. Takes part in silver sneakers twice a week, followed by some walking. Hypothyroidism: Stable. Last TSH level 4.040. Tolerating levothyroxine well. Voices no side effects. CARDIO: HR is stable. Denies any recent tachycardic episodes. Hx of SVT. Plans to see cardio in the new year. MGUS: Mild elevation is M protein. Recent calcium and creatinine levels were stable. No concerns aside to mild incontinence. Denies any achy bones. Sleep: Sleeping well. Average 6-7 hours a night. Stress: Denies being stressed. No problem-specific Assessment & Plan notes found for this encounter. PAST MEDICAL HISTORY Diagnosis Date Arrhythmia Benign neoplasm of colon Compression fracture of cervical spine (HCC) 2022 Esophageal reflux 10/05/2005 HYPERLIPIDEMIA NEC/NOS 10/05/2005 HYPERTENSION NOS 10/05/2005 Macular degeneration of both eyes 2020 MGUS (monoclonal gammopathy of unknown significance) OSTEOPOROSIS NOS 10/05/2005 PAST SURGICAL HISTORY Procedure Laterality Date COAPTITE INJECTION 1ML 12/05/[address] Luo COLONOSCOPY FLX DX W/COLLJ SPEC WHEN PFRMD Colonoscopy COLONOSCOPY FLX DX W/COLLJ SPEC WHEN PFRMD 03/05/15 Colonoscopy Repeat 02/2020 COLONOSCOPY FLX DX W/COLLJ SPEC WHEN PFRMD 01/29/2018 Colonoscopy COLONOSCOPY W/BIOPSY SINGLE/MULTIPLE 01/24/11 repeat in COLONOSCOPY W/BIOPSY SINGLE/MULTIPLE 03/01/2012 HYSTEROSCOPY BX W/WO D&C 01/14/14 Hysteroscopy D&C LIG/TRNSXJ FLP TUBE ABDL/VAG APPR UNI/BI 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 2017 spot taken off of back PAST SURGICAL HISTORY OF cataract SIMP REPAIR FACE,EAR,EYE <2.5CM 02/04/09 Simple repair nasal bridge laceration SLING OPER STRES INCONTINENCE 01/15/08 Midurethral sling, transobturator approach FAMILY HISTORY Problem Relation Age of Onset Osteoporosis Mother Heart Father - [place] Prostate Cancer Son Heart Brother Breast Cancer Maternal Aunt Social History Tobacco Use Smoking status: Never Smokeless tobacco: Never Vaping Use Vaping status: Never Used Substance Use Topics Alcohol use: Yes Comment: Occasionally Drug use: No Past medical history, appointments, medications, allergies reviewed. Pertinent Lab/Diagnostic Studies are reviewed and discussed today Current Outpatient Medications: lisinopril (ZESTRIL) 20 mg tablet atenolol (TENORMIN) 25 mg tablet atorvastatin (LIPITOR) 10 mg tablet ELIQUIS 2.5 mg tab(s) amLODIPine (NORVASC) 5 mg tablet acyclovir (ZOVIRAX) 800 mg tablet levothyroxine (LEVOXYL) 25 mcg tablet Calcium Citrate-Vitamin D3 630-400 mg-unit ORAL MULTIVITAMIN TAB denosumab (PROLIA) 60 mg/mL vit A,C,D-Mwqq-Anfilw (PRESERVISION AREDS) 2,148 mcg-113 mg-45 mg-17.4mg tab Review of Systems CONSTITUTIONAL: No fevers, chills night sweats, unintended weight loss CARDIOVASCULAR: No chest pain, dyspnea, palpitations, orthopnea, PND, ankle edema. PULM: No dyspnea, unexplained cough. GI: No dysphagia/odynophagia, problematic reflux, constipation, diarrhea, changes in stool habits, hematochezia, melena. : No new urinary complaints, including dysuria, gross hematuria or pyuria. NEURO: No new balance problems, peripheral weakness/paresthesias or numbness of concern. Physical Exam BP 112/64 (BP Site: Right Arm) Pulse (!) 51 Ht 164 cm (5' 4.57") Wt 51.3 kg (113 lb 1.9 oz) SpO2 97% BMI 19.08 kg/m General appearance: Well appearing, alert, in no acute distress, well nourished. Skin: Skin color, texture, turgor normal, no suspicious rashes or lesions Head: Normocephalic, no masses, lesions, tenderness or abnormalities Eyes: Anicteric sclera. Pupils are equally round and reactive to light. Extraocular movements are intact. Lungs: Lungs clear to auscultation. No wheezing, rhonchi, rales Heart: RRR without murmur, gallop, or rubs. Extremities: No deformities, edema, skin discoloration, clubbing or cyanosis. Good capillary refill. ASSESSMENT/PLAN: 1. Age-related osteoporosis with current pathological fracture with routine healing, subsequent encounter - ICD9: [id number], ICD10: M80.00XD (primary diagnosis) - PROLIA 60 MG/ML SUBCUTANEOUS SYRINGE She has severe osteoporosis of the back with a fragility fracture, and with being on 10 years of fosamax we would consider that it is not efficacious for her Current recommendations with her condition are for the daily shot- teriparatide- which is an anabolic medication and will help build bones but she does not want to take it Her other considerations are either prolia or zolindronic acid. The prolia is a 6 months shot and should be on of the better ones that may have a little more efficacy than all zolindronic acid, but coverage may be an issue. We could do the zolindronic acid infusion if needed. Currently we have ordered for the prolia I have also order a lot of labs to identify any cause of fatigue 2. MGUS (monoclonal gammopathy of unknown significance) - ICD9: 273.1, ICD10: D47.2 Watching her condition and it is stable 3. Vitamin D deficiency - ICD9: 268.9, ICD10: E55.9 - VITAMIN D 25 HYDROXY 4. Vitamin B12 deficiency - ICD9: 266.2, ICD10: E53.8 - VITAMIN B12 5. Weight gain - ICD9: 783.1, ICD10: R63.5 - THYROID STIMULATING HORMONE 6. Fatigue, unspecified type - ICD9: 780.79, ICD10: R53.83 - THYROID STIMULATING HORMONE - COMPLETE BLOOD COUNT AND DIFFERENTIAL - COMPREHENSIVE METABOLIC PANEL 7. Iron deficiency - ICD9: 280.9, ICD10: E61.1 - IRON AND TIBC - FERRITIN Jesus Mg MD documented in this encounter [facility] 07-16-2024 History of Presen t illness Narrative Episode Visit Count: 3 Therapist That Will Accept/Oversee The Plan Of Care: Rex Lind PT Start of Care Date: 06/17/24 Onset Date: 06/03/24 Plan of Care Certification Date: 06/17/24 Next Certification Due Date: 07/22/24 Patient Identified by Name and Date of : Yes REHABILITATION AND SPORTS THERAPY PHYSICAL THERAPY TREATMENT NOTE ASSESSMENT: Tawana Farrar tolerated the session with no issues. She demonstrated familiar symptoms with holding a weighted object with outstretched arms. The patient will continue to benefit from ongoing skilled physical therapy to progress toward set goals. PLAN FOR NEXT VISIT: Possible DC SUBJECTIVE: Things are going well. This morning was painful. It hurt when she did laundry. More of a muscular soreness. The exercises are going well. Pain: Pain Pain Level: (Not rated) Pain Location: Low Back/Lumbar Spine - Left, Low Back/Lumbar Spine - Right OBJECTIVE MEASURES WITH LEVEL OF FUNCTION: Pain appears to be muscular in nature TREATMENT: Therapeutic Exercise: 1: Seated core bracing [id number] x 10 CW/CCW, x 2 sets 2: Seated core bracing ball raises 7# MB 2 x 10 3: Seated core iso crunch rd PB 2 x 10 holding 3 sec each 4: *Discussed how to progress the HEP safely Skilled Intervention: Patient was educated in proper exercise technique and purpose for exercises. Correct performance of therapeutic exercises was facilitated with verbal and visual cuing. Billing Therapeutic Exercise Treatment Minutes: 33 Skilled Treatment Time Minutes (timed and untimed codes): 33 Total Session Time (minutes): 33 Session Start Time : 1058 Session Stop Time : 1131 Rex Lind PT documented in this encounter [facility] 07-09-2024 History of Presen t illness Narrative Episode Visit Count: 2 Therapist That Will Accept/Oversee The Plan Of Care: Rex Lind PT Start of Care Date: 06/17/24 Onset Date: 06/03/24 Plan of Care Certification Date: 06/17/24 Next Certification Due Date: 07/22/24 Patient Identified by Name and Date of : Yes REHABILITATION AND SPORTS THERAPY PHYSICAL THERAPY TREATMENT NOTE ASSESSMENT: Tawnaa Farrar tolerated the session with no issues. She demonstrated good form with all therapeutic exercises. The patient will continue to benefit from ongoing skilled physical therapy to progress toward set goals. PLAN FOR NEXT VISIT: Core stability exercises SUBJECTIVE: Feels things are getting better. This is probably due to time and the exercises. Pain: Pain Pain Level: 0 Pain Location: Low Back/Lumbar Spine - Left, Low Back/Lumbar Spine - Right OBJECTIVE MEASURES WITH LEVEL OF FUNCTION: TREATMENT: Therapeutic Exercise: 1: Seated core bracing [id number] x 10 CW/CCW, x 2 sets 2: Seated core bracing ball raises 4# MB 2 x 10 3: Seated core iso crunch rd PB 2 x 10 holding 3 sec each 4: SKTC RLE only 2 x 30 sec 5: LTR 2 x 10 each side Skilled Intervention: Patient was educated in proper exercise technique and purpose for exercises. Correct performance of therapeutic exercises was facilitated with verbal and visual cuing. Billing Therapeutic Exercise Treatment Minutes: 43 Skilled Treatment Time Minutes (timed and untimed codes): 43 Total Session Time (minutes): 43 Session Start Time : 926 Session Stop Time : 1009 Rex Lind PT documented in this encounter [facility] 07-02-2024 Note Formatting of this n ote might be different from the original. July 03, 2024 PID: [id number] Tawana Farrar [address] [place] [address] Dear Ms. Farrar, We are pleased to inform you that the results of your recent breast imaging exam on 07/02/2024 are normal. Breast tissue can be either dense or not dense. Dense tissue makes it harder to find breast cancer on a mammogram and also raises the risk of developing breast cancer. Your breast tissue is not dense. Talk to your healthcare provider about breast density, risks for breast cancer, and your individual situation. Early detection of cancer is very important. We also understand recommendations regarding breast cancer screening are controversial. Please discuss with your primary care provider which strategy is best for you and whether a mammogram is right for you. Your imaging studies and report will be kept on file at [facility] as part of your permanent medical record and are available for your continuing care. Thank you for allowing us to help in meeting your health care needs. Sincerely, Dr. Joya Interpreting Radiologist [facility] (Normal over 40) [facility] 07-02-2024 Miscellaneous Notes July 03, 2024 PID: [id number] Tawana Farrar [address] [place] [address] Dear Ms. Farrar, We are pleased to inform you that the results of your recent breast imaging exam on 07/02/2024 are normal. Breast tissue can be either dense or not dense. Dense tissue makes it harder to find breast cancer on a mammogram and also raises the risk of developing breast cancer. Your breast tissue is not dense. Talk to your healthcare provider about breast density, risks for breast cancer, and your individual situation. Early detection of cancer is very important. We also understand recommendations regarding breast cancer screening are controversial. Please discuss with your primary care provider which strategy is best for you and whether a mammogram is right for you. Your imaging studies and report will be kept on file at [facility] as part of your permanent medical record and are available for your continuing care. Thank you for allowing us to help in meeting your health care needs. Sincerely, Dr. Joya Interpreting Radiologist [facility] (Normal over 40) documented in this encounter [facility] 07-02-2024 History of Presen t illness Narrative Radiology Service Progress Note PATIENT NAME: Tawana Farrar DATE OF SERVICE: July 02, 2024 TIME: 10:07 AM PATIENT IDENTITY VERIFICATION COMPLETED USING TWO (2) IDENTIFIERS: Name and Date of confirmed by patient verbally. FALL SCREENING: Has the patient had 2 falls in the last year or 1 fall with injury or currently using an Ambulatory Assistive Device (Walker, Cane, Wheelchair, Crutches, etc.)? No PATIENT GENDER DATA: Female. status: : No status: NO. PATIENT RELEVANT IMPLANT DATA REVIEWED: Not Applicable PATIENT PRESENTS WITH AN IMPLANTABLE OR ATTACHED CHAIRLIFT OPERATOR: No RADIOLOGY DEPARTMENT: Mammography PERIPHERAL IV DATA: Not applicable SIGNED BY: Domi Sosa July 02, 2024 10:07 AM documented in this encounter [facility] 07-02-2024 History of Presen t illness Narrative Morale Officer offered: Patient declines. Tawana is a 89 year old who presents for an annual gynecologic exam without complaints. Has some yellow/light brown discharge at times- no red or pink. Still has some incontinence at times. Postmenopausal: Yes HRT use: No. Last Pap: 09/14/2004 normal HPV: History of abnormal pap: No Last mammogram: 2021 normal History of abnormal mammogram: No fu benign Sexually active: No History of STDS: None Patient concerns for STD exposure: No. Exercise: silver sneakers Diet: balanced OB History T3 L3 SAB0 IAB0 Ectopic0 Multiple0 Live Births0 Medical Insurance Collector History LMP: Postmenopausal Age at Menarche: Age at First : Age at Menopause: Medical Insurance Collector History Comments: Sexual Activity: Not Currently; Male Contraception: Tubal Ligation PAST MEDICAL HISTORY No date: Arrhythmia No date: Benign neoplasm of colon 2022: Compression fracture of cervical spine (HCC) 10/05/2005: Esophageal reflux 10/05/2005: HYPERLIPIDEMIA NEC/NOS 10/05/2005: HYPERTENSION NOS 2020: Macular degeneration of both eyes No date: MGUS (monoclonal gammopathy of unknown significance) 10/05/2005: OSTEOPOROSIS NOSPAST SURGICAL HISTORY 12/05/2014: COAPTITE INJECTION 1ML Comment: per Dr Luo No date: COLONOSCOPY FLX DX W/COLLJ SPEC WHEN PFRMD Comment: Colonoscopy 03/05/15: COLONOSCOPY FLX DX W/COLLJ SPEC WHEN PFRMD Comment: Colonoscopy Repeat 02/202001/29/2018: COLONOSCOPY FLX DX W/COLLJ SPEC WHEN PFRMD Comment: Colonoscopy 01/24/11: COLONOSCOPY W/BIOPSY SINGLE/MULTIPLE Comment: repeat in 03/01/2012: COLONOSCOPY W/BIOPSY SINGLE/MULTIPLE 01/14/14: HYSTEROSCOPY BX W/WO D&C Comment: Hysteroscopy D&C No date: LIG/TRNSXJ FLP TUBE ABDL/VAG APPR UNI/BI Comment: Tubal ligation 2017: MELANOMA OF SKIN EXCISION SYN RPT Comment: spot taken off of back No date: PAST SURGICAL HISTORY OF Comment: cataract 02/04/09: SIMP REPAIR FACE,EAR,EYE <2.5CM Comment: Simple repair nasal bridge laceration 01/15/08: SLING OPER STRES INCONTINENCE Comment: Midurethral sling, transobturator approach FAMILY HISTORY Problem Relation Age of Onset Osteoporosis Mother Heart Father - [place] Prostate Cancer Son Heart Brother Breast Cancer Maternal Aunt SOCIAL HISTORY Social History Tobacco Use Smoking status: Never Smokeless tobacco: Never Vaping Use Vaping status: Never Used Substance Use Topics Alcohol use: Yes Comment: Occasionally Drug use: No REVIEW OF SYSTEMS Abdomen: No abdominal pain, nausea, vomiting, diarrhea, or constipation. No bloating, early satiety, indigestion, or increased flatulence. Bladder: no dysuria or frequency Breast: No breast lumps, nipple d/c, overlying skin changes, redness or skin retraction Allergies and current medication updated:Yes EXAM: BP 114/60 Ht 5' 3" (1.60m) Wt 113 lb (51.3kg) BMI 20.02 kg/(m^2). GENERAL: pleasant, female in no apparent distress HEENT: Normocephalic, atraumatic, mucus membranes moist, and no lesions NECK: Supple, full range of motion, no adenopathy, and thyroid normal DERMATOLOGY: Normal, without lesions, non-icteric, and non-hirsute BREAST: soft, non-tender, symmetric, no dominant mass, normal nipple-areolar complex, no lymphadenopathy, and no nipple discharge ABDOMEN: soft, non-tender, and no masses PELVIC: external genitalia normal, normal Bartholin's glands, urethra, [place]'s glands, no vulvar lesions, no cervical lesions, good vaginal support, physiologic discharge present, normal appearing perineal body and perianal region, has some scant yellow discharge on vaginal wall cw atrophic vaginitis BIMANUAL: uterus normal size, shape and consistency, no adnexal masses, and non-tender RECTOVAGINAL: deferred. NEURO: alert and oriented x3,exam grossly non-focal EXTREMITIES: normal ASSESSMENT/PLAN: 1) Health maintenance: Pap/HPV screening no longer needed Mammogram ordered Nutrition, exercise and routine health maintenance exams reviewed. Calcium/Vitamin D supplementation information provided. BMD: up to date 2) Follow up one year or sooner as needed Antoinette Barbosa MD documented in this encounter [facility] 06-17-2024 History of Presen t illness Narrative Program_ID:[id number] Access Code: [email or web address] URL: [email or web address] Scheduling Software/ Date: 06-17-2024 Prepared By: Rex Lind Program Notes Exercises - Hooklying Single Knee to Chest Stretch - 1 x daily - 7 x weekly - 5 sets - 1 reps - Supine Lower Trunk Rotation - 1 x daily - 7 x weekly - 3 sets - 10 reps - Supine Lower Trunk Rotation - 1 x daily - 7 x weekly - 3 sets - 10 reps Images from the original note were not included. Episode Visit Count: 1 Therapist That Will Accept/Oversee The Plan Of Care: Rex Lind PT Start of Care Date: 06/17/24 Onset Date: 06/03/24 Plan of Care Certification Date: 06/17/24 Next Certification Due Date: 07/22/24 Patient Identified by Name and Date of : Yes REHABILITATION AND SPORTS THERAPY PHYSICAL THERAPY EVALUATION PLAN OF CARE: Assessment: Tawana Farrar presents with chief complaint of LBP that interferes with cleaning . She presents with impairments in flexibility, independence in exercise, and range of motion. PROMIS (Patient-Reported Outcomes Measurement Information System) scores were reviewed and identified as a rehabilitation concern. Prognosis for therapy is Good due to: current objective clinical presentation . Decreased spinal mobility and decreased She will benefit from skilled therapy services to meet the goals established for this plan of care as noted below. Classification Pain Mechanism Classification: Nociceptive Low Back Pain Classification: Movement Control Goals for Episode of Care: created on 06/17/24 through 07/29/24 Independent in home exercises. Patient will decrease pain rating by 2 points to meet minimal clinical important difference for numeric pain rating scale. Restore pain-free lumbar ROM to minimal limitation or better to allow for ease of picking up objects Pt will report no longer having pain with brushing her teeth, doing the dishes, or being slightly bent over Patient Goals: Get some information to get better Planned Interventions, Frequency, and Duration: Current Frequency: 1x/week Duration: 4 weeks Total Number of Visits Planned: 4 Planned Treatment Interventions: Therapeutic exercise (76774), Neuromuscular re-education (31684), Manual therapy (37027), Therapeutic activities (97435), Self-halfway management (11375), Gait Training (30758) PLAN FOR NEXT VISIT: STM over lumbar paraspinals and QL bilaterally Patient demonstrates good understanding of plan of care and treatment. The above goals and plan of care were discussed and agreed upon by patient/family. SUBJECTIVE: Pain one morning when awakening. Nothing happened. No injury. Does silver sneakers. Washing dishes or washing her face she can "feel that". Generalized pain. Big cough and getting out of a chair can hurt the back. No N/T. Sitting is fine. Feels her gait has changed a little bit. Landing when alking can hurt. Stiff when she gets up. Patient Goals: Get some information to get better Functional Limitations: cleaning Prior Level of Function: Independent without limitations Intake Information: Prescription present Previous Treatment: Self prescribed exercises, Heat Pain: Pain Pain Level: 5 Pain Location: Low Back/Lumbar Spine - Left, Low Back/Lumbar Spine - Right PROMIS Scales 06/16/2024 09/27/2023 Higher is Better Phys Func - Score 40 (mild dysfunction) 38 (moderate dysfunction) Phys Func - Percentile 16 12 Self-Eff Symptom - Score 44 (Average) Self-Eff Symptom - Percentile 27 T-scores: mean of general population = 50. 5 points is clinically meaningfully difference Percentiles provide an indication of how the patient's score ranks in relation to the general population. Higher percentile rankings indicate better function/quality of life. 50th percentile is the average of the general population and indicates half of respondents had a worse score. OBJECTIVE MEASURES WITH LEVEL OF FUNCTION: Sensation - Lumbar Sensation: Grossly Intact Lumbar Spine AROM Lumbar Flexion: Minimal limitation, Increased pain Lumbar Extension: Minimal limitation Lumbar R Side-Bend: Minimal limitation, Increased pain, End range pain Lumbar L Side-Bend: Minimal limitation Lumbar R Rotation: Normal Lumbar L Rotation: Normal LE AROM Tested?: Yes LE AROM R LE AROM: WNL L LE AROM: WNL R Hip Flexion: 115 Degrees (end range pain) R Hip Internal Rotation: 8 Degrees (end range pain) Education: Education Learning Preferences: Demonstration, Explanation, Performance, Printed Materials Barriers: None Learning/educational needs: Home exercise program, Plan of Care, Changes in Plan of Care Education Provided: Yes, see treatment interventions for education provided Education Provided To: Patient Education Mode/Type: Demonstration, Explanation/Discussion, Literature/Printed Materials, Performance Response to Education/Teach Back: States/Identifies, Return Demonstration TREATMENT: PT Treatment Interventions: Therapeutic Exercise, Manual Therapy, Self-Long Term Management Evaluation Therapeutic Exercise: 1: Discussed exam findings, purpose of the HEP and the HEP handout was provided to the pt. HEP discussed in detail with how to safely and properly perform each therapeutic exercise. 2: SKTC (RLE only) 2 x 30 sec 3: LTR x 10 each direction Skilled Intervention: Patient was educated in proper exercise technique and purpose for exercises. Correct performance of therapeutic exercises was facilitated with verbal and visual cuing. Manual Therapy: 1: Discussed self massage on wall with ball in a pillowcase. Discussed proper duration, intensity and technique with regards to the lumbar paraspinals and QL. 2: Self massage performed on the wall targeting the right musculature Skilled Intervention: Manual skills to improve joint mobility, ROM, and decrease pain. Utilized anatomy knowledge of the therapist, and assessment of patient's response to intervention. Self-Long Term Management: 1: Discussed proper sleeping positions with use of pillows during siderlying and supine positions Skilled Intervention: Skilled judgment in the selection of proper modification for activity of daily living/home management based on clinical presentation, deficits, and needs. Billing * Evaluation Low Complexity: 1 Unit Therapeutic Exercise Treatment Minutes: 15 Manual TherapyTreatment Minutes: 6 Self-Care/Home Management Treatment Minutes: 3 Skilled Treatment Time Minutes (timed and untimed codes): 49 Total Session Time (minutes): 49 Session Start Time : 1525 Session Stop Time : 1614 Rex Lind PT documented in this encounter [facility] 06-13-2024 Telephone encounter Note Prescription Refill Information The patient has been identified by name and date of : Yes Caregiver verified no other encounters exist for this prescription request: Yes Caregiver confirmed with patient/requestor that no other refills are due, in the near future, with this provider at this time: Yes The last office visit in the department: 03/19/24 Does the patient have a future office visit with this provider/department: No Requested Prescriptions Pending Prescriptions Disp Refills lisinopril (ZESTRIL) 20 mg tablet [Pharmacy Med Name: LISINOPRIL 20 MG TABLET] 90 tablet 1 Sig: TAKE 1 TABLET BY MOUTH EVERY DAY Kathy St LPN June 13, 2024 3:12 PM [facility] 06-13-2024 Miscellaneous Notes Prescription Refill Information The patient has been identified by name and date of : Yes Caregiver verified no other encounters exist for this prescription request: Yes Caregiver confirmed with patient/requestor that no other refills are due, in the near future, with this provider at this time: Yes The last office visit in the department: 03/19/24 Does the patient have a future office visit with this provider/department: No Requested Prescriptions Pending Prescriptions Disp Refills lisinopril (ZESTRIL) 20 mg tablet [Pharmacy Med Name: LISINOPRIL 20 MG TABLET] 90 tablet 1 Sig: TAKE 1 TABLET BY MOUTH EVERY DAY Kathy St LPN June 13, 2024 3:12 PM documented in this encounter [facility] 06-07-2024 History of Presen t illness Narrative Radiology Service Progress Note PATIENT NAME: Tawana Farrar DATE OF SERVICE: June 07, 2024 TIME: 3:22 PM PATIENT IDENTITY VERIFICATION COMPLETED USING TWO (2) IDENTIFIERS: Name and Date of confirmed by patient verbally. FALL SCREENING: Has the patient had 2 falls in the last year or 1 fall with injury or currently using an Ambulatory Assistive Device (Walker, Cane, Wheelchair, Crutches, etc.)? No PATIENT GENDER DATA: Female. status: : No status: NO. PATIENT RELEVANT IMPLANT DATA REVIEWED: Yes PATIENT PRESENTS WITH AN IMPLANTABLE OR ATTACHED CHAIRLIFT OPERATOR: No RADIOLOGY DEPARTMENT: General X-ray: Exam(s) Completed: Spine X-Ray(s): Lumbar AP / LAT / L5-S1 PERIPHERAL IV DATA: Not applicable SIGNED BY: RT Lizzie(R) June 07, 2024 3:22 PM documented in this encounter [facility] 06-07-2024 History of Presen t illness Narrative Images from the original note were not included. SERVICE DATE: June 07, 2024 PCP: Jesus Mg MD Subjective Patient ID: Tawana is a 89 year old female. Chief Complaint: Patient presents with: Follow Up PAIN EVALUATION 06/03/2024 1727 06/07/2024 1457 Pain Level: 6 -- Pain Location: Back-Lower -- Description: Aching;Shooting;Stiffness;Tightn ess -- Duration Amount of Time: -- 3 Duration Units: -- Weeks Frequency: Continuous -- Intervention/Comfort measure: Medication;Relaxation;Heat;Massa ge;Positioning -- HPI Tawana presents today with low back pain for approximately 3 weeks. She does not have any mechanism of injury that she is aware of. She has a history of a T7 compression fracture from 1 year ago. He states that the pain she is having today is different than that pain. It is lower in the lumbar spine. She denies any radicular leg pain or focal leg weakness. Review of Systems ACTIVE PROBLEM LIST Esophageal Reflux Essential Hypertension Osteoporosis Hyperlipidemia TMJ Syndrome Other Physical Therapy Personal History of Colonic Polyps Diverticulosis of Colon (Without Mention of Hemorrhage) Melanocytic Nevu of lower extremity: R leg: mid anterior thigh: Intradermal Nevus Melanocytic Nevus of trunk: IDN Nevus at right upper outer chest area Female Stress Incontinence Raynaud's Disease Without Gangrene Lichen Planus Irritable Bowel Syndrome With Both Constipation and Diarrhea Svt (Supraventricular Tachycardia) (Hcc) Lumbar Spine Strain, Subsequent Encounter 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 Compression Fracture of T7 Vertebra (Hcc) Paroxysmal Atrial Fibrillation (Hcc) Hypothyroidism PAST MEDICAL HISTORY Diagnosis Date Arrhythmia Benign neoplasm of colon Compression fracture of cervical spine (HCC) 2022 Esophageal reflux 10/05/2005 HYPERLIPIDEMIA NEC/NOS 10/05/2005 HYPERTENSION NOS 10/05/2005 Macular degeneration of both eyes 2020 MGUS (monoclonal gammopathy of unknown significance) OSTEOPOROSIS NOS 10/05/2005 PAST SURGICAL HISTORY Procedure Laterality Date COAPTITE INJECTION 1ML 12/05/[address] Luo COLONOSCOPY FLX DX W/COLLJ SPEC WHEN PFRMD Colonoscopy COLONOSCOPY FLX DX W/COLLJ SPEC WHEN PFRMD 03/05/15 Colonoscopy Repeat 02/2020 COLONOSCOPY FLX DX W/COLLJ SPEC WHEN PFRMD 01/29/2018 Colonoscopy COLONOSCOPY W/BIOPSY SINGLE/MULTIPLE 01/24/11 repeat in COLONOSCOPY W/BIOPSY SINGLE/MULTIPLE 03/01/2012 HYSTEROSCOPY BX W/WO D&C 01/14/14 Hysteroscopy D&C LIG/TRNSXJ FLP TUBE ABDL/VAG APPR UNI/BI 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 2017 spot taken off of back PAST SURGICAL HISTORY OF cataract SIMP REPAIR FACE,EAR,EYE <2.5CM 02/04/09 Simple repair nasal bridge laceration SLING OPER STRES INCONTINENCE 01/15/08 Midurethral sling, transobturator approach FAMILY HISTORY Problem Relation Age of Onset Osteoporosis Mother Heart Father - [place] Prostate Cancer Son Heart Brother Breast Cancer Maternal Aunt Social History Tobacco Use Smoking status: Never Smokeless tobacco: Never Vaping Use Vaping Use: Never used Substance Use Topics Alcohol use: Yes Comment: Occasionally Drug use: No ALLERGIES Allergen Reactions Asa [Salicylates] THROMBOCYTOPENIA Aspirin Rash Risedronate Other: See Comments Jaw issues MEDICATIONS: atenolol (TENORMIN) 25 mg tablet^TAKE 1/2 TABLET TWICE A DAY BY MOUTH^Disp: 90 tablet^Rfl: 1 lisinopril (ZESTRIL) 20 mg tablet^Take 1 tablet by mouth once daily.^Disp: 30 tablet^Rfl: 2 atorvastatin (LIPITOR) 10 mg tablet^Take 0.5 tablets by mouth daily at bedtime.^Disp: 45 tablet^Rfl: 3 ELIQUIS 2.5 mg tab(s)^Take 1 tablet by mouth two times a day.^Disp: 180 tablet^Rfl: 3 amLODIPine (NORVASC) 5 mg tablet^Take 1 tablet by mouth once daily.^Disp: 90 tablet^Rfl: 3 acyclovir (ZOVIRAX) 800 mg tablet^Take 1 tablet by mouth three times a day as needed (cold sores).^Disp: 30 tablet^Rfl: 2 levothyroxine (LEVOXYL) 25 mcg tablet^Take 1 tablet by mouth once daily. Except take 1.5 tablets on Monday. Take on empty stomach. For Thyroid^Disp: 90 tablet^Rfl: 1 Calcium Citrate-Vitamin D3 630-400 mg-unit ORAL^Take 1 tablet by mouth every other day. Takes daily^Disp: 60 Each^Rfl: 11 MULTIVITAMIN TAB^Take one(1) tablet every other day^Disp: ^Rfl: 0 vit A,C,L-Ooln-Mfexrf (PRESERVISION AREDS) 2,148 mcg-113 mg-45 mg-17.4mg tab^Take by mouth once daily.^Disp: ^Rfl: 0 (Patient not taking: Reported on 04/01/2024) Allergies, medications, past surgical history, family history and past medical history were reviewed per this encounter. Objective Ortho Exam 89-year-old female in no acute distress. She is pleasant, cooperative with examination. Structural examination shows significant kyphotic curve in the thoracic region. Tenderness to palpation in the midline lumbar region and lumbar paraspinal muscles bilaterally. Range of motion is restricted with flexion and extension. Straight leg raise is negative bilaterally deep tendon reflexes are +1-2/4 bilaterally at patella and Achilles. No Focal sensory neural deficits in the lower extremities. Assessment/Plan ASSESSMENT Diagnosis (M54.40) Acute midline low back pain with sciatica, sciatica laterality unspecified (primary encounter diagnosis) No orders found for this visit on 06/07/24. PLAN X-rays ordered today of the lumbar spine Discussed therapeutic interventions including physical therapy, core strengthening, range of motion exercises for the lumbar spine. Also discussed lumbar bracing for support and symptom relief. FOLLOW-UP: No follow-ups on file. SIGNATURE: Gabe Almanza DO PATIENT NAME: Tawana Farrar DATE: June 07, 2024 TIME: 3:09 PM documented in this encounter [facility] 05-13-2024 Telephone encounter Note Prescription Refill Information The patient has been identified by name and date of : Yes Caregiver verified no other encounters exist for this prescription request: Yes Caregiver confirmed with patient/requestor that no other refills are due, in the near future, with this provider at this time: Yes The last office visit In the department: 03/19/2024 Does the patient have a future office visit with this provider/department: No Requested Prescriptions Pending Prescriptions Disp Refills lisinopril (ZESTRIL) 20 mg tablet Sig: Take 1 tablet by mouth once daily. Andre Watson MA May 13, 2024 11:27 AM [facility] 05-13-2024 Miscellaneous Notes Prescription Refill Information The patient has been identified by name and date of : Yes Caregiver verified no other encounters exist for this prescription request: Yes Caregiver confirmed with patient/requestor that no other refills are due, in the near future, with this provider at this time: Yes The last office visit In the department: 03/19/2024 Does the patient have a future office visit with this provider/department: No Requested Prescriptions Pending Prescriptions Disp Refills lisinopril (ZESTRIL) 20 mg tablet Sig: Take 1 tablet by mouth once daily. Andre Watson MA May 13, 2024 11:27 AM documented in this encounter [facility] 05-13-2024 Telephone encounter Note Patient's request for medication is as follows: Requested Prescriptions Pending Prescriptions Disp Refills atenolol (TENORMIN) 25 mg tablet [Pharmacy Med Name: ATENOLOL 25 MG TABLET] 90 tablet 1 Sig: TAKE 1/2 TABLET TWICE A DAY BY MOUTH Last seen 04/01/2024. Recall scheduled for 09/2024. Prescription(s) as above. Please process accordingly. Nj Longoria LPN [facility] 05-13-2024 Miscellaneous Notes Patient's request for medication is as follows: Requested Prescriptions Pending Prescriptions Disp Refills atenolol (TENORMIN) 25 mg tablet [Pharmacy Med Name: ATENOLOL 25 MG TABLET] 90 tablet 1 Sig: TAKE 1/2 TABLET TWICE A DAY BY MOUTH Last seen 04/01/2024. Recall scheduled for 09/2024. Prescription(s) as above. Please process accordingly. Nj Lnogoria LPN documented in this encounter [facility] 05-07-2024 Telephone encounter Note Prescription Refill Information The patient has been identified by name and date of : Yes Caregiver verified no other encounters exist for this prescription request: Yes Caregiver confirmed with patient/requestor that no other refills are due, in the near future, with this provider at this time: Yes The last office visit in the department: 03/19/2024 Does the patient have a future office visit with this provider/department: Yes Requested Prescriptions Pending Prescriptions Disp Refills atorvastatin (LIPITOR) 10 mg tablet 45 tablet 3 Sig: Take 0.5 tablets by mouth daily at bedtime. Andre Watson MA May 07, 2024 10:11 AM [facility] 05-07-2024 Miscellaneous Notes Prescription Refill Information The patient has been identified by name and date of : Yes Caregiver verified no other encounters exist for this prescription request: Yes Caregiver confirmed with patient/requestor that no other refills are due, in the near future, with this provider at this time: Yes The last office visit in the department: 03/19/2024 Does the patient have a future office visit with this provider/department: Yes Requested Prescriptions Pending Prescriptions Disp Refills atorvastatin (LIPITOR) 10 mg tablet 45 tablet 3 Sig: Take 0.5 tablets by mouth daily at bedtime. Andre Watson MA May 07, 2024 10:11 AM documented in this encounter [facility] 04-01-2024 History of Presen t illness Narrative Images from the original note were not included. [facility] Cardiology ([place] ([facility]) [address] [facility] [id number] OUTPATIENT VISIT DATE 04/01/2024 PRIMARY CARE PHYSICIAN: JESUS MG MD [address] [place] [address] HISTORY OF PRESENT ILLNESS: Ms. Farrar is a 89 year old woman with paroxysmal atrial fibrillation, hypertension, dyslipidemia who presents for routine follow-up. Since her last visit, she has been doing well. She has not had symptoms concerning for recurrent arrhythmia. She denies palpitations, lightheadedness, dizziness, or syncope. She has not had symptoms concerning for CHF including PND, orthopnea, or lower extremity edema. She has been on increasing doses of lisinopril. I reviewed her home blood pressure readings. She has been well-controlled on current regimen without side effects. PAST MEDICAL HISTORY Diagnosis Date Arrhythmia Benign neoplasm of colon Compression fracture of cervical spine (HCC) 2022 Esophageal reflux 10/05/2005 HYPERLIPIDEMIA NEC/NOS 10/05/2005 HYPERTENSION NOS 10/05/2005 Macular degeneration of both eyes 2020 MGUS (monoclonal gammopathy of unknown significance) OSTEOPOROSIS NOS 10/05/2005 PAST SURGICAL HISTORY Procedure Laterality Date COAPTITE INJECTION 1ML 12/05/[address] Luo COLONOSCOPY FLX DX W/COLLJ SPEC WHEN PFRMD Colonoscopy COLONOSCOPY FLX DX W/COLLJ SPEC WHEN PFRMD 03/05/15 Colonoscopy Repeat 02/2020 COLONOSCOPY FLX DX W/COLLJ SPEC WHEN PFRMD 01/29/2018 Colonoscopy COLONOSCOPY W/BIOPSY SINGLE/MULTIPLE 01/24/11 repeat in COLONOSCOPY W/BIOPSY SINGLE/MULTIPLE 03/01/2012 HYSTEROSCOPY BX W/WO D&C 01/14/14 Hysteroscopy D&C LIG/TRNSXJ FLP TUBE ABDL/VAG APPR UNI/BI 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 2018 spot taken off of back PAST SURGICAL HISTORY OF cataract SIMP REPAIR FACE,EAR,EYE <2.5CM 02/04/09 Simple repair nasal bridge laceration SLING OPER STRES INCONTINENCE 01/15/08 Midurethral sling, transobturator approach SOCIAL HISTORY Social History Tobacco Use Smoking status: Never Smokeless tobacco: Never Vaping Use Vaping Use: Never used Substance Use Topics Alcohol use: Yes Comment: Occasionally Drug use: No FAMILY HISTORY Problem Relation Age of Onset Osteoporosis Mother Heart Father - [place] Prostate Cancer Son Heart Brother Breast Cancer Maternal Aunt ALLERGIES: ALLERGIES Allergen Reactions Asa [Salicylates] THROMBOCYTOPENIA Aspirin Rash Risedronate Other: See Comments Jaw issues MEDICATIONS: lisinopril (ZESTRIL) 20 mg tablet^Take 1 tablet by mouth once daily.^Disp: ^Rfl: ELIQUIS 2.5 mg tab(s)^Take 1 tablet by mouth two times a day.^Disp: 180 tablet^Rfl: 3 amLODIPine (NORVASC) 5 mg tablet^Take 1 tablet by mouth once daily.^Disp: 90 tablet^Rfl: 3 acyclovir (ZOVIRAX) 800 mg tablet^Take 1 tablet by mouth three times a day as needed (cold sores).^Disp: 30 tablet^Rfl: 2 levothyroxine (LEVOXYL) 25 mcg tablet^Take 1 tablet by mouth once daily. Except take 1.5 tablets on Monday. Take on empty stomach. For Thyroid^Disp: 90 tablet^Rfl: 1 atorvastatin (LIPITOR) 10 mg tablet^Take 0.5 tablets by mouth daily at bedtime.^Disp: 45 tablet^Rfl: 3 atenolol (TENORMIN) 25 mg tablet^Take 0.5 tablets by mouth twice daily.^Disp: 90 tablet^Rfl: 3 Calcium Citrate-Vitamin D3 630-400 mg-unit ORAL^Take 1 tablet by mouth every other day. Takes daily^Disp: 60 Each^Rfl: 11 MULTIVITAMIN TAB^Take one(1) tablet every other day^Disp: ^Rfl: 0 vit A,C,X-Dvef-Ghxvkh (PRESERVISION AREDS) 2,148 mcg-113 mg-45 mg-17.4mg tab^Take by mouth once daily.^Disp: ^Rfl: 0 (Patient not taking: Reported on 04/01/2024) REVIEW OF SYSTEMS: Review of Systems Constitutional: Negative for chills, fever, malaise/fatigue and weight loss. HENT: Negative for hearing loss and sore throat. Eyes: Negative for blurred vision and double vision. Respiratory: Negative. Cardiovascular: Negative. Gastrointestinal: Negative. Genitourinary: Negative for dysuria, frequency, hematuria and urgency. Musculoskeletal: Negative. Skin: Negative. Neurological: Negative for dizziness, seizures, loss of consciousness, weakness and headaches. Endo/Heme/Allergies: Negative for environmental allergies. Does not bruise/bleed easily. Psychiatric/Behavioral: Negative for depression. PHYSICAL EXAMINATION: BP 138/72 (BP Site: Right Arm, BP Position: Sitting, BP Cuff Size: Small Adult) Pulse (!) 49 Ht 163.8 cm (5' 4.5") Wt 51.6 kg (113 lb 12.8 oz) SpO2 97% BMI 19.23 kg/m General: Thin elderly woman sitting comfortable no apparent distress. She is alert and oriented x3 HEENT: Carotid upstrokes are brisk without bruits no JVD appreciated. No cervical lymphadenopathy. Pulmonary: Lungs are clear no rales wheezes rhonchi Cardiovascular: Normal S1-S2 no murmurs rubs or gallops appreciated Extremities: Warm well perfused no cyanosis clubbing or edema 2+ radial artery pulses 1-2+ dorsalis pedis and posterior tibial pulses. CARDIOVASCULAR MEDICINE TESTING: ECG in the office 12/27/2021: Normal sinus rhythm with normal axis and intervals no significant ST or T wave changes. Treadmill Myoview stress test 07/18/2017: CONCLUSIONS: 1. SPECT Perfusion Study: Normal. 2. There is no scintigraphic evidence for inducible ischemia. 3. No evidence of scarred myocardium. 4. Good functional capacity for age and gender. 5. Left ventricle is small. The left ventricle systolic function is hyperdynamic. 6. Right ventricle is normal in size. The right ventricle systolic function is normal. 7. This is a low risk scan. Gated Stress FBP LVEF % 88 Echocardiogram 05/23/2023: - Technically difficult exam due to body habitus. - Exam indication: Atrial fibrillation - The left ventricle is normal in size. Left ventricular systolic function is normal. EF = 60 5% (2D 4-ch.) Normal left ventricular diastolic function. - The right ventricle is normal in size. Right ventricular systolic function is normal. - There are no significant valvular abnormalities. - Exam was compared with the prior echocardiographic exam performed on 04/13/2015 (Stress). IMPRESSION: Ms. Farrar is a 89 year old woman with newly diagnosed paroxysmal atrial fibrillation, hypertension, dyslipidemia presents to the office for follow-up after recent emergency room visit. PLAN AND RECOMMENDATIONS: 1. Paroxysmal atrial fibrillation (HCC) - ICD9: 427.31, ICD10: I48.0 (primary diagnosis) Patient doing well on low-dose atenolol twice daily. She is on Eliquis for stroke risk reduction 2. SVT (supraventricular tachycardia) (HCC) - ICD9: 427.89, ICD10: I47.10 3. Essential hypertension - ICD9: 401.9, ICD10: I10 Well-controlled on current regimen. Discussed the side effects of lisinopril including cough and angioedema. 4. Mixed hyperlipidemia - ICD9: 272.2, ICD10: E78.2 Maintained on atorvastatin 10 mg daily. Fasting blood work from July 2023 was reviewed. LDL cholesterol 106 mg/dL 5. Raynaud's disease without gangrene - ICD9: 443.0, ICD10: I73.00 Rancho Michaud MD documented in this encounter [facility] 03-19-2024 Instructions Lizett Soliz APRN.[employer]INE [employer] - 03/19/2024 9:28 AM EDT Increase Lisinopril to 20 mg daily. Call when you need a refill Let me know if you develop dizziness, lightheadedness or increase in fatigue. Or if blood pressure readings consistently less than 110/60 documented in this encounter [facility] 03-19-2024 History of Presen t illness Narrative CC Patient presents with: 4 week follow up: B/p SRINIVASA Tawana Farrar is a 89 year old female who presents to the office for blood pressure. Her visit today is for follow-up. Patient was last seen for this approximately 1 month ago. Medication changes: Lisinopril had been increased two weeks prior Taking all medications as prescribed: Yes Side effects: No Home BP's: Yes average over the past two weeks was 132/74 Denies: headache, chest pain, palpitations, dyspnea, peripheral edema, dizziness, lightheadedness. Last 4 Encounter BP Readings: Date: BP: 03/19/2024 156/86 02/20/2024 148/80 02/05/2024 166/86[BP Rao[ 10/17/2023 187/81 Last 3 Encounter Wt Readings: Date: Wt: 03/19/2024 51.3 kg (113 lb) 02/20/2024 50.8 kg (112 lb) 02/05/2024 51.3 kg (113 lb) Review of Systems See HPI PAST MEDICAL HISTORY Diagnosis Date Arrhythmia Benign neoplasm of colon Compression fracture of cervical spine (HCC) 2022 Esophageal reflux 10/05/2005 HYPERLIPIDEMIA NEC/NOS 10/05/2005 HYPERTENSION NOS 10/05/2005 Macular degeneration of both eyes 2020 MGUS (monoclonal gammopathy of unknown significance) OSTEOPOROSIS NOS 10/05/2005 PAST SURGICAL HISTORY Procedure Laterality Date COAPTITE INJECTION 1ML 12/05/[address] Luo COLONOSCOPY FLX DX W/COLLJ SPEC WHEN PFRMD Colonoscopy COLONOSCOPY FLX DX W/COLLJ SPEC WHEN PFRMD 03/05/15 Colonoscopy Repeat 02/2020 COLONOSCOPY FLX DX W/COLLJ SPEC WHEN PFRMD 01/29/2018 Colonoscopy COLONOSCOPY W/BIOPSY SINGLE/MULTIPLE 01/24/11 repeat in COLONOSCOPY W/BIOPSY SINGLE/MULTIPLE 03/01/2012 HYSTEROSCOPY BX W/WO D&C 01/14/14 Hysteroscopy D&C LIG/TRNSXJ FLP TUBE ABDL/VAG APPR UNI/BI 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 2018 spot taken off of back PAST SURGICAL HISTORY OF cataract SIMP REPAIR FACE,EAR,EYE <2.5CM 02/04/09 Simple repair nasal bridge laceration SLING OPER STRES INCONTINENCE 01/15/08 Midurethral sling, transobturator approach ALLERGIES Asa [Salicylates], Aspirin, and Risedronate MEDICATIONS lisinopril (ZESTRIL) 10 mg tablet^TAKE 1 TABLET BY MOUTH EVERY DAY^Disp: 90 tablet^Rfl: 1 ELIQUIS 2.5 mg tab(s)^Take 1 tablet by mouth two times a day.^Disp: 180 tablet^Rfl: 3 amLODIPine (NORVASC) 5 mg tablet^Take 1 tablet by mouth once daily.^Disp: 90 tablet^Rfl: 3 acyclovir (ZOVIRAX) 800 mg tablet^Take 1 tablet by mouth three times a day as needed (cold sores).^Disp: 30 tablet^Rfl: 2 levothyroxine (LEVOXYL) 25 mcg tablet^Take 1 tablet by mouth once daily. Except take 1.5 tablets on Monday. Take on empty stomach. For Thyroid^Disp: 90 tablet^Rfl: 1 atorvastatin (LIPITOR) 10 mg tablet^Take 0.5 tablets by mouth daily at bedtime.^Disp: 45 tablet^Rfl: 3 atenolol (TENORMIN) 25 mg tablet^Take 0.5 tablets by mouth twice daily.^Disp: 90 tablet^Rfl: 3 Calcium Citrate-Vitamin D3 630-400 mg-unit ORAL^Take 1 tablet by mouth every other day. Takes daily^Disp: 60 Each^Rfl: 11 vit A,C,K-Wndy-Cqeayl (PRESERVISION AREDS) 2,148 mcg-113 mg-45 mg-17.4mg tab^Take by mouth once daily.^Disp: ^Rfl: 0 MULTIVITAMIN TAB^Take one(1) tablet every other day^Disp: ^Rfl: 0 FAMILY HISTORY Problem Relation Age of Onset Osteoporosis Mother Heart Father - [place] Prostate Cancer Son Heart Brother Breast Cancer Maternal Aunt Social History Tobacco Use Smoking status: Never Smokeless tobacco: Never Vaping Use Vaping Use: Never used Substance Use Topics Alcohol use: Yes Comment: Occasionally Drug use: No BP 153/76 Pulse (!) 50 Resp 16 Wt 51.3 kg (113 lb) SpO2 95% BMI 19.06 kg/m Physical Exam Vitals reviewed. Constitutional: Appearance: Normal appearance. Cardiovascular: Rate and Rhythm: Regular rhythm. Bradycardia present. Heart sounds: Normal heart sounds. No murmur heard. Pulmonary: Effort: Pulmonary effort is normal. Breath sounds: Normal breath sounds. No wheezing, rhonchi or rales. Skin: General: Skin is warm and dry. Neurological: Mental Status: She is alert. Psychiatric: Mood and Affect: Mood normal. DATA REVIEWED: Most recent labs ASSESSMENT/PLAN: 1. Essential hypertension - ICD9: 401.9, ICD10: I10 - Uncontrolled - Continue current medications - Increase Lisinopril to 20 mg daily - Recommend home blood pressure monitoring, to bring results to next visit - Encouraged sodium restriction, DASH or Mediterranean diet - Follow up in 3 weeks with research hydrologist as previously scheduled for hypertension visit Prescription instructions reviewed with patient as applicable. Potential red flag symptoms discussed with the patient. Reviewed appropriate action plan to take if red flag symptoms occur. Patient agreeable to treatment plan Lizett Soliz APRN.MACHINE [employer] documented in this encounter [facility] 03-04-2024 Telephone encounter Note Patient has been identified by name and date of : No Patient phones for refill(s): Requested Prescriptions Pending Prescriptions Disp Refills lisinopril (ZESTRIL) 10 mg tablet [Pharmacy Med Name: LISINOPRIL 10 MG TABLET] 90 tablet 1 Sig: TAKE 1 TABLET BY MOUTH EVERY DAY Date of last office visit in primary care: 02/20/2024 Date of next office visit in primary care: 03/19/2024 Please advise. Thank you. Kathy Gibbs LPN. [facility] Work Phone: 03-04-2024 Miscellaneous Notes Patient has been identified by name and date of : No Patient phones for refill(s): Requested Prescriptions Pending Prescriptions Disp Refills lisinopril (ZESTRIL) 10 mg tablet [Pharmacy Med Name: LISINOPRIL 10 MG TABLET] 90 tablet 1 Sig: TAKE 1 TABLET BY MOUTH EVERY DAY Date of last office visit in primary care: 02/20/2024 Date of next office visit in primary care: 03/19/2024 Please advise. Thank you. Kathy Gibbs LPN. documented in this encounter [facility] 02-20-2024 History of Presen t illness Narrative CC Patient presents with: Follow Up: Blood pressure HPI Tawana Farrar is a 88 year old female who presents to the office for blood pressure. Her visit today is for follow-up. Patient was last seen for this approximately 2 weeks ago. Medication changes: Yes Lisinopril increased to 10 mg daily Taking all medications as prescribed: Yes Side effects: No Home BP's: Yes average in the 140's/80's. Prior to increase in dose patient was checking BP sporadically Denies: headache, chest pain, palpitations, dyspnea, peripheral edema, and fatigue. Last 4 Encounter BP Readings: Date: BP: 02/20/2024 148/80 02/05/2024 166/86[BP Rao[ 10/17/2023 187/81 09/29/2023 153/87 Last 3 Encounter Wt Readings: Date: Wt: 02/20/2024 50.8 kg (112 lb) 02/05/2024 51.3 kg (113 lb) 10/17/2023 49.9 kg (110 lb) Hypothyroidism-TSH slightly elevated on recent labs. Taking levothyroxine daily on an empty stomach: Yes Denies: recent illness, fatigue, constipation, weight gain, weight loss, hair loss, dry skin, cold intolerance, trouble swallowing, and neck pain/pressure. TSH Date Value 02/05/2024 4.440 mIU/L 10/03/2023 3.800 mIU/L 04/02/2015 4.850 uU/mL 08/28/2014 4.100 uU/mL Review of Systems See HPI PAST MEDICAL HISTORY Diagnosis Date Arrhythmia Benign neoplasm of colon Compression fracture of cervical spine (HCC) 2022 Esophageal reflux 10/05/2005 HYPERLIPIDEMIA NEC/NOS 10/05/2005 HYPERTENSION NOS 10/05/2005 Macular degeneration of both eyes 2020 MGUS (monoclonal gammopathy of unknown significance) OSTEOPOROSIS NOS 10/05/2005 PAST SURGICAL HISTORY Procedure Laterality Date COAPTITE INJECTION 1ML 12/05/[address] Luo COLONOSCOPY FLX DX W/COLLJ SPEC WHEN PFRMD Colonoscopy COLONOSCOPY FLX DX W/COLLJ SPEC WHEN PFRMD 03/05/15 Colonoscopy Repeat 02/2020 COLONOSCOPY FLX DX W/COLLJ SPEC WHEN PFRMD 01/29/2018 Colonoscopy COLONOSCOPY W/BIOPSY SINGLE/MULTIPLE 01/24/11 repeat in COLONOSCOPY W/BIOPSY SINGLE/MULTIPLE 03/01/2012 HYSTEROSCOPY BX W/WO D&C 01/14/14 Hysteroscopy D&C LIG/TRNSXJ FLP TUBE ABDL/VAG APPR UNI/BI 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 2017 spot taken off of back PAST SURGICAL HISTORY OF cataract SIMP REPAIR FACE,EAR,EYE <2.5CM 02/04/09 Simple repair nasal bridge laceration SLING OPER STRES INCONTINENCE 01/15/08 Midurethral sling, transobturator approach ALLERGIES Asa [Salicylates], Aspirin, and Risedronate MEDICATIONS lisinopril (ZESTRIL) 10 mg tablet^Take 1 tablet by mouth once daily.^Disp: 30 tablet^Rfl: 1 ELIQUIS 2.5 mg tab(s)^Take 1 tablet by mouth two times a day.^Disp: 180 tablet^Rfl: 3 amLODIPine (NORVASC) 5 mg tablet^Take 1 tablet by mouth once daily.^Disp: 90 tablet^Rfl: 3 acyclovir (ZOVIRAX) 800 mg tablet^Take 1 tablet by mouth three times a day as needed (cold sores).^Disp: 30 tablet^Rfl: 2 levothyroxine (LEVOXYL) 25 mcg tablet^Take 1 tablet by mouth once daily. Except take 1.5 tablets on Monday. Take on empty stomach. For Thyroid^Disp: 90 tablet^Rfl: 1 fluticasone (FLONASE) 50 mcg/actuation nasal spray^Use 2 Sprays in each nostril once daily. Rinse mouth after use.^Disp: 1 Each^Rfl: 5 atorvastatin (LIPITOR) 10 mg tablet^Take 0.5 tablets by mouth daily at bedtime.^Disp: 45 tablet^Rfl: 3 atenolol (TENORMIN) 25 mg tablet^Take 0.5 tablets by mouth twice daily.^Disp: 90 tablet^Rfl: 3 Calcium Citrate-Vitamin D3 630-400 mg-unit ORAL^Take 1 tablet by mouth every other day. Takes daily^Disp: 60 Each^Rfl: 11 vit A,C,Y-Jjlo-Ttjrzz (PRESERVISION AREDS) 2,148 mcg-113 mg-45 mg-17.4mg tab^Take by mouth once daily.^Disp: ^Rfl: 0 MULTIVITAMIN TAB^Take one(1) tablet every other day^Disp: ^Rfl: 0 FAMILY HISTORY Problem Relation Age of Onset Osteoporosis Mother Heart Father - [place] Prostate Cancer Son Heart Brother Breast Cancer Maternal Aunt Social History Tobacco Use Smoking status: Never Smokeless tobacco: Never Vaping Use Vaping Use: Never used Substance Use Topics Alcohol use: Yes Comment: Occasionally Drug use: No BP 148/80 Pulse 80 Resp 14 Wt 50.8 kg (112 lb) SpO2 95% BMI 18.89 kg/m Physical Exam Vitals reviewed. Constitutional: Appearance: Normal appearance. Cardiovascular: Rate and Rhythm: Normal rate and regular rhythm. Pulmonary: Effort: Pulmonary effort is normal. Breath sounds: Normal breath sounds. Skin: General: Skin is warm and dry. Neurological: Mental Status: She is alert. Psychiatric: Mood and Affect: Mood normal. DATA REVIEWED: Most recent labs Latest Ref Rng 02/05/2024 WBC 3.70 - 11.00 k/uL 8.29 RBC 3.90 - 5.20 m/uL 5.78 (H) Hemoglobin 11.5 - 15.5 g/dL 14.9 Hematocrit 36.0 - 46.0 % 47.4 (H) MCV 80.0 - 100.0 fL 82.0 MCH 26.0 - 34.0 pg 25.8 (L) MCHC 30.5 - 36.0 g/dL 31.4 RDW-CV 11.5 - 15.0 % 15.5 (H) Platelet Count 150 - 400 k/uL 170 MPV 9.0 - 12.7 fL 11.1 NRBC /100 WBC 0.0 Absolute nRBC <0.01 k/uL <0.01 Neut% % 62.7 Abs Neut (ANC) 1.45 - 7.50 k/uL 5.20 Lymph% % 19.1 Abs Lymph 1.00 - 4.00 k/uL 1.58 [place]% % 13.0 Abs [place] <0.87 k/uL 1.08 (H) Eosin% % 2.6 Abs Eosin <0.46 k/uL 0.22 Baso% % 2.6 Abs Baso <0.11 k/uL 0.22 (H) Platelet Estimate Adequate Red Cell Morph Reviewed: see results of individual morphologies Polychromasia Slight Anisocytosis Present Ovalocytes Few DTYPE Manual Glucose 74 - 99 mg/dL 87 BUN 7 - 21 mg/dL 16 Creatinine 0.58 - 0.96 mg/dL 0.73 Sodium 136 - 144 mmol/L 143 Potassium 3.7 - 5.1 mmol/L 4.5 Chloride 97 - 105 mmol/L 105 CO2 22 - 30 mmol/L 25 Anion Gap 9 - 18 mmol/L 13 Calcium 8.5 - 10.2 mg/dL 10.0 eGFR >=60 mL/min/1.73m 80 TSH 0.270 - 4.200 mIU/L 4.440 (H) ASSESSMENT/PLAN: 1. Primary hypertension - ICD9: 401.9, ICD10: I10 (primary diagnosis) - Improving control - Continue current medications - Recommend home blood pressure monitoring, to bring results to next visit - Encouraged sodium restriction, DASH or Mediterranean diet - Follow up in 4 weeks for hypertension visit 2. Hypothyroidism, unspecified type - ICD9: 244.9, ICD10: E03.9 Patient has been taking levothyroxine as prescribed. TSH slightly elevated, she is asymptomatic. No changes in dose today, recheck TSH in 3 months or sooner if she develops any symptoms referable to under treated hypothyroidism Prescription instructions reviewed with patient as applicable. Potential red flag symptoms discussed with the patient. Reviewed appropriate action plan to take if red flag symptoms occur. Patient agreeable to treatment plan Lizett Soliz APRN.MACHINE [employer] documented in this encounter [facility] 02-05-2024 History of en t illness Narrative CC: Patient presents with: Medicare Wellness Exam: Annual Medicare wellness HPI Tawana Farrar is a 88 year old female who presents today for medicare wellness but blood pressure is abnormally high so visit focused on this. HTN A-fib: Ms. Farrar indicates that she is feeling well and denies any symptoms referable to elevated blood pressure. Specifically denies headache, chest pain, palpitations, dyspnea, and peripheral edema. Patient denies any side effects of her medication(s) and is compliant with their regimen. She does not check BP's generally. Tawana works out regularly with silver sneakers and walking. She watches her diet for sodium, low fat and low cholesterol most of the time. Last 3 Encounter BP Readings: Date: BP: 02/05/2024 188/90 - 166/86 10/17/2023 187/81 09/29/2023 153/87 Hypothyroidism: Takes medication as ordered. Deneis any abnromal changes in weight or energy. REVIEW OF SYSTEMS General: no fevers, no chills, no night sweats, no recurrent infections, no change in appetite, no change in energy, and no significant changes in weight Respiratory: no cough, no wheezing, no shortness of breath, no hemoptysis Cardiovascular: no chest pain, no chest pressure, no palpitations, and no swelling Neurologic: No headache, weakness, dizziness, memory loss, syncope. PAST MEDICAL HISTORY Diagnosis Date Arrhythmia Benign neoplasm of colon Compression fracture of cervical spine (HCC) 2022 Esophageal reflux 10/05/2005 HYPERLIPIDEMIA NEC/NOS 10/05/2005 HYPERTENSION NOS 10/05/2005 Macular degeneration of both eyes 2020 MGUS (monoclonal gammopathy of unknown significance) OSTEOPOROSIS NOS 10/05/2005 PAST SURGICAL HISTORY Procedure Laterality Date COAPTITE INJECTION 1ML 12/05/[address] Luo COLONOSCOPY FLX DX W/COLLJ SPEC WHEN PFRMD Colonoscopy COLONOSCOPY FLX DX W/COLLJ SPEC WHEN PFRMD 03/05/15 Colonoscopy Repeat 02/2020 COLONOSCOPY FLX DX W/COLLJ SPEC WHEN PFRMD 01/29/2018 Colonoscopy COLONOSCOPY W/BIOPSY SINGLE/MULTIPLE 01/24/11 repeat in COLONOSCOPY W/BIOPSY SINGLE/MULTIPLE 03/01/2012 HYSTEROSCOPY BX W/WO D&C 01/14/14 Hysteroscopy D&C LIG/TRNSXJ FLP TUBE ABDL/VAG APPR UNI/BI 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 2017 spot taken off of back PAST SURGICAL HISTORY OF cataract SIMP REPAIR FACE,EAR,EYE <2.5CM 02/04/09 Simple repair nasal bridge laceration SLING OPER STRES INCONTINENCE 01/15/08 Midurethral sling, transobturator approach ALLERGIES Asa [Salicylates], Aspirin, and Risedronate MEDICATIONS ELIQUIS 2.5 mg tab(s)^Take 1 tablet by mouth two times a day.^Disp: 180 tablet^Rfl: 3 amLODIPine (NORVASC) 5 mg tablet^Take 1 tablet by mouth once daily.^Disp: 90 tablet^Rfl: 3 levothyroxine (LEVOXYL) 25 mcg tablet^Take 1 tablet by mouth once daily. Except take 1.5 tablets on Monday. Take on empty stomach. For Thyroid^Disp: 90 tablet^Rfl: 1 atorvastatin (LIPITOR) 10 mg tablet^Take 0.5 tablets by mouth daily at bedtime.^Disp: 45 tablet^Rfl: 3 atenolol (TENORMIN) 25 mg tablet^Take 0.5 tablets by mouth twice daily.^Disp: 90 tablet^Rfl: 3 lisinopril (ZESTRIL) 10 mg tablet^Take 1 tablet by mouth once daily.^Disp: 30 tablet^Rfl: 1 acyclovir (ZOVIRAX) 800 mg tablet^Take 1 tablet by mouth three times a day as needed (cold sores).^Disp: 30 tablet^Rfl: 2 fluticasone (FLONASE) 50 mcg/actuation nasal spray^Use 2 Sprays in each nostril once daily. Rinse mouth after use.^Disp: 1 Each^Rfl: 5 Calcium Citrate-Vitamin D3 630-400 mg-unit ORAL^Take 1 tablet by mouth every other day. Takes daily^Disp: 60 Each^Rfl: 11 vit A,C,T-Goax-Xxwvnm (PRESERVISION AREDS) 2,148 mcg-113 mg-45 mg-17.4mg tab^Take by mouth once daily.^Disp: ^Rfl: 0 MULTIVITAMIN TAB^Take one(1) tablet every other day^Disp: ^Rfl: 0 FAMILY HISTORY Problem Relation Age of Onset Osteoporosis Mother Heart Father - [place] Prostate Cancer Son Heart Brother Breast Cancer Maternal Aunt Social History Tobacco Use Smoking status: Never Smokeless tobacco: Never Vaping Use Vaping Use: Never used Substance Use Topics Alcohol use: Yes Comment: Occasionally Drug use: No PHYSICAL EXAM BP 166/86 Pulse (!) 52 Resp 16 Ht 164 cm (5' 4.57") Wt 51.3 kg (113 lb) SpO2 97% BMI 19.06 kg/m General Appearance: well appearing, in no acute distress, alert Skin: Skin color, texture, turgor normal for age; Ears: external ears normal to inspection and palpation, canals clear Neck: Thyroid normal size and symmetric without palpable nodules, Neck supple, No adenopathy Lymph nodes: No cervical lymphadenopathy and No supraclavicular lymphadenopathy Lungs: Lungs clear to auscultation. No wheezing, rhonchi, rales. Heart: RRR without murmur, gallop, or rubs. No ectopy Health maintenance reviewed with patient: Advance Directive Discussion due on 11/13/2023 Depression Assessment due on 11/13/2023 DTaP,Tdap,Td Vaccine(1 - Tdap) due on 02/04/2025 Diabetes Screening due on 08/11/2026 Bone Density Screening Completed Influenza Vaccine Completed RSV Vaccine Completed Shingrix Vaccine Completed Covid-19 Vaccine Completed Pneumococcal Vaccine: 65+ Completed DATA REVIEWED: No new labs ASSESSMENT/PLAN: 1. Essential hypertension - ICD9: 401.9, ICD10: I10 (primary diagnosis) - Uncontrolled - Continue current medications but increasing lisinopril Follow up ib 2 weeks with home blood pressure readings. - Recommend home blood pressure monitoring, to bring results to next visit - Encouraged sodium restriction, DASH or Mediterranean diet - Recommend regular aerobic exercise - LISINOPRIL 10 MG TABLET - BASIC METABOLIC PNL - CBC + DIFF 2. Hypothyroidism, unspecified type - ICD9: 244.9, ICD10: E03.9 - Instructed patient on importance of taking on an empty stomach either first thing in the morning or at bedtime. - TSH BLD 3. Paroxysmal atrial fibrillation (HCC) - ICD9: 427.31, ICD10: I48.0 Rate controlled with atenolol and taking eliquis for DVT prophylaxis Stable and asymptomatic at this time. Prescription instructions reviewed with patient as applicable. Potential red flag symptoms discussed with the patient. Reviewed appropriate action plan to take if red flag symptoms occur. Patient agreeable to treatment plan. Rashmi Hendrix APRN.CNP documented in this encounter [facility] 01-29-2024 Miscellaneous Notes Patient has been identified by name and date of : Yes Patient phones for refill(s): Requested Prescriptions Pending Prescriptions Disp Refills lisinopril (ZESTRIL) 5 mg tablet 90 tablet 3 Sig: Take 1 tablet by mouth once daily. Date of last office visit in primary care: 08/04/2023 Date of next office visit in primary care: 02/05/2024 Please advise. Thank you. NAY Gant. documented in this encounter [facility] 01-26-2024 Miscellaneous Notes Pharmacy electronically requests the following refill(s) Requested Prescriptions Pending Prescriptions Disp Refills ELIQUIS 2.5 mg tab(s) 180 tablet 3 Sig: Take 1 tablet by mouth two times a day. Isa Rosa RN documented in this encounter [facility] 10-18-2023 Miscellaneous Notes Patient has been notified of message below and verbalized understanding. Patient is taking magnesium supplement in the multivitamin pill, pt will reduce her dose by 50%. Patient has not made her decision about forteo, she will call our office when she decides to start forteo. Joselyn Kurtz MA Please call and inform the patient that her magnesium level is mildly elevated. If she is taking a magnesium supplement, she should reduce the dose by 50%. If she is not taking a supplement this can be discussed with her pcp. The remaining lab results are within acceptable limits. Please ask her to contact our office once she makes a decision regarding the Forteo. Please advise her to f/u with her pcp for the elevated BP. Thanks, Aleksey Nina APRN.WIN documented in this encounter [facility] 10-17-2023 History of Presen t illness Narrative On 10/17/2023, I had the pleasure of seeing Tawana Farrar at the [facility]. She was referred for an opinion and advice regarding osteoporosis. My findings and final recommendations will be communicated to the requesting health care provider by way of the shared medical record for internal providers or letter via the [employer] for external providers. Chief complaint: Osteoporosis HPI: -07/2023 DEXA: lowest T-score -3.6 to left femoral neck, with decrease to all areas -Fractures: Compression fracture noted to T7 on imaging in 02/2023. Occurred after lifting heavy objects in 01/2023. -Treatment: She is currently taking Fosamax. She reports taking it for at least 10 years total. Most recently, she took it for 7 years consecutively and was advised to stop it. She resumed it 4 months later due to fracture. Reports having stiffness to jaw years ago while taking fosamax. She completed PT, now resolved. Otherwise she tolerated it well. She reports taking it consistently. -+hx of GERD, takes tums as needed -she is not sure about history of parental hip fracture or OP. -she denies use of antiseizure medications or chcf steroids. She took hormone replacement therapy in the past. -she denies any history of cancer or radiation therapy -no history of kidney stones -menarche: started in her teens menopause: in her 50's, natural PAST MEDICAL HISTORY Diagnosis Date Arrhythmia Benign neoplasm of colon Compression fracture of cervical spine (HCC) 2022 Esophageal reflux 10/05/2005 HYPERLIPIDEMIA NEC/NOS 10/05/2005 HYPERTENSION NOS 10/05/2005 Macular degeneration of both eyes 2020 MGUS (monoclonal gammopathy of unknown significance) OSTEOPOROSIS NOS 10/05/2005 PAST SURGICAL HISTORY Procedure Laterality Date COAPTITE INJECTION 1ML 12/05/[address] Luo COLONOSCOPY FLX DX W/COLLJ SPEC WHEN PFRMD Colonoscopy COLONOSCOPY FLX DX W/COLLJ SPEC WHEN PFRMD 03/05/15 Colonoscopy Repeat 02/2020 COLONOSCOPY FLX DX W/COLLJ SPEC WHEN PFRMD 01/29/2018 Colonoscopy COLONOSCOPY W/BIOPSY SINGLE/MULTIPLE 01/24/11 repeat in COLONOSCOPY W/BIOPSY SINGLE/MULTIPLE 03/01/2012 HYSTEROSCOPY BX W/WO D&C 01/14/14 Hysteroscopy D&C LIG/TRNSXJ FLP TUBE ABDL/VAG APPR UNI/BI 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 2017 spot taken off of back PAST SURGICAL HISTORY OF cataract SIMP REPAIR FACE,EAR,EYE <2.5CM 02/04/09 Simple repair nasal bridge laceration SLING OPER STRES INCONTINENCE 01/15/08 Midurethral sling, transobturator approach Family History Problem Relation Age of Onset Osteoporosis Mother Heart Father - [place] Prostate Cancer Son Heart Brother Breast Cancer Maternal Aunt ALLERGIES Allergen Reactions Asa [Salicylates] THROMBOCYTOPENIA Aspirin Rash Risedronate Other: See Comments Jaw issues SOCIAL HISTORY: She lives in [place]. with 3 children. Caffeine: 1.5 cups of coffee per day Alcohol: 1 glass of wine per week Smoking: never smoked Exercise: goes to [employer] INTERVAL HISTORY She is here for recommendations regarding osteoporosis. She is accompanied by her . No recent falls. No invasive dental work in the last three months and none planned for the next three months. Last dental exam was in 07/2023. No jaw or thigh pain. No recent infections. She is taking Calcium and Vitamin D. Answers submitted by the patient for this visit: Review of Systems Rheumatology (Submitted on 10/14/2023) Eye pain: No Eye redness: No Vision Disturbance: Yes Eye Dryness: No Nosebleeds: No Sores in your mouth: No Trouble Swallowing: No Dry Mouth: No Chest pain: No Leg Swelling: No A cough: No Shortness of breath: No Pain with breathing: No Heartburn: No Abdominal pain: No Diarrhea: No Black tarry stools: No Blood in urine: No Pain or burning with urination: No Joint pain or stiffness: Yes Muscle weakness: No Muscle aches: No Joint swelling: No Morning Stiffness in Joints: Yes A rash: No Skin Color Changes: No Hair Loss: Yes Nail Changes: No Headaches: No Numbness: No Memory Loss: No Swollen Glands: No Current Outpatient Medications Medication Sig levothyroxine (LEVOXYL) 25 mcg tablet Take 1 tablet by mouth once daily. Except take 1.5 tablets on Monday. Take on empty stomach. For Thyroid fluticasone (FLONASE) 50 mcg/actuation nasal spray Use 2 Sprays in each nostril once daily. Rinse mouth after use. atorvastatin (LIPITOR) 10 mg tablet Take 0.5 tablets by mouth daily at bedtime. ELIQUIS 2.5 mg tab(s) Take 1 tablet by mouth twice daily. atenolol (TENORMIN) 25 mg tablet Take 0.5 tablets by mouth twice daily. alendronate (FOSAMAX) 70 mg tablet Take 1 tablet by mouth one time a week. Take with a full glass of water, on an empty stomach; do NOT lie down for 30minutes. lisinopril (ZESTRIL) 5 mg tablet Take 1 tablet by mouth once daily. amLODIPine (NORVASC) 5 mg tablet TAKE 1 TABLET BY MOUTH EVERY DAY acyclovir (ZOVIRAX) 800 mg tablet Take 1 tablet by mouth three times daily as needed (cold sores). Calcium Citrate-Vitamin D3 630-400 mg-unit ORAL Take 1 tablet by mouth every other day. Takes daily vit A,C,K-Lwxo-Uaeabk (PRESERVISION AREDS) 2,148 mcg-113 mg-45 mg-17.4mg tab Take by mouth once daily. MULTIVITAMIN TAB Take one(1) tablet every other day Current Facility-Administered Medications Medication Dose Route Frequency perflutren lipid microspheres 1.3 mL in NaCl (PF) 0.9% 10 mL injection (DEFINITY) INTRAVENOUS DIRECTED PRN sodium chloride 0.9 % (flush) 10 mL (BD POSIFLUSH) 10 mL INTRAVENOUS DIRECTED PRN PHYSICAL EXAMINATION: BP 187/81 Pulse 60 Temp 36.4 C (97.5 F) (Oral) Ht 163.8 cm (5' 4.5") Wt 49.9 kg (110 lb) BMI 18.59 kg/m General appearance: Well appearing, alert, in no acute distress, well-hydrated, well nourished. Skin: Skin color, texture, turgor normal, no suspicious rashes or lesions Oropharynx: Lips, mucosa, and tongue normal, teeth and gums normal, oropharynx normal Neck: Supple, no adenopathy Lungs: Lungs clear to auscultation. No wheezing, rhonchi, rales. Heart: RRR without murmur Abdomen: Normal abdominal exam, Abdomen soft, non-tender. Bowel sounds normal. No masses, organomegaly Neuro: Gait normal. Sensation grossly intact. JOINTS: TENDER JOINTS: none SWOLLEN JOINTS: none No tenderness to spine or SI joints Labs reviewed and discussed with the patient: Component Latest Ref Rng & Units 08/11/2023 Protein, Total 6.3 - 8.0 g/dL 6.8 Albumin 3.9 - 4.9 g/dL 4.1 Calcium 8.5 - 10.2 mg/dL 9.3 Bilirubin, Total 0.2 - 1.3 mg/dL 0.6 Alkaline Phosphatase 34 - 123 U/L 68 AST 13 - 35 U/L 21 ALT 7 - 38 U/L 18 Glucose 74 - 99 mg/dL 107 (H) BUN 7 - 21 mg/dL 20 Creatinine 0.58 - 0.96 mg/dL 0.84 Sodium 136 - 144 mmol/L 143 Potassium 3.7 - 5.1 mmol/L 4.2 Chloride 97 - 105 mmol/L 106 (H) CO2 22 - 30 mmol/L 26 Anion Gap 9 - 18 mmol/L 11 eGFR >=60 mL/min/1.73m 67 Component Latest Ref Rng & Units 02/02/2023 Magnesium 1.7 - 2.3 mg/dL 2.4 (H) Component Latest Ref Rng & Units 04/11/2017 Vitamin D 25 Hydroxy 31.0 - 80.0 ng/mL 33.3 Component Latest Ref Rng & Units 05/24/2016 PTH, Intact 15 - 65 pg/mL 46 STUDIES: 07/2023 DEXA: IMPRESSION: 1. Osteoporosis in the left hip and bilateral femoral necks. 2. Osteopenia in the lumbar spine and right hip. LUMBAR SPINE: The bone mineral density from L1 through L4 is 0.870 grams per square centimeter which yields a T-score of -1.6. There has been a 2.8% statistically significant interval decrease in bone mineral density. LEFT HIP: The bone mineral density of the total region of the hip is 0.606 grams per square centimeter which yields a T-score of -2.8. There has been a 7.8% statistically significant interval decrease in bone mineral density. LEFT FEMORAL NECK: The bone mineral density of the femoral neck is 0.447 grams per square centimeter which yields a T-score of -3.6. There has been a 12.3% statistically significant interval decrease in bone mineral density. RIGHT HIP: The bone mineral density of the total region of the hip is 0.664 grams per square centimeter which yields a T-score of -2.3. There has been a 5.1% statistically significant interval decrease in bone mineral density. RIGHT FEMORAL NECK: The bone mineral density of the femoral neck is 0.555 grams per square centimeter which yields a T-score of -2.7. There has been a 6.6% statistically significant interval decrease in bone mineral density. ASSESSMENT/PLAN: 1. Severe osteoporosis: 88 year post menopausal female. With history of fragility fracture. She is currently taking Fosamax. She reports taking it for at least 10 years total. Most recently, she took it for 7 years and was advised to stop it. She resumed it 4 months later due to fracture. Reports having stiffness to jaw years ago while taking fosamax. She completed PT, now resolved. Otherwise she tolerated it well. She reports taking it consistently. 07/2023 DEXA: lowest T-score -3.6 to left femoral neck, with decrease to all areas. -diagnosis discussed and handout on OP was given to the patient -advised discontinuing fosamax -recommended forteo followed by gabbie or aric (pending lab results). R/b/a of forteo discussed, including that cancer has been seen in some rats, but rarely in humans and dizziness. Handout on forteo was given to the patient. She would like some time to think about it. We will contact her pending lab results. -continue calcium and vit d -fall precautions -weight bearing exercise encouraged as tolerated -she was advised to contact our office if she has any interim fractures. -next DEXA due 07/2025 -will check labs today 2. General health maintenance -she was advised to f/u with her pcp for her general health concerns -she was advised to f/u with her pcp for elevated BP. RTC in 6 months with Knitting Supervisor to establish care, or sooner if needed. I spent a total of 45 minutes on the date of the service which included preparing to see the patient, [id number] patient care, completing clinical documentation, performing a medically appropriate examination, ordering medications, tests, or procedures, and communicating results to the patient/family/caregiver. Aleksey Nina APRN.WIN documented in this encounter [facility] 10-13-2023 Instructions Aleksey Nina APRN.CNP - 10/13/2023 4:24 PM EST Please schedule 6 month with Knitting Supervisor to establish care - GENERAL RECOMMENDATIONS FOR PREVENTION OF BONE LOSS: 1). 1200 mg - 1500 mg calcium per day if no history of kidney stones 2). 1,000-2,000 International Units of vitamin D3 per day if no history of kidney stones 3). Weight bearing exercise: such as walking for 30 min, 3-5 times a week. 4). Advise against smoking. If currently smoking, recommend cessation. 5). Avoid excessive use of caffeine, soft drinks, and alcoholic beverages. documented in this encounter [facility] 09-29-2023 Note HNO ID: [id number] Author: Levi Crews MD Service: ? Author Type: Physician Type: Progress Notes Filed: 09/29/2023 11:30 AM Note Text: Levi Crews M.D. ORTHOPEDIC SPINE FOLLOW UP NOTE Date of visit: September 29, 2023 Patient Name: Ms.Catherine Olena Farrar Date of : 1935 Current Age: [age] year old Sex: female PCP: Jesus Mg MD Chief Complaint:Patient presents with: Established Patient HPI Ms.Catherine Olena Farrar has a past medical history of arrhythmia, HLD, HTN, and osteoporosis- was on fosamax for 7 years, discontinued in October of 2022. Patient was last seen in the office on 03/29/2023 and reported improved mid back pain from T7 compression fracture since February 2023 after moving heavy objects. She denied lower extremity radiculopathy, weakness, or bowel/bladder incontinence. Denied dexterity or imbalance issues as well. Denied any falls or use of assistive devices. Radiographic imaging of thoracic spine demonstrated slight interval increase of the compression fracture, kyphotic alignment through the thoracic spine. She was recommended to mobilize as tolerated, participate in physical therapy and follow-up in 6 months time, prompting visit today. She reports doing well since last office visit. She denies any pain or radicular symptoms. She notes mild low back discomfort with prolonged standing and notes after participating at [employer] she gets sore between her shoulder blades. Additionally, she notices some imbalance issues recently, denies any falls. Full symptomology and conservative treatment outlined below. She presents to the office for image review, evaluation and plan of care. Pain: Denies Duration: February 2023 Radiation: Denies Numbness / tingling: Denies Weakness: Denies Dexterity: Denies Imbalance: Endorses Bowel/bladder dysfcn: Denies PREVIOUS CONSERVATIVE TREATMENT: 1) Medication: Tramadol, Zanaflex, Tylenol 2) Physical therapy: 2-3 times a week at [employer] for 5-6 years 3) Pain Management: No recent participation 4) Injections: No recent injections PREVIOUS SPINE SURGERY: Denies Surgical Risk Factors: Smoking status: Denies Anticoagulants/antiplatelets: No Diabetic: No BMI: 18.47 Osteoporosis- dexa scan from 02/2021. Treated with fosamax for 7 years, discontinued in October 2022 REVIEW OF SYSTEMS: Review of Systems Constitutional: Negative for chills, fatigue, fever and unexpected weight change. HENT: Negative for trouble swallowing and voice change. Eyes: Negative for visual disturbance. Respiratory: Negative for shortness of breath, wheezing and stridor. Cardiovascular: Negative for chest pain, palpitations and leg swelling. Gastrointestinal: Negative for diarrhea, nausea and vomiting. Endocrine: Negative for cold intolerance and heat intolerance. Genitourinary: Negative for difficulty urinating, dysuria and urgency. Musculoskeletal: Negative for back pain, gait problem and neck pain. Skin: Negative for color change and pallor. Allergic/Immunologic: Negative for immunocompromised state. Neurological: Negative for speech difficulty, weakness, numbness and headaches. Hematological: Does not bruise/bleed easily. Psychiatric/Behavioral: Negative for agitation, behavioral problems and confusion. OBJECTIVE: BP 153/87 (BP Site: Right Arm, BP Position: Sitting, BP Cuff Size: Small Adult) Pulse 65 Ht 5' 5" (1.651 m) Wt 112 lb 14 oz (51.2 kg) SpO2 98% BMI 18.78 kg/m? PHYSICAL EXAM: 5 out of 5 motor strength bilateral upper and lower extremities. Sensation tact light touch throughout. slight +left dallas's sign and hyperreflexic in left bicep Data Review: XR of thoracic spine from 09/29/2023: Stable appearance of T7 compression fracture and alignment compared to previous imaging ASSESSMENT/PLAN Tawana Farrar will continue with medical management of his/her condition. Chronic T7 compression fracture Activity as tolerated Natural history of compression fractures discussed For pain management purposes they may take OTC NSAIDs such as Advil or Aleve, and Tylenol if tolerated and if the patient knows of no allergies or contraindications. The risks and complications of these medications were discussed. The patient understands that if they are currently taking a NSAIDs or are prescribed one in the future they should not take Advil, Aleve, ibuprofen, naproxen or other OTC NSAIDs. They were also told that if any unusual symptoms develop, that the medication should be stopped immediately and that their primary care physician as well as our office should be notified. If they take this medication chcf, they understand the need for medication monitoring through their primary care physician. They are aware of the potential risks and side effects of this medication as well as the expected benefits, and wishes to proceed with its use. Attribution The fol (more content not included)... [facility] 09-11-2023 Miscellaneous Notes RSV updated in health maintenance. NAY Gant documented in this encounter [facility] 08-22-2023 Miscellaneous Notes Pt called and is notified of providers results and instructions. Pt voices understanding. She states she already received the message and has a Rheumatology appointment set up with in [place]. Barbara Morales, RN Third attempt to reach patient with no answer. Left additional VM to return call to office. Also sent MC message to contact office for results and recommendations. NAY Gant Attempted to contact patient and spouse answered and will have pt contact office for results. Mireya Aleman Left message with to return call. Please let patient know blood counts overall are within acceptable ranges and similar to previous. Hgba1c still in prediabetic range but well controlled at 5.8. On of her thyroid levels was slightly abnormal. Increase levothyroxine to 1 tablet daily but take 1 and a half tablets on Monday. Recheck in 4- 6 weeks. Her bone density as continued to decrease. She only took a 4 month break from fosamax so I think she needs to see rheumatology for other options as I do not think this is working appropriately for her. Thank you Rashmi Hendrix APRN.WIN documented in this encounter [facility] 08-09-2023 History of Presen t illness Narrative Radiology Service Progress Note PATIENT NAME: Tawana Farrar DATE OF SERVICE: August 09, 2023 TIME: 8:54 AM PATIENT IDENTITY VERIFICATION COMPLETED USING TWO (2) IDENTIFIERS: Name and Date of confirmed by patient verbally. FALL SCREENING: Has the patient had 2 falls in the last year or 1 fall with injury or currently using an Ambulatory Assistive Device (Walker, Cane, Wheelchair, Crutches, etc.)? No PATIENT GENDER DATA: Female. status: : No status: NO. PATIENT RELEVANT IMPLANT DATA REVIEWED: Not Applicable RADIOLOGY DEPARTMENT: Bone Density PERIPHERAL IV DATA: Not applicable SIGNED BY: RT Toni(R) August 09, 2023 8:54 AM documented in this encounter [facility] 08-04-2023 History of Presen t illness Narrative CC: Patient presents with: Recheck HPI Tawana Farrar is a 88 year old female who presents today for routine follow up. Concerned her bilateral ears feel "clogged" intermittently, and when this occurs its like you are hearing through a tin can. Has a lot of chronic sinus drainage in the morning and some days feel a little more tired on some days then usual. Denies ear pain, ear drainage, sinus pressure, fever, chills, headaches, or dizziness. HTN/paroxysmal A-fib/HLD: Ms. Farrar indicates that she is feeling well and denies any symptoms referable to elevated blood pressure. Specifically denies headache, chest pain, palpitations, dyspnea, and peripheral edema. Patient denies any side effects of her medication(s) and is compliant with their regimen. She does check BP's away from this office with average BP's in the 130-140s/70-80. range. Last 3 Encounter BP Readings: Date: BP: 08/04/2023 144/82 06/29/2023 128/80 05/01/2023 160/90 Hypothyroidism: Takes medication as ordered. Denies any abnormal change in weight or energy. Prediabetes: Diet controlled. Denies any increase in thirst, hunger, urination Osteoporosis: Restarted fosamax after a compression fracture to her spine earlier this year. Last bone density was spring 2020 showing osteoporosis. Would like to know if she should continue this or stop. REVIEW OF SYSTEMS General: no fevers, no chills, no night sweats, no recurrent infections, no change in appetite, no change in energy, and no significant changes in weight Respiratory: no cough, no wheezing, no shortness of breath, no hemoptysis Cardiovascular: no chest pain, no chest pressure, no palpitations, and no swelling GI: No nausea, vomiting, or diarrhea Psych: PHQ2 is 0 Endocrine: no fatigue, no polyuria, no polyphagia, and no polydipsia Neurologic: No headache, weakness, numbness, tingling, dizziness, memory loss, syncope. PAST MEDICAL HISTORY Diagnosis Date Arrhythmia Benign neoplasm of colon Compression fracture of cervical spine (HCC) 2022 Esophageal reflux 10/05/2005 HYPERLIPIDEMIA NEC/NOS 10/05/2005 HYPERTENSION NOS 10/05/2005 Macular degeneration of both eyes 2020 MGUS (monoclonal gammopathy of unknown significance) OSTEOPOROSIS NOS 10/05/2005 PAST SURGICAL HISTORY Procedure Laterality Date COAPTITE INJECTION 1ML 12/05/[address] Luo COLONOSCOPY FLX DX W/COLLJ SPEC WHEN PFRMD Colonoscopy COLONOSCOPY FLX DX W/COLLJ SPEC WHEN PFRMD 03/05/15 Colonoscopy Repeat 02/2020 COLONOSCOPY FLX DX W/COLLJ SPEC WHEN PFRMD 01/29/2018 Colonoscopy COLONOSCOPY W/BIOPSY SINGLE/MULTIPLE 01/24/11 repeat in COLONOSCOPY W/BIOPSY SINGLE/MULTIPLE 03/01/2012 HYSTEROSCOPY BX W/WO D&C 01/14/14 Hysteroscopy D&C LIG/TRNSXJ FLP TUBE ABDL/VAG APPR UNI/BI 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 2017 spot taken off of back PAST SURGICAL HISTORY OF cataract SIMP REPAIR FACE,EAR,EYE <2.5CM 02/04/09 Simple repair nasal bridge laceration SLING OPER STRES INCONTINENCE 01/15/08 Midurethral sling, transobturator approach ALLERGIES Asa [Salicylates], Aspirin, and Risedronate MEDICATIONS mirabegron (MYRBETRIQ) 25 mg Tb24^Take 1 tablet by mouth once daily.^Disp: 30 tablet^Rfl: 1 atorvastatin (LIPITOR) 10 mg tablet^Take 0.5 tablets by mouth daily at bedtime.^Disp: 45 tablet^Rfl: 3 ELIQUIS 2.5 mg tab(s)^Take 1 tablet by mouth twice daily.^Disp: 180 tablet^Rfl: 3 atenolol (TENORMIN) 25 mg tablet^Take 0.5 tablets by mouth twice daily.^Disp: 90 tablet^Rfl: 3 levothyroxine (LEVOXYL) 25 mcg tablet^Take 1 tablet by mouth once daily. Take on empty stomach. For Thyroid^Disp: 90 tablet^Rfl: 1 fluticasone (FLONASE) 50 mcg/actuation nasal spray^Use 2 Sprays in each nostril once daily. Rinse mouth after use.^Disp: 1 Each^Rfl: 5 alendronate (FOSAMAX) 70 mg tablet^Take 1 tablet by mouth one time a week. Take with a full glass of water, on an empty stomach; do NOT lie down for 30minutes.^Disp: 12 tablet^Rfl: 1 lisinopril (ZESTRIL) 5 mg tablet^Take 1 tablet by mouth once daily.^Disp: 90 tablet^Rfl: 3 amLODIPine (NORVASC) 5 mg tablet^TAKE 1 TABLET BY MOUTH EVERY DAY^Disp: 90 tablet^Rfl: 3 acyclovir (ZOVIRAX) 800 mg tablet^Take 1 tablet by mouth three times daily as needed (cold sores).^Disp: 30 tablet^Rfl: 2 Calcium Citrate-Vitamin D3 630-400 mg-unit ORAL^Take 1 tablet by mouth every other day. Takes daily^Disp: 60 Each^Rfl: 11 vit A,C,C-Asbd-Tsnzzh (PRESERVISION AREDS) 2,148 mcg-113 mg-45 mg-17.4mg tab^Take by mouth once daily.^Disp: ^Rfl: 0 MULTIVITAMIN TAB^Take one(1) tablet every other day^Disp: ^Rfl: 0 FAMILY HISTORY Problem Relation Age of Onset Osteoporosis Mother Heart Father - [place] Prostate Cancer Son Heart Brother Breast Cancer Maternal Aunt Social History Tobacco Use Smoking status: Never Smokeless tobacco: Never Vaping Use Vaping Use: Never used Substance Use Topics Alcohol use: Yes Comment: Occasionally Drug use: No PHYSICAL EXAM BP 144/82 Pulse 62 Resp 16 Wt 50.3 kg (111 lb) SpO2 98% BMI 18.47 kg/m General Appearance: well appearing, in no acute distress, alert Pysch: mood and affect broad and appropriate Skin: Skin color, texture, turgor normal for age; Ears:External ears normal, canals clear Sinus: No sinus tenderness or drainage noted Eyes: conjunctiva pink and moist, no icterus, sclera white, non-injected Neck: Thyroid normal size and symmetric without palpable nodules, Neck supple, No adenopathy Lymph nodes: No cervical lymphadenopathy and No supraclavicular lymphadenopathy Lungs: Lungs clear to auscultation. No wheezing, rhonchi, rales. Heart: RRR without murmur, gallop, or rubs. No ectopy Abdomen: Abdomen soft, non-tender. Bowel sounds normal. No masses, organomegaly Health maintenance reviewed with patient: Shingrix Vaccine(2 of 3) due on 01/16/2012 Depression Assessment due on 11/13/2022 Covid-19 Vaccine(6 - Moderna series) due on 12/14/2022 DTaP,Tdap,Td Vaccine(1 - Tdap) due on 02/03/2024 Influenza Vaccine(1) due on 05/12/2024 Diabetes Screening due on 02/02/2026 Bone Density Screening Completed Advance Directive Discussion Completed Pneumococcal Vaccine: 65+ Completed DATA REVIEWED: No new labs ASSESSMENT/PLAN: 1. Essential hypertension - ICD9: 401.9, ICD10: I10 (primary diagnosis) - Home blood pressure readings controlled - Continue current medications - Recommend home blood pressure monitoring, to bring results to next visit - Encouraged sodium restriction, DASH or Mediterranean diet - Recommend regular aerobic exercise - CBC - COMP METABOLIC PANEL 2. Other hyperlipidemia - ICD9: 272.4, ICD10: E78.49 - control unknown, due for labs - continue current medications - regular exercise and low fat diet will help with healthy cholesterol levels. - COMP METABOLIC PANEL - LIPID PANEL BASIC 3. Paroxysmal atrial fibrillation (HCC) - ICD9: 427.31, ICD10: I48.0 - asymptomatic and controlled, apical regular in visit today - on atenolol for rate control and eliquis for DVT prevention - CBC - COMP METABOLIC PANEL 4. Prediabetes - ICD9: 790.29, ICD10: R73.03 - controlled with diet - HGB A1C - CBC - COMP METABOLIC PANEL 5. Hypothyroidism, unspecified type - ICD9: 244.9, ICD10: E03.9 - asymptomatic - Instructed patient on importance of taking on an empty stomach either first thing in the morning or at bedtime. - TSH BLD - T4 FREE/FREE THYROX 6. Osteoporosis, unspecified osteoporosis type, unspecified pathological fracture presence - ICD9: 733.00, ICD10: M81.0 - Reviewed the need for Calcium and Vitamin D supplements and weight bearing exercise as tolerated - DXA-AXIAL SKELETON - depending on bone density results will need to consider stopping this medication or possibly changing medications. 7. Sinus congestion - ICD9: 478.19, ICD10: R09.81 - assessment normal, feel sinus congestion is causing the sensation in ER - Flonase as ordered - follow up for no improvement or new/worsening symptoms. Prescription instructions reviewed with patient as applicable. Potential red flag symptoms discussed with the patient. Reviewed appropriate action plan to take if red flag symptoms occur. Patient agreeable to treatment plan. Rashmi Hendrix APRN.CNP documented in this encounter [facility] 06-29-2023 History of Presen t illness Narrative Radiology Service Progress Note PATIENT NAME: Tawana Farrar DATE OF SERVICE: June 29, 2023 TIME: 8:25 AM PATIENT IDENTITY VERIFICATION COMPLETED USING TWO (2) IDENTIFIERS: Name and Date of confirmed by patient verbally. FALL SCREENING: Has the patient had 2 falls in the last year or 1 fall with injury or currently using an Ambulatory Assistive Device (Walker, Cane, Wheelchair, Crutches, etc.)? No PATIENT GENDER DATA: Female. status: : No status: NO. PATIENT RELEVANT IMPLANT DATA REVIEWED: Not Applicable RADIOLOGY DEPARTMENT: Mammography PERIPHERAL IV DATA: Not applicable SIGNED BY: Rose Marie Garcia[employer] Carlos June 29, 2023 8:25 AM documented in this encounter [facility] 06-29-2023 Miscellaneous Notes Addended by: ANTOINETTE GOMEZ on: 06/29/2023 08:45 AM Modules accepted: Orders Addended by: ELE REYNOSO MA on: 06/29/2023 08:44 AM Modules accepted: Orders documented in this encounter [facility] 06-29-2023 History of Presen t illness Narrative Morale Officer offered: Patient declines. Tawana is a 88 year old who presents for an annual gynecologic exam with complaints, leaking urine during the day for last 3 weeks- does not have urge. Getting up 3 x at night to urinate . No dysuria Postmenopausal: Yes HRT use: No. Last Pap: 09/14/2004 normal HPV: History of abnormal pap: No Last mammogram: 2022 pending today History of abnormal mammogram: No Sexually active: No History of STDS: None Patient concerns for STD exposure: No. Hot flashes: No Night sweats: No Exercise: stretching Diet: balanced OB History T3 L3 SAB0 IAB0 Ectopic0 Multiple0 Live Births0 Medical Insurance Collector History LMP: Postmenopausal Age at Menarche: Age at First : Age at Menopause: Medical Insurance Collector History Comments: Sexual Activity: Not Currently; Male Contraception: Tubal Ligation PAST MEDICAL HISTORY Diagnosis Date Arrhythmia Benign neoplasm of colon Compression fracture of cervical spine (HCC) 2022 Esophageal reflux 10/05/2005 HYPERLIPIDEMIA NEC/NOS 10/05/2005 HYPERTENSION NOS 10/05/2005 Macular degeneration of both eyes 2020 MGUS (monoclonal gammopathy of unknown significance) OSTEOPOROSIS NOS 10/05/2005 PAST SURGICAL HISTORY Procedure Laterality Date COAPTITE INJECTION 1ML 12/05/[address] Luo COLONOSCOPY FLX DX W/COLLJ SPEC WHEN PFRMD Colonoscopy COLONOSCOPY FLX DX W/COLLJ SPEC WHEN PFRMD 03/05/15 Colonoscopy Repeat 02/2020 COLONOSCOPY FLX DX W/COLLJ SPEC WHEN PFRMD 01/29/2018 Colonoscopy COLONOSCOPY W/BIOPSY SINGLE/MULTIPLE 01/24/11 repeat in COLONOSCOPY W/BIOPSY SINGLE/MULTIPLE 03/01/2012 HYSTEROSCOPY BX W/WO D&C 01/14/14 Hysteroscopy D&C LIG/TRNSXJ FLP TUBE ABDL/VAG APPR UNI/BI 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 2018 spot taken off of back PAST SURGICAL HISTORY OF cataract SIMP REPAIR FACE,EAR,EYE <2.5CM 02/04/09 Simple repair nasal bridge laceration SLING OPER STRES INCONTINENCE 01/15/08 Midurethral sling, transobturator approach FAMILY HISTORY Problem Relation Age of Onset Osteoporosis Mother Heart Father - [place] Prostate Cancer Son Heart Brother Breast Cancer Maternal Aunt SOCIAL HISTORY Social History Tobacco Use Smoking status: Never Smokeless tobacco: Never Vaping Use Vaping Use: Never used Substance Use Topics Alcohol use: Yes Comment: Occasionally Drug use: No REVIEW OF SYSTEMS Abdomen: No abdominal pain, nausea, vomiting, diarrhea, or constipation. No bloating, early satiety, indigestion, or increased flatulence. Bladder: no dysuria or urgency. + leaking Breast: No breast lumps, nipple d/c, overlying skin changes, redness or skin retraction Allergies and current medication updated:Yes EXAM: BP 128/80 Ht 5' 5" (1.65m) Wt 109 lb (49.4kg) BMI 18.14 kg/(m^2). GENERAL: pleasant, female in no apparent distress HEENT: Normocephalic, atraumatic, mucus membranes moist, and no lesions NECK: Supple, full range of motion, no adenopathy, and thyroid normal DERMATOLOGY: Normal, without lesions, non-icteric, and non-hirsute BREAST: soft, non-tender, symmetric, no dominant mass, normal nipple-areolar complex, no lymphadenopathy, and no nipple discharge ABDOMEN: soft, non-tender, and no masses PELVIC: external genitalia normal, normal Bartholin's glands, urethra, [place]'s glands, no vulvar lesions, no cervical lesions, good vaginal support, physiologic discharge present, normal appearing perineal body and perianal region BIMANUAL: uterus normal size, shape and consistency, no adnexal masses, and non-tender RECTOVAGINAL: deferred. NEURO: alert and oriented x3,exam grossly non-focal EXTREMITIES: normal ASSESSMENT/PLAN: 1) Health maintenance: Pap/HPV screening no longer needed Mammogram ordered Mammogram up to date Nutrition, exercise and routine health maintenance exams reviewed. Calcium/Vitamin D supplementation information provided. Colon cancer screening: up to date with screening BMD: up to date on fosamax 2) Follow up one year or sooner as needed 3) urine dip/culture 4) myrbetriq reviewed and ordered Antoinette Barbosa MD documented in this encounter [facility] 06-09-2023 Miscellaneous Notes Patient calls back and indicates her local pharmacy has the atenolol there with three refills. Doesn't need the mail order prescription to be approved. Amada Dixon RN Spoke with patient to clarify if she needs script sent to mail order pharmacy- patient does want medication to go to mail order, however she needs to double check to make sure she has enough medication until mail order arrives. Will return call to [facility]- office phone number provided. Pallavi Lind LPN documented in this encounter [facility] 05-29-2023 Miscellaneous Notes Patient has been identified by name and date of : No Patient phones for refill(s): Requested Prescriptions Pending Prescriptions Disp Refills atorvastatin (LIPITOR) 10 mg tablet [Pharmacy Med Name: ATORVASTATIN TAB 10MG] 45 tablet 3 Sig: TAKE 1/2 TABLET DAILY AT BEDTIME Date of last office visit in primary care: 02/02/23 Last 2 Encounter Wt Readings: Date: Wt: 05/01/2023 50.3 kg (111 lb) 03/29/2023 49.4 kg (109 lb) Previous labs/tests for medication: Cholesterol: HDL Cholesterol (mg/dL) Date Value 07/29/2022 53 01/11/2021 56 LDL Cholesterol (mg/dL) Date Value 07/29/2022 111 01/11/2021 106 ALT (U/L) Date Value 02/02/2023 18 07/22/2021 23 Non HDL Cholesterol (mg/dL) Date Value 07/29/2022 132 01/11/2021 127 Please advise. Thank you. Kathy Turner LPN documented in this encounter [facility] 05-24-2023 Miscellaneous Notes Spoke with patient about test results. Patient verbalizes understanding. Pallavi Lind LPN ----- Message from Carlita Gillis APRN.MACHINE [employer]MENT WINDER sent at 05/24/2023 3:46 PM EDT ----- Please call the patient and report echo results revealed preserved EF of 60% and did not reveal any significant valvular or structural abnormalities. Carlita Gillis APRN.CNP documented in this encounter [facility] 05-24-2023 Miscellaneous Notes Please call the patient and report echo results revealed preserved EF of 60% and did not reveal any significant valvular or structural abnormalities. Carlita Gillis APRN.MACHINE DE[employer] ELEMENT WINDER documented in this encounter [facility] 05-01-2023 Instructions Rancho Michaud MD - 05/01/2023 11:23 AM EDT We are continuing the Atenolol 12.5 mg two times per day We are continuing the Eliquis 2.5 mg two times per day documented in this encounter [facility] 05-01-2023 History of Presen t illness Narrative Images from the original note were not included. [facility] SE[facility] CARDIOLOGY Cardiology ([facility])) [address] [facility] [id number] OUTPATIENT VISIT DATE 05/01/2023 PRIMARY CARE PHYSICIAN: JESUS MG MD [address] [place] [address] HISTORY OF PRESENT ILLNESS: Ms. Farrar is a 88 year old woman with a history of SVT, hypertension and dyslipidemia who was recently seen in the emergency room at [facility] for new onset atrial fibrillation. She presents the office for follow-up. I spoke to her over the phone and recommended she increase her atenolol to 12.5 mg twice daily. She has been tolerating the dose without symptoms concerning for worsening bradycardia. She has not had recurrent palpitations or heart racing. She does well from a functional standpoint and denies symptoms concerning for angina. She has not had symptoms concerning for CHF including PND, orthopnea, or lower extremity edema. PAST MEDICAL HISTORY Diagnosis Date Arrhythmia Benign neoplasm of colon Esophageal reflux 10/05/2005 HYPERLIPIDEMIA NEC/NOS 10/05/2005 HYPERTENSION NOS 10/05/2005 Macular degeneration of both eyes 2020 MGUS (monoclonal gammopathy of unknown significance) OSTEOPOROSIS NOS 10/05/2005 PAST SURGICAL HISTORY Procedure Laterality Date COAPTITE INJECTION 1ML 12/05/[address] Luo COLONOSCOPY FLX DX W/COLLJ SPEC WHEN PFRMD Colonoscopy COLONOSCOPY FLX DX W/COLLJ SPEC WHEN PFRMD 03/05/15 Colonoscopy Repeat 02/2020 COLONOSCOPY FLX DX W/COLLJ SPEC WHEN PFRMD 01/29/2018 Colonoscopy COLONOSCOPY W/BIOPSY SINGLE/MULTIPLE 01/24/11 repeat in COLONOSCOPY W/BIOPSY SINGLE/MULTIPLE 03/01/2012 HYSTEROSCOPY BX W/WO D&C 01/14/14 Hysteroscopy D&C LIG/TRNSXJ FLP TUBE ABDL/VAG APPR UNI/BI 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 2017 spot taken off of back PAST SURGICAL HISTORY OF cataract SIMP REPAIR FACE,EAR,EYE <2.5CM 02/04/09 Simple repair nasal bridge laceration SLING OPER STRES INCONTINENCE 01/15/08 Midurethral sling, transobturator approach SOCIAL HISTORY Social History Tobacco Use Smoking status: Never Smokeless tobacco: Never Vaping Use Vaping Use: Never used Substance Use Topics Alcohol use: Yes Comment: Occasionally Drug use: No FAMILY HISTORY Problem Relation Age of Onset Osteoporosis Mother Heart Father - [place] Prostate Cancer Son Heart Brother Breast Cancer Maternal Aunt ALLERGIES: ALLERGIES Allergen Reactions Asa [Salicylates] THROMBOCYTOPENIA Aspirin Rash Risedronate Other: See Comments Jaw issues MEDICATIONS: ELIQUIS 2.5 mg tab(s) twice daily. levothyroxine (LEVOXYL) 25 mcg tablet Take 1 tablet by mouth once daily. Take on empty stomach. For Thyroid alendronate (FOSAMAX) 70 mg tablet Take 1 tablet by mouth one time a week. Take with a full glass of water, on an empty stomach; do NOT lie down for 30minutes. atenolol (TENORMIN) 25 mg tablet Take 0.5 tablets by mouth once daily. (Patient taking differently: Take 12.5 mg by mouth twice daily.) lisinopril (ZESTRIL) 5 mg tablet Take 1 tablet by mouth once daily. amLODIPine (NORVASC) 5 mg tablet TAKE 1 TABLET BY MOUTH EVERY DAY acyclovir (ZOVIRAX) 800 mg tablet Take 1 tablet by mouth three times daily as needed (cold sores). atorvastatin (LIPITOR) 10 mg tablet TAKE 1/2 TABLET DAILY AT BEDTIME Calcium Citrate-Vitamin D3 630-400 mg-unit ORAL Take 1 tablet by mouth every other day. Takes daily vit A,C,Z-Uzzs-Dcaruz (PRESERVISION AREDS) 2,148 mcg-113 mg-45 mg-17.4mg tab Take by mouth once daily. MULTIVITAMIN TAB Take one(1) tablet every other day traMADol (ULTRAM) 50 mg tablet Take 1 tablet by mouth twice daily as needed for pain (take at bedtime). (Patient not taking: Reported on 02/24/2023) tiZANidine (ZANAFLEX) 4 mg tablet Take 1 tablet by mouth every 8 hours as needed (muscle spasms). (Patient not taking: Reported on 02/24/2023) REVIEW OF SYSTEMS: Review of Systems Constitutional: Negative for chills, fever, malaise/fatigue and weight loss. HENT: Negative for hearing loss and sore throat. Eyes: Negative for blurred vision and double vision. Respiratory: Negative. Cardiovascular: Negative. Gastrointestinal: Negative. Genitourinary: Negative for dysuria, frequency, hematuria and urgency. Musculoskeletal: Negative. Skin: Negative. Neurological: Negative for dizziness, seizures, loss of consciousness, weakness and headaches. Endo/Heme/Allergies: Negative for environmental allergies. Does not bruise/bleed easily. Psychiatric/Behavioral: Negative for depression. PHYSICAL EXAMINATION: BP 160/90 Pulse (!) 56 Wt 50.3 kg (111 lb) SpO2 98% BMI 18.47 kg/m General: Thin elderly woman sitting comfortable no apparent distress. She is alert and oriented x3 HEENT: Carotid upstrokes are brisk without bruits no JVD appreciated. No cervical lymphadenopathy. Pulmonary: Lungs are clear no rales wheezes rhonchi Cardiovascular: Normal S1-S2 no murmurs rubs or gallops appreciated Extremities: Warm well perfused no cyanosis clubbing or edema 2+ radial artery pulses 1-2+ dorsalis pedis and posterior tibial pulses. CARDIOVASCULAR MEDICINE TESTING: ECG in the office 12/27/2021: Normal sinus rhythm with normal axis and intervals no significant ST or T wave changes. Treadmill Myoview stress test 07/18/2017: CONCLUSIONS: 1. SPECT Perfusion Study: Normal. 2. There is no scintigraphic evidence for inducible ischemia. 3. No evidence of scarred myocardium. 4. Good functional capacity for age and gender. 5. Left ventricle is small. The left ventricle systolic function is hyperdynamic. 6. Right ventricle is normal in size. The right ventricle systolic function is normal. 7. This is a low risk scan. Gated Stress FBP LVEF % 88 IMPRESSION: Ms. Farrar is a 88 year old woman with newly diagnosed paroxysmal atrial fibrillation, hypertension, dyslipidemia presents to the office for follow-up after recent emergency room visit. PLAN AND RECOMMENDATIONS: 1. Paroxysmal atrial fibrillation (HCC) - ICD9: 427.31, ICD10: I48.0 (primary diagnosis) Continue atenolol 12.5 mg twice daily. She is on Eliquis for stroke risk reduction. I scheduled for an echocardiogram for assessment of LV function and left atrial size. If patient has persistent symptoms may need to consider antiarrhythmic therapy. - ECHO - PERFLUTREN LIPID MICROSPHERES 1.1 MG/ML INJECTION IN NS 10 ML - SODIUM CHLORIDE 0.9 % (FLUSH) INJECTION SYRINGE - ELIQUIS 2.5 MG TABLET - ATENOLOL 25 MG TABLET 2. SVT (supraventricular tachycardia) (HCC) - ICD9: 427.89, ICD10: I47.1 3. Essential hypertension - ICD9: 401.9, ICD10: I10 Elevated during the office visit. Patient's reports good blood pressure control at home. He feels that she has some element of whitecoat hypertension. 4. Other hyperlipidemia - ICD9: 272.4, ICD10: E78.49 Maintained on Lipitor 10 mg daily. Fasting blood work from July 2022 was reviewed. LDL cholesterol 111 mg/dL 5. Raynaud's disease without gangrene - ICD9: 443.0, ICD10: I73.00 Rancho Michaud MD documented in this encounter [facility] 04-14-2023 Miscellaneous Notes Spoke with patient to get update on how she is doing since ER visit. Patient reports she is feeling well, HR is around 70. Pallavi Lind LPN I received a call last night from [facility] on this patient of Rancho Michaud: She was there with fluttering and initially had some A-fib with slightly elevated rate but then about an hour later converted back to sinus and they sent her home. They were thinking about starting her on low-dose Eliquis but I was not clear that they would do this. She is already on atenolol. Heart rate was 62 after conversion. Please call her this morning for follow-up and to arrange management of A-fib Thx Lisandro Rosa documented in this encounter [facility] 03-29-2023 Note HNO ID: [id number] Author: Levi Crews MD Service: ? Author Type: Physician Type: Progress Notes Filed: 03/31/2023 7:49 AM Note Text: Levi Crews M.D. ORTHOPEDIC SPINE FOLLOW UP NOTE Date of visit: March 29, 2023 Patient Name: Ms.Catherine Olena Farrar Date of : 1935 Current Age: [age] year old Sex: female PCP: Jesus Mg MD Chief Complaint:Patient presents with: Established Patient HPI Ms.Catherine Olena Farrar has a past medical history of arrhythmia, HLD, HTN, and osteoporosis- was on fosamax for 7 years, discontinued in October of 2022. Patient reported mid back pain for 4 weeks after moving heavy objects. Radiographic images demonstrated T7 compression fracture. She was recommended to follow-up with myself after obtaining MRI of thoracic spine for possible kyphoplasty discussion. She was last seen on 02/24/2023 and reported improved pain. Denied lower extremity pain, paresthesia, weakness or bowel/bladder incontinence. Pain worsened with prolonged standing and walking, relieved with sitting. Radiographic imaging of thoracic spine demonstrated acute T7 compression fracture, no stenosis, no PLC injury. Discussed to continue with conservative treatment due to improving pain. She was recommended to follow-up in 4 weeks time with repeat radiographs of the thoracic spine, prompting visit today. She reports improved mid back pain. She denies lower extremity radiculopathy, weakness, or bowel/bladder incontinence. Denies dexterity or imbalance issues as well. She continues to deny falls or use of assistive devices. She presents to the office for image review, evaluation and plan of care. PREVIOUS CONSERVATIVE TREATMENT: 1) Medication: Tramadol, Zanaflex, Tylenol 2) Physical therapy: No recent participation 3) Pain Management: No recent participation 4) Injections: No recent injections PREVIOUS SPINE SURGERY: Denies Surgical Risk Factors: Smoking status: Denies Anticoagulants/antiplatelets: No Diabetic: No BMI: 18.27 Osteoporosis- dexa scan from 02/2021. Treated with fosamax for 7 years, discontinued in October 2022 PAIN EVALUATION 03/26/20231930 Pain Level: 6 Pain Location: Back-Middle Description: Burning;Radiating Duration Amount of Time: 2 Duration Units: Hours Frequency: Intermittent Intervention/Comfort measure: Medication;Relaxation;Heat;Massa ge;Positioning Comments: More common in late afternoon and evening ACTIVE PROBLEM LIST Esophageal Reflux Essential Hypertension Osteoporosis Hyperlipidemia TMJ Syndrome Other Physical Therapy Personal History of Colonic Polyps Diverticulosis of Colon (Without Mention of Hemorrhage) Melanocytic Nevu of lower extremity: R leg: mid anterior thigh: Intradermal Nevus Melanocytic Nevus of trunk: IDN Nevus at right upper outer chest area Female Stress Incontinence Raynaud's Disease Without Gangrene Lichen Planus Irritable Bowel Syndrome With Both Constipation and Diarrhea Svt (Supraventricular Tachycardia) (Hcc) Lumbar Spine Strain, Subsequent Encounter 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 Compression Fracture of T7 Vertebra (Hcc) PAST MEDICAL HISTORY Diagnosis Date Arrhythmia Benign neoplasm of colon Esophageal reflux 10/05/2005 HYPERLIPIDEMIA NEC/NOS 10/05/2005 HYPERTENSION NOS 10/05/2005 Macular degeneration of both eyes 2020 MGUS (monoclonal gammopathy of unknown significance) OSTEOPOROSIS NOS 10/05/2005 PAST SURGICAL HISTORY Procedure Laterality Date COAPTITE INJECTION 1ML 12/05/[address] Luo COLONOSCOPY FLX DX W/COLLJ SPEC WHEN PFRMD Colonoscopy COLONOSCOPY FLX DX W/COLLJ SPEC WHEN PFRMD 03/05/15 Colonoscopy Repeat 02/2020 COLONOSCOPY FLX DX W/COLLJ SPEC WHEN PFRMD 01/29/2018 Colonoscopy COLONOSCOPY W/BIOPSY SINGLE/MULTIPLE 01/24/11 repeat in COLONOSCOPY W/BIOPSY SINGLE/MULTIPLE 03/01/2012 HYSTEROSCOPY BX W/WO DANDC 01/14/14 Hysteroscopy DANDC LIG/TRNSXJ FLP TUBE ABDL/VAG APPR UNI/BI 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 2017 spot taken off of back PAST SURGICAL HISTORY OF cataract SIMP REPAIR FACE,EAR,EYE <2.5CM 02/04/09 Simple repair nasal bridge laceration SLING OPER STRES INCONTINENCE 01/15/08 Midurethral sling, transobturator approach FAMILY HISTORY Problem Relation Age of Onset Osteoporosis Mother Heart Father - [place] Prostate Cancer Son Heart Brother Breast Cancer Maternal Aunt Social History Tobacco Use Smoking status: Never Smokeless tobacco: Never Vaping Use Vaping Use: Never used Substance Use Topics Alcohol use: Yes Comment: Occasionally Drug use: No ALLERGIES Allergen Reactions Asa [Salicylates] THROMBOCYTOPENIA Aspirin Rash Risedronate Other: See Comments Jaw issues MEDICATIONS: alendronate (FOSAMAX) 70 mg tablet Take 1 tablet by mouth one time a week. Take with a full glass of water, on an empty stom (more content not included)... [facility] 02-24-2023 Note HNO ID: [id number] Author: Levi Crews MD Service: ? Author Type: Physician Type: Progress Notes Filed: 02/24/2023 2:43 PM Note Text: Levi Crews M.D. ORTHOPEDIC SPINE CONSULT NOTE Date of visit: February 24, 2023 Patient Name: Ms.Catherine Olena Farrar Date of : 1935 Current Age: [age] year old Sex: female PCP: Jesus Mg MD Chief Complaint:Patient presents with: New Patient HPI Ms.Catherine Olena Farrar has a past medical history of arrhythmia, HLD, HTN, and osteoporosis. Patient presents to the office today as a new patient with MRI and radiographic imaging for evaluation of thoracic fracture . The patient is referred by Dr. Gabe Almanza, Orthopedic, for orthopedic spine evaluation. She reported mid back pain for the past few weeks after moving heavy objects. Radiographic images demonstrated T7 compression fracture. She was recommended to follow-up with myself after obtaining MRI of thoracic spine for possible kyphoplasty discussion, prompting visit today. She reports continued mid back pain for the last few weeks. Denies lower extremity pain, paresthesia, weakness or bowel/bladder incontinence. Pain worsens with prolonged standing and walking, relieved with sitting. She denies recent participation in conservative treatment. She has a history of osteoporosis and was on fosamax for 7 years, discontinued in October of 2022. She presents to the office for image review, evaluation and plan of care. PREVIOUS CONSERVATIVE TREATMENT: 1) Medication: Tramadol, Zanaflex, Tylenol 2) Physical therapy: No recent participation 3) Pain Management: No recent participation 4) Injections: No recent injections PREVIOUS SPINE SURGERY: Denies Surgical Risk Factors: Smoking status: Denies Anticoagulants/antiplatelets: No Diabetic: No BMI: 18.84 Osteoporosis- dexa scan from 02/2021. Treated with fosamax for 7 years, discontinued in October 2022 PAIN EVALUATION 02/17/2023 1509 Pain Level: 7 Pain Location: Back-Middle Description: Aching;Burning Duration Amount of Time: 3 Duration Units: Weeks Frequency: Continuous Intervention/Comfort measure: Medication;Relaxation;Cold;Heat; Massage Comments: TEMPORARY REDUCTION WITH Tylenol ACTIVE PROBLEM LIST Esophageal Reflux Essential Hypertension Osteoporosis Hyperlipidemia TMJ Syndrome Other Physical Therapy Personal History of Colonic Polyps Diverticulosis of Colon (Without Mention of Hemorrhage) Melanocytic Nevu of lower extremity: R leg: mid anterior thigh: Intradermal Nevus Melanocytic Nevus of trunk: IDN Nevus at right upper outer chest area Female Stress Incontinence Raynaud's Disease Without Gangrene Lichen Planus Irritable Bowel Syndrome With Both Constipation and Diarrhea Svt (Supraventricular Tachycardia) (Hcc) Lumbar Spine Strain, Subsequent Encounter 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 PAST MEDICAL HISTORY Diagnosis Date Arrhythmia Benign neoplasm of colon Esophageal reflux 10/05/2005 HYPERLIPIDEMIA NEC/NOS 10/05/2005 HYPERTENSION NOS 10/05/2005 Macular degeneration of both eyes 2020 MGUS (monoclonal gammopathy of unknown significance) OSTEOPOROSIS NOS 10/05/2005 PAST SURGICAL HISTORY Procedure Laterality Date COAPTITE INJECTION 1ML 12/05/[address] Luo COLONOSCOPY FLX DX W/COLLJ SPEC WHEN PFRMD Colonoscopy COLONOSCOPY FLX DX W/COLLJ SPEC WHEN PFRMD 03/05/15 Colonoscopy Repeat 02/2020 COLONOSCOPY FLX DX W/COLLJ SPEC WHEN PFRMD 01/29/2018 Colonoscopy COLONOSCOPY W/BIOPSY SINGLE/MULTIPLE 01/24/11 repeat in COLONOSCOPY W/BIOPSY SINGLE/MULTIPLE 03/01/2012 HYSTEROSCOPY BX W/WO DANDC 01/14/14 Hysteroscopy DANDC LIG/TRNSXJ FLP TUBE ABDL/VAG APPR UNI/BI 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 2017 spot taken off of back PAST SURGICAL HISTORY OF cataract SIMP REPAIR FACE,EAR,EYE <2.5CM 02/04/09 Simple repair nasal bridge laceration SLING OPER STRES INCONTINENCE 01/15/08 Midurethral sling, transobturator approach FAMILY HISTORY Problem Relation Age of Onset Osteoporosis Mother Heart Father - [place] Prostate Cancer Son Heart Brother Breast Cancer Maternal Aunt Social History Tobacco Use Smoking status: Never Smokeless tobacco: Never Vaping Use Vaping Use: Never used Substance Use Topics Alcohol use: Yes Comment: Occasionally Drug use: No ALLERGIES Allergen Reactions Asa [Salicylates] THROMBOCYTOPENIA Aspirin Rash Risedronate Other: See Comments Jaw issues MEDICATIONS: levothyroxine (LEVOXYL) 25 mcg tablet Take 1 tablet by mouth once daily. Take on empty stomach. For Thyroid atenolol (TENORMIN) 25 mg tablet Take 0.5 tablets by mouth once daily. lisinopril (ZESTRIL) 5 mg tablet Take 1 tablet by mouth once daily. amLODIPine (NORVASC) 5 mg tablet TAKE 1 TABLET BY MOUTH EVERY DAY acyclovir (ZOVIRAX) 800 mg tablet Take 1 tablet by mouth three ti (more content not included)... [facility] 02-18-2023 Note HNO ID: [id number] Author: BETTY Redmond) Service: Radiology Author Type: Technologist Type: Progress Notes Filed: 02/18/2023 1:39 PM Note Text: Radiology Service Progress Note PATIENT NAME: Tawana Farrar DATE OF SERVICE: February 18, 2023 TIME: 1:39 PM PATIENT IDENTITY VERIFICATION COMPLETED USING TWO (2) IDENTIFIERS: Name and Date of confirmed by patient verbally and Name and Date of confirmed by identification band. FALL SCREENING: Has the patient had 2 falls in the last year or 1 fall with injury or currently using an Ambulatory Assistive Device (Walker, Cane, Wheelchair, Crutches, etc.)? No PATIENT GENDER DATA: Female. status: : No status: NO. PATIENT RELEVANT IMPLANT DATA REVIEWED: Yes RADIOLOGY DEPARTMENT: MR; Exam(s) Completed: Spine: Thoracic spine PERIPHERAL IV DATA: Not applicable SIGNED BY: BETTY Redmond) February 18, 2023 1:[address] [facility] 02-18-2023 History of Presen t illness Narrative Radiology Service Progress Note PATIENT NAME: Tawana Farrar DATE OF SERVICE: February 18, 2023 TIME: 1:39 PM PATIENT IDENTITY VERIFICATION COMPLETED USING TWO (2) IDENTIFIERS: Name and Date of confirmed by patient verbally and Name and Date of confirmed by identification band. FALL SCREENING: Has the patient had 2 falls in the last year or 1 fall with injury or currently using an Ambulatory Assistive Device (Walker, Cane, Wheelchair, Crutches, etc.)? No PATIENT GENDER DATA: Female. status: : No status: NO. PATIENT RELEVANT IMPLANT DATA REVIEWED: Yes RADIOLOGY DEPARTMENT: MR; Exam(s) Completed: Spine: Thoracic spine PERIPHERAL IV DATA: Not applicable SIGNED BY: BETTY Redmond) February 18, 2023 1:39 PM documented in this encounter [facility] 02-17-2023 Miscellaneous Notes Patient has been scheduled for MRI and appointment with Dr. Gilbert. Patient's calling stating patient would like to proceed with seeing specilist at [facility]. Please advise and call patient or . documented in this encounter [facility] 02-15-2023 Miscellaneous Notes Prescription clarification received by fax from [facility] pharmacy. Correct directions from Dr. Almanza: Take 1 tablet by mouth twice daily as needed for pain. He would like patient to take 1 dose specifically at bedtime. Called to Lb at [facility] at 4:52 pm. documented in this encounter [facility] 02-15-2023 History of Presen t illness Narrative Patient is referred by self CC: Patient presents with: Mid back pain HPI: Tawana Farrar is a 87 year old year old who presents with midthoracic back pain x2-week. She and her had moved from their home to another location and she was involved in an significant amount of lifting and carrying of objects. She felt that she was carrying something too heavy, a chest full of silverware, when she developed relatively acute pain in the mid thoracic region. She complains of persistent pain with difficulty finding a position of comfort. She states that she has increased pain when she forward flexes or takes a deep breath. History of bowel or bladder dysfunction: No History of spinal trauma: No History of previous spinal surgery: No PAST MEDICAL HISTORY Diagnosis Date Arrhythmia Benign neoplasm of colon Esophageal reflux 10/05/2005 HYPERLIPIDEMIA NEC/NOS 10/05/2005 HYPERTENSION NOS 10/05/2005 Macular degeneration of both eyes 2020 MGUS (monoclonal gammopathy of unknown significance) OSTEOPOROSIS NOS 10/05/2005 PAST SURGICAL HISTORY Procedure Laterality Date COAPTITE INJECTION 1ML 12/05/[address] Luo COLONOSCOPY FLX DX W/COLLJ SPEC WHEN PFRMD Colonoscopy COLONOSCOPY FLX DX W/COLLJ SPEC WHEN PFRMD 03/05/15 Colonoscopy Repeat 02/2020 COLONOSCOPY FLX DX W/COLLJ SPEC WHEN PFRMD 01/29/2018 Colonoscopy COLONOSCOPY W/BIOPSY SINGLE/MULTIPLE 01/24/11 repeat in COLONOSCOPY W/BIOPSY SINGLE/MULTIPLE 03/01/2012 HYSTEROSCOPY BX W/WO D&C 01/14/14 Hysteroscopy D&C LIG/TRNSXJ FLP TUBE ABDL/VAG APPR UNI/BI 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 2017 spot taken off of back PAST SURGICAL HISTORY OF cataract SIMP REPAIR FACE,EAR,EYE <2.5CM 02/04/09 Simple repair nasal bridge laceration SLING OPER STRES INCONTINENCE 01/15/08 Midurethral sling, transobturator approach Current Outpatient Medications on File Prior to Visit Medication Sig levothyroxine (LEVOXYL) 25 mcg tablet Take 1 tablet by mouth once daily. Take on empty stomach. For Thyroid lidocaine (LIDODERM) 5 % Apply 1 Patch as directed once daily for 14 days. Remove old patch prior to placing new patch. Location: Patch on for 12 hours take the edge off for [address] a new patch on for another 12 hours. tiZANidine (ZANAFLEX) 4 mg tablet Take 1 tablet by mouth every 8 hours as needed (muscle spasms). atenolol (TENORMIN) 25 mg tablet Take 0.5 tablets by mouth once daily. lisinopril (ZESTRIL) 5 mg tablet Take 1 tablet by mouth once daily. amLODIPine (NORVASC) 5 mg tablet TAKE 1 TABLET BY MOUTH EVERY DAY acyclovir (ZOVIRAX) 800 mg tablet Take 1 tablet by mouth three times daily as needed (cold sores). atorvastatin (LIPITOR) 10 mg tablet TAKE 1/2 TABLET DAILY AT BEDTIME Calcium Citrate-Vitamin D3 630-400 mg-unit ORAL Take 1 tablet by mouth every other day. Takes daily vit A,C,A-Utks-Gyewhs (PRESERVISION AREDS) 2,148 mcg-113 mg-45 mg-17.4mg tab Take by mouth once daily. MULTIVITAMIN TAB Take one(1) tablet every other day No current facility-administered medications on file prior to visit. Allergies: Asa [Salicylates] and Risedronate Social History Tobacco Use Smoking status: Never Smokeless tobacco: Never Vaping Use Vaping Use: Never used Substance Use Topics Alcohol use: Yes Comment: Occasionally Drug use: No FAMILY HISTORY Problem Relation Age of Onset Osteoporosis Mother Heart Father - [place] Prostate Cancer Son Heart Brother Breast Cancer Maternal Aunt Physical Exam: General: Tawana Farrar is well-developed, well-nourished person appearing his stated age. THORACIC SPINE: Contour: Kyphosis present Tenderness: Yes, Location: T7, Midline spinous process Left facet Left paraspinal musculature NEUROLOGIC EXAM No focal sensory neural deficits in the extremities Studies: X-ray of thoracic spine shows compression fracture at T7 Assessment/Plan: Compression fracture T7 Discussed options for treatment at this time including consultation to evaluate for possible thoracic kyphoplasty versus conservative treatment. Patient would like to give some thought to her decision and get back to me. In the interim, I recommend against heavy lifting, fall prevention, Tylenol during the day for pain. Patient's request for medication is as follows Requested Prescriptions Signed Prescriptions Disp Refills traMADol (ULTRAM) 50 mg tablet 14 tablet 0 Sig: Take 1 tablet by mouth twice daily as needed for pain (take at bedtime). Order entered - please phone pharmacy and notify patient. DO Gabe Becerra DO Patient presents with: Mid back pain AMB ROOMING INTAKE FLOWSHEET DATA Pain Pain Level: 8 Pain Location: Back-Middle Description: Dull, Aching, Sharp Duration Amount of Time: 2 Duration Units: Weeks Frequency: Continuous Intervention/Comfort measure: Medication Patient states recently they moved and was doing a lot of heavy lifting. A couple of days later she started having pain in her mid back. Has been taking Tylenol and Lidocaine patches for the pain and helps minimal. X-rays done on 02/11. documented in this encounter [facility] 02-11-2023 History of Presen t illness Narrative Radiology Service Progress Note PATIENT NAME: Tawana Farrar DATE OF SERVICE: February 11, 2023 TIME: 10:08 AM PATIENT IDENTITY VERIFICATION COMPLETED USING TWO (2) IDENTIFIERS: Name and Date of confirmed by patient verbally. FALL SCREENING: Has the patient had 2 falls in the last year or 1 fall with injury or currently using an Ambulatory Assistive Device (Walker, Cane, Wheelchair, Crutches, etc.)? No PATIENT GENDER DATA: Female. status: : No status: NO. PATIENT RELEVANT IMPLANT DATA REVIEWED: Yes RADIOLOGY DEPARTMENT: General X-ray: Exam(s) Completed: Spine X-Ray(s): Thoracic Upper Extremity X-Ray(s): Scapula, left PERIPHERAL IV DATA: Not applicable SIGNED BY: RT Lucio(R) February 11, 2023 10:08 AM documented in this encounter [facility] 02-03-2023 History of Presen t illness Narrative Images from the original note were not included. Subjective Patient came in with complaints of back pain in the middle and upper back. Patient says she just moved on Monday and is been lifting a lot of heavy boxes. Patient mention it to her primary care yesterday did get a muscle relaxer says she does not feel like it helped much but the Tylenol helps. Patient denies any nausea vomiting fever flank pain abdominal pain or pressure pain full urination shortness of breath jaw pain numbness or tingling down the arms. Heaviness in her chest. The history is provided by the patient. No patients transporter was used. Review of Systems Constitutional: Negative. Objective Physical Exam Constitutional: Appearance: Normal appearance. Pulmonary: Effort: Pulmonary effort is normal. Musculoskeletal: Arms: Comments: Patient is tender when palpated in the area marked above and purple. Neurological: Mental Status: She is alert. PAST MEDICAL HISTORY Diagnosis Date Arrhythmia Benign neoplasm of colon Esophageal reflux 10/05/2005 HYPERLIPIDEMIA NEC/NOS 10/05/2005 HYPERTENSION NOS 10/05/2005 Macular degeneration of both eyes 2020 MGUS (monoclonal gammopathy of unknown significance) OSTEOPOROSIS NOS 10/05/2005 PAST SURGICAL HISTORY Procedure Laterality Date COAPTITE INJECTION 1ML 12/05/[address] Luo COLONOSCOPY FLX DX W/COLLJ SPEC WHEN PFRMD Colonoscopy COLONOSCOPY FLX DX W/COLLJ SPEC WHEN PFRMD 03/05/15 Colonoscopy Repeat 02/2020 COLONOSCOPY FLX DX W/COLLJ SPEC WHEN PFRMD 01/29/2018 Colonoscopy COLONOSCOPY W/BIOPSY SINGLE/MULTIPLE 01/24/11 repeat in COLONOSCOPY W/BIOPSY SINGLE/MULTIPLE 03/01/2012 HYSTEROSCOPY BX W/WO D&C 01/14/14 Hysteroscopy D&C LIG/TRNSXJ FLP TUBE ABDL/VAG APPR UNI/BI 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 2017 spot taken off of back PAST SURGICAL HISTORY OF cataract SIMP REPAIR FACE,EAR,EYE <2.5CM 02/04/09 Simple repair nasal bridge laceration SLING OPER STRES INCONTINENCE 01/15/08 Midurethral sling, transobturator approach ALLERGIES Asa [Salicylates] and Risedronate MEDICATIONS levothyroxine (LEVOXYL) 25 mcg tablet Take 1 tablet by mouth once daily. Take on empty stomach. For Thyroid tiZANidine (ZANAFLEX) 4 mg tablet Take 1 tablet by mouth every 8 hours as needed (muscle spasms). atenolol (TENORMIN) 25 mg tablet Take 0.5 tablets by mouth once daily. lisinopril (ZESTRIL) 5 mg tablet Take 1 tablet by mouth once daily. amLODIPine (NORVASC) 5 mg tablet TAKE 1 TABLET BY MOUTH EVERY DAY acyclovir (ZOVIRAX) 800 mg tablet Take 1 tablet by mouth three times daily as needed (cold sores). atorvastatin (LIPITOR) 10 mg tablet TAKE 1/2 TABLET DAILY AT BEDTIME Calcium Citrate-Vitamin D3 630-400 mg-unit ORAL Take 1 tablet by mouth every other day. Takes daily vit A,C,T-Itol-Zjukfu (PRESERVISION AREDS) 2,148 mcg-113 mg-45 mg-17.4mg tab Take by mouth once daily. MULTIVITAMIN TAB Take one(1) tablet every other day lidocaine (LIDODERM) 5 % Apply 1 Patch as directed once daily for 14 days. Remove old patch prior to placing new patch. Location: Patch on for 12 hours take the edge off for [address] a new patch on for another 12 hours. FAMILY HISTORY Problem Relation Age of Onset Osteoporosis Mother Heart Father - [place] Prostate Cancer Son Heart Brother Breast Cancer Maternal Aunt Social History Tobacco Use Smoking status: Never Smokeless tobacco: Never Vaping Use Vaping Use: Never used Substance Use Topics Alcohol use: Yes Comment: Occasionally Drug use: No ASSESSMENT/PLAN: 1. Pain - ICD9: 780.96, ICD10: R52 - LIDOCAINE 5 % TOPICAL PATCH Patches were added to the Flexeril patient was instructed to take Tylenol as well warm showers and use a heating pad not over the Lidoderm patch. Patient will try this given another few days and increase water intake and if pain is persistent or red flag symptoms occur patient will go to the emergency room. Patient was okay with this care plan. Did have to try to do a prior Auth for the patient to receive Lidoderm patches they said it would take 24 hours. Left message for patient to return call to notify him of this. They called back and said they are not going to improve the patch because they need a diagnosis of cancer or neuralgia pain. The day before I give the patient gabapentin I told her we cannot do that. Julianna Hong APRN.WIN documented in this encounter [facility] 02-02-2023 History of Malik t illness Narrative CC: Patient presents with: Medicare Wellness Exam: Annual Medicare Wellness HPI Tawana Farrar is a 87 year old female who presents today for annual wellness exam. HTN and HLD: Ms. Frarar indicates that she is feeling well and denies any symptoms referable to elevated blood pressure. Specifically denies headache, chest pain, palpitations, dyspnea, exercise intolerance, and peripheral edema. Patient denies any side effects of her medication(s) and is compliant with their regimen. She does not check BP's generally. Last 3 Encounter BP Readings: Date: BP: 02/02/2023 128/72 10/28/2022 134/70 07/27/2022 134/82 Hypothyroidism: Takes medication as ordered. Has had small amount of weight loss without trying. No change in diet but has been more active recently as a result of moving. Denies changes in energy or intolerance to heat/cold. Has been recently moving heavy boxes to move into [facility] [employer] over the last few weeks. Started with varying back pain for the past few days. Has been on left side, right side, lower back, and even ribs. Can be an ache or sharp. Also reports intermittent leg cramping. Occurs with movement but not always and has tightness to back when laying flat. Denies any injury, weakness, numbness, skin changes, fever, chills, change in energy, nausea, vomiting, diarrhea, abdominal pain, difficulty or pain urinating. Osteoporosis: On calcium and Vit D supplement. Tries to stay active regularly, no recent fractures. Last bone density was in 2019. REVIEW OF SYSTEMS General: no fevers, no chills, no night sweats, no recurrent infections, no change in appetite, no change in energy, and no significant changes in weight Respiratory: no cough, no wheezing, no shortness of breath, no hemoptysis Cardiovascular: no chest pain, no chest pressure, no palpitations, and no swelling GI: No nausea, vomiting, or diarrhea : No history of dysuria, frequency or incontinence Endocrine: no fatigue, no polyuria, no polyphagia, and no polydipsia Neurologic: No headache, weakness, numbness, tingling, dizziness, syncope. PAST MEDICAL HISTORY Diagnosis Date Arrhythmia Benign neoplasm of colon Esophageal reflux 10/05/2005 HYPERLIPIDEMIA NEC/NOS 10/05/2005 HYPERTENSION NOS 10/05/2005 Macular degeneration of both eyes 2020 MGUS (monoclonal gammopathy of unknown significance) OSTEOPOROSIS NOS 10/05/2005 PAST SURGICAL HISTORY Procedure Laterality Date COAPTITE INJECTION 1ML 12/05/[address] Luo COLONOSCOPY FLX DX W/COLLJ SPEC WHEN PFRMD Colonoscopy COLONOSCOPY FLX DX W/COLLJ SPEC WHEN PFRMD 03/05/15 Colonoscopy Repeat 02/2020 COLONOSCOPY FLX DX W/COLLJ SPEC WHEN PFRMD 01/29/2018 Colonoscopy COLONOSCOPY W/BIOPSY SINGLE/MULTIPLE 01/24/11 repeat in COLONOSCOPY W/BIOPSY SINGLE/MULTIPLE 03/01/2012 HYSTEROSCOPY BX W/WO D&C 01/14/14 Hysteroscopy D&C LIG/TRNSXJ FLP TUBE ABDL/VAG APPR UNI/BI 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 lisinopril (ZESTRIL) 5 mg tablet Take 1 tablet by mouth once daily. amLODIPine (NORVASC) 5 mg tablet TAKE 1 TABLET BY MOUTH EVERY DAY levothyroxine (LEVOXYL) 25 mcg tablet Take 1 tablet by mouth once daily. Take on empty stomach. For Thyroid acyclovir (ZOVIRAX) 800 mg tablet Take 1 tablet by mouth three times daily as needed (cold sores). atorvastatin (LIPITOR) 10 mg tablet TAKE 1/2 TABLET DAILY AT BEDTIME Calcium Citrate-Vitamin D3 630-400 mg-unit ORAL Take 1 tablet by mouth every other day. Takes daily vit A,C,M-Uihf-Rypror (PRESERVISION AREDS) 2,148 mcg-113 mg-45 mg-17.4mg tab Take by mouth once daily. MULTIVITAMIN TAB Take one(1) tablet every other day FAMILY HISTORY Problem Relation Age of Onset Osteoporosis Mother Heart Father - [place] Prostate Cancer Son Heart Brother Breast Cancer Maternal Aunt Social History Tobacco Use Smoking status: Never Smokeless tobacco: Never Vaping Use Vaping Use: Never used Substance Use Topics Alcohol use: Yes Comment: Occasionally Drug use: No PHYSICAL EXAM BP 128/72 Pulse (!) 58 Temp 36.6 C (97.8 F) (Temporal) Resp 16 Wt 50.8 kg (112 lb) SpO2 98% BMI 18.64 kg/m General Appearance: well appearing, in no acute distress, alert Skin: Skin color, texture, turgor normal for age; Eyes: conjunctiva pink and moist, no icterus, sclera white, non-injected Neck: Thyroid normal size and symmetric without palpable nodules, Neck supple, No adenopathy Lymph nodes: No cervical lymphadenopathy and No supraclavicular lymphadenopathy Back: No pain to palpation, Full and painless ROM including flexion, extension, lateral side bending and rotation, Reflexes 2+ and symmetric Lungs: Lungs clear to auscultation. No wheezing, rhonchi, rales. Heart: RRR without murmur, gallop, or rubs. No ectopy Abdomen: Abdomen soft, non-tender. Bowel sounds normal. No masses, organomegaly, Negative CVA tenderness Extremities: No deformities, edema, skin discoloration, clubbing or cyanosis. Good capillary refill. Neurological: Gait normal. Reflexes normal and symmetric. Sensation grossly intact. Health maintenance reviewed with patient: SHINGRIX VACCINE(2 of 3) due on 01/16/2012 ADVANCE DIRECTIVE DISCUSSION Never done DEPRESSION ASSESSMENT due on 11/13/2022 DTAP,TDAP,TD(1 - Tdap) due on 02/03/2024 DIABETES SCREEN due on 07/29/2025 BONE DENSITY Completed INFLUENZA Completed COVID-19 VACCINE Completed PNEUMOCOCCAL: 65+ Completed DATA REVIEWED: No new labs ASSESSMENT/PLAN: 1. Medicare annual wellness visit, subsequent - ICD9: V70.0, ICD10: Z00.00 (primary diagnosis) - see medicare wellness note - Counseled on healthy diet and regular exercise - Calcium intake with supplements or by diet of 1000 mg/day for under 50, 1879-4163 mg/day for 50+ - Depression screening tool completed and reviewed with patient. Based on score and interview, patient is not at risk for depression and recommended no further intervention at this time. - Follow up for annual exam in one year 2. Acute back pain, unspecified back location, unspecified back pain laterality - ICD9: 724.5, ICD10: M54.9 - appears more muscular in nature, tizanidine ordered and can take tylenol as indicated but do not exceed dosing on box/bottle - patient to follow up in office if this continues or worsens. No tenderness to palpation of spine but with history of osteoporosis xrays may need completed for continuation of pain or any new symptoms. - UA DIP, URINE (POC) - URINALYSIS, WITH MICROSCOPIC - URINE CULTURE 3. Weight loss - ICD9: 783.21, ICD10: R63.4 - possibly from increase in activity level but will evaluate for other causes. - HGB A1C - CBC + DIFF - COMP METABOLIC PANEL - TSH BLD - T3 BLD - T4 FREE/FREE THYROX 4. Essential hypertension - ICD9: 401.9, ICD10: I10 - good control - Continue current medication(s) - Recommended regular aerobic exercise. - Recommend home blood pressure monitoring, to bring results in on next visit - Goal of BP <130/80 - CBC + DIFF - COMP METABOLIC PANEL 5. Other hyperlipidemia - ICD9: 272.4, ICD10: E78.49 Cholesterol levels within acceptable ranges previously - continue current medication - low fat healthy diet with regular aerobic exercise. - COMP METABOLIC PANEL 6. Hypothyroidism, unspecified type - ICD9: 244.9, ICD10: E03.9 - Instructed patient on importance of taking on an empty stomach either first thing in the morning or at bedtime. - TSH BLD - T3 BLD - T4 FREE/FREE THYROX 7. Prediabetes - ICD9: 790.29, ICD10: R73.03 - HgbA1c 6.2, 1 year ago. - HGB A1C - CBC + DIFF - COMP METABOLIC PANEL 8. Leg cramps - ICD9: 729.82, ICD10: R25.2 - CBC + DIFF - COMP METABOLIC PANEL - TSH BLD - T3 BLD - T4 FREE/FREE THYROX - MAGNESIUM BLD 9. Osteoporosis, unspecified osteoporosis type, unspecified pathological fracture presence - ICD9: 733.00, ICD10: M81.0 - Reviewed the need for Calcium and Vitamin D supplements and weight bearing exercise as tolerated - Bone density needs repeated later this year, will discuss at next appointment. 10. Abnormal urinalysis - ICD9: 791.9, ICD10: R82.90 - small amount of WBC and trace protein on urine dip will evaluate further. - URINALYSIS, WITH MICROSCOPIC - URINE CULTURE Prescription instructions reviewed with patient as applicable. Potential red flag symptoms discussed with the patient. Reviewed appropriate action plan to take if red flag symptoms occur. Patient agreeable to treatment plan. Rashmi Hendrix APRN.CNP Medicare Yearly Visit Medical B eligibilty date 2000 Date of last exam 2017 PAST MEDICAL HISTORY Diagnosis Date Arrhythmia Benign neoplasm of colon Esophageal reflux 10/05/2005 HYPERLIPIDEMIA NEC/NOS 10/05/2005 HYPERTENSION NOS 10/05/2005 Macular degeneration of both eyes 2020 MGUS (monoclonal gammopathy of unknown significance) OSTEOPOROSIS NOS 10/05/2005 PAST SURGICAL HISTORY Procedure Laterality Date COAPTITE INJECTION 1ML 12/05/[address] Luo COLONOSCOPY FLX DX W/COLLJ SPEC WHEN PFRMD Colonoscopy COLONOSCOPY FLX DX W/COLLJ SPEC WHEN PFRMD 03/05/15 Colonoscopy Repeat 02/2020 COLONOSCOPY FLX DX W/COLLJ SPEC WHEN PFRMD 01/29/2018 Colonoscopy COLONOSCOPY W/BIOPSY SINGLE/MULTIPLE 3/14/11 repeat in COLONOSCOPY W/BIOPSY SINGLE/MULTIPLE 03/01/2012 HYSTEROSCOPY BX W/WO D&C 01/14/14 Hysteroscopy D&C LIG/TRNSXJ FLP TUBE ABDL/VAG APPR UNI/BI 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 2018 spot taken off of back PAST SURGICAL HISTORY OF cataract SIMP REPAIR FACE,EAR,EYE <2.5CM 02/04/09 Simple repair nasal bridge laceration SLING OPER STRES INCONTINENCE 01/15/08 Midurethral sling, transobturator approach ALLERGIES: Asa [Salicylates] and Risedronate Medications reviewed: Yes FAMILY HISTORY Problem Relation Age of Onset Osteoporosis Mother Heart Father - [place] Prostate Cancer Son Heart Brother Breast Cancer Maternal Aunt SOCIAL HISTORY: Social History Tobacco Use Smoking status: Never Smokeless tobacco: Never Vaping Use Vaping Use: Never used Substance Use Topics Alcohol use: Yes Comment: Occasionally Drug use: No Tawana works out regularly 2 times per week with twice a week. She watches her diet for sodium, low fat and low cholesterol most of the time. List of current specialists seen: Cardiology for hypertension and high cholesterol. Optometry: Dr. Jordan for macular degeneration. End of Live Planning discussed including patients advanced directive wishes: Yes I am willing to follow Tawana's advanced directives. PHQ-2 / Depression screen She in the past two weeks denies having felt down, depressed, hopeless, or with little interest or pleasure in doing things. Functional Ability/Safety Screen 1. Was the patient's timed Up and Go test unsteady or longer than 30 seconds? No 2. Does the patient need help with the phone, transportation, shopping,preparing meals, housework, laundry, medications or managing money? No 3. Does your home have rugs in the hallway, lack of grab bars in the bathroom, lack of handrails on the stairs or have poor lighting? No except some rugs on the floors. Is livign now at [facility] living. Hearing Evaluation: normal PHYSICAL EXAM BP 128/72 Pulse (!) 58 Temp 36.6 C (97.8 F) (Temporal) Resp 16 Wt 50.8 kg (112 lb) SpO2 98% BMI 18.64 kg/m Alert and oriented X 3: YES Body mass index is 18.64 kg/m . CDT normal. 3/ word recall ASSESSMENT/PLAN: 87 year old female The following prevention plan was discussed during the office visit and provided to the patient: - Counseled on healthy diet and regular exercise - Fall avoidance - Lipid panel - Diabetes screening - Depression screening - Glaucoma screening Rashmi Hendrix APRN.WIN documented in this encounter [facility] 01-24-2023 Miscellaneous Notes Last office visit: 10/28/22 Next appointment scheduled: 02/02/23 Last labs: 07/29/22 Patient phones requesting refills as follows: Requested Prescriptions Pending Prescriptions Disp Refills atenolol (TENORMIN) 25 mg tablet 45 tablet 3 Sig: Take 0.5 tablets by mouth once daily. Please review and advise. Shena Middleton LPN documented in this encounter [facility] 01-24-2023 Miscellaneous Notes Patient has been identified by name and date of : No Patient phones for refill(s): Requested Prescriptions Pending Prescriptions Disp Refills lisinopril (ZESTRIL) 5 mg tablet 90 tablet 3 Sig: Take 1 tablet by mouth once daily. Date of last office visit in primary care: 10/28/22 Last 2 Encounter Wt Readings: Date: Wt: 10/28/2022 51.7 kg (114 lb) 07/27/2022 52.2 kg (115 lb) Previous labs/tests for medication: Blood Pressure: BUN (mg/dL) Date Value 07/29/2022 16 07/22/2021 17 Sodium (mmol/L) Date Value 07/29/2022 143 07/22/2021 142 Last 1 Encounter BP Readings: Date: BP: 10/28/2022 134/70 Please advise. Thank you. Kathy Turner LPN documented in this encounter [facility] 01-17-2023 Miscellaneous Notes Please discontinue Alendronate off of medication list if appropriate. documented in this encounter [facility] 10-28-2022 History of Presen t illness Narrative Reason for Visit Patient presents with: Same Day Appointment: cough,runny nose,h/a, home covid test negative Tawana Farrar is a 87 year old female who presents here today for Above Complaints.. Health Maintenance DTAP,TDAP,TD(1 - Tdap) SHINGRIX VACCINE(2 of 3) ADVANCE DIRECTIVE DISCUSSION DEPRESSION ASSESSMENT HPI 3 weeks ago started having a cough, chills, runny nose, ear fullness and headache. She performed a COVID test at home 3 days in to feeling ill - negative result. Up to date with flu and COVID vaccines. Denies any sick contacts. The last 3 weeks, patient has been taking tylenol cold&flu and cough drops. Today patient is feeling better. Still presents with minor cough. Denies any other symptoms. Hypertension: BP controlled today at 134/70. Occasionally checks BP at home. Averages around 130/70. Compliant with medication. Voices no issues. No chest pain, palpitations, edema or SOB. Monitors sodium, fat, and cholesterol - eats 3 meals a day with some snacks throughout the day. Good fluid intake. Takes part in silver sneakers twice a week, followed by some walking. Hypothyroidism: Stable. Last TSH level 4.040. Tolerating levothyroxine well. Voices no side effects. CARDIO: HR is stable. Denies any recent tachycardic episodes. Hx of SVT. Plans to see cardio in the new year. Osteoporosis: Stable. Currently taking fosamax - tolerating well. Patient states she's been on it for the last 5-7 years. MGUS: Mild elevation is M protein. Recent calcium and creatinine levels were stable. No concerns aside to mild incontinence. Denies any achy bones. Sleep: Sleeping well. Average 6-7 hours a night. Stress: Denies being stressed. No problem-specific Assessment & Plan notes found for this encounter. PAST MEDICAL HISTORY Diagnosis Date Arrhythmia Benign neoplasm of colon Esophageal reflux 10/05/2005 HYPERLIPIDEMIA NEC/NOS 10/05/2005 HYPERTENSION NOS 10/05/2005 Macular degeneration of both eyes 2020 MGUS (monoclonal gammopathy of unknown significance) OSTEOPOROSIS NOS 10/05/2005 PAST SURGICAL HISTORY Procedure Laterality Date COAPTITE INJECTION 1ML 12/05/[address] Luo COLONOSCOPY FLX DX W/COLLJ SPEC WHEN PFRMD Colonoscopy COLONOSCOPY FLX DX W/COLLJ SPEC WHEN PFRMD 03/05/15 Colonoscopy Repeat 02/2020 COLONOSCOPY FLX DX W/COLLJ SPEC WHEN PFRMD 01/29/2018 Colonoscopy COLONOSCOPY W/BIOPSY SINGLE/MULTIPLE 01/24/11 repeat in COLONOSCOPY W/BIOPSY SINGLE/MULTIPLE 03/01/2012 HYSTEROSCOPY BX W/WO D&C 01/14/14 Hysteroscopy D&C LIG/TRNSXJ FLP TUBE ABDL/VAG APPR UNI/BI 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 2017 spot taken off of back PAST SURGICAL HISTORY OF cataract SIMP REPAIR FACE,EAR,EYE <2.5CM 02/04/09 Simple repair nasal bridge laceration SLING OPER STRES INCONTINENCE 01/15/08 Midurethral sling, transobturator approach FAMILY HISTORY Problem Relation Age of Onset Osteoporosis Mother Heart Father - [place] Prostate Cancer Son Heart Brother Breast Cancer Maternal Aunt Social History Tobacco Use Smoking status: Never Smokeless tobacco: Never Vaping Use Vaping Use: Never used Substance Use Topics Alcohol use: Yes Comment: Occasionally Drug use: No Past medical history, appointments, medications, allergies reviewed. Pertinent Lab/Diagnostic Studies are reviewed and discussed today Current Outpatient Medications: levothyroxine (LEVOXYL) 25 mcg tablet lisinopril (ZESTRIL, PRINIVIL) 5 mg tablet alendronate (FOSAMAX) 70 mg tablet acyclovir (ZOVIRAX) 800 mg tablet atorvastatin (LIPITOR) 10 mg tablet atenolol (TENORMIN) 25 mg tablet amLODIPine (NORVASC) 5 mg tablet Calcium Citrate-Vitamin D3 630-400 mg-unit ORAL vit A,C,K-Wjip-Cmhvim (PRESERVISION AREDS) 2,148 mcg-113 mg-45 mg-17.4mg tab MULTIVITAMIN TAB Review of Systems CONSTITUTIONAL: No fevers, chills, night sweats, unintended weight loss CARDIOVASCULAR: No chest pain, dyspnea, palpitations, orthopnea, PND, ankle edema. PULM: No dyspnea. Mild cough. GI: No dysphagia/odynophagia, problematic reflux, constipation, diarrhea, changes in stool habits, hematochezia, melena. : No new urinary complaints, including dysuria, gross hematuria or pyuria. Mild continence. NEURO: No new balance problems, peripheral weakness/paresthesias or numbness of concern. Physical Exam BP 134/70 (BP Site: Left Arm, BP Position: Sitting, BP Cuff Size: Large Adult) Pulse 60 Temp 37.2 C (98.9 F) Resp 12 Ht 165.1 cm (5' 5") Wt 51.7 kg (114 lb) SpO2 97% BMI 18.97 kg/m General appearance: Well appearing, alert, in no acute distress, well nourished. Skin: Skin color, texture, turgor normal, no suspicious rashes or lesions Head: Normocephalic, no masses, lesions, tenderness or abnormalities Eyes: Anicteric sclera. Pupils are equally round and reactive to light. Extraocular movements are intact. Lungs: Lungs clear to auscultation. No wheezing, rhonchi, rales Heart: RRR without murmur, gallop, or rubs. Extremities: No deformities, edema, skin discoloration, clubbing or cyanosis. Good capillary refill. ASSESSMENT/PLAN: 1. Osteoporosis, unspecified osteoporosis type, unspecified pathological fracture presence - ICD9: 733.00, ICD10: M81.0 (primary diagnosis) - Reviewed the need for Calcium and Vitamin D supplements and weight bearing exercise as tolerated Drug holiday beginning today but we will do the dexa in a years time 2. Viral illness - ICD9: 079.99, ICD10: B34.9 - Discussed viral etiology and rationale for treatment. - Symptomatic treatment with prn analgesia - Supportive care with fluids and rest 3. Essential hypertension - ICD9: 401.9, ICD10: I10 - good control - Recommended regular aerobic exercise. - Recommend home blood pressure monitoring, to bring results in on next visit - Goal of BP <130/80 4. Other hyperlipidemia - ICD9: 272.4, ICD10: E78.49 Patients lipids are not concerning. Jesus Mg MD documented in this encounter [facility] 07-27-2022 History of Malik t illness Narrative Reason for Visit Patient presents with: F/U 6 months: Labs Tawana Farrar is a 87 year old female who presents here today for Above Complaints. Health Maintenance DTAP,TDAP,TD(1 - Tdap) SHINGRIX VACCINE(2 of 3) ADVANCE DIRECTIVE DISCUSSION HPI HTN: Compliant with medications. Denies any chest pain, palpitations, or edema. No SOB. Doesn't check BP at home generally. Careful with diet to avoid salt, trying to eat more fruits and vegetables, exercises regularly. Bp at home varies from 130 to 140. She will keep a log for me for the next time. HPL: Reviewed test results with patient , takes medications regularly , does not report side effects. Conscious to avoid red meats, full fat dairy and its by products. Exercising 3 to 5 times a week. We need to review the protein electrophoresis Patient goes to [employer] 2 times a week. They do exercise their body all the week. No problem-specific Assessment & Plan notes found for this encounter. PAST MEDICAL HISTORY Diagnosis Date Arrhythmia Benign neoplasm of colon Esophageal reflux 10/05/2005 HYPERLIPIDEMIA NEC/NOS 10/05/2005 HYPERTENSION NOS 10/05/2005 Macular degeneration of both eyes 2020 MGUS (monoclonal gammopathy of unknown significance) OSTEOPOROSIS NOS 10/05/2005 PAST SURGICAL HISTORY Procedure Laterality Date COAPTITE INJECTION 1ML 12/05/[address] Luo COLONOSCOPY FLX DX W/COLLJ SPEC WHEN PFRMD Colonoscopy COLONOSCOPY FLX DX W/COLLJ SPEC WHEN PFRMD 03/05/15 Colonoscopy Repeat 02/2020 COLONOSCOPY FLX DX W/COLLJ SPEC WHEN PFRMD 01/29/2018 Colonoscopy COLONOSCOPY W/BIOPSY SINGLE/MULTIPLE 01/24/11 repeat in COLONOSCOPY W/BIOPSY SINGLE/MULTIPLE 03/01/2012 HYSTEROSCOPY BX W/WO D&C 01/14/14 Hysteroscopy D&C LIG/TRNSXJ FLP TUBE ABDL/VAG APPR UNI/BI 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 2017 spot taken off of back PAST SURGICAL HISTORY OF cataract SIMP REPAIR FACE,EAR,EYE <2.5CM 02/04/09 Simple repair nasal bridge laceration SLING OPER STRES INCONTINENCE 01/15/08 Midurethral sling, transobturator approach FAMILY HISTORY Problem Relation Age of Onset Osteoporosis Mother Heart Father - [place] Prostate Cancer Son Heart Brother Breast Cancer Maternal Aunt Social History Tobacco Use Smoking status: Never Smokeless tobacco: Never Vaping Use Vaping Use: Never used Substance Use Topics Alcohol use: Yes Comment: Occasionally Drug use: No Past medical history, appointments, medications, allergies reviewed. Pertinent Lab/Diagnostic Studies are reviewed and discussed today Current Outpatient Medications: lisinopril (ZESTRIL, PRINIVIL) 5 mg tablet alendronate (FOSAMAX) 70 mg tablet acyclovir (ZOVIRAX) 800 mg tablet atorvastatin (LIPITOR) 10 mg tablet levothyroxine (LEVOXYL) 25 mcg tablet atenolol (TENORMIN) 25 mg tablet amLODIPine (NORVASC) 5 mg tablet Calcium Citrate-Vitamin D3 630-400 mg-unit ORAL vit A,C,C-Seuw-Myrfak (PRESERVISION AREDS) 2,148 mcg-113 mg-45 mg-17.4mg tab MULTIVITAMIN TAB Review of Systems CONSTITUTIONAL: No fevers, chills night sweats, unintended weight loss CARDIOVASCULAR: No chest pain, dyspnea, palpitations, orthopnea, PND, ankle edema. PULM: No dyspnea, unexplained cough. GI: No dysphagia/odynophagia, problematic reflux, constipation, diarrhea, changes in stool habits, hematochezia, melena. : No new urinary complaints, including dysuria, gross hematuria or pyuria. NEURO: No new balance problems, peripheral weakness/paresthesias or numbness of concern. Physical Exam BP 134/82 Pulse (!) 52 Resp 14 Wt 52.2 kg (115 lb) SpO2 100% BMI 19.14 kg/m General appearance: Well appearing, alert, in no acute distress, well nourished. Skin: Skin color, texture, turgor normal, no suspicious rashes or lesions Head: Normocephalic, no masses, lesions, tenderness or abnormalities Eyes: Anicteric sclera. Pupils are equally round and reactive to light. Extraocular movements are intact. Lungs: Lungs clear to auscultation. No wheezing, rhonchi, rales Heart: RRR without murmur, gallop, or rubs. Extremities: No deformities, edema, skin discoloration, clubbing or cyanosis. Good capillary refill. ASSESSMENT/PLAN: 1. Essential hypertension - ICD9: 401.9, ICD10: I10 (primary diagnosis) - COMP METABOLIC PANEL - CBC + DIFF 2. Other hyperlipidemia - ICD9: 272.4, ICD10: E78.49 - LIPID PANEL BASIC 3. SVT (supraventricular tachycardia) (HCC) - ICD9: 427.89, ICD10: I47.1 4. Hypothyroidism, unspecified type - ICD9: 244.9, ICD10: E03.9 - TSH BLD 5. Elevated serum globulin level - ICD9: 790.99, ICD10: R77.1 - PROTEIN ELECTROPHORESIS SERUM W/INTERP Jesus Mg MD documented in this encounter [facility] 07-25-2022 History of Presen t illness Narrative Images from the original note were not included. [facility]IOLOGY Cardiology ([facility]) [address] [facility] [id number] OUTPATIENT VISIT DATE 07/25/2022 PRIMARY CARE PHYSICIAN: JESUS MG MD [address] [place] [address] HISTORY OF PRESENT ILLNESS: Ms. Farrar is a 87 year old woman with a history of SVT, hypertension and dyslipidemia who is here for routine follow-up. Since her last visit, she tells me she has been doing well. She has had no symptoms of chest pain or pressure. She denies heart racing or recurrent SVT. She has had no symptoms concerning for CHF including PND, orthopnea, or lower extremity edema. She reports home blood pressures have been stable with a systolic blood pressure between 120-140 mmHg. PAST MEDICAL HISTORY Diagnosis Date Arrhythmia Benign neoplasm of colon Esophageal reflux 10/05/2005 HYPERLIPIDEMIA NEC/NOS 10/05/2005 HYPERTENSION NOS 10/05/2005 Macular degeneration of both eyes 2020 MGUS (monoclonal gammopathy of unknown significance) OSTEOPOROSIS NOS 10/05/2005 PAST SURGICAL HISTORY Procedure Laterality Date COAPTITE INJECTION 1ML 12/05/[address] Luo COLONOSCOPY FLX DX W/COLLJ SPEC WHEN PFRMD Colonoscopy COLONOSCOPY FLX DX W/COLLJ SPEC WHEN PFRMD 03/05/15 Colonoscopy Repeat 02/2020 COLONOSCOPY FLX DX W/COLLJ SPEC WHEN PFRMD 01/29/2018 Colonoscopy COLONOSCOPY W/BIOPSY SINGLE/MULTIPLE 01/24/11 repeat in COLONOSCOPY W/BIOPSY SINGLE/MULTIPLE 03/01/2012 HYSTEROSCOPY BX W/WO D&C 01/14/14 Hysteroscopy D&C LIG/TRNSXJ FLP TUBE ABDL/VAG APPR UNI/BI 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 2017 spot taken off of back PAST SURGICAL HISTORY OF cataract SIMP REPAIR FACE,EAR,EYE <2.5CM 02/04/09 Simple repair nasal bridge laceration SLING OPER STRES INCONTINENCE 01/15/08 Midurethral sling, transobturator approach SOCIAL HISTORY Social History Tobacco Use Smoking status: Never Smokeless tobacco: Never Vaping Use Vaping Use: Never used Substance Use Topics Alcohol use: Yes Comment: Occasionally Drug use: No FAMILY HISTORY Problem Relation Age of Onset Osteoporosis Mother Heart Father - [place] Prostate Cancer Son Heart Brother Breast Cancer Maternal Aunt ALLERGIES: ALLERGIES Allergen Reactions Asa [Salicylates] THROMBOCYTOPENIA Risedronate Other: See Comments Jaw issues MEDICATIONS: lisinopril (ZESTRIL, PRINIVIL) 5 mg tablet Take 1 tablet by mouth once daily. alendronate (FOSAMAX) 70 mg tablet Take 1 tablet by mouth one time a week. Take with a full glass of water, on an empty stomach; do NOT lie down for 30minutes. acyclovir (ZOVIRAX) 800 mg tablet Take 1 tablet by mouth three times daily as needed (cold sores). atorvastatin (LIPITOR) 10 mg tablet TAKE 1/2 TABLET DAILY AT BEDTIME levothyroxine (LEVOXYL) 25 mcg tablet Take 1 tablet by mouth once daily. Take on empty stomach. For Thyroid atenolol (TENORMIN) 25 mg tablet Take 0.5 tablets by mouth once daily. amLODIPine (NORVASC) 5 mg tablet Take 1 tablet by mouth once daily. Calcium Citrate-Vitamin D3 630-400 mg-unit ORAL Take 1 tablet by mouth every other day. Takes daily vit A,C,U-Htqq-Duyzbz (PRESERVISION AREDS) 2,148 mcg-113 mg-45 mg-17.4mg tab Take by mouth once daily. MULTIVITAMIN TAB Take one(1) tablet every other day REVIEW OF SYSTEMS: Review of Systems Constitutional: Negative for chills, fever, malaise/fatigue and weight loss. HENT: Negative for hearing loss and sore throat. Eyes: Negative for blurred vision and double vision. Respiratory: Negative. Cardiovascular: Negative. Gastrointestinal: Negative. Genitourinary: Negative for dysuria, frequency, hematuria and urgency. Musculoskeletal: Negative. Skin: Negative. Neurological: Negative for dizziness, seizures, loss of consciousness, weakness and headaches. Endo/Heme/Allergies: Negative for environmental allergies. Does not bruise/bleed easily. Psychiatric/Behavioral: Negative for depression. PHYSICAL EXAMINATION: BP 116/64 (BP Site: Right Arm, BP Position: Sitting, BP Cuff Size: Regular Adult) Pulse (!) 56 Resp 14 Ht 165.1 cm (5' 5") Wt 52.6 kg (116 lb) BMI 19.30 kg/m General: Thin elderly woman sitting comfortable no apparent distress. She is alert and oriented x3 HEENT: Carotid upstrokes are brisk without bruits no JVD appreciated. No cervical lymphadenopathy. Pulmonary: Lungs are clear no rales wheezes rhonchi Cardiovascular: Normal S1-S2 no murmurs rubs or gallops appreciated Extremities: Warm well perfused no cyanosis clubbing or edema 2+ radial artery pulses 1-2+ dorsalis pedis and posterior tibial pulses. CARDIOVASCULAR MEDICINE TESTING: ECG in the office 12/27/2021: Normal sinus rhythm with normal axis and intervals no significant ST or T wave changes. Treadmill Myoview stress test 07/18/2017: CONCLUSIONS: 1. SPECT Perfusion Study: Normal. 2. There is no scintigraphic evidence for inducible ischemia. 3. No evidence of scarred myocardium. 4. Good functional capacity for age and gender. 5. Left ventricle is small. The left ventricle systolic function is hyperdynamic. 6. Right ventricle is normal in size. The right ventricle systolic function is normal. 7. This is a low risk scan. Gated Stress FBP LVEF % 88 IMPRESSION: Ms. Farrar is a 87 year old woman with an isolated episode of SVT during a stress test, hypertension and dyslipidemia who is here for routine follow up. PLAN AND RECOMMENDATIONS: 1. SVT (supraventricular tachycardia) (HCC) - ICD9: 427.89, ICD10: I47.1 (primary diagnosis) Remains asymptomatic. Continue current medical regimen. 2. Essential hypertension - ICD9: 401.9, ICD10: I10 Well-controlled on current regimen. 3. Other hyperlipidemia - ICD9: 272.4, ICD10: E78.49 Maintained time Lipitor 10 mg daily. She will need repeat fasting blood work. She tells me she has a follow-up appointment for yearly physical with her primary care physician next week. 4. Raynaud's disease without gangrene - ICD9: 443.0, ICD10: I73.00 Rancho Michaud MD documented in this encounter [facility] 07-22-2022 Miscellaneous Notes Patient has been identified by name and date of : Yes Patient phones for refill(s): Requested Prescriptions Pending Prescriptions Disp Refills lisinopril (ZESTRIL, PRINIVIL) 5 mg tablet 90 tablet 3 Sig: Take 1 tablet by mouth once daily. Date of last office visit in primary care: 01/24/2022 Last 2 Encounter Wt Readings: Date: Wt: 06/28/2022 51.7 kg (114 lb) 01/24/2022 51.7 kg (114 lb) Previous labs/tests for medication: Blood Pressure: BUN (mg/dL) Date Value 01/25/2022 16 07/22/2021 17 Sodium (mmol/L) Date Value 01/25/2022 140 07/22/2021 142 Last 1 Encounter BP Readings: Date: BP: 06/28/2022 120/72 Please advise. Thank you. Kathy Turner LPN documented in this encounter [facility] 07-04-2022 Miscellaneous Notes Patient has been identified by name and date of : Yes Patient phones for refill(s): Requested Prescriptions Pending Prescriptions Disp Refills alendronate (FOSAMAX) 70 mg tablet 12 tablet 1 Sig: Take 1 tablet by mouth one time a week. Take with a full glass of water, on an empty stomach; do NOT lie down for 30minutes. Date of last office visit in primary care: 01/24/22 Last 2 Encounter Wt Readings: Date: Wt: 06/28/2022 51.7 kg (114 lb) 01/24/2022 51.7 kg (114 lb) Previous labs/tests for medication: Not applicable Please advise. Thank you. Kathy Turner LPN documented in this encounter [facility] 06-28-2022 Miscellaneous Notes ordered Please file orders. Stephanie Fernandez RN ----- Message from Antoinette Gomez MD sent at 06/28/2022 1:13 PM EDT ----- Needs additional images of right breast. documented in this encounter [facility] 06-28-2022 Miscellaneous Notes June 28, 2022 PID: [id number] Tawana Farrar [address] [place] [id number] Dear Ms. Farrar, Your recent breast imaging exam on 06/28/2022 showed a possible finding that requires additional imaging studies for a complete evaluation. Most such findings are probably benign (not cancer). If you have a healthcare provider who ordered/prescribed your screening mammogram: Please call [phone] or [phone]: [phone] to schedule an appointment for your additional imaging (if you have not already done so). If you DO NOT have a healthcare provider (ie you did not have an order/prescription for your screening mammogram): Please call to schedule an appointment for your additional imaging (if you have not already done so). You must have an order/prescription from your physician when calling to schedule your appointment. If your order/prescription is not electronic, you must bring the hard copy with you on the day of your exam to avoid delays. Your imaging studies and reports are kept on file at [facility] as part of your permanent medical record, and are available for your continuing care. Thank you for allowing us to help in meeting your health care needs. Sincerely, Dr. Lozada Interpreting Radiologist [facility] (Additional imaging) documented in this encounter [facility] 06-28-2022 History of Presen t illness Narrative Tawana is a 87 year old who presents for an annual gynecologic exam without complaints. Reports noticed more leaking urine over last 4 weeks- only uses maybe two liners per day. Denies dysuria or foul urine odor. She reports as "constant dribbling" with increased frequency Postmenopausal: Yes HRT use: No. 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 Insurance Collector History Comments: Sexual Activity: Yes; Male Contraception: Tubal Ligation PAST MEDICAL HISTORY Diagnosis Date Arrhythmia Benign neoplasm of colon Esophageal reflux 10/05/2005 HYPERLIPIDEMIA NEC/NOS 10/05/2005 HYPERTENSION NOS 10/05/2005 Macular degeneration of both eyes 2020 MGUS (monoclonal gammopathy of unknown significance) OSTEOPOROSIS NOS 10/05/2005 PAST SURGICAL HISTORY Procedure Laterality Date COAPTITE INJECTION 1ML 12/05/[address] Luo COLONOSCOPY FLX DX W/COLLJ SPEC WHEN PFRMD Colonoscopy COLONOSCOPY FLX DX W/COLLJ SPEC WHEN PFRMD 03/05/15 Colonoscopy Repeat 02/2020 COLONOSCOPY FLX DX W/COLLJ SPEC WHEN PFRMD 01/29/2018 Colonoscopy COLONOSCOPY W/BIOPSY SINGLE/MULTIPLE 01/24/11 repeat in COLONOSCOPY W/BIOPSY SINGLE/MULTIPLE 03/01/2012 HYSTEROSCOPY BX W/WO D&C 01/14/14 Hysteroscopy D&C LIG/TRNSXJ FLP TUBE ABDL/VAG APPR UNI/BI 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 2018 spot taken off of back PAST SURGICAL HISTORY OF cataract SIMP REPAIR FACE,EAR,EYE <2.5CM 02/04/09 Simple repair nasal bridge laceration SLING OPER STRES INCONTINENCE 01/15/08 Midurethral sling, transobturator approach FAMILY HISTORY Problem Relation Age of Onset Osteoporosis Mother Heart Father - [place] Prostate Cancer Son Heart Brother Breast Cancer Maternal Aunt SOCIAL HISTORY Social History Tobacco Use Smoking status: Never Smokeless tobacco: Never Vaping Use Vaping Use: Never used Substance Use Topics Alcohol use: Yes Comment: Occasionally Drug use: No REVIEW OF SYSTEMS Abdomen: No abdominal pain, nausea, vomiting, diarrhea, or constipation. No bloating, early satiety, indigestion, or increased flatulence. Sometimes has constipation Bladder: see HPI Breast: No breast lumps, nipple d/c, overlying skin changes, redness or skin retraction Allergies and current medication updated:Yes EXAM: BP 120/72 Wt 114 lb (51.7kg) GENERAL: pleasant, female in no apparent distress HEENT: Normocephalic, atraumatic, mucus membranes moist, and no lesions NECK: Supple, full range of motion, no adenopathy, and thyroid normal DERMATOLOGY: Normal, without lesions, non-icteric, and non-hirsute BREAST: soft, non-tender, symmetric, no dominant mass, normal nipple-areolar complex, no lymphadenopathy, and no nipple discharge ABDOMEN: soft, non-tender, and no masses PELVIC: external genitalia normal, normal Bartholin's glands, urethra, [place]'s glands, no vulvar lesions, no cervical lesions, good vaginal support, physiologic discharge present, normal appearing perineal body and perianal region BIMANUAL: uterus normal size, shape and consistency, no adnexal masses, and non-tender RECTOVAGINAL: deferred. NEURO: alert and oriented x3,exam grossly non-focal EXTREMITIES: normal ASSESSMENT/PLAN: 1) Health maintenance: Pap/HPV screening no longer needed Mammogram ordered Mammogram up to date Nutrition, exercise and routine health maintenance exams reviewed. Calcium/Vitamin D supplementation information provided. Colon cancer screening: up to date with screening BMD: up to date 2) Follow up one year or sooner as needed 3) urine dip today to r/o UTI. Consider Rajan also offered uro braze operator for urodynamics. Lifestyle modifications reviewed. Antoinette Barbosa MD Morale Officer offered: Patient declines. documented in this encounter [facility] 03-30-2022 Miscellaneous Notes Pharmacy electronically sent a request for the following prescription(s) Pending Prescriptions Disp Refills ATORVASTATIN 10 MG TABLET 45 tablet 3 Sig: TAKE 1/2 TABLET DAILY AT BEDTIME LUKE: Yes Patient aware RX will be sent to pharmacy. No need to notify patient. Last Office Visit: 01/24/2022 Next Office Visit: 07/27/2022 Please review. Florinda Jimenez documented in this encounter [facility] 03-17-2022 Miscellaneous Notes Patient notified of results.Patient verbalizes understanding. Elly Nina RN Left message for return call. ----- Message from Jesus Mg MD sent at 03/17/2022 2:38 PM EDT ----- Tsh is normal right now, I hope you are feeling better. Regards, Jesus Mg MD documented in this encounter [facility] 01-24-2022 History of Presen t illness Narrative Radiology Service Progress Note PATIENT NAME: aTwana Farrar DATE OF SERVICE: January 24, 2022 TIME: 10:29 AM PATIENT IDENTITY VERIFICATION COMPLETED USING TWO (2) IDENTIFIERS: Name and Date of confirmed by patient verbally. FALL SCREENING: Has the patient had 2 falls in the last year or 1 fall with injury or currently using an Ambulatory Assistive Device (Walker, Cane, Wheelchair, Crutches, etc.)? No PATIENT GENDER DATA: Female. status: : No status: NO. PATIENT RELEVANT IMPLANT DATA REVIEWED: Not Applicable RADIOLOGY DEPARTMENT: General X-ray: Exam(s) Completed: Pelvis X-Ray: Pelvis with Hip Left PERIPHERAL IV DATA: Not applicable SIGNED BY: RT Brandie(R) January 24, 2022 10:29 AM documented in this encounter [facility] 04-09-2019 History of Past i llness Narrative Problem Noted Date Resolved Date Osteopenia 04/09/2019 01/14/2021 Encounter for screening colonoscopy 03/05/2015 03/05/2015 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 10/01/2015 Seborrheic Keratoses 12/06/2013 10/01/2015 Personal history of other malignant neoplasm of skin 12/06/2013 10/01/2015 Scars 12/06/2013 10/01/2015 Viral warts, unspecified 05/29/2012 015 Solar Lentigines 05/29/2012 10/01/2015 Actinic skin damage 05/29/2012 10/01/2015 Hemangioma 05/29/2012 10/01/2015 [place] angiomas 05/29/2012 10/01/2015 Special screening for malignant neoplasms, colon 01/24/2011 10/01/2015 Lumbago 10/01/2010 10/10/2016 Chest pain 04/07/2010 08/23/2010 LACERATION -NOT COMPLICATED NOSE 02/04/2009 12/24/2012 HYPERGLYCEMIA 12/15/2008 10/10/2016 Last Assessment & Plan: Good control of sugars in June 2010. 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 12/06/2013 Scar condition and fibrosis of skin 05/14/2007 12/06/2013 H/O BCC'S///PERS HX SKIN MALIGNANCY NEC 05/14/20 07 12/24/2012 SOLAR LENGINES///DYSCHROMIA OTHER 05/14/2007 12/24/2012 Open wound(s) (multiple) of unspecified site(s), without mention of complication 01/31/2007 08/23/2010 BCC///MALIG NEOPLASM SKIN FACE NEC 01/11/2007 12/24/2012 Inflamed seborrheic keratosis 01/04/2007 Neoplasm of uncertain behavior of skin 7 12/24/2012 Other seborrheic keratosis 11/29/200612/06 SEBACEOUS HYPERPLASIA///SEBACEOUS GLAND DIS NOS 11/29/2006 12/24/2012 Benign neoplasm of skin of o ther and unspecified parts of face 11/29/2006 12/06/2013 [place] ANGIOMA///NEVUS, NON-NEOPLASTIC 7 12/06/2013 Other chronic 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 11/29/2006 12/06/2013 documented as of this encounter (statuses as of 03/17/2022) [facility] History of Past illness Narrative* Problem Noted Date Resolved Date Osteopenia 04/09/2019 01/14/2021 Encounter for screening colonoscopy 03/05/2015 03/05/2015 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 10/01/2015 Seborrheic Keratoses 12/06/2013 10/01/2015 Personal history of other malignant neoplasm of skin 12/06/2013 10/01/2015 Scars 12/06/2013 10/01/2015 Viral warts, unspecified 05/29/2012 015 Solar Lentigines 05/29/2012 10/01/2015 Actinic skin damage 05/29/2012 10/01/2015 Hemangioma 05/29/2012 10/01/2015 [place] angiomas 05/29/2012 10/01/2015 Special screening for malignant neoplasms, colon 01/24/2011 10/01/2015 Lumbago 10/01/2010 10/10/2016 Chest pain 04/07/2010 08/23/2010 LACERATION -NOT COMPLICATED NOSE 02/04/2009 12/24/2012 HYPERGLYCEMIA 12/15/2008 10/10/2016 Last Assessment & Plan: Good control of sugars in June 2010. 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 12/06/2013 Scar condition and fibrosis of skin 05/14/2007 12/06/2013 H/O BCC'S///PERS HX SKIN MALIGNANCY NEC 05/14/20 07 12/24/2012 SOLAR LENGINES///DYSCHROMIA OTHER 05/14/2007 12/24/2012 Open wound(s) (multiple) of unspecified site(s), without mention of complication 01/31/2007 08/23/2010 BCC///MALIG NEOPLASM SKIN FACE NEC 01/11/2007 12/24/2012 Inflamed seborrheic keratosis 01/04/2007 Neoplasm of uncertain behavior of skin 7 12/24/2012 Other seborrheic keratosis 11/29/200612/06 SEBACEOUS HYPERPLASIA///SEBACEOUS GLAND DIS NOS 11/29/2006 12/24/2012 Benign neoplasm of skin of o ther and unspecified parts of face 11/29/2006 12/06/2013 [place] ANGIOMA///NEVUS, NON-NEOPLASTIC 7 12/06/2013 Other chronic 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 11/29/2006 12/06/2013 documented as of this encounter (statuses as of 03/30/2022) [facility] History of Past illness Narrative* Problem Noted Date Resolved Date Osteopenia 04/09/2019 01/14/2021 Encounter for screening colonoscopy 03/05/2015 03/05/2015 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 10/01/2015 Seborrheic Keratoses 12/06/2013 10/01/2015 Personal history of other malignant neoplasm of skin 12/06/2013 10/01/2015 Scars 12/06/2013 10/01/2015 Viral warts, unspecified 05/29/2012 015 Solar Lentigines 05/29/2012 10/01/2015 Actinic skin damage 05/29/2012 10/01/2015 Hemangioma 05/29/2012 10/01/2015 [place] angiomas 05/29/2012 10/01/2015 Special screening for malignant neoplasms, colon 01/24/2011 10/01/2015 Lumbago 10/01/2010 10/10/2016 Chest pain 04/07/2010 08/23/2010 LACERATION -NOT COMPLICATED NOSE 02/04/2009 12/24/2012 HYPERGLYCEMIA 12/15/2008 10/10/2016 Last Assessment & Plan: Good control of sugars in June 2010. 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 12/06/2013 Scar condition and fibrosis of skin 05/14/2007 12/06/2013 H/O BCC'S///PERS HX SKIN MALIGNANCY NEC 05/14/20 07 12/24/2012 SOLAR LENGINES///DYSCHROMIA OTHER 05/14/2007 12/24/2012 Open wound(s) (multiple) of unspecified site(s), without mention of complication 01/31/2007 08/23/2010 BCC///MALIG NEOPLASM SKIN FACE NEC 01/11/2007 12/24/2012 Inflamed seborrheic keratosis 01/04/2007 Neoplasm of uncertain behavior of skin 7 12/24/2012 Other seborrheic keratosis 11/29/200612/06 SEBACEOUS HYPERPLASIA///SEBACEOUS GLAND DIS NOS 11/29/2006 12/24/2012 Benign neoplasm of skin of o ther and unspecified parts of face 11/29/2006 12/06/2013 [place] ANGIOMA///NEVUS, NON-NEOPLASTIC 7 12/06/2013 Other chronic 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 11/29/2006 12/06/2013 documented as of this encounter (statuses as of 05/23/2022) [facility] History of Past illness Narrative* Problem Noted Date Resolved Date Osteopenia 04/09/2019 01/14/2021 Encounter for screening colonoscopy 03/05/2015 03/05/2015 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 10/01/2015 Seborrheic Keratoses 12/06/2013 10/01/2015 Personal history of other malignant neoplasm of skin 12/06/2013 10/01/2015 Scars 12/06/2013 10/01/2015 Viral warts, unspecified 05/29/2012 015 Solar Lentigines 05/29/2012 10/01/2015 Actinic skin damage 05/29/2012 10/01/2015 Hemangioma 05/29/2012 10/01/2015 [place] angiomas 05/29/2012 10/01/2015 Special screening for malignant neoplasms, colon 01/24/2011 10/01/2015 Lumbago 10/01/2010 10/10/2016 Chest pain 04/07/2010 08/23/2010 LACERATION -NOT COMPLICATED NOSE 02/04/2009 12/24/2012 HYPERGLYCEMIA 12/15/2008 10/10/2016 Last Assessment & Plan: Good control of sugars in June 2010. 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 12/06/2013 Scar condition and fibrosis of skin 05/14/2007 12/06/2013 H/O BCC'S///PERS HX SKIN MALIGNANCY NEC 05/14/20 07 12/24/2012 SOLAR LENGINES///DYSCHROMIA OTHER 05/14/2007 12/24/2012 Open wound(s) (multiple) of unspecified site(s), without mention of complication 01/31/2007 08/23/2010 BCC///MALIG NEOPLASM SKIN FACE NEC 01/11/2007 12/24/2012 Inflamed seborrheic keratosis 01/04/2007 Neoplasm of uncertain behavior of skin 7 12/24/2012 Other seborrheic keratosis 11/29/200612/06 SEBACEOUS HYPERPLASIA///SEBACEOUS GLAND DIS NOS 11/29/2006 12/24/2012 Benign neoplasm of skin of o ther and unspecified parts of face 11/29/2006 12/06/2013 [place] ANGIOMA///NEVUS, NON-NEOPLASTIC 7 12/06/2013 Other chronic 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 11/29/2006 12/06/2013 documented as of this encounter (statuses as of 06/28/2022) [facility] History of Past illness Narrative* Problem Noted Date Resolved Date Osteopenia 04/09/2019 01/14/2021 Encounter for screening colonoscopy 03/05/2015 03/05/2015 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 10/01/2015 Seborrheic Keratoses 12/06/2013 10/01/2015 Personal history of other malignant neoplasm of skin 12/06/2013 10/01/2015 Scars 12/06/2013 10/01/2015 Viral warts, unspecified 05/29/2012 015 Solar Lentigines 05/29/2012 10/01/2015 Actinic skin damage 05/29/2012 10/01/2015 Hemangioma 05/29/2012 10/01/2015 [place] angiomas 05/29/2012 10/01/2015 Special screening for malignant neoplasms, colon 01/24/2011 10/01/2015 Lumbago 10/01/2010 10/10/2016 Chest pain 04/07/2010 08/23/2010 LACERATION -NOT COMPLICATED NOSE 02/04/2009 12/24/2012 HYPERGLYCEMIA 12/15/2008 10/10/2016 Last Assessment & Plan: Good control of sugars in June 2010. 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 12/06/2013 Scar condition and fibrosis of skin 05/14/2007 12/06/2013 H/O BCC'S///PERS HX SKIN MALIGNANCY NEC 05/14/20 07 12/24/2012 SOLAR LENGINES///DYSCHROMIA OTHER 05/14/2007 12/24/2012 Open wound(s) (multiple) of unspecified site(s), without mention of complication 01/31/2007 08/23/2010 BCC///MALIG NEOPLASM SKIN FACE NEC 01/11/2007 12/24/2012 Inflamed seborrheic keratosis 01/04/2007 Neoplasm of uncertain behavior of skin 7 12/24/2012 Other seborrheic keratosis 11/29/200612/06 SEBACEOUS HYPERPLASIA///SEBACEOUS GLAND DIS NOS 11/29/2006 12/24/2012 Benign neoplasm of skin of o ther and unspecified parts of face 11/29/2006 12/06/2013 [place] ANGIOMA///NEVUS, NON-NEOPLASTIC 7 12/06/2013 Other chronic 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 11/29/2006 12/06/2013 documented as of this encounter (statuses as of 06/28/2022) [facility] History of Past illness Narrative* Problem Noted Date Resolved Date Osteopenia 04/09/2019 01/14/2021 Encounter for screening colonoscopy 03/05/2015 03/05/2015 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 10/01/2015 Seborrheic Keratoses 12/06/2013 10/01/2015 Personal history of other malignant neoplasm of skin 12/06/2013 10/01/2015 Scars 12/06/2013 10/01/2015 Viral warts, unspecified 05/29/2012 015 Solar Lentigines 05/29/2012 10/01/2015 Actinic skin damage 05/29/2012 10/01/2015 Hemangioma 05/29/2012 10/01/2015 [place] angiomas 05/29/2012 10/01/2015 Special screening for malignant neoplasms, colon 01/24/2011 10/01/2015 Lumbago 10/01/2010 10/10/2016 Chest pain 04/07/2010 08/23/2010 LACERATION -NOT COMPLICATED NOSE 02/04/2009 12/24/2012 HYPERGLYCEMIA 12/15/2008 10/10/2016 Last Assessment & Plan: Good control of sugars in June 2010. 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 12/06/2013 Scar condition and fibrosis of skin 05/14/2007 12/06/2013 H/O BCC'S///PERS HX SKIN MALIGNANCY NEC 05/14/20 07 12/24/2012 SOLAR LENGINES///DYSCHROMIA OTHER 05/14/2007 12/24/2012 Open wound(s) (multiple) of unspecified site(s), without mention of complication 01/31/2007 08/23/2010 BCC///MALIG NEOPLASM SKIN FACE NEC 01/11/2007 12/24/2012 Inflamed seborrheic keratosis 01/04/2007 Neoplasm of uncertain behavior of skin 7 12/24/2012 Other seborrheic keratosis 11/29/200612/06 SEBACEOUS HYPERPLASIA///SEBACEOUS GLAND DIS NOS 11/29/2006 12/24/2012 Benign neoplasm of skin of o ther and unspecified parts of face 11/29/2006 12/06/2013 [place] ANGIOMA///NEVUS, NON-NEOPLASTIC 7 12/06/2013 Other chronic 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 11/29/2006 12/06/2013 documented as of this encounter (statuses as of 06/30/2022) [facility] History of Past illness Narrative* Problem Noted Date Resolved Date Osteopenia 04/09/2019 01/14/2021 Encounter for screening colonoscopy 03/05/2015 03/05/2015 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 10/01/2015 Seborrheic Keratoses 12/06/2013 10/01/2015 Personal history of other malignant neoplasm of skin 12/06/2013 10/01/2015 Scars 12/06/2013 10/01/2015 Viral warts, unspecified 05/29/2012 015 Solar Lentigines 05/29/2012 10/01/2015 Actinic skin damage 05/29/2012 10/01/2015 Hemangioma 05/29/2012 10/01/2015 [place] angiomas 05/29/2012 10/01/2015 Special screening for malignant neoplasms, colon 01/24/2011 10/01/2015 Lumbago 10/01/2010 10/10/2016 Chest pain 04/07/2010 08/23/2010 LACERATION -NOT COMPLICATED NOSE 02/04/2009 12/24/2012 HYPERGLYCEMIA 12/15/2008 10/10/2016 Last Assessment & Plan: Good control of sugars in June 2010. 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 12/06/2013 Scar condition and fibrosis of skin 05/14/2007 12/06/2013 H/O BCC'S///PERS HX SKIN MALIGNANCY NEC 05/14/20 07 12/24/2012 SOLAR LENGINES///DYSCHROMIA OTHER 05/14/2007 12/24/2012 Open wound(s) (multiple) of unspecified site(s), without mention of complication 01/31/2007 08/23/2010 BCC///MALIG NEOPLASM SKIN FACE NEC 01/11/2007 12/24/2012 Inflamed seborrheic keratosis 01/04/2007 Neoplasm of uncertain behavior of skin 7 12/24/2012 Other seborrheic keratosis 11/29/200612/06 SEBACEOUS HYPERPLASIA///SEBACEOUS GLAND DIS NOS 11/29/2006 12/24/2012 Benign neoplasm of skin of o ther and unspecified parts of face 11/29/2006 12/06/2013 [place] ANGIOMA///NEVUS, NON-NEOPLASTIC 7 12/06/2013 Other chronic 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 11/29/2006 12/06/2013 documented as of this encounter (statuses as of 07/06/2022) [facility] History of Past illness Narrative* Problem Noted Date Resolved Date Osteopenia 04/09/2019 01/14/2021 Encounter for screening colonoscopy 03/05/2015 03/05/2015 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 10/01/2015 Seborrheic Keratoses 12/06/2013 10/01/2015 Personal history of other malignant neoplasm of skin 12/06/2013 10/01/2015 Scars 12/06/2013 10/01/2015 Viral warts, unspecified 05/29/2012 015 Solar Lentigines 05/29/2012 10/01/2015 Actinic skin damage 05/29/2012 10/01/2015 Hemangioma 05/29/2012 10/01/2015 [place] angiomas 05/29/2012 10/01/2015 Special screening for malignant neoplasms, colon 01/24/2011 10/01/2015 Lumbago 10/01/2010 10/10/2016 Chest pain 04/07/2010 08/23/2010 LACERATION -NOT COMPLICATED NOSE 02/04/2009 12/24/2012 HYPERGLYCEMIA 12/15/2008 10/10/2016 Last Assessment & Plan: Good control of sugars in June 2010. 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 12/06/2013 Scar condition and fibrosis of skin 05/14/2007 12/06/2013 H/O BCC'S///PERS HX SKIN MALIGNANCY NEC 05/14/20 07 12/24/2012 SOLAR LENGINES///DYSCHROMIA OTHER 05/14/2007 12/24/2012 Open wound(s) (multiple) of unspecified site(s), without mention of complication 01/31/2007 08/23/2010 BCC///MALIG NEOPLASM SKIN FACE NEC 01/11/2007 12/24/2012 Inflamed seborrheic keratosis 01/04/2007 Neoplasm of uncertain behavior of skin 7 12/24/2012 Other seborrheic keratosis 11/29/200612/06 SEBACEOUS HYPERPLASIA///SEBACEOUS GLAND DIS NOS 11/29/2006 12/24/2012 Benign neoplasm of skin of o ther and unspecified parts of face 11/29/2006 12/06/2013 [place] ANGIOMA///NEVUS, NON-NEOPLASTIC 7 12/06/2013 Other chronic 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 11/29/2006 12/06/2013 documented as of this encounter (statuses as of 07/22/2022) [facility] History of Past illness Narrative* Problem Noted Date Resolved Date Osteopenia 04/09/2019 01/14/2021 Encounter for screening colonoscopy 03/05/2015 03/05/2015 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 10/01/2015 Seborrheic Keratoses 12/06/2013 10/01/2015 Personal history of other malignant neoplasm of skin 12/06/2013 10/01/2015 Scars 12/06/2013 10/01/2015 Viral warts, unspecified 05/29/2012 015 Solar Lentigines 05/29/2012 10/01/2015 Actinic skin damage 05/29/2012 10/01/2015 Hemangioma 05/29/2012 10/01/2015 [place] angiomas 05/29/2012 10/01/2015 Special screening for malignant neoplasms, colon 01/24/2011 10/01/2015 Lumbago 10/01/2010 10/10/2016 Chest pain 04/07/2010 08/23/2010 LACERATION -NOT COMPLICATED NOSE 02/04/2009 12/24/2012 HYPERGLYCEMIA 12/15/2008 10/10/2016 Last Assessment & Plan: Good control of sugars in June 2010. 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 12/06/2013 Scar condition and fibrosis of skin 05/14/2007 12/06/2013 H/O BCC'S///PERS HX SKIN MALIGNANCY NEC 05/14/20 07 12/24/2012 SOLAR LENGINES///DYSCHROMIA OTHER 05/14/2007 12/24/2012 Open wound(s) (multiple) of unspecified site(s), without mention of complication 01/31/2007 08/23/2010 BCC///MALIG NEOPLASM SKIN FACE NEC 01/11/2007 12/24/2012 Inflamed seborrheic keratosis 01/04/2007 Neoplasm of uncertain behavior of skin 7 12/24/2012 Other seborrheic keratosis 11/29/200612/06 SEBACEOUS HYPERPLASIA///SEBACEOUS GLAND DIS NOS 11/29/2006 12/24/2012 Benign neoplasm of skin of o ther and unspecified parts of face 11/29/2006 12/06/2013 [place] ANGIOMA///NEVUS, NON-NEOPLASTIC 7 12/06/2013 Other chronic 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 11/29/2006 12/06/2013 documented as of this encounter (statuses as of 07/25/2022) [facility] History of Past illness Narrative* Problem Noted Date Resolved Date Osteopenia 04/09/2019 01/14/2021 Encounter for screening colonoscopy 03/05/2015 03/05/2015 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 10/01/2015 Seborrheic Keratoses 12/06/2013 10/01/2015 Personal history of other malignant neoplasm of skin 12/06/2013 10/01/2015 Scars 12/06/2013 10/01/2015 Viral warts, unspecified 05/29/2012 015 Solar Lentigines 05/29/2012 10/01/2015 Actinic skin damage 05/29/2012 10/01/2015 Hemangioma 05/29/2012 10/01/2015 [place] angiomas 05/29/2012 10/01/2015 Special screening for malignant neoplasms, colon 01/24/2011 10/01/2015 Lumbago 10/01/2010 10/10/2016 Chest pain 04/07/2010 08/23/2010 LACERATION -NOT COMPLICATED NOSE 02/04/2009 12/24/2012 HYPERGLYCEMIA 12/15/2008 10/10/2016 Last Assessment & Plan: Good control of sugars in June 2010. 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 12/06/2013 Scar condition and fibrosis of skin 05/14/2007 12/06/2013 H/O BCC'S///PERS HX SKIN MALIGNANCY NEC 05/14/20 07 12/24/2012 SOLAR LENGINES///DYSCHROMIA OTHER 05/14/2007 12/24/2012 Open wound(s) (multiple) of unspecified site(s), without mention of complication 01/31/2007 08/23/2010 BCC///MALIG NEOPLASM SKIN FACE NEC 01/11/2007 12/24/2012 Inflamed seborrheic keratosis 01/04/2007 Neoplasm of uncertain behavior of skin 7 12/24/2012 Other seborrheic keratosis 11/29/200612/06 SEBACEOUS HYPERPLASIA///SEBACEOUS GLAND DIS NOS 11/29/2006 12/24/2012 Benign neoplasm of skin of o ther and unspecified parts of face 11/29/2006 12/06/2013 [place] ANGIOMA///NEVUS, NON-NEOPLASTIC 7 12/06/2013 Other chronic 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 11/29/2006 12/06/2013 documented as of this encounter (statuses as of 07/27/2022) [facility] History of Past illness Narrative* Problem Noted Date Resolved Date Osteopenia 04/09/2019 01/14/2021 Encounter for screening colonoscopy 03/05/2015 03/05/2015 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 10/01/2015 Seborrheic Keratoses 12/06/2013 10/01/2015 Personal history of other malignant neoplasm of skin 12/06/2013 10/01/2015 Scars 12/06/2013 10/01/2015 Viral warts, unspecified 05/29/2012 015 Solar Lentigines 05/29/2012 10/01/2015 Actinic skin damage 05/29/2012 10/01/2015 Hemangioma 05/29/2012 10/01/2015 [place] angiomas 05/29/2012 10/01/2015 Special screening for malignant neoplasms, colon 01/24/2011 10/01/2015 Lumbago 10/01/2010 10/10/2016 Chest pain 04/07/2010 08/23/2010 LACERATION -NOT COMPLICATED NOSE 02/04/2009 12/24/2012 HYPERGLYCEMIA 12/15/2008 10/10/2016 Last Assessment & Plan: Good control of sugars in June 2010. 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 12/06/2013 Scar condition and fibrosis of skin 05/14/2007 12/06/2013 H/O BCC'S///PERS HX SKIN MALIGNANCY NEC 05/14/20 07 12/24/2012 SOLAR LENGINES///DYSCHROMIA OTHER 05/14/2007 12/24/2012 Open wound(s) (multiple) of unspecified site(s), without mention of complication 01/31/2007 08/23/2010 BCC///MALIG NEOPLASM SKIN FACE NEC 01/11/2007 12/24/2012 Inflamed seborrheic keratosis 01/04/2007 Neoplasm of uncertain behavior of skin 7 12/24/2012 Other seborrheic keratosis 11/29/200612/06 SEBACEOUS HYPERPLASIA///SEBACEOUS GLAND DIS NOS 11/29/2006 12/24/2012 Benign neoplasm of skin of o ther and unspecified parts of face 11/29/2006 12/06/2013 [place] ANGIOMA///NEVUS, NON-NEOPLASTIC 7 12/06/2013 Other chronic 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 11/29/2006 12/06/2013 documented as of this encounter (statuses as of 07/27/2022) [facility] History of Past illness Narrative* Problem Noted Date Resolved Date Osteopenia 04/09/2019 01/14/2021 Encounter for screening colonoscopy 03/05/2015 03/05/2015 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 10/01/2015 Seborrheic Keratoses 12/06/2013 10/01/2015 Personal history of other malignant neoplasm of skin 12/06/2013 10/01/2015 Scars 12/06/2013 10/01/2015 Viral warts, unspecified 05/29/2012 015 Solar Lentigines 05/29/2012 10/01/2015 Actinic skin damage 05/29/2012 10/01/2015 Hemangioma 05/29/2012 10/01/2015 [place] angiomas 05/29/2012 10/01/2015 Special screening for malignant neoplasms, colon 01/24/2011 10/01/2015 Lumbago 10/01/2010 10/10/2016 Chest pain 04/07/2010 08/23/2010 LACERATION -NOT COMPLICATED NOSE 02/04/2009 12/24/2012 HYPERGLYCEMIA 12/15/2008 10/10/2016 Last Assessment & Plan: Good control of sugars in June 2010. 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 12/06/2013 Scar condition and fibrosis of skin 05/14/2007 12/06/2013 H/O BCC'S///PERS HX SKIN MALIGNANCY NEC 05/14/20 07 12/24/2012 SOLAR LENGINES///DYSCHROMIA OTHER 05/14/2007 12/24/2012 Open wound(s) (multiple) of unspecified site(s), without mention of complication 01/31/2007 08/23/2010 BCC///MALIG NEOPLASM SKIN FACE NEC 01/11/2007 12/24/2012 Inflamed seborrheic keratosis 01/04/2007 Neoplasm of uncertain behavior of skin 7 12/24/2012 Other seborrheic keratosis 11/29/200612/06 SEBACEOUS HYPERPLASIA///SEBACEOUS GLAND DIS NOS 11/29/2006 12/24/2012 Benign neoplasm of skin of o ther and unspecified parts of face 11/29/2006 12/06/2013 [place] ANGIOMA///NEVUS, NON-NEOPLASTIC 7 12/06/2013 Other chronic 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 11/29/2006 12/06/2013 documented as of this encounter (statuses as of 07/28/2022) [facility] History of Past illness Narrative* Problem Noted Date Resolved Date Osteopenia 04/09/2019 01/14/2021 Encounter for screening colonoscopy 03/05/2015 03/05/2015 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 10/01/2015 Seborrheic Keratoses 12/06/2013 10/01/2015 Personal history of other malignant neoplasm of skin 12/06/2013 10/01/2015 Scars 12/06/2013 10/01/2015 Viral warts, unspecified 05/29/2012 015 Solar Lentigines 05/29/2012 10/01/2015 Actinic skin damage 05/29/2012 10/01/2015 Hemangioma 05/29/2012 10/01/2015 [place] angiomas 05/29/2012 10/01/2015 Special screening for malignant neoplasms, colon 01/24/2011 10/01/2015 Lumbago 10/01/2010 10/10/2016 Chest pain 04/07/2010 08/23/2010 LACERATION -NOT COMPLICATED NOSE 02/04/2009 12/24/2012 HYPERGLYCEMIA 12/15/2008 10/10/2016 Last Assessment & Plan: Good control of sugars in June 2010. 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 12/06/2013 Scar condition and fibrosis of skin 05/14/2007 12/06/2013 H/O BCC'S///PERS HX SKIN MALIGNANCY NEC 05/14/20 07 12/24/2012 SOLAR LENGINES///DYSCHROMIA OTHER 05/14/2007 12/24/2012 Open wound(s) (multiple) of unspecified site(s), without mention of complication 01/31/2007 08/23/2010 BCC///MALIG NEOPLASM SKIN FACE NEC 01/11/2007 12/24/2012 Inflamed seborrheic keratosis 01/04/2007 Neoplasm of uncertain behavior of skin 7 12/24/2012 Other seborrheic keratosis 11/29/200612/06 SEBACEOUS HYPERPLASIA///SEBACEOUS GLAND DIS NOS 11/29/2006 12/24/2012 Benign neoplasm of skin of o ther and unspecified parts of face 11/29/2006 12/06/2013 [place] ANGIOMA///NEVUS, NON-NEOPLASTIC 7 12/06/2013 Other chronic 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 11/29/2006 12/06/2013 documented as of this encounter (statuses as of 08/13/2022) [facility] History of Past illness Narrative* Problem Noted Date Resolved Date Osteopenia 04/09/2019 01/14/2021 Encounter for screening colonoscopy 03/05/2015 03/05/2015 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 10/01/2015 Seborrheic Keratoses 12/06/2013 10/01/2015 Personal history of other malignant neoplasm of skin 12/06/2013 10/01/2015 Scars 12/06/2013 10/01/2015 Viral warts, unspecified 05/29/2012 015 Solar Lentigines 05/29/2012 10/01/2015 Actinic skin damage 05/29/2012 10/01/2015 Hemangioma 05/29/2012 10/01/2015 [place] angiomas 05/29/2012 10/01/2015 Special screening for malignant neoplasms, colon 01/24/2011 10/01/2015 Lumbago 10/01/2010 10/10/2016 Chest pain 04/07/2010 08/23/2010 LACERATION -NOT COMPLICATED NOSE 02/04/2009 12/24/2012 HYPERGLYCEMIA 12/15/2008 10/10/2016 Last Assessment & Plan: Good control of sugars in June 2010. 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 12/06/2013 Scar condition and fibrosis of skin 05/14/2007 12/06/2013 H/O BCC'S///PERS HX SKIN MALIGNANCY NEC 05/14/20 07 12/24/2012 SOLAR LENGINES///DYSCHROMIA OTHER 05/14/2007 12/24/2012 Open wound(s) (multiple) of unspecified site(s), without mention of complication 01/31/2007 08/23/2010 BCC///MALIG NEOPLASM SKIN FACE NEC 01/11/2007 12/24/2012 Inflamed seborrheic keratosis 01/04/2007 Neoplasm of uncertain behavior of skin 7 12/24/2012 Other seborrheic keratosis 11/29/200612/06 SEBACEOUS HYPERPLASIA///SEBACEOUS GLAND DIS NOS 11/29/2006 12/24/2012 Benign neoplasm of skin of o ther and unspecified parts of face 11/29/2006 12/06/2013 [place] ANGIOMA///NEVUS, NON-NEOPLASTIC 7 12/06/2013 Other chronic 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 11/29/2006 12/06/2013 documented as of this encounter (statuses as of 09/01/2022) [facility] History of Past illness Narrative* Problem Noted Date Resolved Date Osteopenia 04/09/2019 01/14/2021 Encounter for screening colonoscopy 03/05/2015 03/05/2015 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 10/01/2015 Seborrheic Keratoses 12/06/2013 10/01/2015 Personal history of other malignant neoplasm of skin 12/06/2013 10/01/2015 Scars 12/06/2013 10/01/2015 Viral warts, unspecified 05/29/2012 015 Solar Lentigines 05/29/2012 10/01/2015 Actinic skin damage 05/29/2012 10/01/2015 Hemangioma 05/29/2012 10/01/2015 [place] angiomas 05/29/2012 10/01/2015 Special screening for malignant neoplasms, colon 01/24/2011 10/01/2015 Lumbago 10/01/2010 10/10/2016 Chest pain 04/07/2010 08/23/2010 LACERATION -NOT COMPLICATED NOSE 02/04/2009 12/24/2012 HYPERGLYCEMIA 12/15/2008 10/10/2016 Last Assessment & Plan: Good control of sugars in June 2010. 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 12/06/2013 Scar condition and fibrosis of skin 05/14/2007 12/06/2013 H/O BCC'S///PERS HX SKIN MALIGNANCY NEC 05/14/20 07 12/24/2012 SOLAR LENGINES///DYSCHROMIA OTHER 05/14/2007 12/24/2012 Open wound(s) (multiple) of unspecified site(s), without mention of complication 01/31/2007 08/23/2010 BCC///MALIG NEOPLASM SKIN FACE NEC 01/11/2007 12/24/2012 Inflamed seborrheic keratosis 01/04/2007 Neoplasm of uncertain behavior of skin 7 12/24/2012 Other seborrheic keratosis 11/29/200612/06 SEBACEOUS HYPERPLASIA///SEBACEOUS GLAND DIS NOS 11/29/2006 12/24/2012 Benign neoplasm of skin of o ther and unspecified parts of face 11/29/2006 12/06/2013 [place] ANGIOMA///NEVUS, NON-NEOPLASTIC 7 12/06/2013 Other chronic 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 11/29/2006 12/06/2013 documented as of this encounter (statuses as of 10/28/2022) [facility] History of Past illness Narrative* Problem Noted Date Resolved Date Osteopenia 04/09/2019 01/14/2021 Encounter for screening colonoscopy 03/05/2015 03/05/2015 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 10/01/2015 Seborrheic Keratoses 12/06/2013 10/01/2015 Personal history of other malignant neoplasm of skin 12/06/2013 10/01/2015 Scars 12/06/2013 10/01/2015 Viral warts, unspecified 05/29/2012 015 Solar Lentigines 05/29/2012 10/01/2015 Actinic skin damage 05/29/2012 10/01/2015 Hemangioma 05/29/2012 10/01/2015 [place] angiomas 05/29/2012 10/01/2015 Special screening for malignant neoplasms, colon 01/24/2011 10/01/2015 Lumbago 10/01/2010 10/10/2016 Chest pain 04/07/2010 08/23/2010 LACERATION -NOT COMPLICATED NOSE 02/04/2009 12/24/2012 HYPERGLYCEMIA 12/15/2008 10/10/2016 Last Assessment & Plan: Good control of sugars in June 2010. 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 12/06/2013 Scar condition and fibrosis of skin 05/14/2007 12/06/2013 H/O BCC'S///PERS HX SKIN MALIGNANCY NEC 05/14/20 07 12/24/2012 SOLAR LENGINES///DYSCHROMIA OTHER 05/14/2007 12/24/2012 Open wound(s) (multiple) of unspecified site(s), without mention of complication 01/31/2007 08/23/2010 BCC///MALIG NEOPLASM SKIN FACE NEC 01/11/2007 12/24/2012 Inflamed seborrheic keratosis 01/04/2007 Neoplasm of uncertain behavior of skin 7 12/24/2012 Other seborrheic keratosis 11/29/200612/06 SEBACEOUS HYPERPLASIA///SEBACEOUS GLAND DIS NOS 11/29/2006 12/24/2012 Benign neoplasm of skin of o ther and unspecified parts of face 11/29/2006 12/06/2013 [place] ANGIOMA///NEVUS, NON-NEOPLASTIC 7 12/06/2013 Other chronic 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 11/29/2006 12/06/2013 documented as of this encounter (statuses as of 01/17/2023) [facility] History of Past illness Narrative* Problem Noted Date Resolved Date Osteopenia 04/09/2019 01/14/2021 Encounter for screening colonoscopy 03/05/2015 03/05/2015 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 10/01/2015 Seborrheic Keratoses 12/06/2013 10/01/2015 Personal history of other malignant neoplasm of skin 12/06/2013 10/01/2015 Scars 12/06/2013 10/01/2015 Viral warts, unspecified 05/29/2012 015 Solar Lentigines 05/29/2012 10/01/2015 Actinic skin damage 05/29/2012 10/01/2015 Hemangioma 05/29/2012 10/01/2015 [place] angiomas 05/29/2012 10/01/2015 Special screening for malignant neoplasms, colon 01/24/2011 10/01/2015 Lumbago 10/01/2010 10/10/2016 Chest pain 04/07/2010 08/23/2010 LACERATION -NOT COMPLICATED NOSE 02/04/2009 12/24/2012 HYPERGLYCEMIA 12/15/2008 10/10/2016 Last Assessment & Plan: Good control of sugars in June 2010. 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 12/06/2013 Scar condition and fibrosis of skin 05/14/2007 12/06/2013 H/O BCC'S///PERS HX SKIN MALIGNANCY NEC 05/14/20 07 12/24/2012 SOLAR LENGINES///DYSCHROMIA OTHER 05/14/2007 12/24/2012 Open wound(s) (multiple) of unspecified site(s), without mention of complication 01/31/2007 08/23/2010 BCC///MALIG NEOPLASM SKIN FACE NEC 01/11/2007 12/24/2012 Inflamed seborrheic keratosis 01/04/2007 Neoplasm of uncertain behavior of skin 7 12/24/2012 Other seborrheic keratosis 11/29/200612/06 SEBACEOUS HYPERPLASIA///SEBACEOUS GLAND DIS NOS 11/29/2006 12/24/2012 Benign neoplasm of skin of o ther and unspecified parts of face 11/29/2006 12/06/2013 [place] ANGIOMA///NEVUS, NON-NEOPLASTIC 7 12/06/2013 Other chronic 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 11/29/2006 12/06/2013 documented as of this encounter (statuses as of 01/24/2023) [facility] History of Past illness Narrative* Problem Noted Date Resolved Date Osteopenia 04/09/2019 01/14/2021 Encounter for screening colonoscopy 03/05/2015 03/05/2015 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 10/01/2015 Seborrheic Keratoses 12/06/2013 10/01/2015 Personal history of other malignant neoplasm of skin 12/06/2013 10/01/2015 Scars 12/06/2013 10/01/2015 Viral warts, unspecified 05/29/2012 015 Solar Lentigines 05/29/2012 10/01/2015 Actinic skin damage 05/29/2012 10/01/2015 Hemangioma 05/29/2012 10/01/2015 [place] angiomas 05/29/2012 10/01/2015 Special screening for malignant neoplasms, colon 01/24/2011 10/01/2015 Lumbago 10/01/2010 10/10/2016 Chest pain 04/07/2010 08/23/2010 LACERATION -NOT COMPLICATED NOSE 02/04/2009 12/24/2012 HYPERGLYCEMIA 12/15/2008 10/10/2016 Last Assessment & Plan: Good control of sugars in June 2010. 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 12/06/2013 Scar condition and fibrosis of skin 05/14/2007 12/06/2013 H/O BCC'S///PERS HX SKIN MALIGNANCY NEC 05/14/20 07 12/24/2012 SOLAR LENGINES///DYSCHROMIA OTHER 05/14/2007 12/24/2012 Open wound(s) (multiple) of unspecified site(s), without mention of complication 01/31/2007 08/23/2010 BCC///MALIG NEOPLASM SKIN FACE NEC 01/11/2007 12/24/2012 Inflamed seborrheic keratosis 01/04/2007 Neoplasm of uncertain behavior of skin 7 12/24/2012 Other seborrheic keratosis 11/29/200612/06 SEBACEOUS HYPERPLASIA///SEBACEOUS GLAND DIS NOS 11/29/2006 12/24/2012 Benign neoplasm of skin of o ther and unspecified parts of face 11/29/2006 12/06/2013 [place] ANGIOMA///NEVUS, NON-NEOPLASTIC 7 12/06/2013 Other chronic 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 11/29/2006 12/06/2013 documented as of this encounter (statuses as of 01/24/2023) [facility] History of Past illness Narrative* Problem Noted Date Resolved Date Osteopenia 04/09/2019 01/14/2021 Encounter for screening colonoscopy 03/05/2015 03/05/2015 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 10/01/2015 Seborrheic Keratoses 12/06/2013 10/01/2015 Personal history of other malignant neoplasm of skin 12/06/2013 10/01/2015 Scars 12/06/2013 10/01/2015 Viral warts, unspecified 05/29/2012 015 Solar Lentigines 05/29/2012 10/01/2015 Actinic skin damage 05/29/2012 10/01/2015 Hemangioma 05/29/2012 10/01/2015 [place] angiomas 05/29/2012 10/01/2015 Special screening for malignant neoplasms, colon 01/24/2011 10/01/2015 Lumbago 10/01/2010 10/10/2016 Chest pain 04/07/2010 08/23/2010 LACERATION -NOT COMPLICATED NOSE 02/04/2009 12/24/2012 HYPERGLYCEMIA 12/15/2008 10/10/2016 Last Assessment & Plan: Good control of sugars in June 2010. 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 12/06/2013 Scar condition and fibrosis of skin 05/14/2007 12/06/2013 H/O BCC'S///PERS HX SKIN MALIGNANCY NEC 05/14/20 07 12/24/2012 SOLAR LENGINES///DYSCHROMIA OTHER 05/14/2007 12/24/2012 Open wound(s) (multiple) of unspecified site(s), without mention of complication 01/31/2007 08/23/2010 BCC///MALIG NEOPLASM SKIN FACE NEC 01/11/2007 12/24/2012 Inflamed seborrheic keratosis 01/04/2007 Neoplasm of uncertain behavior of skin 7 12/24/2012 Other seborrheic keratosis 11/29/200612/06 SEBACEOUS HYPERPLASIA///SEBACEOUS GLAND DIS NOS 11/29/2006 12/24/2012 Benign neoplasm of skin of o ther and unspecified parts of face 11/29/2006 12/06/2013 [place] ANGIOMA///NEVUS, NON-NEOPLASTIC 7 12/06/2013 Other chronic 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 11/29/2006 12/06/2013 documented as of this encounter (statuses as of 02/04/2023) [facility] History of Past illness Narrative* Problem Noted Date Resolved Date Osteopenia 04/09/2019 01/14/2021 Encounter for screening colonoscopy 03/05/2015 03/05/2015 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 10/01/2015 Seborrheic Keratoses 12/06/2013 10/01/2015 Personal history of other malignant neoplasm of skin 12/06/2013 10/01/2015 Scars 12/06/2013 10/01/2015 Viral warts, unspecified 05/29/2012 015 Solar Lentigines 05/29/2012 10/01/2015 Actinic skin damage 05/29/2012 10/01/2015 Hemangioma 05/29/2012 10/01/2015 [place] angiomas 05/29/2012 10/01/2015 Special screening for malignant neoplasms, colon 01/24/2011 10/01/2015 Lumbago 10/01/2010 10/10/2016 Chest pain 04/07/2010 08/23/2010 LACERATION -NOT COMPLICATED NOSE 02/04/2009 12/24/2012 HYPERGLYCEMIA 12/15/2008 10/10/2016 Last Assessment & Plan: Good control of sugars in June 2010. 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 12/06/2013 Scar condition and fibrosis of skin 05/14/2007 12/06/2013 H/O BCC'S///PERS HX SKIN MALIGNANCY NEC 05/14/20 07 12/24/2012 SOLAR LENGINES///DYSCHROMIA OTHER 05/14/2007 12/24/2012 Open wound(s) (multiple) of unspecified site(s), without mention of complication 01/31/2007 08/23/2010 BCC///MALIG NEOPLASM SKIN FACE NEC 01/11/2007 12/24/2012 Inflamed seborrheic keratosis 01/04/2007 Neoplasm of uncertain behavior of skin 7 12/24/2012 Other seborrheic keratosis 11/29/200612/06 SEBACEOUS HYPERPLASIA///SEBACEOUS GLAND DIS NOS 11/29/2006 12/24/2012 Benign neoplasm of skin of o ther and unspecified parts of face 11/29/2006 12/06/2013 [place] ANGIOMA///NEVUS, NON-NEOPLASTIC 7 12/06/2013 Other chronic 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 11/29/2006 12/06/2013 documented as of this encounter (statuses as of 02/04/2023) [facility] History of Past illness Narrative* Problem Noted Date Resolved Date Osteopenia 04/09/2019 01/14/2021 Encounter for screening colonoscopy 03/05/2015 03/05/2015 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 10/01/2015 Seborrheic Keratoses 12/06/2013 10/01/2015 Personal history of other malignant neoplasm of skin 12/06/2013 10/01/2015 Scars 12/06/2013 10/01/2015 Viral warts, unspecified 05/29/2012 015 Solar Lentigines 05/29/2012 10/01/2015 Actinic skin damage 05/29/2012 10/01/2015 Hemangioma 05/29/2012 10/01/2015 [place] angiomas 05/29/2012 10/01/2015 Special screening for malignant neoplasms, colon 01/24/2011 10/01/2015 Lumbago 10/01/2010 10/10/2016 Chest pain 04/07/2010 08/23/2010 LACERATION -NOT COMPLICATED NOSE 02/04/2009 12/24/2012 HYPERGLYCEMIA 12/15/2008 10/10/2016 Last Assessment & Plan: Good control of sugars in June 2010. 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 12/06/2013 Scar condition and fibrosis of skin 05/14/2007 12/06/2013 H/O BCC'S///PERS HX SKIN MALIGNANCY NEC 05/14/20 07 12/24/2012 SOLAR LENGINES///DYSCHROMIA OTHER 05/14/2007 12/24/2012 Open wound(s) (multiple) of unspecified site(s), without mention of complication 01/31/2007 08/23/2010 BCC///MALIG NEOPLASM SKIN FACE NEC 01/11/2007 12/24/2012 Inflamed seborrheic keratosis 01/04/2007 Neoplasm of uncertain behavior of skin 7 12/24/2012 Other seborrheic keratosis 11/29/200612/06 SEBACEOUS HYPERPLASIA///SEBACEOUS GLAND DIS NOS 11/29/2006 12/24/2012 Benign neoplasm of skin of o ther and unspecified parts of face 11/29/2006 12/06/2013 [place] ANGIOMA///NEVUS, NON-NEOPLASTIC 7 12/06/2013 Other chronic 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 11/29/2006 12/06/2013 documented as of this encounter (statuses as of 02/16/2023) [facility] History of Past illness Narrative* Problem Noted Date Resolved Date Osteopenia 04/09/2019 01/14/2021 Encounter for screening colonoscopy 03/05/2015 03/05/2015 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 10/01/2015 Seborrheic Keratoses 12/06/2013 10/01/2015 Personal history of other malignant neoplasm of skin 12/06/2013 10/01/2015 Scars 12/06/2013 10/01/2015 Viral warts, unspecified 05/29/2012 015 Solar Lentigines 05/29/2012 10/01/2015 Actinic skin damage 05/29/2012 10/01/2015 Hemangioma 05/29/2012 10/01/2015 [place] angiomas 05/29/2012 10/01/2015 Special screening for malignant neoplasms, colon 01/24/2011 10/01/2015 Lumbago 10/01/2010 10/10/2016 Chest pain 04/07/2010 08/23/2010 LACERATION -NOT COMPLICATED NOSE 02/04/2009 12/24/2012 HYPERGLYCEMIA 12/15/2008 10/10/2016 Last Assessment & Plan: Good control of sugars in June 2010. 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 12/06/2013 Scar condition and fibrosis of skin 05/14/2007 12/06/2013 H/O BCC'S///PERS HX SKIN MALIGNANCY NEC 05/14/20 07 12/24/2012 SOLAR LENGINES///DYSCHROMIA OTHER 05/14/2007 12/24/2012 Open wound(s) (multiple) of unspecified site(s), without mention of complication 01/31/2007 08/23/2010 BCC///MALIG NEOPLASM SKIN FACE NEC 01/11/2007 12/24/2012 Inflamed seborrheic keratosis 01/04/2007 Neoplasm of uncertain behavior of skin 7 12/24/2012 Other seborrheic keratosis 11/29/200612/06 SEBACEOUS HYPERPLASIA///SEBACEOUS GLAND DIS NOS 11/29/2006 12/24/2012 Benign neoplasm of skin of o ther and unspecified parts of face 11/29/2006 12/06/2013 [place] ANGIOMA///NEVUS, NON-NEOPLASTIC 7 12/06/2013 Other chronic 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 11/29/2006 12/06/2013 documented as of this encounter (statuses as of 02/16/2023) [facility] History of Past illness Narrative* Problem Noted Date Resolved Date Osteopenia 04/09/2019 01/14/2021 Encounter for screening colonoscopy 03/05/2015 03/05/2015 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 10/01/2015 Seborrheic Keratoses 12/06/2013 10/01/2015 Personal history of other malignant neoplasm of skin 12/06/2013 10/01/2015 Scars 12/06/2013 10/01/2015 Viral warts, unspecified 05/29/2012 015 Solar Lentigines 05/29/2012 10/01/2015 Actinic skin damage 05/29/2012 10/01/2015 Hemangioma 05/29/2012 10/01/2015 [place] angiomas 05/29/2012 10/01/2015 Special screening for malignant neoplasms, colon 01/24/2011 10/01/2015 Lumbago 10/01/2010 10/10/2016 Chest pain 04/07/2010 08/23/2010 LACERATION -NOT COMPLICATED NOSE 02/04/2009 12/24/2012 HYPERGLYCEMIA 12/15/2008 10/10/2016 Last Assessment & Plan: Good control of sugars in June 2010. 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 12/06/2013 Scar condition and fibrosis of skin 05/14/2007 12/06/2013 H/O BCC'S///PERS HX SKIN MALIGNANCY NEC 05/14/20 07 12/24/2012 SOLAR LENGINES///DYSCHROMIA OTHER 05/14/2007 12/24/2012 Open wound(s) (multiple) of unspecified site(s), without mention of complication 01/31/2007 08/23/2010 BCC///MALIG NEOPLASM SKIN FACE NEC 01/11/2007 12/24/2012 Inflamed seborrheic keratosis 01/04/2007 Neoplasm of uncertain behavior of skin 7 12/24/2012 Other seborrheic keratosis 11/29/200612/06 SEBACEOUS HYPERPLASIA///SEBACEOUS GLAND DIS NOS 11/29/2006 12/24/2012 Benign neoplasm of skin of o ther and unspecified parts of face 11/29/2006 12/06/2013 [place] ANGIOMA///NEVUS, NON-NEOPLASTIC 7 12/06/2013 Other chronic 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 11/29/2006 12/06/2013 documented as of this encounter (statuses as of 02/18/2023) [facility] History of Past illness Narrative* Problem Noted Date Resolved Date Osteopenia 04/09/2019 01/14/2021 Encounter for screening colonoscopy 03/05/2015 03/05/2015 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 10/01/2015 Seborrheic Keratoses 12/06/2013 10/01/2015 Personal history of other malignant neoplasm of skin 12/06/2013 10/01/2015 Scars 12/06/2013 10/01/2015 Viral warts, unspecified 05/29/2012 015 Solar Lentigines 05/29/2012 10/01/2015 Actinic skin damage 05/29/2012 10/01/2015 Hemangioma 05/29/2012 10/01/2015 [place] angiomas 05/29/2012 10/01/2015 Special screening for malignant neoplasms, colon 01/24/2011 10/01/2015 Lumbago 10/01/2010 10/10/2016 Chest pain 04/07/2010 08/23/2010 LACERATION -NOT COMPLICATED NOSE 02/04/2009 12/24/2012 HYPERGLYCEMIA 12/15/2008 10/10/2016 Last Assessment & Plan: Good control of sugars in June 2010. 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 12/06/2013 Scar condition and fibrosis of skin 05/14/2007 12/06/2013 H/O BCC'S///PERS HX SKIN MALIGNANCY NEC 05/14/20 07 12/24/2012 SOLAR LENGINES///DYSCHROMIA OTHER 05/14/2007 12/24/2012 Open wound(s) (multiple) of unspecified site(s), without mention of complication 01/31/2007 08/23/2010 BCC///MALIG NEOPLASM SKIN FACE NEC 01/11/2007 12/24/2012 Inflamed seborrheic keratosis 01/04/2007 Neoplasm of uncertain behavior of skin 7 12/24/2012 Other seborrheic keratosis 11/29/200612/06 SEBACEOUS HYPERPLASIA///SEBACEOUS GLAND DIS NOS 11/29/2006 12/24/2012 Benign neoplasm of skin of o ther and unspecified parts of face 11/29/2006 12/06/2013 [place] ANGIOMA///NEVUS, NON-NEOPLASTIC 7 12/06/2013 Other chronic 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 11/29/2006 12/06/2013 documented as of this encounter (statuses as of 02/19/2023) [facility] History of Past illness Narrative* Problem Noted Date Resolved Date Osteopenia 04/09/2019 01/14/2021 Encounter for screening colonoscopy 03/05/2015 03/05/2015 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 10/01/2015 Seborrheic Keratoses 12/06/2013 10/01/2015 Personal history of other malignant neoplasm of skin 12/06/2013 10/01/2015 Scars 12/06/2013 10/01/2015 Viral warts, unspecified 05/29/2012 015 Solar Lentigines 05/29/2012 10/01/2015 Actinic skin damage 05/29/2012 10/01/2015 Hemangioma 05/29/2012 10/01/2015 [place] angiomas 05/29/2012 10/01/2015 Special screening for malignant neoplasms, colon 01/24/2011 10/01/2015 Lumbago 10/01/2010 10/10/2016 Chest pain 04/07/2010 08/23/2010 LACERATION -NOT COMPLICATED NOSE 02/04/2009 12/24/2012 HYPERGLYCEMIA 12/15/2008 10/10/2016 Last Assessment & Plan: Good control of sugars in June 2010. 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 12/06/2013 Scar condition and fibrosis of skin 05/14/2007 12/06/2013 H/O BCC'S///PERS HX SKIN MALIGNANCY NEC 05/14/20 07 12/24/2012 SOLAR LENGINES///DYSCHROMIA OTHER 05/14/2007 12/24/2012 Open wound(s) (multiple) of unspecified site(s), without mention of complication 01/31/2007 08/23/2010 BCC///MALIG NEOPLASM SKIN FACE NEC 01/11/2007 12/24/2012 Inflamed seborrheic keratosis 01/04/2007 Neoplasm of uncertain behavior of skin 7 12/24/2012 Other seborrheic keratosis 11/29/200612/06 SEBACEOUS HYPERPLASIA///SEBACEOUS GLAND DIS NOS 11/29/2006 12/24/2012 Benign neoplasm of skin of o ther and unspecified parts of face 11/29/2006 12/06/2013 [place] ANGIOMA///NEVUS, NON-NEOPLASTIC 7 12/06/2013 Other chronic 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 11/29/2006 12/06/2013 documented as of this encounter (statuses as of 03/06/2023) [facility] History of Past illness Narrative* Problem Noted Date Resolved Date Osteopenia 04/09/2019 01/14/2021 Encounter for screening colonoscopy 03/05/2015 03/05/2015 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 10/01/2015 Seborrheic Keratoses 12/06/2013 10/01/2015 Personal history of other malignant neoplasm of skin 12/06/2013 10/01/2015 Scars 12/06/2013 10/01/2015 Viral warts, unspecified 05/29/2012 015 Solar Lentigines 05/29/2012 10/01/2015 Actinic skin damage 05/29/2012 10/01/2015 Hemangioma 05/29/2012 10/01/2015 [place] angiomas 05/29/2012 10/01/2015 Special screening for malignant neoplasms, colon 01/24/2011 10/01/2015 Lumbago 10/01/2010 10/10/2016 Chest pain 04/07/2010 08/23/2010 LACERATION -NOT COMPLICATED NOSE 02/04/2009 12/24/2012 HYPERGLYCEMIA 12/15/2008 10/10/2016 Last Assessment & Plan: Good control of sugars in June 2010. 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 12/06/2013 Scar condition and fibrosis of skin 05/14/2007 12/06/2013 H/O BCC'S///PERS HX SKIN MALIGNANCY NEC 05/14/20 07 12/24/2012 SOLAR LENGINES///DYSCHROMIA OTHER 05/14/2007 12/24/2012 Open wound(s) (multiple) of unspecified site(s), without mention of complication 01/31/2007 08/23/2010 BCC///MALIG NEOPLASM SKIN FACE NEC 01/11/2007 12/24/2012 Inflamed seborrheic keratosis 01/04/2007 Neoplasm of uncertain behavior of skin 7 12/24/2012 Other seborrheic keratosis 11/29/200612/06 SEBACEOUS HYPERPLASIA///SEBACEOUS GLAND DIS NOS 11/29/2006 12/24/2012 Benign neoplasm of skin of o ther and unspecified parts of face 11/29/2006 12/06/2013 [place] ANGIOMA///NEVUS, NON-NEOPLASTIC 7 12/06/2013 Other chronic 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 11/29/2006 12/06/2013 documented as of this encounter (statuses as of 04/14/2023) [facility] History of Past illness Narrative* Problem Noted Date Resolved Date Osteopenia 04/09/2019 01/14/2021 Encounter for screening colonoscopy 03/05/2015 03/05/2015 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 10/01/2015 Seborrheic Keratoses 12/06/2013 10/01/2015 Personal history of other malignant neoplasm of skin 12/06/2013 10/01/2015 Scars 12/06/2013 10/01/2015 Viral warts, unspecified 05/29/2012 015 Solar Lentigines 05/29/2012 10/01/2015 Actinic skin damage 05/29/2012 10/01/2015 Hemangioma 05/29/2012 10/01/2015 [place] angiomas 05/29/2012 10/01/2015 Special screening for malignant neoplasms, colon 01/24/2011 10/01/2015 Lumbago 10/01/2010 10/10/2016 Chest pain 04/07/2010 08/23/2010 LACERATION -NOT COMPLICATED NOSE 02/04/2009 12/24/2012 HYPERGLYCEMIA 12/15/2008 10/10/2016 Last Assessment & Plan: Good control of sugars in June 2010. 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 12/06/2013 Scar condition and fibrosis of skin 05/14/2007 12/06/2013 H/O BCC'S///PERS HX SKIN MALIGNANCY NEC 05/14/20 07 12/24/2012 SOLAR LENGINES///DYSCHROMIA OTHER 05/14/2007 12/24/2012 Open wound(s) (multiple) of unspecified site(s), without mention of complication 01/31/2007 08/23/2010 BCC///MALIG NEOPLASM SKIN FACE NEC 01/11/2007 12/24/2012 Inflamed seborrheic keratosis 01/04/2007 Neoplasm of uncertain behavior of skin 7 12/24/2012 Other seborrheic keratosis 11/29/200612/06 SEBACEOUS HYPERPLASIA///SEBACEOUS GLAND DIS NOS 11/29/2006 12/24/2012 Benign neoplasm of skin of o ther and unspecified parts of face 11/29/2006 12/06/2013 [place] ANGIOMA///NEVUS, NON-NEOPLASTIC 7 12/06/2013 Other chronic 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 11/29/2006 12/06/2013 documented as of this encounter (statuses as of 05/01/2023) [facility] History of Past illness Narrative* Problem Noted Date Diagnosed Date Resolved Date Osteopenia 04/09/2019 01/14/2021 Encounter for screening colonoscopy 03/05/2015 03/05/2015 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 10/01/2015 Seborrheic Keratoses 12/06/2013 015 Personal history of other ma lignant neoplasm of skin 12/06/2013 10/01/2015 Scars 12/06/2013 10/01/2015 Viral warts, unspecified 05/29/2012 Solar Lentigines 05/29/2012 10/01/2015 Actinic skin damage 05/29/2012 10/01/20 15 Hemangioma 05/29/2012 10/01/2015 [place] angiomas 05/29/2012 10/01/2015 Special screening for malign ant neoplasms, colon 01/24/2011 10/01/2015 Lumbago 10/01/2010 10/10/2016 Chest pain 04/07/2010 08/23/2010 LACERATION -NOT COMPLICATED NOSE 02/04/2009 12/24/2012 HYPERGLYCEMIA 12/15/2008 10/10/2016 Last Assessment & Plan: Good control of sugars in June 2010. 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 12/06/2013 Scar condition and fibrosis of skin 05/14/2007 12/06/2013 H/O BCC'S///PERS HX SKIN MALIGNANCY NEC 05/14/2007 12/24/2012 SOLAR LENGINES///DYSCHROMIA OTHER 05/14/2007 12/24/2012 Open wound(s) (multiple) of unspecified site(s), without mention of complication 01/31/2007 08/23/2010 BCC///MALIG NEOPLASM SKIN FACE NEC 01/11/2007 12/24/2012 Inflamed seborrheic keratosis 01/04/2007 12/06/2013 Neoplasm of uncertain behavior of skin 11/29/2006 12/24/2012 Other seborrheic keratosis 11/29/2006 0 12/06/2013 SEBACEOUS HYPERPLASIA///SEBA CEOUS GLAND DIS NOS 11/29/2006 12/24/2012 Benign neoplasm of skin of o ther and unspecified parts of face 11/29/2006 12/06/2013 [place] ANGIOMA///NEVUS, NON-NEOPLASTIC 11/29/2006 12/06/2013 Other chronic 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 11/29/2006 12/06/2013 documented as of this encounter (statuses as of 05/25/2023) [facility] History of Past illness Narrative* Problem Noted Date Diagnosed Date Resolved Date Osteopenia 04/09/2019 01/14/2021 Encounter for screening colonoscopy 03/05/2015 03/05/2015 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 10/01/2015 Seborrheic Keratoses 12/06/2013 015 Personal history of other ma lignant neoplasm of skin 12/06/2013 10/01/2015 Scars 12/06/2013 10/01/2015 Viral warts, unspecified 05/29/2012 Solar Lentigines 05/29/2012 10/01/2015 Actinic skin damage 05/29/2012 10/01/20 15 Hemangioma 05/29/2012 10/01/2015 [place] angiomas 05/29/2012 10/01/2015 Special screening for malign ant neoplasms, colon 01/24/2011 10/01/2015 Lumbago 10/01/2010 10/10/2016 Chest pain 04/07/2010 08/23/2010 LACERATION -NOT COMPLICATED NOSE 02/04/2009 12/24/2012 HYPERGLYCEMIA 12/15/2008 10/10/2016 Last Assessment & Plan: Good control of sugars in June 2010. 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 12/06/2013 Scar condition and fibrosis of skin 05/14/2007 12/06/2013 H/O BCC'S///PERS HX SKIN MALIGNANCY NEC 05/14/2007 12/24/2012 SOLAR LENGINES///DYSCHROMIA OTHER 05/14/2007 12/24/2012 Open wound(s) (multiple) of unspecified site(s), without mention of complication 01/31/2007 08/23/2010 BCC///MALIG NEOPLASM SKIN FACE NEC 01/11/2007 12/24/2012 Inflamed seborrheic keratosis 01/04/2007 12/06/2013 Neoplasm of uncertain behavior of skin 11/29/2006 12/24/2012 Other seborrheic keratosis 11/29/2006 0 12/06/2013 SEBACEOUS HYPERPLASIA///SEBA CEOUS GLAND DIS NOS 11/29/2006 12/24/2012 Benign neoplasm of skin of o ther and unspecified parts of face 11/29/2006 12/06/2013 [place] ANGIOMA///NEVUS, NON-NEOPLASTIC 11/29/2006 12/06/2013 Other chronic 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 11/29/2006 12/06/2013 documented as of this encounter (statuses as of 05/29/2023) [facility] History of Past illness Narrative* Problem Noted Date Diagnosed Date Resolved Date Osteopenia 04/09/2019 01/14/2021 Encounter for screening colonoscopy 03/05/2015 03/05/2015 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 10/01/2015 Seborrheic Keratoses 12/06/2013 015 Personal history of other ma lignant neoplasm of skin 12/06/2013 10/01/2015 Scars 12/06/2013 10/01/2015 Viral warts, unspecified 05/29/2012 Solar Lentigines 05/29/2012 10/01/2015 Actinic skin damage 05/29/2012 10/01/20 15 Hemangioma 05/29/2012 10/01/2015 [place] angiomas 05/29/2012 10/01/2015 Special screening for malign ant neoplasms, colon 01/24/2011 10/01/2015 Lumbago 10/01/2010 10/10/2016 Chest pain 04/07/2010 08/23/2010 LACERATION -NOT COMPLICATED NOSE 02/04/2009 12/24/2012 HYPERGLYCEMIA 12/15/2008 10/10/2016 Last Assessment & Plan: Good control of sugars in June 2010. 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 12/06/2013 Scar condition and fibrosis of skin 05/14/2007 12/06/2013 H/O BCC'S///PERS HX SKIN MALIGNANCY NEC 05/14/2007 12/24/2012 SOLAR LENGINES///DYSCHROMIA OTHER 05/14/2007 12/24/2012 Open wound(s) (multiple) of unspecified site(s), without mention of complication 01/31/2007 08/23/2010 BCC///MALIG NEOPLASM SKIN FACE NEC 01/11/2007 12/24/2012 Inflamed seborrheic keratosis 01/04/2007 12/06/2013 Neoplasm of uncertain behavior of skin 11/29/2006 12/24/2012 Other seborrheic keratosis 11/29/2006 0 12/06/2013 SEBACEOUS HYPERPLASIA///SEBA CEOUS GLAND DIS NOS 11/29/2006 12/24/2012 Benign neoplasm of skin of o ther and unspecified parts of face 11/29/2006 12/06/2013 [place] ANGIOMA///NEVUS, NON-NEOPLASTIC 11/29/2006 12/06/2013 Other chronic 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 11/29/2006 12/06/2013 documented as of this encounter (statuses as of 06/09/2023) [facility] History of Past illness Narrative* Problem Noted Date Diagnosed Date Resolved Date Osteopenia 04/09/2019 01/14/2021 Encounter for screening colonoscopy 03/05/2015 03/05/2015 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 10/01/2015 Seborrheic Keratoses 12/06/2013 015 Personal history of other ma lignant neoplasm of skin 12/06/2013 10/01/2015 Scars 12/06/2013 10/01/2015 Viral warts, unspecified 05/29/2012 Solar Lentigines 05/29/2012 10/01/2015 Actinic skin damage 05/29/2012 10/01/20 15 Hemangioma 05/29/2012 10/01/2015 [place] angiomas 05/29/2012 10/01/2015 Special screening for malign ant neoplasms, colon 01/24/2011 10/01/2015 Lumbago 10/01/2010 10/10/2016 Chest pain 04/07/2010 08/23/2010 LACERATION -NOT COMPLICATED NOSE 02/04/2009 12/24/2012 HYPERGLYCEMIA 12/15/2008 10/10/2016 Last Assessment & Plan: Good control of sugars in June 2010. 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 12/06/2013 Scar condition and fibrosis of skin 05/14/2007 12/06/2013 H/O BCC'S///PERS HX SKIN MALIGNANCY NEC 05/14/2007 12/24/2012 SOLAR LENGINES///DYSCHROMIA OTHER 05/14/2007 12/24/2012 Open wound(s) (multiple) of unspecified site(s), without mention of complication 01/31/2007 08/23/2010 BCC///MALIG NEOPLASM SKIN FACE NEC 01/11/2007 12/24/2012 Inflamed seborrheic keratosis 01/04/2007 12/06/2013 Neoplasm of uncertain behavior of skin 11/29/2006 12/24/2012 Other seborrheic keratosis 11/29/2006 0 12/06/2013 SEBACEOUS HYPERPLASIA///SEBA CEOUS GLAND DIS NOS 11/29/2006 12/24/2012 Benign neoplasm of skin of o ther and unspecified parts of face 11/29/2006 12/06/2013 [place] ANGIOMA///NEVUS, NON-NEOPLASTIC 11/29/2006 12/06/2013 Other chronic 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 11/29/2006 12/06/2013 documented as of this encounter (statuses as of 06/29/2023) [facility] History of Past illness Narrative* Problem Noted Date Diagnosed Date Resolved Date Osteopenia 04/09/2019 01/14/2021 Encounter for screening colonoscopy 03/05/2015 03/05/2015 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 10/01/2015 Seborrheic Keratoses 12/06/2013 015 Personal history of other ma lignant neoplasm of skin 12/06/2013 10/01/2015 Scars 12/06/2013 10/01/2015 Viral warts, unspecified 05/29/2012 Solar Lentigines 05/29/2012 10/01/2015 Actinic skin damage 05/29/2012 10/01/20 15 Hemangioma 05/29/2012 10/01/2015 [place] angiomas 05/29/2012 10/01/2015 Special screening for malign ant neoplasms, colon 01/24/2011 10/01/2015 Lumbago 10/01/2010 10/10/2016 Chest pain 04/07/2010 08/23/2010 LACERATION -NOT COMPLICATED NOSE 02/04/2009 12/24/2012 HYPERGLYCEMIA 12/15/2008 10/10/2016 Last Assessment & Plan: Good control of sugars in June 2010. 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 12/06/2013 Scar condition and fibrosis of skin 05/14/2007 12/06/2013 H/O BCC'S///PERS HX SKIN MALIGNANCY NEC 05/14/2007 12/24/2012 SOLAR LENGINES///DYSCHROMIA OTHER 05/14/2007 12/24/2012 Open wound(s) (multiple) of unspecified site(s), without mention of complication 01/31/2007 08/23/2010 BCC///MALIG NEOPLASM SKIN FACE NEC 01/11/2007 12/24/2012 Inflamed seborrheic keratosis 01/04/2007 12/06/2013 Neoplasm of uncertain behavior of skin 11/29/2006 12/24/2012 Other seborrheic keratosis 11/29/2006 0 12/06/2013 SEBACEOUS HYPERPLASIA///SEBA CEOUS GLAND DIS NOS 11/29/2006 12/24/2012 Benign neoplasm of skin of o ther and unspecified parts of face 11/29/2006 12/06/2013 [place] ANGIOMA///NEVUS, NON-NEOPLASTIC 11/29/2006 12/06/2013 Other chronic 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 11/29/2006 12/06/2013 documented as of this encounter (statuses as of 08/05/2023) [facility] History of Past illness Narrative* Problem Noted Date Diagnosed Date Resolved Date Osteopenia 04/09/2019 01/14/2021 Encounter for screening colonoscopy 03/05/2015 03/05/2015 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 10/01/2015 Seborrheic Keratoses 12/06/2013 015 Personal history of other ma lignant neoplasm of skin 12/06/2013 10/01/2015 Scars 12/06/2013 10/01/2015 Viral warts, unspecified 05/29/2012 Solar Lentigines 05/29/2012 10/01/2015 Actinic skin damage 05/29/2012 10/01/20 15 Hemangioma 05/29/2012 10/01/2015 [place] angiomas 05/29/2012 10/01/2015 Special screening for malign ant neoplasms, colon 01/24/2011 10/01/2015 Lumbago 10/01/2010 10/10/2016 Chest pain 04/07/2010 08/23/2010 LACERATION -NOT COMPLICATED NOSE 02/04/2009 12/24/2012 HYPERGLYCEMIA 12/15/2008 10/10/2016 Last Assessment & Plan: Good control of sugars in June 2010. 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 12/06/2013 Scar condition and fibrosis of skin 05/14/2007 12/06/2013 H/O BCC'S///PERS HX SKIN MALIGNANCY NEC 05/14/2007 12/24/2012 SOLAR LENGINES///DYSCHROMIA OTHER 05/14/2007 12/24/2012 Open wound(s) (multiple) of unspecified site(s), without mention of complication 01/31/2007 08/23/2010 BCC///MALIG NEOPLASM SKIN FACE NEC 01/11/2007 12/24/2012 Inflamed seborrheic keratosis 01/04/2007 12/06/2013 Neoplasm of uncertain behavior of skin 11/29/2006 12/24/2012 Other seborrheic keratosis 11/29/2006 0 12/06/2013 SEBACEOUS HYPERPLASIA///SEBA CEOUS GLAND DIS NOS 11/29/2006 12/24/2012 Benign neoplasm of skin of o ther and unspecified parts of face 11/29/2006 12/06/2013 [place] ANGIOMA///NEVUS, NON-NEOPLASTIC 11/29/2006 12/06/2013 Other chronic 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 11/29/2006 12/06/2013 documented as of this encounter (statuses as of 08/08/2023) [facility] History of Past illness Narrative* Problem Noted Date Diagnosed Date Resolved Date Osteopenia 04/09/2019 01/14/2021 Encounter for screening colonoscopy 03/05/2015 03/05/2015 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 10/01/2015 Seborrheic Keratoses 12/06/2013 015 Personal history of other ma lignant neoplasm of skin 12/06/2013 10/01/2015 Scars 12/06/2013 10/01/2015 Viral warts, unspecified 05/29/2012 Solar Lentigines 05/29/2012 10/01/2015 Actinic skin damage 05/29/2012 10/01/20 15 Hemangioma 05/29/2012 10/01/2015 [place] angiomas 05/29/2012 10/01/2015 Special screening for malign ant neoplasms, colon 01/24/2011 10/01/2015 Lumbago 10/01/2010 10/10/2016 Chest pain 04/07/2010 08/23/2010 LACERATION -NOT COMPLICATED NOSE 02/04/2009 12/24/2012 HYPERGLYCEMIA 12/15/2008 10/10/2016 Last Assessment & Plan: Good control of sugars in June 2010. 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 12/06/2013 Scar condition and fibrosis of skin 05/14/2007 12/06/2013 H/O BCC'S///PERS HX SKIN MALIGNANCY NEC 05/14/2007 12/24/2012 SOLAR LENGINES///DYSCHROMIA OTHER 05/14/2007 12/24/2012 Open wound(s) (multiple) of unspecified site(s), without mention of complication 01/31/2007 08/23/2010 BCC///MALIG NEOPLASM SKIN FACE NEC 01/11/2007 12/24/2012 Inflamed seborrheic keratosis 01/04/2007 12/06/2013 Neoplasm of uncertain behavior of skin 11/29/2006 12/24/2012 Other seborrheic keratosis 11/29/2006 0 12/06/2013 SEBACEOUS HYPERPLASIA///SEBA CEOUS GLAND DIS NOS 11/29/2006 12/24/2012 Benign neoplasm of skin of o ther and unspecified parts of face 11/29/2006 12/06/2013 [place] ANGIOMA///NEVUS, NON-NEOPLASTIC 11/29/2006 12/06/2013 Other chronic 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 11/29/2006 12/06/2013 documented as of this encounter (statuses as of 08/22/2023) [facility] History of Past illness Narrative* Problem Noted Date Diagnosed Date Resolved Date Osteopenia 04/09/2019 01/14/2021 Encounter for screening colonoscopy 03/05/2015 03/05/2015 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 10/01/2015 Seborrheic Keratoses 12/06/2013 015 Personal history of other ma lignant neoplasm of skin 12/06/2013 10/01/2015 Scars 12/06/2013 10/01/2015 Viral warts, unspecified 05/29/2012 Solar Lentigines 05/29/2012 10/01/2015 Actinic skin damage 05/29/2012 10/01/20 15 Hemangioma 05/29/2012 10/01/2015 [place] angiomas 05/29/2012 10/01/2015 Special screening for malign ant neoplasms, colon 01/24/2011 10/01/2015 Lumbago 10/01/2010 10/10/2016 Chest pain 04/07/2010 08/23/2010 LACERATION -NOT COMPLICATED NOSE 02/04/2009 12/24/2012 HYPERGLYCEMIA 12/15/2008 10/10/2016 Last Assessment & Plan: Good control of sugars in June 2010. 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 12/06/2013 Scar condition and fibrosis of skin 05/14/2007 12/06/2013 H/O BCC'S///PERS HX SKIN MALIGNANCY NEC 05/14/2007 12/24/2012 SOLAR LENGINES///DYSCHROMIA OTHER 05/14/2007 12/24/2012 Open wound(s) (multiple) of unspecified site(s), without mention of complication 01/31/2007 08/23/2010 BCC///MALIG NEOPLASM SKIN FACE NEC 01/11/2007 12/24/2012 Inflamed seborrheic keratosis 01/04/2007 12/06/2013 Neoplasm of uncertain behavior of skin 11/29/2006 12/24/2012 Other seborrheic keratosis 11/29/2006 0 12/06/2013 SEBACEOUS HYPERPLASIA///SEBA CEOUS GLAND DIS NOS 11/29/2006 12/24/2012 Benign neoplasm of skin of o ther and unspecified parts of face 11/29/2006 12/06/2013 [place] ANGIOMA///NEVUS, NON-NEOPLASTIC 11/29/2006 12/06/2013 Other chronic 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 11/29/2006 12/06/2013 documented as of this encounter (statuses as of 09/11/2023) [facility] History of Past illness Narrative* Problem Noted Date Diagnosed Date Resolved Date Osteopenia 04/09/2019 01/14/2021 Encounter for screening colonoscopy 03/05/2015 03/05/2015 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 10/01/2015 Seborrheic Keratoses 12/06/2013 015 Personal history of other ma lignant neoplasm of skin 12/06/2013 10/01/2015 Scars 12/06/2013 10/01/2015 Viral warts, unspecified 05/29/2012 Solar Lentigines 05/29/2012 10/01/2015 Actinic skin damage 05/29/2012 10/01/20 15 Hemangioma 05/29/2012 10/01/2015 [place] angiomas 05/29/2012 10/01/2015 Special screening for malign ant neoplasms, colon 01/24/2011 10/01/2015 Lumbago 10/01/2010 10/10/2016 Chest pain 04/07/2010 08/23/2010 LACERATION -NOT COMPLICATED NOSE 02/04/2009 12/24/2012 HYPERGLYCEMIA 12/15/2008 10/10/2016 Last Assessment & Plan: Good control of sugars in June 2010. 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 12/06/2013 Scar condition and fibrosis of skin 05/14/2007 12/06/2013 H/O BCC'S///PERS HX SKIN MALIGNANCY NEC 05/14/2007 12/24/2012 SOLAR LENGINES///DYSCHROMIA OTHER 05/14/2007 12/24/2012 Open wound(s) (multiple) of unspecified site(s), without mention of complication 01/31/2007 08/23/2010 BCC///MALIG NEOPLASM SKIN FACE NEC 01/11/2007 12/24/2012 Inflamed seborrheic keratosis 01/04/2007 12/06/2013 Neoplasm of uncertain behavior of skin 11/29/2006 12/24/2012 Other seborrheic keratosis 11/29/2006 0 12/06/2013 SEBACEOUS HYPERPLASIA///SEBA CEOUS GLAND DIS NOS 11/29/2006 12/24/2012 Benign neoplasm of skin of o ther and unspecified parts of face 11/29/2006 12/06/2013 [place] ANGIOMA///NEVUS, NON-NEOPLASTIC 11/29/2006 12/06/2013 Other chronic 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 11/29/2006 12/06/2013 documented as of this encounter (statuses as of 09/17/2023) [facility] History of Past illness Narrative* Problem Noted Date Diagnosed Date Resolved Date Osteopenia 04/09/2019 01/14/2021 Encounter for screening colonoscopy 03/05/2015 03/05/2015 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 10/01/2015 Seborrheic Keratoses 12/06/2013 015 Personal history of other ma lignant neoplasm of skin 12/06/2013 10/01/2015 Scars 12/06/2013 10/01/2015 Viral warts, unspecified 05/29/2012 Solar Lentigines 05/29/2012 10/01/2015 Actinic skin damage 05/29/2012 10/01/20 15 Hemangioma 05/29/2012 10/01/2015 [place] angiomas 05/29/2012 10/01/2015 Special screening for malign ant neoplasms, colon 01/24/2011 10/01/2015 Lumbago 10/01/2010 10/10/2016 Chest pain 04/07/2010 08/23/2010 LACERATION -NOT COMPLICATED NOSE 02/04/2009 12/24/2012 HYPERGLYCEMIA 12/15/2008 10/10/2016 Last Assessment & Plan: Good control of sugars in June 2010. 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 12/06/2013 Scar condition and fibrosis of skin 05/14/2007 12/06/2013 H/O BCC'S///PERS HX SKIN MALIGNANCY NEC 05/14/2007 12/24/2012 SOLAR LENGINES///DYSCHROMIA OTHER 05/14/2007 12/24/2012 Open wound(s) (multiple) of unspecified site(s), without mention of complication 01/31/2007 08/23/2010 BCC///MALIG NEOPLASM SKIN FACE NEC 01/11/2007 12/24/2012 Inflamed seborrheic keratosis 01/04/2007 12/06/2013 Neoplasm of uncertain behavior of skin 11/29/2006 12/24/2012 Other seborrheic keratosis 11/29/2006 0 12/06/2013 SEBACEOUS HYPERPLASIA///SEBA CEOUS GLAND DIS NOS 11/29/2006 12/24/2012 Benign neoplasm of skin of o ther and unspecified parts of face 11/29/2006 12/06/2013 [place] ANGIOMA///NEVUS, NON-NEOPLASTIC 11/29/2006 12/06/2013 Other chronic 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 11/29/2006 12/06/2013 documented as of this encounter (statuses as of 09/17/2023) [facility] History of Past illness Narrative* Problem Noted Date Diagnosed Date Resolved Date Osteopenia 04/09/2019 01/14/2021 Encounter for screening colonoscopy 03/05/2015 03/05/2015 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 10/01/2015 Seborrheic Keratoses 12/06/2013 015 Personal history of other ma lignant neoplasm of skin 12/06/2013 10/01/2015 Scars 12/06/2013 10/01/2015 Viral warts, unspecified 05/29/2012 Solar Lentigines 05/29/2012 10/01/2015 Actinic skin damage 05/29/2012 10/01/20 15 Hemangioma 05/29/2012 10/01/2015 [place] angiomas 05/29/2012 10/01/2015 Special screening for malign ant neoplasms, colon 01/24/2011 10/01/2015 Lumbago 10/01/2010 10/10/2016 Chest pain 04/07/2010 08/23/2010 LACERATION -NOT COMPLICATED NOSE 02/04/2009 12/24/2012 HYPERGLYCEMIA 12/15/2008 10/10/2016 Last Assessment & Plan: Good control of sugars in June 2010. 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 12/06/2013 Scar condition and fibrosis of skin 05/14/2007 12/06/2013 H/O BCC'S///PERS HX SKIN MALIGNANCY NEC 05/14/2007 12/24/2012 SOLAR LENGINES///DYSCHROMIA OTHER 05/14/2007 12/24/2012 Open wound(s) (multiple) of unspecified site(s), without mention of complication 01/31/2007 08/23/2010 BCC///MALIG NEOPLASM SKIN FACE NEC 01/11/2007 12/24/2012 Inflamed seborrheic keratosis 01/04/2007 12/06/2013 Neoplasm of uncertain behavior of skin 11/29/2006 12/24/2012 Other seborrheic keratosis 11/29/2006 0 12/06/2013 SEBACEOUS HYPERPLASIA///SEBA CEOUS GLAND DIS NOS 11/29/2006 12/24/2012 Benign neoplasm of skin of o ther and unspecified parts of face 11/29/2006 12/06/2013 [place] ANGIOMA///NEVUS, NON-NEOPLASTIC 11/29/2006 12/06/2013 Other chronic 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 11/29/2006 12/06/2013 documented as of this encounter (statuses as of 09/30/2023) [facility] History of Past illness Narrative* Problem Noted Date Diagnosed Date Resolved Date Osteopenia 04/09/2019 01/14/2021 Encounter for screening colonoscopy 03/05/2015 03/05/2015 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 10/01/2015 Seborrheic Keratoses 12/06/201310/01/ 015 Personal history of other ma lignant neoplasm of skin 12/06/2013 10/01/2015 Scars 12/06/2013 10/01/2015 Viral warts, unspecified 05/29/2012 Solar Lentigines 05/29/2012 10/01/2015 Actinic skin damage 05/29/2012 10/01/20 15 Hemangioma 05/29/2012 10/01/2015 [place] angiomas 05/29/2012 10/01/2015 Special screening for malign ant neoplasms, colon 01/24/2011 10/01/2015 Lumbago 10/01/2010 10/10/2016 Chest pain 04/07/2010 08/23/2010 LACERATION -NOT COMPLICATED NOSE 02/04/2009 12/24/2012 HYPERGLYCEMIA 12/15/2008 10/10/2016 Last Assessment & Plan: Good control of sugars in June 2010. 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 12/06/2013 Scar condition and fibrosis of skin 05/14/2007 12/06/2013 H/O BCC'S///PERS HX SKIN MALIGNANCY NEC 05/14/2007 12/24/2012 SOLAR LENGINES///DYSCHROMIA OTHER 05/14/2007 12/24/2012 Open wound(s) (multiple) of unspecified site(s), without mention of complication 01/31/2007 08/23/2010 BCC///MALIG NEOPLASM SKIN FACE NEC 01/11/2007 12/24/2012 Inflamed seborrheic keratosis 01/04/2007 12/06/2013 Neoplasm of uncertain behavior of skin 11/29/2006 12/24/2012 Other seborrheic keratosis 11/29/2006 0 12/06/2013 SEBACEOUS HYPERPLASIA///SEBA CEOUS GLAND DIS NOS 11/29/2006 12/24/2012 Benign neoplasm of skin of o ther and unspecified parts of face 11/29/2006 12/06/2013 [place] ANGIOMA///NEVUS, NON-NEOPLASTIC 11/29/2006 12/06/2013 Other chronic 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 11/29/2006 12/06/2013 documented as of this encounter (statuses as of 10/17/2023) [facility] History of Past illness Narrative* Problem Noted Date Diagnosed Date Resolved Date Osteopenia 04/09/2019 01/14/2021 Encounter for screening colonoscopy 03/05/2015 03/05/2015 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 10/01/2015 Seborrheic Keratoses 12/06/2013 015 Personal history of other ma lignant neoplasm of skin 12/06/2013 10/01/2015 Scars 12/06/2013 10/01/2015 Viral warts, unspecified 05/29/2012 Solar Lentigines 05/29/2012 10/01/2015 Actinic skin damage 05/29/2012 10/01/20 15 Hemangioma 05/29/2012 10/01/2015 [place] angiomas 05/29/2012 10/01/2015 Special screening for malign ant neoplasms, colon 01/24/2011 10/01/2015 Lumbago 10/01/2010 10/10/2016 Chest pain 04/07/2010 08/23/2010 LACERATION -NOT COMPLICATED NOSE 02/04/2009 12/24/2012 HYPERGLYCEMIA 12/15/2008 10/10/2016 Last Assessment & Plan: Good control of sugars in June 2010. 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 12/06/2013 Scar condition and fibrosis of skin 05/14/2007 12/06/2013 H/O BCC'S///PERS HX SKIN MALIGNANCY NEC 05/14/2007 12/24/2012 SOLAR LENGINES///DYSCHROMIA OTHER 05/14/2007 12/24/2012 Open wound(s) (multiple) of unspecified site(s), without mention of complication 01/31/2007 08/23/2010 BCC///MALIG NEOPLASM SKIN FACE NEC 01/11/2007 12/24/2012 Inflamed seborrheic keratosis 01/04/2007 12/06/2013 Neoplasm of uncertain behavior of skin 11/29/2006 12/24/2012 Other seborrheic keratosis 11/29/2006 0 12/06/2013 SEBACEOUS HYPERPLASIA///SEBA CEOUS GLAND DIS NOS 11/29/2006 12/24/2012 Benign neoplasm of skin of o ther and unspecified parts of face 11/29/2006 12/06/2013 [place] ANGIOMA///NEVUS, NON-NEOPLASTIC 11/29/2006 12/06/2013 Other chronic 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 11/29/2006 12/06/2013 documented as of this encounter (statuses as of 10/18/2023) [facility] History of Past illness Narrative* Problem Noted Date Diagnosed Date Resolved Date Osteopenia 04/09/2019 01/14/2021 Encounter for screening colonoscopy 03/05/2015 03/05/2015 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 10/01/2015 Seborrheic Keratoses 12/06/2013 015 Personal history of other ma lignant neoplasm of skin 12/06/2013 10/01/2015 Scars 12/06/2013 10/01/2015 Viral warts, unspecified 05/29/2012 Solar Lentigines 05/29/2012 10/01/2015 Actinic skin damage 05/29/2012 10/01/20 15 Hemangioma 05/29/2012 10/01/2015 [place] angiomas 05/29/2012 10/01/2015 Special screening for malign ant neoplasms, colon 01/24/2011 10/01/2015 Lumbago 10/01/2010 10/10/2016 Chest pain 04/07/2010 08/23/2010 LACERATION -NOT COMPLICATED NOSE 02/04/2009 12/24/2012 HYPERGLYCEMIA 12/15/2008 10/10/2016 Last Assessment & Plan: Good control of sugars in June 2010. 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 12/06/2013 Scar condition and fibrosis of skin 05/14/2007 12/06/2013 H/O BCC'S///PERS HX SKIN MALIGNANCY NEC 05/14/2007 12/24/2012 SOLAR LENGINES///DYSCHROMIA OTHER 05/14/2007 12/24/2012 Open wound(s) (multiple) of unspecified site(s), without mention of complication 01/31/2007 08/23/2010 BCC///MALIG NEOPLASM SKIN FACE NEC 01/11/2007 12/24/2012 Inflamed seborrheic keratosis 01/04/2007 12/06/2013 Neoplasm of uncertain behavior of skin 11/29/2006 12/24/2012 Other seborrheic keratosis 11/29/2006 0 12/06/2013 SEBACEOUS HYPERPLASIA///SEBA CEOUS GLAND DIS NOS 11/29/2006 12/24/2012 Benign neoplasm of skin of o ther and unspecified parts of face 11/29/2006 12/06/2013 [place] ANGIOMA///NEVUS, NON-NEOPLASTIC 11/29/2006 12/06/2013 Other chronic 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 11/29/2006 12/06/2013 documented as of this encounter (statuses as of 01/26/2024) [facility] History of Past illness Narrative* Problem Noted Date Diagnosed Date Resolved Date Osteopenia 04/09/2019 01/14/2021 Encounter for screening colonoscopy 03/05/2015 03/05/2015 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 10/01/2015 Seborrheic Keratoses 12/06/2013 015 Personal history of other ma lignant neoplasm of skin 12/06/2013 10/01/2015 Scars 12/06/2013 10/01/2015 Viral warts, unspecified 05/29/2012 Solar Lentigines 05/29/2012 10/01/2015 Actinic skin damage 05/29/2012 10/01/20 15 Hemangioma 05/29/2012 10/01/2015 [place] angiomas 05/29/2012 10/01/2015 Special screening for malign ant neoplasms, colon 01/24/2011 10/01/2015 Lumbago 10/01/2010 10/10/2016 Chest pain 04/07/2010 08/23/2010 LACERATION -NOT COMPLICATED NOSE 02/04/2009 12/24/2012 HYPERGLYCEMIA 12/15/2008 10/10/2016 Last Assessment & Plan: Good control of sugars in June 2010. 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 12/06/2013 Scar condition and fibrosis of skin 05/14/2007 12/06/2013 H/O BCC'S///PERS HX SKIN MALIGNANCY NEC 05/14/2007 12/24/2012 SOLAR LENGINES///DYSCHROMIA OTHER 05/14/2007 12/24/2012 Open wound(s) (multiple) of unspecified site(s), without mention of complication 01/31/2007 08/23/2010 BCC///MALIG NEOPLASM SKIN FACE NEC 01/11/2007 12/24/2012 Inflamed seborrheic keratosis 01/04/2007 12/06/2013 Neoplasm of uncertain behavior of skin 11/29/2006 12/24/2012 Other seborrheic keratosis 11/29/2006 0 12/06/2013 SEBACEOUS HYPERPLASIA///SEBA CEOUS GLAND DIS NOS 11/29/2006 12/24/2012 Benign neoplasm of skin of o ther and unspecified parts of face 11/29/2006 12/06/2013 [place] ANGIOMA///NEVUS, NON-NEOPLASTIC 11/29/2006 12/06/2013 Other chronic 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 11/29/2006 12/06/2013 documented as of this encounter (statuses as of 01/29/2024) [facility] Past illness Narrative* Problem Noted Date Diagnosed Date Resolved Date Osteopenia 04/09/2019 01/14/2021 Encounter for screening colonoscopy 03/05/2015 03/05/2015 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 10/01/2015 Seborrheic Keratoses 12/06/2013 015 Personal history of other ma lignant neoplasm of skin 12/06/2013 10/01/2015 Scars 12/06/2013 10/01/2015 Viral warts, unspecified 05/29/2012 Solar Lentigines 05/29/2012 10/01/2015 Actinic skin damage 05/29/2012 10/01/20 15 Hemangioma 05/29/2012 10/01/2015 [place] angiomas 05/29/2012 10/01/2015 Special screening for malign ant neoplasms, colon 01/24/2011 10/01/2015 Lumbago 10/01/2010 10/10/2016 Chest pain 04/07/2010 08/23/2010 LACERATION -NOT COMPLICATED NOSE 02/04/2009 12/24/2012 HYPERGLYCEMIA 12/15/2008 10/10/2016 Last Assessment & Plan: Good control of sugars in June 2010. 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 12/06/2013 Scar condition and fibrosis of skin 05/14/2007 12/06/2013 H/O BCC'S///PERS HX SKIN MALIGNANCY NEC 05/14/2007 12/24/2012 SOLAR LENGINES///DYSCHROMIA OTHER 05/14/2007 12/24/2012 Open wound(s) (multiple) of unspecified site(s), without mention of complication 01/31/2007 08/23/2010 BCC///MALIG NEOPLASM SKIN FACE NEC 01/11/2007 12/24/2012 Inflamed seborrheic keratosis 01/04/2007 12/06/2013 Neoplasm of uncertain behavior of skin 11/29/2006 12/24/2012 Other seborrheic keratosis 11/29/2006 0 12/06/2013 SEBACEOUS HYPERPLASIA///SEBA CEOUS GLAND DIS NOS 11/29/2006 12/24/2012 Benign neoplasm of skin of o ther and unspecified parts of face 11/29/2006 12/06/2013 [place] ANGIOMA///NEVUS, NON-NEOPLASTIC 11/29/2006 12/06/2013 Other chronic 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 11/29/2006 12/06/2013 documented as of this encounter (statuses as of 01/30/2024) [facility] Past illness Narrative* Problem Noted Date Diagnosed Date Resolved Date Osteopenia 04/09/2019 01/14/2021 Encounter for screening colonoscopy 03/05/2015 03/05/2015 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 10/01/2015 Seborrheic Keratoses 12/06/2013 015 Personal history of other ma lignant neoplasm of skin 12/06/2013 10/01/2015 Scars 12/06/2013 10/01/2015 Viral warts, unspecified 05/29/2012 Solar Lentigines 05/29/2012 10/01/2015 Actinic skin damage 05/29/2012 10/01/20 15 Hemangioma 05/29/2012 10/01/2015 [place] angiomas 05/29/2012 10/01/2015 Special screening for malign ant neoplasms, colon 01/24/2011 10/01/2015 Lumbago 10/01/2010 10/10/2016 Chest pain 04/07/2010 08/23/2010 LACERATION -NOT COMPLICATED NOSE 02/04/2009 12/24/2012 HYPERGLYCEMIA 12/15/2008 10/10/2016 Last Assessment & Plan: Good control of sugars in June 2010. 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 12/06/2013 Scar condition and fibrosis of skin 05/14/2007 12/06/2013 H/O BCC'S///PERS HX SKIN MALIGNANCY NEC 05/14/2007 12/24/2012 SOLAR LENGINES///DYSCHROMIA OTHER 05/14/2007 12/24/2012 Open wound(s) (multiple) of unspecified site(s), without mention of complication 01/31/2007 08/23/2010 BCC///MALIG NEOPLASM SKIN FACE NEC 01/11/2007 12/24/2012 Inflamed seborrheic keratosis 01/04/2007 12/06/2013 Neoplasm of uncertain behavior of skin 11/29/2006 12/24/2012 Other seborrheic keratosis 11/29/2006 0 12/06/2013 SEBACEOUS HYPERPLASIA///SEBA CEOUS GLAND DIS NOS 11/29/2006 12/24/2012 Benign neoplasm of skin of o ther and unspecified parts of face 11/29/2006 12/06/2013 [place] ANGIOMA///NEVUS, NON-NEOPLASTIC 11/29/2006 12/06/2013 Other chronic 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 11/29/2006 12/06/2013 documented as of this encounter (statuses as of 02/05/2024) [facility] illness Narrative* Problem Noted Date Diagnosed Date Resolved Date Osteopenia 04/09/2019 01/14/2021 Encounter for screening colonoscopy 03/05/2015 03/05/2015 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 10/01/2015 Seborrheic Keratoses 12/06/2013 015 Personal history of other ma lignant neoplasm of skin 12/06/2013 10/01/2015 Scars 12/06/2013 10/01/2015 Viral warts, unspecified 05/29/2012 Solar Lentigines 05/29/2012 10/01/2015 Actinic skin damage 05/29/2012 10/01/20 15 Hemangioma 05/29/2012 10/01/2015 [place] angiomas 05/29/2012 10/01/2015 Special screening for malign ant neoplasms, colon 01/24/2011 10/01/2015 Lumbago 10/01/2010 10/10/2016 Chest pain 04/07/2010 08/23/2010 LACERATION -NOT COMPLICATED NOSE 02/04/2009 12/24/2012 HYPERGLYCEMIA 12/15/2008 10/10/2016 Last Assessment & Plan: Good control of sugars in June 2010. 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 12/06/2013 Scar condition and fibrosis of skin 05/14/2007 12/06/2013 H/O BCC'S///PERS HX SKIN MALIGNANCY NEC 05/14/2007 12/24/2012 SOLAR LENGINES///DYSCHROMIA OTHER 05/14/2007 12/24/2012 Open wound(s) (multiple) of unspecified site(s), without mention of complication 01/31/2007 08/23/2010 BCC///MALIG NEOPLASM SKIN FACE NEC 01/11/2007 12/24/2012 Inflamed seborrheic keratosis 01/04/2007 12/06/2013 Neoplasm of uncertain behavior of skin 11/29/2006 12/24/2012 Other seborrheic keratosis 11/29/2006 0 12/06/2013 SEBACEOUS HYPERPLASIA///SEBA CEOUS GLAND DIS NOS 11/29/2006 12/24/2012 Benign neoplasm of skin of o ther and unspecified parts of face 11/29/2006 12/06/2013 [place] ANGIOMA///NEVUS, NON-NEOPLASTIC 11/29/2006 12/06/2013 Other chronic 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 11/29/2006 12/06/2013 documented as of this encounter (statuses as of 02/21/2024) [facility] Blister Other, multiple, and unspecified sites, blister, without mention of infection [facility] Diagnosis Encounter for screening mammogram for malignant neoplasm of breast- Primary Other screening mammogram Urinary incontinence, unspecified type Encounter for gynecological examination with abnormal finding Routine gynecological examination Urinary frequency [facility] Diagnosis Abnormal screening mammogram- Primary Abnormal mammogram, unspecified [facility]* Diagnosis Essential hypertension Unspecified essential hypertension [facility]* Diagnosis SVT (supraventricular tachycardia) (HCC)- Primary Other specified cardiac dysrhythmias Essential hypertension Unspecified essential hypertension Other hyperlipidemia Raynaud's disease without gangrene [facility] Diagnosis Essential hypertension- Primary Unspecified essential hypertension Other hyperlipidemia SVT (supraventricular tachycardia) (HCC) Other specified cardiac dysrhythmias Hypothyroidism, unspecified type Elevated serum globulin level [facility]* Diagnosis Abnormal screening mammogram Abnormal mammogram, unspecified [facility]* Diagnosis Osteoporosis, unspecified osteoporosis type, unspecified pathological fracture presence- Primary Viral illness Unspecified viral infection, in conditions classified elsewhere and of unspecified site Essential hypertension Unspecified essential hypertension Other hyperlipidemia [facility] Diagnosis Essential hypertension Unspecified essential hypertension [facility] Diagnosis Pain- Primary Generalized pain Muscle pain Mylagia and myositis, unspecified [facility] Diagnosis Medicare annual wellness visit, subsequent- Primary Routine general medical examination at a health care facility Acute back pain, unspecified back location, unspecified back pain laterality Weight loss Loss of weight Essential hypertension Unspecified essential hypertension Other hyperlipidemia Hypothyroidism, unspecified type Prediabetes Other abnormal glucose Leg cramps Cramp of limb Osteoporosis, unspecified osteoporosis type, unspecified pathological fracture presence Abnormal urinalysis Other nonspecific finding on examination of urine [facility]* Diagnosis Compression fracture of T7 vertebra, initial encounter ([facility] Primary [facility]* Diagnosis Pathological fracture, other site, initial encounter for fracture [facility]* Diagnosis Pain- Primary Generalized pain Osteoporosis, unspecified osteoporosis type, unspecified pathological fracture presence [facility] noteNo assessment information availableWCorey Hospital Work Phone: Evaluation note* Diagnosis Paroxysmal atrial fibrillation (HCC)- Primary Atrial fibrillation SVT (supraventricular tachycardia) (HCC) Other specified cardiac dysrhythmias Essential hypertension Unspecified essential hypertension Other hyperlipidemia Raynaud's disease without gangrene [facility]* Diagnosis Paroxysmal atrial fibrillation (HCC) Atrial fibrillation [facility]* Diagnosis Paroxysmal atrial fibrillation (HCC) Atrial fibrillation [facility]* Diagnosis Encounter for gynecological examination (general) (routine) without abnormal findings- Primary Encounter for screening mammogram for malignant neoplasm of breast Other screening mammogram Continuous leakage of urine Continuous leakage [facility]* Diagnosis Essential hypertension- Primary Unspecified essential hypertension Other hyperlipidemia Paroxysmal atrial fibrillation (HCC) Atrial fibrillation Prediabetes Other abnormal glucose Hypothyroidism, unspecified type Osteoporosis, unspecified osteoporosis type, unspecified pathological fracture presence Sinus congestion Other diseases of nasal cavity and sinuses [facility]* Diagnosis Hypothyroidism, unspecified type- Primary Osteoporosis, unspecified osteoporosis type, unspecified pathological fracture presence [facility]* Diagnosis Osteoporosis, unspecified osteoporosis type, unspecified pathological fracture presence [facility]* Diagnosis Encounter for screening mammogram for malignant neoplasm of breast Other screening mammogram [facility] Diagnosis Compression fracture of T7 vertebra, initial encounter (HCC) [facility]* Diagnosis Osteoporosis, unspecified osteoporosis type, unspecified pathological fracture presence [facility] Diagnosis Paroxysmal atrial fibrillation (HCC) Atrial fibrillation [facility]* Diagnosis Essential hypertension Unspecified essential hypertension [facility]* Diagnosis Essential hypertension- Primary Unspecified essential hypertension Hypothyroidism, unspecified type Paroxysmal atrial fibrillation (HCC) Atrial fibrillation [facility]* Diagnosis Primary hypertension- Primary Unspecified essential hypertension Hypothyroidism, unspecified type [facility]* Diagnosis Essential hypertension- Primary Unspecified essential hypertension [facility] Diagnosis Paroxysmal atrial fibrillation (HCC)- Primary Atrial fibrillation SVT (supraventricular tachycardia) (HCC) Other specified cardiac dysrhythmias Essential hypertension Unspecified essential hypertension Mixed hyperlipidemia Raynaud's disease without gangrene documented in this encounter [facility] note* Diagnosis Paroxysmal atrial fibrillation (HCC) Atrial fibrillation documented in this encounter [facility] note* Diagnosis Acute midline low back pain with sciatica, sciatica laterality unspecified- Primary documented in this encounter [facility] note* Diagnosis Acute midline low back pain with sciatica, sciatica laterality unspecified [facility]* Diagnosis Acute midline low back pain with sciatica, sciatica laterality unspecified documented in this encounter [facility] note* Diagnosis HYPERTENSION NOS Unspecified essential hypertension OSTEOPOROSIS NOS Osteoporosis, unspecified HYPERLIPIDEMIA NEC/NOS Other and unspecified hyperlipidemia HYPERGLYCEMIA Other abnormal blood chemistry Vitamin D deficiency Unspecified vitamin D deficiency Need for prophylactic vaccination and inoculation against influenza Unspecified vitamin D deficiency Blister- Primary Other, multiple, and unspecified sites, blister, without mention of infection Osteoporosis, unspecified Lichen planus Essential hypertension Unspecified essential hypertension Hyperlipidemia, unspecified hyperlipidemia type Female stress incontinence Herpes simplex labialis Herpes simplex without mention of complication Vertigo Dizziness and giddiness Irritable bowel syndrome with both constipation and diarrhea Encounter for gynecological examination (general) (routine) without abnormal findings- Primary Encounter for screening mammogram for breast cancer documented in this encounter [facility] note* Diagnosis HYPERTENSION NOS Unspecified essential hypertension OSTEOPOROSIS NOS Osteoporosis, unspecified HYPERLIPIDEMIA NEC/NOS Other and unspecified hyperlipidemia HYPERGLYCEMIA Other abnormal blood chemistry Vitamin D deficiency Unspecified vitamin D deficiency Need for prophylactic vaccination and inoculation against influenza Unspecified vitamin D deficiency Blister- Primary Other, multiple, and unspecified sites, blister, without mention of infection Osteoporosis, unspecified Lichen planus Essential hypertension Unspecified essential hypertension Hyperlipidemia, unspecified hyperlipidemia type Female stress incontinence Herpes simplex labialis Herpes simplex without mention of complication Vertigo Dizziness and giddiness Irritable bowel syndrome with both constipation and diarrhea Encounter for screening mammogram for malignant neoplasm of breast Other screening mammogram documented in this encounter [facility] note* Diagnosis HYPERTENSION NOS Unspecified essential hypertension OSTEOPOROSIS NOS Osteoporosis, unspecified HYPERLIPIDEMIA NEC/NOS Other and unspecified hyperlipidemia HYPERGLYCEMIA Other abnormal blood chemistry Vitamin D deficiency Unspecified vitamin D deficiency Need for prophylactic vaccination and inoculation against influenza Unspecified vitamin D deficiency Blister- Primary Other, multiple, and unspecified sites, blister, without mention of infection Osteoporosis, unspecified Lichen planus Essential hypertension Unspecified essential hypertension Hyperlipidemia, unspecified hyperlipidemia type Female stress incontinence Herpes simplex labialis Herpes simplex without mention of complication Vertigo Dizziness and giddiness Irritable bowel syndrome with both constipation and diarrhea Acute midline low back pain with sciatica, sciatica laterality unspecified- Primary documented in this encounter [facility] note* Diagnosis HYPERTENSION NOS Unspecified essential hypertension OSTEOPOROSIS NOS Osteoporosis, unspecified HYPERLIPIDEMIA NEC/NOS Other and unspecified hyperlipidemia HYPERGLYCEMIA Other abnormal blood chemistry Vitamin D deficiency Unspecified vitamin D deficiency Need for prophylactic vaccination and inoculation against influenza Unspecified vitamin D deficiency Blister- Primary Other, multiple, and unspecified sites, blister, without mention of infection Osteoporosis, unspecified Lichen planus Essential hypertension Unspecified essential hypertension Hyperlipidemia, unspecified hyperlipidemia type Female stress incontinence Herpes simplex labialis Herpes simplex without mention of complication Vertigo Dizziness and giddiness Irritable bowel syndrome with both constipation and diarrhea Acute midline low back pain with sciatica, sciatica laterality unspecified- Primary documented in this encounter [facility] note* Diagnosis HYPERTENSION NOS Unspecified essential hypertension OSTEOPOROSIS NOS Osteoporosis, unspecified HYPERLIPIDEMIA NEC/NOS Other and unspecified hyperlipidemia HYPERGLYCEMIA Other abnormal blood chemistry Vitamin D deficiency Unspecified vitamin D deficiency Need for prophylactic vaccination and inoculation against influenza Unspecified vitamin D deficiency Blister- Primary Other, multiple, and unspecified sites, blister, without mention of infection Osteoporosis, unspecified Lichen planus Essential hypertension Unspecified essential hypertension Hyperlipidemia, unspecified hyperlipidemia type Female stress incontinence Herpes simplex labialis Herpes simplex without mention of complication Vertigo Dizziness and giddiness Irritable bowel syndrome with both constipation and diarrhea Pain Generalized pain Osteoporosis, unspecified osteoporosis type, unspecified pathological fracture presence documented in this encounter [facility] note* Diagnosis HYPERTENSION NOS Unspecified essential hypertension OSTEOPOROSIS NOS Osteoporosis, unspecified HYPERLIPIDEMIA NEC/NOS Other and unspecified hyperlipidemia HYPERGLYCEMIA Other abnormal blood chemistry Vitamin D deficiency Unspecified vitamin D deficiency Need for prophylactic vaccination and inoculation against influenza Unspecified vitamin D deficiency Blister- Primary Other, multiple, and unspecified sites, blister, without mention of infection Osteoporosis, unspecified Lichen planus Essential hypertension Unspecified essential hypertension Hyperlipidemia, unspecified hyperlipidemia type Female stress incontinence Herpes simplex labialis Herpes simplex without mention of complication Vertigo Dizziness and giddiness Irritable bowel syndrome with both constipation and diarrhea Hip pain Pain in joint, pelvic region and thigh [facility]* Diagnosis HYPERTENSION NOS Unspecified essential hypertension OSTEOPOROSIS NOS Osteoporosis, unspecified HYPERLIPIDEMIA NEC/NOS Other and unspecified hyperlipidemia HYPERGLYCEMIA Other abnormal blood chemistry Vitamin D deficiency Unspecified vitamin D deficiency Need for prophylactic vaccination and inoculation against influenza Unspecified vitamin D deficiency Blister- Primary Other, multiple, and unspecified sites, blister, without mention of infection Osteoporosis, unspecified Lichen planus Essential hypertension Unspecified essential hypertension Hyperlipidemia, unspecified hyperlipidemia type Female stress incontinence Herpes simplex labialis Herpes simplex without mention of complication Vertigo Dizziness and giddiness Irritable bowel syndrome with both constipation and diarrhea Acute pain of right knee [facility]* Diagnosis HYPERTENSION NOS Unspecified essential hypertension OSTEOPOROSIS NOS Osteoporosis, unspecified HYPERLIPIDEMIA NEC/NOS Other and unspecified hyperlipidemia HYPERGLYCEMIA Other abnormal blood chemistry Vitamin D deficiency Unspecified vitamin D deficiency Need for prophylactic vaccination and inoculation against influenza Unspecified vitamin D deficiency Blister- Primary Other, multiple, and unspecified sites, blister, without mention of infection Osteoporosis, unspecified Lichen planus Essential hypertension Unspecified essential hypertension Hyperlipidemia, unspecified hyperlipidemia type Female stress incontinence Herpes simplex labialis Herpes simplex without mention of complication Vertigo Dizziness and giddiness Irritable bowel syndrome with both constipation and diarrhea Age-related osteoporosis with current pathological fracture with routine healing, subsequent encounter- Primary MGUS (monoclonal gammopathy of unknown significance) Monoclonal paraproteinemia Vitamin D deficiency Unspecified vitamin D deficiency Vitamin B12 deficiency Other B-complex deficiencies Weight gain Abnormal weight gain Fatigue, unspecified type Iron deficiency Iron deficiency anemia, unspecified documented in this encounter [facility] note* Diagnosis HYPERTENSION NOS Unspecified essential hypertension OSTEOPOROSIS NOS Osteoporosis, unspecified HYPERLIPIDEMIA NEC/NOS Other and unspecified hyperlipidemia HYPERGLYCEMIA Other abnormal blood chemistry Vitamin D deficiency Unspecified vitamin D deficiency Need for prophylactic vaccination and inoculation against influenza Unspecified vitamin D deficiency Blister- Primary Other, multiple, and unspecified sites, blister, without mention of infection Osteoporosis, unspecified Lichen planus Essential hypertension Unspecified essential hypertension Hyperlipidemia, unspecified hyperlipidemia type Female stress incontinence Herpes simplex labialis Herpes simplex without mention of complication Vertigo Dizziness and giddiness Irritable bowel syndrome with both constipation and diarrhea Paroxysmal atrial fibrillation (HCC) [facility]rial [facility] HYPERTENSION NOS Unspecified essential hypertension OSTEOPOROSIS NOS Osteoporosis, unspecified HYPERLIPIDEMIA NEC/NOS Other and unspecified hyperlipidemia HYPERGLYCEMIA Other abnormal blood chemistry Vitamin D deficiency Unspecified vitamin D deficiency Need for prophylactic vaccination and inoculation against influenza Unspecified vitamin D deficiency Blister- Primary Other, multiple, and unspecified sites, blister, without mention of infection Osteoporosis, unspecified Lichen planus Essential hypertension Unspecified essential hypertension Hyperlipidemia, unspecified hyperlipidemia type Female stress incontinence Herpes simplex labialis Herpes simplex without mention of complication Vertigo Dizziness and giddiness Irritable bowel syndrome with both constipation and diarrhea Compression fracture of L1 vertebra, sequela- Primary [facility]* Diagnosis HYPERTENSION NOS Unspecified essential hypertension OSTEOPOROSIS NOS Osteoporosis, unspecified HYPERLIPIDEMIA NEC/NOS Other and unspecified hyperlipidemia HYPERGLYCEMIA Other abnormal blood chemistry Vitamin D deficiency Unspecified vitamin D deficiency Need for prophylactic vaccination and inoculation against influenza Unspecified vitamin D deficiency Blister- Primary Other, multiple, and unspecified sites, blister, without mention of infection Osteoporosis, unspecified Lichen planus Essential hypertension Unspecified essential hypertension Hyperlipidemia, unspecified hyperlipidemia type Female stress incontinence Herpes simplex labialis Herpes simplex without mention of complication Vertigo Dizziness and giddiness Irritable bowel syndrome with both constipation and diarrhea Paroxysmal atrial fibrillation (HCC) Atrial fibrillation documented in this encounter [facility] note* Diagnosis HYPERTENSION NOS Unspecified essential hypertension OSTEOPOROSIS NOS Osteoporosis, unspecified HYPERLIPIDEMIA NEC/NOS Other and unspecified hyperlipidemia HYPERGLYCEMIA Other abnormal blood chemistry Vitamin D deficiency Unspecified vitamin D deficiency Need for prophylactic vaccination and inoculation against influenza Unspecified vitamin D deficiency Blister- Primary Other, multiple, and unspecified sites, blister, without mention of infection Osteoporosis, unspecified Lichen planus Essential hypertension Unspecified essential hypertension Hyperlipidemia, unspecified hyperlipidemia type Female stress incontinence Herpes simplex labialis Herpes simplex without mention of complication Vertigo Dizziness and giddiness Irritable bowel syndrome with both constipation and diarrhea Pain in left hip- Primary Pain in joint, pelvic region and thigh [facility]* Diagnosis HYPERTENSION NOS Unspecified essential hypertension OSTEOPOROSIS NOS Osteoporosis, unspecified HYPERLIPIDEMIA NEC/NOS Other and unspecified hyperlipidemia HYPERGLYCEMIA Other abnormal blood chemistry Vitamin D deficiency Unspecified vitamin D deficiency Need for prophylactic vaccination and inoculation against influenza Unspecified vitamin D deficiency Blister- Primary Other, multiple, and unspecified sites, blister, without mention of infection Osteoporosis, unspecified Lichen planus Essential hypertension Unspecified essential hypertension Hyperlipidemia, unspecified hyperlipidemia type Female stress incontinence Herpes simplex labialis Herpes simplex without mention of complication Vertigo Dizziness and giddiness Irritable bowel syndrome with both constipation and diarrhea Pain in left hip Pain in joint, pelvic region and thigh [facility]* Diagnosis HYPERTENSION NOS Unspecified essential hypertension OSTEOPOROSIS NOS Osteoporosis, unspecified HYPERLIPIDEMIA NEC/NOS Other and unspecified hyperlipidemia HYPERGLYCEMIA Other abnormal blood chemistry Vitamin D deficiency Unspecified vitamin D deficiency Need for prophylactic vaccination and inoculation against influenza Unspecified vitamin D deficiency Blister- Primary Other, multiple, and unspecified sites, blister, without mention of infection Osteoporosis, unspecified Lichen planus Essential hypertension Unspecified essential hypertension Hyperlipidemia, unspecified hyperlipidemia type Female stress incontinence Herpes simplex labialis Herpes simplex without mention of complication Vertigo Dizziness and giddiness Irritable bowel syndrome with both constipation and diarrhea Compression fracture of L1 lumbar vertebra, with delayed healing, subsequent encounter- Primary documented in this encounter [facility] note* Diagnosis HYPERTENSION NOS Unspecified essential hypertension OSTEOPOROSIS NOS Osteoporosis, unspecified HYPERLIPIDEMIA NEC/NOS Other and unspecified hyperlipidemia HYPERGLYCEMIA Other abnormal blood chemistry Vitamin D deficiency Unspecified vitamin D deficiency Need for prophylactic vaccination and inoculation against influenza Unspecified vitamin D deficiency Blister- Primary Other, multiple, and unspecified sites, blister, without mention of infection Osteoporosis, unspecified Lichen planus Essential hypertension Unspecified essential hypertension Hyperlipidemia, unspecified hyperlipidemia type Female stress incontinence Herpes simplex labialis Herpes simplex without mention of complication Vertigo Dizziness and giddiness Irritable bowel syndrome with both constipation and diarrhea Essential hypertension Unspecified essential hypertension documented in this encounter [facility] note* Diagnosis HYPERTENSION NOS Unspecified essential hypertension OSTEOPOROSIS NOS Osteoporosis, unspecified HYPERLIPIDEMIA NEC/NOS Other and unspecified hyperlipidemia HYPERGLYCEMIA Other abnormal blood chemistry Vitamin D deficiency Unspecified vitamin D deficiency Need for prophylactic vaccination and inoculation against influenza Unspecified vitamin D deficiency Blister- Primary Other, multiple, and unspecified sites, blister, without mention of infection Osteoporosis, unspecified Lichen planus Essential hypertension Unspecified essential hypertension Hyperlipidemia, unspecified hyperlipidemia type Female stress incontinence Herpes simplex labialis Herpes simplex without mention of complication Vertigo Dizziness and giddiness Irritable bowel syndrome with both constipation and diarrhea Hyperlipidemia Other and unspecified hyperlipidemia documented in this encounter [facility] note* Diagnosis HYPERTENSION NOS Unspecified essential hypertension OSTEOPOROSIS NOS Osteoporosis, unspecified HYPERLIPIDEMIA NEC/NOS Other and unspecified hyperlipidemia HYPERGLYCEMIA Other abnormal blood chemistry Vitamin D deficiency Unspecified vitamin D deficiency Need for prophylactic vaccination and inoculation against influenza Unspecified vitamin D deficiency Blister- Primary Other, multiple, and unspecified sites, blister, without mention of infection Osteoporosis, unspecified Lichen planus Essential hypertension Unspecified essential hypertension Hyperlipidemia, unspecified hyperlipidemia type Female stress incontinence Herpes simplex labialis Herpes simplex without mention of complication Vertigo Dizziness and giddiness Irritable bowel syndrome with both constipation and diarrhea Age-related osteoporosis with current pathological fracture with delayed healing, subsequent encounter- Primary Chronic thoracic back pain, unspecified back pain laterality Secondary hypertension Other secondary hypertension, unspecified Hypothyroidism, unspecified type [facility]* Diagnosis HYPERTENSION NOS Unspecified essential hypertension OSTEOPOROSIS NOS Osteoporosis, unspecified HYPERLIPIDEMIA NEC/NOS Other and unspecified hyperlipidemia HYPERGLYCEMIA Other abnormal blood chemistry Vitamin D deficiency Unspecified vitamin D deficiency Need for prophylactic vaccination and inoculation against influenza Unspecified vitamin D deficiency Blister- Primary Other, multiple, and unspecified sites, blister, without mention of infection Osteoporosis, unspecified Lichen planus Essential hypertension Unspecified essential hypertension Hyperlipidemia, unspecified hyperlipidemia type Female stress incontinence Herpes simplex labialis Herpes simplex without mention of complication Vertigo Dizziness and giddiness Irritable bowel syndrome with both constipation and diarrhea Paroxysmal atrial fibrillation (HCC) Atrial fibrillation documented in this encounter [facility] note* Diagnosis HYPERTENSION NOS Unspecified essential hypertension OSTEOPOROSIS NOS Osteoporosis, unspecified HYPERLIPIDEMIA NEC/NOS Other and unspecified hyperlipidemia HYPERGLYCEMIA Other abnormal blood chemistry Vitamin D deficiency Unspecified vitamin D deficiency Need for prophylactic vaccination and inoculation against influenza Unspecified vitamin D deficiency Blister- Primary Other, multiple, and unspecified sites, blister, without mention of infection Osteoporosis, unspecified Lichen planus Essential hypertension Unspecified essential hypertension Hyperlipidemia, unspecified hyperlipidemia type Female stress incontinence Herpes simplex labialis Herpes simplex without mention of complication Vertigo Dizziness and giddiness Irritable bowel syndrome with both constipation and diarrhea Paroxysmal atrial fibrillation (HCC) Atrial fibrillation documented in this encounter [facility] note* Diagnosis HYPERTENSION NOS Unspecified essential hypertension OSTEOPOROSIS NOS Osteoporosis, unspecified HYPERLIPIDEMIA NEC/NOS Other and unspecified hyperlipidemia HYPERGLYCEMIA Other abnormal blood chemistry Vitamin D deficiency Unspecified vitamin D deficiency Need for prophylactic vaccination and inoculation against influenza Unspecified vitamin D deficiency Blister- Primary Other, multiple, and unspecified sites, blister, without mention of infection Osteoporosis, unspecified Lichen planus Essential hypertension Unspecified essential hypertension Hyperlipidemia, unspecified hyperlipidemia type Female stress incontinence Herpes simplex labialis Herpes simplex without mention of complication Vertigo Dizziness and giddiness Irritable bowel syndrome with both constipation and diarrhea Paroxysmal atrial fibrillation (HCC) Atrial fibrillation [facility]* Diagnosis HYPERTENSION NOS Unspecified essential hypertension OSTEOPOROSIS NOS Osteoporosis, unspecified HYPERLIPIDEMIA NEC/NOS Other and unspecified hyperlipidemia HYPERGLYCEMIA Other abnormal blood chemistry Vitamin D deficiency Unspecified vitamin D deficiency Need for prophylactic vaccination and inoculation against influenza Unspecified vitamin D deficiency Blister- Primary Other, multiple, and unspecified sites, blister, without mention of infection Osteoporosis, unspecified Lichen planus Essential hypertension Unspecified essential hypertension Hyperlipidemia, unspecified hyperlipidemia type Female stress incontinence Herpes simplex labialis Herpes simplex without mention of complication Vertigo Dizziness and giddiness Irritable bowel syndrome with both constipation and diarrhea Essential hypertension- Primary Unspecified essential hypertension Cough, unspecified type Dry mouth Disturbance of salivary secretion Elevated glucose Other abnormal glucose Pre-diabetes Other abnormal glucose Age-related osteoporosis with current pathological fracture, sequela 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 documented in this encounter [facility] note* Diagnosis HYPERTENSION NOS Unspecified essential hypertension OSTEOPOROSIS NOS Osteoporosis, unspecified HYPERLIPIDEMIA NEC/NOS Other and unspecified hyperlipidemia HYPERGLYCEMIA Other abnormal blood chemistry Vitamin D deficiency Unspecified vitamin D deficiency Need for prophylactic vaccination and inoculation against influenza Unspecified vitamin D deficiency Blister- Primary Other, multiple, and unspecified sites, blister, without mention of infection Osteoporosis, unspecified Lichen planus Essential hypertension Unspecified essential hypertension Hyperlipidemia, unspecified hyperlipidemia type Female stress incontinence Herpes simplex labialis Herpes simplex without mention of complication Vertigo Dizziness and giddiness Irritable bowel syndrome with both constipation and diarrhea Essential hypertension- Primary Unspecified essential hypertension Cough, unspecified type Dry mouth Disturbance of salivary secretion Gastro-esophageal reflux disease without esophagitis Esophageal reflux documented [facility]* Diagnosis HYPERTENSION NOS Unspecified essential hypertension OSTEOPOROSIS NOS Osteoporosis, unspecified HYPERLIPIDEMIA NEC/NOS Other and unspecified hyperlipidemia HYPERGLYCEMIA Other abnormal blood chemistry Vitamin D deficiency Unspecified vitamin D deficiency Need for prophylactic vaccination and inoculation against influenza Unspecified vitamin D deficiency Blister- Primary Other, multiple, and unspecified sites, blister, without mention of infection Osteoporosis, unspecified Lichen planus Essential hypertension Unspecified essential hypertension Hyperlipidemia, unspecified hyperlipidemia type Female stress incontinence Herpes simplex labialis Herpes simplex without mention of complication Vertigo Dizziness and giddiness Irritable bowel syndrome with both constipation and diarrhea Encounter for gynecological examination (general) (routine) without abnormal findings- Primary Encounter for screening mammogram for breast cancer [facility] Diagnosis HYPERTENSION NOS Unspecified essential hypertension OSTEOPOROSIS NOS Osteoporosis, unspecified HYPERLIPIDEMIA NEC/NOS Other and unspecified hyperlipidemia HYPERGLYCEMIA Other abnormal blood chemistry Vitamin D deficiency Unspecified vitamin D deficiency Need for prophylactic vaccination and inoculation against influenza Unspecified vitamin D deficiency Blister- Primary Other, multiple, and unspecified sites, blister, without mention of infection Osteoporosis, unspecified Lichen planus Essential hypertension Unspecified essential hypertension Hyperlipidemia, unspecified hyperlipidemia type Female stress incontinence Herpes simplex labialis Herpes simplex without mention of complication Vertigo Dizziness and giddiness Irritable bowel syndrome with both constipation and diarrhea Encounter for screening mammogram for breast cancer documented in this encounter [facility] Discharge instructions Additional Instructions [facility] the [facility] for [facility] (narrative)* Diagnostic Procedure Only (Routine) - Pending Review Specialty Diagnoses / Procedures Referred By Melinda baca Referred To Contact [facility] Diagnoses Encounter for screening mammogram for malignant neoplasm of breast Procedures ARASH SCREENING W TRISTIN SCREENING DIGITAL BREAST TOMOSYNTHESIS BI SCREENING MAMMOGRAPHY BI 2-VIEW BREAST INC CAD Antoinette Malik MD [address] [place] [address] [facility] [address] [place] [address] Referral ID Status Reason Start Date Expiration Date Visits Requested Visits Authorized [id number] Pending Review Auto-Generat ed Referral 06/28/2022 07/28/2023 [address] [facility] for referral (narrative)* Diagnostic Procedure Only (Routine) - Pending Review Specialty Diagnoses / Procedures Referred By Melinda baca Referred To Contact [facility] Diagnoses Abnormal screening mammogram Procedures US BREAST LTD RT US BREAST UNI REAL TIME WITH IMAGE LIMITED Antoinette Malik MD [address] [place] [address] [facility] [address] [place] [address] Referral ID Status Reason Start Date Expiration Date Visits Requested Visits Authorized [id number] Pending Review Auto-Generat ed Referral 06/28/2022 07/28/2023 1 1 * Diagnostic Procedure Only (Routine) - Pending Review Specialty Diagnoses / Procedures Referred By Contac t Referred To Contact [facility] Diagnoses Abnormal screening mammogram Procedures ARASH DIAGNOSTIC RT DIAGNOSTIC MAMMOGRAPHY COMPUTER-AIDED DETCJ UNI Antoinette Malik MD [address] [place] [address] [facility] [address] [place] [address] Referral ID Status Reason Start Date Expiration Date Visits Requested Visits Authorized [id number] Pending Review Auto-Generat ed Referral 06/28/2022 07/28/2023 [address] [facility] for referral (narrative)* Diagnostic Procedure Only (Routine) - Closed Specialty Diagnoses / Procedures Referred By Contac t Referred To Contact [facility] Diagnoses Pain Osteoporosis, unspecified osteoporosis type, unspecified pathological fracture presence Procedures XR SCAPULA 2V AP/LAT LEFT RADEX SCAPULA COMPLETE Rashmi Hendrix APRN.MACHINE [employer] W[employer] [address] [place] [address] [facility] Referral ID Status Reason Start Date Expiration Date V isits Requested Visits Authorized [id number] Closed Auto-Generate d Referral 02/10/2023 03/11/2024 1 1 * Diagnostic Procedure Only (Routine) - Closed Specialty Diagnoses / Procedures Referred By Contac t Referred To Contact [facility] Diagnoses Pain Osteoporosis, unspecified osteoporosis type, unspecified pathological fracture presence Procedures XR THORACIC LIMITED 2V AP/LAT RADEX SPINE THORACIC 2 VIEWS Rashmi Hendrix APRN.MACHINE [employer] [address] [place] [address] [facility] Referral ID Status Reason Start Date Expiration Date V isits Requested Visits Authorized [id number] Closed Auto-Generate d Referral 02/10/2023 03/11/2024 [address] [facility] for referral (narrative)* Outpatient Procedure (Routine) - Authorized Specialty Diagnoses / Procedures Referred By Contac t Referred To Contact [facility] Diagnoses Paroxysmal atrial fibrillation (HCC) Procedures ECHO ECHO TTHRC R-T 2D W/WOM-MODE COMPL SPEC&COLR D Rancho Michaud MD [address] [place] [address] [address] Referral ID Status Reason Start Date Expiration Date Visits Requested Visits Authorized [id number] Authorized Auto-Generat ed Referral 05/01/2023 04/30/2024 1 1 * Outpatient Procedure (Routine) - Authorized Specialty Diagnoses / Procedures Referred By Clementeac t Referred To Contact [facility] Diagnoses Screening for ischemic heart disease Procedures ECG COMPLETE ECG ROUTINE ECG W/LEAST 12 LDS W/I&R Rancho Michaud MD [address] [place] [address] [address] Referral ID Status Reason Start Date Expiration Date Visits Requested Visits Authorized [id number] Authorized Auto-Generat ed Referral 04/24/2023 04/23/2024 [address] [facility] for referral (narrative)* Diagnostic Procedure Only (Routine) - Pending Review Specialty Diagnoses / Procedures Referred By Contac t Referred To Contact [facility] Diagnoses Encounter for screening mammogram for malignant neoplasm of breast Procedures ARASH SCREENING W TRISTIN SCREENING DIGITAL BREAST TOMOSYNTHESIS BI SCREENING MAMMOGRAPHY BI 2-VIEW BREAST INC CAD Antoinette Malik MD [address] [place] [address] [facility] [address] [place] [address] Referral ID Status Reason Start Date Expiration Date Visits Requested Visits Authorized [id number] Pending Review Auto-Generat ed Referral 06/29/2023 07/28/2024 [address] [facility] for referral (narrative)* Diagnostic Procedure Only (Routine) - Closed Specialty Diagnoses / Procedures Referred By Contac t Referred To Contact [facility] Diagnoses Encounter for screening mammogram for malignant neoplasm of breast Procedures ARASH SCREENING W TRISTIN SCREENING DIGITAL BREAST TOMOSYNTHESIS BI SCREENING MAMMOGRAPHY BI 2-VIEW BREAST INC CAD Antoinette Malik MD [address] [place] [address] [facility] [address] [place] [address] Referral ID Status Reason Start Date Expiration Date V isits Requested Visits Authorized [id number] Closed Auto-Generate d Referral 06/28/2022 07/28/2023 [address] [facility] for referral (narrative)* Diagnostic Procedure Only (Routine) - Authorized Specialty Diagnoses / Procedures Referred By Contac t Referred To Contact [facility] Diagnoses Encounter for screening mammogram for breast cancer Procedures ARASH SCREENING W TRISTIN SCREENING DIGITAL BREAST TOMOSYNTHESIS BI SCREENING MAMMOGRAPHY BI 2-VIEW BREAST INC CAD Antoinette Malik MD [address] [place] [address] [facility] [address] [place] [address] Referral ID Status Reason Start Date Expiration Date Visits Requested Visits Authorized [id number] Authorized Auto-Generat ed Referral 07/02/2024 08/01/2025 [address] [facility] for referral (narrative)* Diagnostic Procedure Only (Routine) - Closed Specialty Diagnoses / Procedures Referred By Clementeac t Referred To Contact [facility] Diagnoses Encounter for screening mammogram for malignant neoplasm of breast Procedures ARASH SCREENING W TRISTIN SCREENING DIGITAL BREAST TOMOSYNTHESIS BI SCREENING MAMMOGRAPHY BI 2-VIEW BREAST INC CAD Antoinette Malik MD [address] [place] [address] [facility] [address] [place] [address] Referral ID Status Reason Start Date Expiration Date V isits Requested Visits Authorized [id number] Closed Auto-Generate d Referral 06/29/2023 07/28/2024 [address] [facility] for referral (narrative)* Diagnostic Procedure Only (Routine) - Closed Specialty Diagnoses / Procedures Referred By Melinda t Referred To Contact [facility] Diagnoses Pain Osteoporosis, unspecified osteoporosis type, unspecified pathological fracture presence Procedures XR SCAPULA 2V AP/LAT LEFT RADEX SCAPULA COMPLETE Rashmi Hendrix APRN.MACHINE [employer] [address] [place] [address] [place] [address] Referral ID Status Reason Start Date Expiration Date V isits Requested Visits Authorized [id number] Closed Auto-Generate d Referral 02/10/2023 03/11/2024 1 1 * Diagnostic Procedure Only (Routine) - Closed Specialty Diagnoses / Procedures Referred By Contac t Referred To Contact [facility] Diagnoses Pain Osteoporosis, unspecified osteoporosis type, unspecified pathological fracture presence Procedures XR THORACIC LIMITED 2V AP/LAT RADEX SPINE THORACIC 2 VIEWS Rashmi Hendrix APRN.MACHINE [employer] [address] [place] [address] [place] [address] Referral ID Status Reason Start Date Expiration Date V isits Requested Visits Authorized [id number] Closed Auto-Generate d Referral 02/10/2023 03/11/2024 [address] [facility] for referral (narrative)* Diagnostic Procedure Only (Routine) - Closed Specialty Diagnoses / Procedures Referred By Contac t Referred To Contact [facility] Diagnoses Hip pain Procedures XR HIP GENERAL 3V PELV/AP/LAT LEFT RADEX HIP UNILATERAL WITH PELVIS 2-3 VIEWS Jesus Mg MD [address] [place] [address] [place] [address] Referral ID Status Reason Start Date Expiration Date V isits Requested Visits Authorized [id number] Closed Auto-Generate d Referral 01/24/2022 02/23/2023 [address] [facility] for referral (narrative)* Diagnostic Procedure Only (Routine) - Closed Specialty Diagnoses / Procedures Referred By Contac t Referred To Contact [facility] Diagnoses Acute pain of right knee Procedures XR KNEE LIMITED 2V AP/LAT RIGHT RADIOLOGIC EXAMINATION KNEE 1/2 VIEWS Goldy Roman MD [address] [place] [address] [place] [address] Referral ID Status Reason Start Date Expiration Date V isits Requested Visits Authorized [id number] Closed Auto-Generate d Referral 12/01/2021 12/31/2022 1 1 [place] for referral (narrative)* Diagnostic Procedure Only (Routine) - Closed Specialty Diagnoses / Procedures Referred By Contac t Referred To Contact [facility] Diagnoses Pain in left hip Procedures XR HIP GENERAL 3V PELV/AP/LAT LEFT RADEX HIP UNILATERAL WITH PELVIS 2-3 VIEWS Gabe Almanza V, DO [address] [place] [address] [place] [address] Referral ID Status Reason Start Date Expiration Date V isits Requested Visits Authorized [id number] Closed Auto-Generate d Referral 11/01/2024 12/01/2025 [address] [facility] for visit Narrative* Diagnostic Procedure Only (Routine) - Closed Specialty Diagnoses / Procedures Referred By Melinda baca Referred To Contact [facility] Diagnoses Abnormal screening mammogram Procedures ARASH DIAGNOSTIC RT DIAGNOSTIC MAMMOGRAPHY COMPUTER-AIDED DETCJ UNI Antoinette Malik MD [address] [place] [address] [facility] [address] [place] [address] Referral ID Status Reason Start Date Expiration Date V isits Requested Visits Authorized [id number] Closed Auto-Generate d Referral 06/28/2022 07/28/2023 [address] [facility] for visit Narrative* Outpatient Procedure (Routine) - Closed Specialty Diagnoses / Procedures Referred By Melinda baca Referred To Contact [facility] Diagnoses Paroxysmal atrial fibrillation (HCC) Procedures ECHO ECHO TTHRC R-T 2D W/WOM-MODE COMPL SPEC&COLR D Rancho Michaud MD [address] [place] [address] [facility] [address] [place] [address] Referral ID Status Reason Start Date Expiration Date V isits Requested Visits Authorized [id number] Closed Auto-Generate d Referral 05/01/2023 04/30/2024 [address] [facility] for visit Narrative* Diagnostic Procedure Only (Routine) - Closed Specialty Diagnoses / Procedures Referred By Melinda baca Referred To Contact [facility] Diagnoses Encounter for screening mammogram for malignant neoplasm of breast Procedures ARASH SCREENING W TRISTIN SCREENING DIGITAL BREAST TOMOSYNTHESIS BI SCREENING MAMMOGRAPHY BI 2-VIEW BREAST INC CAD Antoinette Malik MD [address] [place] [address] [facility] [address] [place] [address] Referral ID Status Reason Start Date Expiration Date V isits Requested Visits Authorized [id number] Closed Auto-Generate d Referral 06/28/2022 07/28/2023 [address] [facility] for visit Narrative* Diagnostic Procedure Only (Routine) - Closed Specialty Diagnoses / Procedures Referred By Contac t Referred To Contact [facility] Diagnoses Compression fracture of T7 vertebra, initial encounter ([facility]) Procedures XR THORACIC LIMITED 2V AP/LAT RADEX SPINE THORACIC 2 VIEWS Levi Crews MD [address] [place] [address] [place] [address] Referral ID Status Reason Start Date Expiration Date V isits Requested Visits Authorized [id number] Closed Auto-Generate d Referral 09/26/2023 10/25/2024 [address] [facility] for visit Narrative* Diagnostic Procedure Only (Routine) - Closed Specialty Diagnoses / Procedures Referred By Contac t Referred To Contact [facility] Diagnoses Acute midline low back pain with sciatica, sciatica laterality unspecified Procedures XR LUMBAR GENERAL 3V AP/LAT/L5-S1 RADEX SPINE LUMBOSACRAL 2/3 VIEWS Gabe Almanza V, DO [address] [place] [address] [place] [address] Referral ID Status Reason Start Date Expiration Date V isits Requested Visits Authorized [id number] Closed Auto-Generate d Referral 06/07/2024 07/07/2025 [address] [facility] for visit Narrative* Diagnostic Procedure Only (Routine) - Closed Specialty Diagnoses / Procedures Referred By Contac t Referred To Contact [facility] Diagnoses Encounter for screening mammogram for malignant neoplasm of breast Procedures ARASH SCREENING W TRISTIN SCREENING DIGITAL BREAST TOMOSYNTHESIS BI SCREENING MAMMOGRAPHY BI 2-VIEW BREAST INC CAD Antoinette Malik MD [address] [place] [address] [facility] [address] [place] [address] Referral ID Status Reason Start Date Expiration Date V isits Requested Visits Authorized [id number] Closed Auto-Generate d Referral 06/29/2023 07/28/2024 [address] [facility] for visit Narrative* Diagnostic Procedure Only (Routine) - Closed Specialty Diagnoses / Procedures Referred By Contac t Referred To Contact [facility] Diagnoses Pain Osteoporosis, unspecified osteoporosis type, unspecified pathological fracture presence Procedures XR SCAPULA 2V AP/LAT LEFT RADEX SCAPULA Rashmi Ramírez APRN.MACHINE [employer] W[employer] [address] [place] [address] [place] [address] Referral ID Status Reason Start Date Expiration Date V isits Requested Visits Authorized [id number] Closed Auto-Generate d Referral 02/10/2023 03/11/2024 [address] [facility] for visit Narrative* Diagnostic Procedure Only (Routine) - Closed Specialty Diagnoses / Procedures Referred By Contac t Referred To Contact [facility] Diagnoses Hip pain Procedures XR HIP GENERAL 3V PELV/AP/LAT LEFT RADEX HIP UNILATERAL WITH PELVIS 2-3 VIEWS Jesus Mg MD [address] [place] [address] [place] [address] Referral ID Status Reason Start Date Expiration Date V isits Requested Visits Authorized [id number] Closed Auto-Generate d Referral 01/24/2022 02/23/2023 [address] [facility] for visit Narrative* Diagnostic Procedure Only (Routine) - Closed Specialty Diagnoses / Procedures Referred By Contac t Referred To Contact [facility] Diagnoses Acute pain of right knee Procedures XR KNEE LIMITED 2V AP/LAT RIGHT RADIOLOGIC EXAMINATION KNEE 1/2 VIEWS Goldy Roman MD [address] [place] [address] [place] [address] Referral ID Status Reason Start Date Expiration Date V isits Requested Visits Authorized [id number] Closed Auto-Generate d Referral 12/01/2021 12/31/2022 [address] [facility] for visit Narrative* Diagnostic Procedure Only (Routine) - Closed Specialty Diagnoses / Procedures Referred By Contac t Referred To Contact [facility] Diagnoses Pain in left hip Procedures XR HIP GENERAL 3V PELV/AP/LAT LEFT RADEX HIP UNILATERAL WITH PELVIS 2-3 VIEWS Gabe Almanza V, DO [address] [place] [address] [place] [address] Referral ID Status Reason Start Date Expiration Date V isits Requested Visits Authorized [id number] Closed Auto-Generate d Referral 11/01/2024 12/01/2025 [address] [facility] for visit Narrative* Diagnostic Procedure Only (Routine) - Closed Specialty Diagnoses / Procedures Referred By Contguero t Referred To Contact [facility] Diagnoses Encounter for screening mammogram for breast cancer Procedures ARASH SCREENING W TRISTIN SCREENING DIGITAL BREAST TOMOSYNTHESIS BI SCREENING MAMMOGRAPHY BI 2-VIEW BREAST INC CAD Antoinette Malik MD [address] [place] [address] Phone: tel: fax: [facility] [address] [place] [address] Referral ID Status Reason Start Date Expiration Date V isits Requested Visits Authorized [id number] Closed Auto-Generate d Referral 07/02/2024 08/01/2025 1 1 [facility] Summary Purpose Family History No Family History Records FoundNo Family History Records FoundNo Family History Records FoundNo Family History Records FoundNo Family History Records Found Advance Directives No Advanced Directives Records FoundDocuments on File Type Date Recorded Patient House Wirer Expl anation Advance Directive(s) 01/29/2018 1:02 PM Advance Directive(s) 01/09/2014 9:01 AM Advance Directive(s) 01/09/2014 9:04 AM Advance Directive(s) 03/07/2012 11:49 AM Advance Directive(s) 01/28/2011 8:13 PM Documents on File Type Date Recorded Patient House Wirer Expl anation Advance Directive(s) 01/09/2014 9:01 AM Advance Directive(s) 01/09/2014 9:04 AM Advance Directive(s) 03/07/2012 11:49 AM Advance Directive(s) 01/28/2011 8:13 PM Documents on File Type Date Recorded Patient House Wirer Expl anation Advance Directive(s) 01/09/2014 9:01 AM Advance Directive(s) 01/09/2014 9:04 AM Advance Directive(s) 03/07/2012 11:49 AM Advance Directive(s) 01/28/2011 8:13 PM Advance Directive Response Recorded Date/ Time Living Will No April 13, 2023 1 1:19pm Power of Take Off Man No April 13, 2023 11:19pm Documents on File Type Date Recorded Patient House Wirer Expl 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 Advance Directive(s) 01/09/2014 9:04 AM Advance Directive(s) 01/09/2014 9:01 AM Advance Directive(s) 03/07/2012 11:49 AM Advance Directive(s) 01/28/2011 8:13 PM Documents on File Type Date Recorded Patient House Wirer Expl anation Advance Directive(s) 01/09/2014 9:04 AM Advance Directive(s) 01/09/2014 9:01 AM Advance Directive(s) 03/07/2012 11:49 AM Advance Directive(s) 01/28/2011 8:13 PM Reason for Referral Specialty Diagnoses / Procedures Referred By Contac t Referred To Contact Diagnoses Pain Julianna Hong, 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 [employer] WINDER [address] [place] [address] Referral ID Status Reason Start Date Expiration Date V isits Requested Visits Authorized [id number] Pending Review 1 1 Specialty Diagnoses / Procedures Referred By Contac t Referred To Contact [facility] Diagnoses Pathological fracture, other site, initial encounter for fracture Procedures MRI THORACIC SPINE WO IVCON MRI SPINAL CANAL THORACIC W/O CONTRAST MATRL Gabe Almanza V, DO [address] [place] [address] Mr [facility] Referral ID Status Reason Start Date Expiration Date V isits Requested Visits Authorized [id number] Closed Auto-Generate d Referral 02/17/2023 03/18/2024 1 1 Specialty Diagnoses / Procedures Referred By Contac t Referred To Contact Rheumatology Diagnoses Osteoporosis, unspecified osteoporosis type, unspecified pathological fracture presence Procedures CONSULT TO RHEUM/IMMUN DISEASE OFFICE/OUTPATIENT NEW HIGH MDM 60-74 MINUTES Older, CHAITANYA Caraballo.[employer] [address] [place] [address] Referral ID Status Reason Start Date Expiration Date Visits Requested Visits Authorized [id number] Authorized PCP Requested Referral 08/14/2023 08/13/2024 1 1 Specialty Diagnoses / Procedures Referred By Contac t Referred To Contact [facility] Diagnoses Acute midline low back pain with sciatica, sciatica laterality unspecified Procedures CONSULT TO PHYSICAL THERAPY PHYSICAL THERAPY EVALUATION HIGH COMPLEX 45 MINS Gabe Almanza V, DO [address] [place] [address] [facility] [address] [place] [address] Referral ID Status Reason Start Date Expiration Date Visits Requested Visits Authorized [id number] Authorized PCP Requested Referral Auto-Generate d Referral 06/07/2024 06/07/2025 99 99 Specialty Diagnoses / Procedures Referred By Contac t Referred To Contact XR IMAGING Diagnoses Acute midline low back pain with sciatica, sciatica laterality unspecified Procedures XR LUMBAR GENERAL 3V AP/LAT/L5-S1 RADEX SPINE LUMBOSACRAL 2/3 VIEWS Gabe Almanza V, DO [address] [place] [address] [place] [id number] Referral ID Status Reason Start Date Expiration Date V isits Requested Visits Authorized [id number] Closed Auto-Generate d Referral 06/07/2024 07/07/2025 1 1 Specialty Diagnoses / Procedures Referred By Contac t Referred To Contact Diagnoses Compression fracture of L1 vertebra, sequela Gabe Almanza V, DO [address] [place] [address] Referral ID Status Reason Start Date Expiration Date V isits Requested Visits Authorized [id number] Authorized 11/13/2023 10/28/2025 1 1 Chief Complaint and Reason for Visit Chief Complaint PALPITATIONS Additional Source Comments INFORMATION SOURCE (unrecogn ized section and content) DATE CREATED AUTHOR 05/04/2018 [facility] DATE CREATED AUTHOR AUTHOR'S ORGANIZ ATION 02/24/[address] [facility] DATE CREATED AUTHOR AUTHOR'S ORGANIZ ATION 04/23/2023 [facility] DATE CREATED AUTHOR AUTHOR'S ORGANIZ ATION 10/01/2023 [facility] DATE CREATED AUTHOR AUTHOR'S ORGANIZ ATION 09/05/2025 [facility] Source Comments (unrecognize d section and content) In the event this informatio n is protected by the Federal Confidentiality of Alcohol and Drug Abuse Patient Records regulations: The Federal rules restrict any use of the information to criminally investigate or prosecute any alcohol or drug abuse patient.[facility] the event this information is protected by the Federal Confidentiality of Alcohol and Drug Abuse Patient Records regulations: The Federal rules restrict any use of the information to criminally investigate or prosecute any alcohol or drug abuse patient.[facility] HospitalIn the event this information is protected by the Federal Confidentiality of Alcohol and Drug Abuse Patient Records regulations: The Federal rules restrict any use of the information to criminally investigate or prosecute any alcohol or drug abuse patient.[facility] HospitalIn the event this information is protected by the Federal Confidentiality of Alcohol and Drug Abuse Patient Records regulations: The Federal rules restrict any use of the information to criminally investigate or prosecute any alcohol or drug abuse patient.[facility] HospitalIn the event this information is protected by the Federal Confidentiality of Alcohol and Drug Abuse Patient Records regulations: The Federal rules restrict any use of the information to criminally investigate or prosecute any alcohol or drug abuse patient.[facility] HospitalIn the event this information is protected by the Federal Confidentiality of Alcohol and Drug Abuse Patient Records regulations: The Federal rules restrict any use of the information to criminally investigate or prosecute any alcohol or drug abuse patient.[facility] HospitalIn the event this information is protected by the Federal Confidentiality of Alcohol and Drug Abuse Patient Records regulations: The Federal rules restrict any use of the information to criminally investigate or prosecute any alcohol or drug abuse patient.[facility] HospitalIn the event this information is protected by the Federal Confidentiality of Alcohol and Drug Abuse Patient Records regulations: The Federal rules restrict any use of the information to criminally investigate or prosecute any alcohol or drug abuse patient.[facility] HospitalIn the event this information is protected by the Federal Confidentiality of Alcohol and Drug Abuse Patient Records regulations: The Federal rules restrict any use of the information to criminally investigate or prosecute any alcohol or drug abuse patient.[facility] HospitalIn the event this information is protected by the Federal Confidentiality of Alcohol and Drug Abuse Patient Records regulations: The Federal rules restrict any use of the information to criminally investigate or prosecute any alcohol or drug abuse patient.[facility] HospitalIn the event this information is protected by the Federal Confidentiality of Alcohol and Drug Abuse Patient Records regulations: The Federal rules restrict any use of the information to criminally investigate or prosecute any alcohol or drug abuse patient.[facility] HospitalIn the event this information is protected by the Federal Confidentiality of Alcohol and Drug Abuse Patient Records regulations: The Federal rules restrict any use of the information to criminally investigate or prosecute any alcohol or drug abuse patient.[facility] HospitalIn the event this information is protected by the Federal Confidentiality of Alcohol and Drug Abuse Patient Records regulations: The Federal rules restrict any use of the information to criminally investigate or prosecute any alcohol or drug abuse patient.[facility] HospitalIn the event this information is protected by the Federal Confidentiality of Alcohol and Drug Abuse Patient Records regulations: The Federal rules restrict any use of the information to criminally investigate or prosecute any alcohol or drug abuse patient.[facility] HospitalIn the event this information is protected by the Federal Confidentiality of Alcohol and Drug Abuse Patient Records regulations: The Federal rules restrict any use of the information to criminally investigate or prosecute any alcohol or drug abuse patient.[facility] HospitalIn the event this information is protected by the Federal Confidentiality of Alcohol and Drug Abuse Patient Records regulations: The Federal rules restrict any use of the information to criminally investigate or prosecute any alcohol or drug abuse patient.[facility] HospitalIn the event this information is protected by the Federal Confidentiality of Alcohol and Drug Abuse Patient Records regulations: The Federal rules restrict any use of the information to criminally investigate or prosecute any alcohol or drug abuse patient.[facility] HospitalIn the event this information is protected by the Federal Confidentiality of Alcohol and Drug Abuse Patient Records regulations: The Federal rules restrict any use of the information to criminally investigate or prosecute any alcohol or drug abuse patient.[facility] HospitalIn the event this information is protected by the Federal Confidentiality of Alcohol and Drug Abuse Patient Records regulations: The Federal rules restrict any use of the information to criminally investigate or prosecute any alcohol or drug abuse patient.[facility] HospitalIn the event this information is protected by the Federal Confidentiality of Alcohol and Drug Abuse Patient Records regulations: The Federal rules restrict any use of the information to criminally investigate or prosecute any alcohol or drug abuse patient.[facility] HospitalIn the event this information is protected by the Federal Confidentiality of Alcohol and Drug Abuse Patient Records regulations: The Federal rules restrict any use of the information to criminally investigate or prosecute any alcohol or drug abuse patient.[facility] HospitalIn the event this information is protected by the Federal Confidentiality of Alcohol and Drug Abuse Patient Records regulations: The Federal rules restrict any use of the information to criminally investigate or prosecute any alcohol or drug abuse patient.[facility] HospitalIn the event this information is protected by the Federal Confidentiality of Alcohol and Drug Abuse Patient Records regulations: The Federal rules restrict any use of the information to criminally investigate or prosecute any alcohol or drug abuse patient.[facility] HospitalIn the event this information is protected by the Federal Confidentiality of Alcohol and Drug Abuse Patient Records regulations: The Federal rules restrict any use of the information to criminally investigate or prosecute any alcohol or drug abuse patient.[facility] HospitalIn the event this information is protected by the Federal Confidentiality of Alcohol and Drug Abuse Patient Records regulations: The Federal rules restrict any use of the information to criminally investigate or prosecute any alcohol or drug abuse patient.[facility] HospitalIn the event this information is protected by the Federal Confidentiality of Alcohol and Drug Abuse Patient Records regulations: The Federal rules restrict any use of the information to criminally investigate or prosecute any alcohol or drug abuse patient.[facility] HospitalIn the event this information is protected by the Federal Confidentiality of Alcohol and Drug Abuse Patient Records regulations: The Federal rules restrict any use of the information to criminally investigate or prosecute any alcohol or drug abuse patient.[facility] HospitalIn the event this information is protected by the Federal Confidentiality of Alcohol and Drug Abuse Patient Records regulations: The Federal rules restrict any use of the information to criminally investigate or prosecute any alcohol or drug abuse patient.[facility] HospitalIn the event this information is protected by the Federal Confidentiality of Alcohol and Drug Abuse Patient Records regulations: The Federal rules restrict any use of the information to criminally investigate or prosecute any alcohol or drug abuse patient.[facility] HospitalIn the event this information is protected by the Federal Confidentiality of Alcohol and Drug Abuse Patient Records regulations: The Federal rules restrict any use of the information to criminally investigate or prosecute any alcohol or drug abuse patient.[facility] HospitalIn the event this information is protected by the Federal Confidentiality of Alcohol and Drug Abuse Patient Records regulations: The Federal rules restrict any use of the information to criminally investigate or prosecute any alcohol or drug abuse patient.[facility] HospitalIn the event this information is protected by the Federal Confidentiality of Alcohol and Drug Abuse Patient Records regulations: The Federal rules restrict any use of the information to criminally investigate or prosecute any alcohol or drug abuse patient.[facility] HospitalIn the event this information is protected by the Federal Confidentiality of Alcohol and Drug Abuse Patient Records regulations: The Federal rules restrict any use of the information to criminally investigate or prosecute any alcohol or drug abuse patient.[facility] HospitalIn the event this information is protected by the Federal Confidentiality of Alcohol and Drug Abuse Patient Records regulations: The Federal rules restrict any use of the information to criminally investigate or prosecute any alcohol or drug abuse patient.[facility] HospitalIn the event this information is protected by the Federal Confidentiality of Alcohol and Drug Abuse Patient Records regulations: The Federal rules restrict any use of the information to criminally investigate or prosecute any alcohol or drug abuse patient.[facility] HospitalIn the event this information is protected by the Federal Confidentiality of Alcohol and Drug Abuse Patient Records regulations: The Federal rules restrict any use of the information to criminally investigate or prosecute any alcohol or drug abuse patient.[facility] HospitalIn the event this information is protected by the Federal Confidentiality of Alcohol and Drug Abuse Patient Records regulations: The Federal rules restrict any use of the information to criminally investigate or prosecute any alcohol or drug abuse patient.[facility] HospitalIn the event this information is protected by the Federal Confidentiality of Alcohol and Drug Abuse Patient Records regulations: The Federal rules restrict any use of the information to criminally investigate or prosecute any alcohol or drug abuse patient.[facility] HospitalIn the event this information is protected by the Federal Confidentiality of Alcohol and Drug Abuse Patient Records regulations: The Federal rules restrict any use of the information to criminally investigate or prosecute any alcohol or drug abuse patient.[facility] HospitalIn the event this information is protected by the Federal Confidentiality of Alcohol and Drug Abuse Patient Records regulations: The Federal rules restrict any use of the information to criminally investigate or prosecute any alcohol or drug abuse patient.[facility] HospitalIn the event this information is protected by the Federal Confidentiality of Alcohol and Drug Abuse Patient Records regulations: The Federal rules restrict any use of the information to criminally investigate or prosecute any alcohol or drug abuse patient.[facility] HospitalIn the event this information is protected by the Federal Confidentiality of Alcohol and Drug Abuse Patient Records regulations: The Federal rules restrict any use of the information to criminally investigate or prosecute any alcohol or drug abuse patient.[facility] HospitalIn the event this information is protected by the Federal Confidentiality of Alcohol and Drug Abuse Patient Records regulations: The Federal rules restrict any use of the information to criminally investigate or prosecute any alcohol or drug abuse patient.[facility] HospitalIn the event this information is protected by the Federal Confidentiality of Alcohol and Drug Abuse Patient Records regulations: The Federal rules restrict any use of the information to criminally investigate or prosecute any alcohol or drug abuse patient.[facility] HospitalIn the event this information is protected by the Federal Confidentiality of Alcohol and Drug Abuse Patient Records regulations: The Federal rules restrict any use of the information to criminally investigate or prosecute any alcohol or drug abuse patient.[facility] HospitalIn the event this information is protected by the Federal Confidentiality of Alcohol and Drug Abuse Patient Records regulations: The Federal rules restrict any use of the information to criminally investigate or prosecute any alcohol or drug abuse patient.[facility] HospitalIn the event this information is protected by the Federal Confidentiality of Alcohol and Drug Abuse Patient Records regulations: The Federal rules restrict any use of the information to criminally investigate or prosecute any alcohol or drug abuse patient.[facility] HospitalIn the event this information is protected by the Federal Confidentiality of Alcohol and Drug Abuse Patient Records regulations: The Federal rules restrict any use of the information to criminally investigate or prosecute any alcohol or drug abuse patient.[facility] HospitalIn the event this information is protected by the Federal Confidentiality of Alcohol and Drug Abuse Patient Records regulations: The Federal rules restrict any use of the information to criminally investigate or prosecute any alcohol or drug abuse patient.[facility] HospitalIn the event this information is protected by the Federal Confidentiality of Alcohol and Drug Abuse Patient Records regulations: The Federal rules restrict any use of the information to criminally investigate or prosecute any alcohol or drug abuse patient.[facility] HospitalIn the event this information is protected by the Federal Confidentiality of Alcohol and Drug Abuse Patient Records regulations: The Federal rules restrict any use of the information to criminally investigate or prosecute any alcohol or drug abuse patient.[facility] HospitalIn the event this information is protected by the Federal Confidentiality of Alcohol and Drug Abuse Patient Records regulations: The Federal rules restrict any use of the information to criminally investigate or prosecute any alcohol or drug abuse patient.[facility] HospitalIn the event this information is protected by the Federal Confidentiality of Alcohol and Drug Abuse Patient Records regulations: The Federal rules restrict any use of the information to criminally investigate or prosecute any alcohol or drug abuse patient.[facility] HospitalIn the event this information is protected by the Federal Confidentiality of Alcohol and Drug Abuse Patient Records regulations: The Federal rules restrict any use of the information to criminally investigate or prosecute any alcohol or drug abuse patient.[facility] HospitalIn the event this information is protected by the Federal Confidentiality of Alcohol and Drug Abuse Patient Records regulations: The Federal rules restrict any use of the information to criminally investigate or prosecute any alcohol or drug abuse patient.[facility] HospitalIn the event this information is protected by the Federal Confidentiality of Alcohol and Drug Abuse Patient Records regulations: The Federal rules restrict any use of the information to criminally investigate or prosecute any alcohol or drug abuse patient.[facility] HospitalIn the event this information is protected by the Federal Confidentiality of Alcohol and Drug Abuse Patient Records regulations: The Federal rules restrict any use of the information to criminally investigate or prosecute any alcohol or drug abuse patient.[facility] HospitalIn the event this information is protected by the Federal Confidentiality of Alcohol and Drug Abuse Patient Records regulations: The Federal rules restrict any use of the information to criminally investigate or prosecute any alcohol or drug abuse patient.[facility] HospitalIn the event this information is protected by the Federal Confidentiality of Alcohol and Drug Abuse Patient Records regulations: The Federal rules restrict any use of the information to criminally investigate or prosecute any alcohol or drug abuse patient.[facility] HospitalIn the event this information is protected by the Federal Confidentiality of Alcohol and Drug Abuse Patient Records regulations: The Federal rules restrict any use of the information to criminally investigate or prosecute any alcohol or drug abuse patient.[facility] HospitalIn the event this information is protected by the Federal Confidentiality of Alcohol and Drug Abuse Patient Records regulations: The Federal rules restrict any use of the information to criminally investigate or prosecute any alcohol or drug abuse patient.[facility] HospitalIn the event this information is protected by the Federal Confidentiality of Alcohol and Drug Abuse Patient Records regulations: The Federal rules restrict any use of the information to criminally investigate or prosecute any alcohol or drug abuse patient.[facility] HospitalIn the event this information is protected by the Federal Confidentiality of Alcohol and Drug Abuse Patient Records regulations: The Federal rules restrict any use of the information to criminally investigate or prosecute any alcohol or drug abuse patient.[facility] HospitalIn the event this information is protected by the Federal Confidentiality of Alcohol and Drug Abuse Patient Records regulations: The Federal rules restrict any use of the information to criminally investigate or prosecute any alcohol or drug abuse patient.[facility] HospitalIn the event this information is protected by the Federal Confidentiality of Alcohol and Drug Abuse Patient Records regulations: The Federal rules restrict any use of the information to criminally investigate or prosecute any alcohol or drug abuse patient.[facility] HospitalIn the event this information is protected by the Federal Confidentiality of Alcohol and Drug Abuse Patient Records regulations: The Federal rules restrict any use of the information to criminally investigate or prosecute any alcohol or drug abuse patient.[facility] HospitalIn the event this information is protected by the Federal Confidentiality of Alcohol and Drug Abuse Patient Records regulations: The Federal rules restrict any use of the information to criminally investigate or prosecute any alcohol or drug abuse patient.[facility] HospitalIn the event this information is protected by the Federal Confidentiality of Alcohol and Drug Abuse Patient Records regulations: The Federal rules restrict any use of the information to criminally investigate or prosecute any alcohol or drug abuse patient.[facility] HospitalIn the event this information is protected by the Federal Confidentiality of Alcohol and Drug Abuse Patient Records regulations: The Federal rules restrict any use of the information to criminally investigate or prosecute any alcohol or drug abuse patient.[facility] HospitalIn the event this information is protected by the Federal Confidentiality of Alcohol and Drug Abuse Patient Records regulations: The Federal rules restrict any use of the information to criminally investigate or prosecute any alcohol or drug abuse patient.[facility] HospitalIn the event this information is protected by the Federal Confidentiality of Alcohol and Drug Abuse Patient Records regulations: The Federal rules restrict any use of the information to criminally investigate or prosecute any alcohol or drug abuse patient.[facility] HospitalIn the event this information is protected by the Federal Confidentiality of Alcohol and Drug Abuse Patient Records regulations: The Federal rules restrict any use of the information to criminally investigate or prosecute any alcohol or drug abuse patient.[facility] HospitalIn the event this information is protected by the Federal Confidentiality of Alcohol and Drug Abuse Patient Records regulations: The Federal rules restrict any use of the information to criminally investigate or prosecute any alcohol or drug abuse patient.[facility] HospitalIn the event this information is protected by the Federal Confidentiality of Alcohol and Drug Abuse Patient Records regulations: The Federal rules restrict any use of the information to criminally investigate or prosecute any alcohol or drug abuse patient.[facility] HospitalIn the event this information is protected by the Federal Confidentiality of Alcohol and Drug Abuse Patient Records regulations: The Federal rules restrict any use of the information to criminally investigate or prosecute any alcohol or drug abuse patient.[facility] HospitalIn the event this information is protected by the Federal Confidentiality of Alcohol and Drug Abuse Patient Records regulations: The Federal rules restrict any use of the information to criminally investigate or prosecute any alcohol or drug abuse patient.[facility] HospitalIn the event this information is protected by the Federal Confidentiality of Alcohol and Drug Abuse Patient Records regulations: The Federal rules restrict any use of the information to criminally investigate or prosecute any alcohol or drug abuse patient.[facility] HospitalIn the event this information is protected by the Federal Confidentiality of Alcohol and Drug Abuse Patient Records regulations: The Federal rules restrict any use of the information to criminally investigate or prosecute any alcohol or drug abuse patient.[facility] HospitalIn the event this information is protected by the Federal Confidentiality of Alcohol and Drug Abuse Patient Records regulations: The Federal rules restrict any use of the information to criminally investigate or prosecute any alcohol or drug abuse patient.[facility] HospitalIn the event this information is protected by the Federal Confidentiality of Alcohol and Drug Abuse Patient Records regulations: The Federal rules restrict any use of the information to criminally investigate or prosecute any alcohol or drug abuse patient.[facility] HospitalIn the event this information is protected by the Federal Confidentiality of Alcohol and Drug Abuse Patient Records regulations: The Federal rules restrict any use of the information to criminally investigate or prosecute any alcohol or drug abuse patient.[facility] HospitalIn the event this information is protected by the Federal Confidentiality of Alcohol and Drug Abuse Patient Records regulations: The Federal rules restrict any use of the information to criminally investigate or prosecute any alcohol or drug abuse patient.[facility] HospitalIn the event this information is protected by the Federal Confidentiality of Alcohol and Drug Abuse Patient Records regulations: The Federal rules restrict any use of the information to criminally investigate or prosecute any alcohol or drug abuse patient.[facility] HospitalIn the event this information is protected by the Federal Confidentiality of Alcohol and Drug Abuse Patient Records regulations: The Federal rules restrict any use of the information to criminally investigate or prosecute any alcohol or drug abuse patient.[facility] HospitalIn the event this information is protected by the Federal Confidentiality of Alcohol and Drug Abuse Patient Records regulations: The Federal rules restrict any use of the information to criminally investigate or prosecute any alcohol or drug abuse patient.[facility] HospitalIn the event this information is protected by the Federal Confidentiality of Alcohol and Drug Abuse Patient Records regulations: The Federal rules restrict any use of the information to criminally investigate or prosecute any alcohol or drug abuse patient.[facility] HospitalIn the event this information is protected by the Federal Confidentiality of Alcohol and Drug Abuse Patient Records regulations: The Federal rules restrict any use of the information to criminally investigate or prosecute any alcohol or drug abuse patient.[facility] HospitalIn the event this information is protected by the Federal Confidentiality of Alcohol and Drug Abuse Patient Records regulations: The Federal rules restrict any use of the information to criminally investigate or prosecute any alcohol or drug abuse patient.[facility] HospitalIn the event this information is protected by the Federal Confidentiality of Alcohol and Drug Abuse Patient Records regulations: The Federal rules restrict any use of the information to criminally investigate or prosecute any alcohol or drug abuse patient.[facility] HospitalIn the event this information is protected by the Federal Confidentiality of Alcohol and Drug Abuse Patient Records regulations: The Federal rules restrict any use of the information to criminally investigate or prosecute any alcohol or drug abuse patient.[facility] Reason for Visit (unrecogniz ed section and content) Reason Comments Physical Therapy Specialty Diagnoses / Procedures Referred By eMlinda baca Referred To Contact [facility] Diagnoses Acute midline low back pain with sciatica, sciatica laterality unspecified Procedures CONSULT TO PHYSICAL THERAPY PHYSICAL THERAPY EVALUATION HIGH COMPLEX 45 MINS Gabe Almanza V DO [address] [place] [address] [facility] [place] [address] [place] [address] Referral ID Status Reason Start Date Expiration Date Visits Requested Visits Authorized [id number] Authorized PCP Requested Referral Auto-Generate d Referral 06/07/2024 06/07/2025 99 99 Reason Comments Results Reason Comments Refill Request Reason Onset Date Comments Refill Request 05/21/2022 Reason Comments Yearly Exam Reason Comments Results Reason Onset Date Comments Refill Request 07/03/2022 Reason Onset Date Comments Refill Request 07/22/2022 Reason Comments Follow Up Reason Comments F/U 6 months Labs Reason Comments Erroneous encounter-disregard Reason Comments Same Day Appointment cough,runny nose,h/ a, home covid test negative Reason Onset Date Comments Refill Request 01/24/2023 Reason Comments Pain Pt reported recent m ove, lifting back pain Rx Zanaflex 02/02/2023, x4 days, denied changes to urination. Reason Comments Medicare Wellness Exam Annual Medicare W ellness Reason Comments Mid back pain Reason Comments Medication Problem Reason Comments Patient Update Specialty Diagnoses / Procedures Referred By Melinda baca Referred To Contact [facility] Diagnoses Pathological fracture, other site, initial encounter for fracture Procedures MRI THORACIC SPINE WO IVCON MRI SPINAL CANAL THORACIC W/O CONTRAST MATRL Gabe Almanza V DO [address] [place] [address] [facility] Referral ID Status Reason Start Date Expiration Date V isits Requested Visits Authorized [id number] Closed Auto-Generate d Referral 02/17/2023 03/18/2024 1 1 Reason Comments Follow Up Reason Onset Date Comments Refill Request 06/09/2023 Reason Comments Recheck Reason Comments Results Reason Comments New Patient 184/84 Specialty Diagnoses / Procedures Referred By Contac t Referred To Contact Rheumatology Diagnoses Osteoporosis, unspecified osteoporosis type, unspecified pathological fracture presence Procedures CONSULT TO RHEUM/IMMUN DISEASE OFFICE/OUTPATIENT NEW HIGH MDM 60-74 MINUTES Older, CHAITANYA Caraballo.[employer] [address] [place] [address] Referral ID Status Reason Start Date Expiration Date V isits Requested Visits Authorized [id number] Closed PCP Requested Referral 08/14/2023 08/13/2024 1 1 Reason Onset Date Comments Refill Request 01/24/2024 Reason Comments Medicare Wellness Exam Annual Medicare w ellness Reason Comments Follow Up Blood pressure Reason Comments Med Change Request Reason Comments 4 week follow up B/p Reason Onset Date Comments Refill Request 05/07/2024 Reason Onset Date Comments Refill Request 05/13/2024 Reason Comments PT Eval Reason Comments Physical Reason Onset Date Comments Refill Request 10/29/2024 Reason Comments Back Pain Reason Onset Date Comments Refill Request 12/05/2024 Reason Onset Date Comments Refill Request 01/15/2025 Reason Onset Date Comments Refill Request 05/19/2025 Reason Onset Date Comments Refill Request 05/23/2025 Reason Onset Date Comments Refill Request 05/21/2025 Reason Comments Recheck 3 month follow up Reason Comments Recheck BP follow up, review results Care Teams (unrecognized sec tion and content) Manager Rehab Relationship Specialty Start Date End Date Jesus Mg MD [address] [place] [address] PCP - General Internal Medicine 10/10/16 Manager Rehab Relationship Specialty Start Date End Date Jesus Mg MD [address] [place], [place] [id number] PCP - General Internal Medicine 10/10/16 Manager Rehab Relationship Specialty Start Date End Date Jesus Mg MD [address] [place] [address] PCP - General Internal Medicine 10/10/16 Manager Rehab Relationship Specialty Start Date End Date Jesus Mg MD [address] [place] [address] PCP - General Internal Medicine 10/10/16 Manager Rehab Relationship Specialty Start Date End Date Jesus Mg MD [address] [place] [address] PCP - General Internal Medicine 10/10/16 Manager Rehab Relationship Specialty Start Date End Date Jesus Mg MD [address] [place] [address] PCP - General Internal Medicine 10/10/16 Manager Rehab Relationship Specialty Start Date End Date Jesus Mg MD [address] [place] [address] PCP - General Internal Medicine 10/10/16 Manager Rehab Relationship Specialty Start Date End Date Jesus Mg MD [address] [place] [address] PCP - General Internal Medicine 10/10/16 Manager Rehab Relationship Specialty Start Date End Date Jesus Mg MD [address] [place] [address] PCP - General Internal Medicine 10/10/16 Manager Rehab Relationship Specialty Start Date End Date Jesus Mg MD [address] [place] [address] PCP - General Internal Medicine 10/10/16 Manager Rehab Relationship Specialty Start Date End Date Jesus Mg MD [address] [place] [address] PCP - General Internal Medicine 10/10/16 Manager Rehab Relationship Specialty Start Date End Date Jesus Mg MD [address] [place] [address] PCP - General Internal Medicine 10/10/16 Manager Rehab Relationship Specialty Start Date End Date Jesus Mg MD [address] [facility] [place] [address] PCP - General Internal Medicine 10/10/16 Manager Rehab Relationship Specialty Start Date End Date Jesus Mg MD [address] [facility] [place] [address] PCP - General Internal Medicine 10/10/16 Manager Rehab Relationship Specialty Start Date End Date Jesus Mg MD [address] [facility] [place] [address] PCP - General Internal Medicine 10/10/16 Team Status: Active Member Role Status Dates Dr. Torri Molina MD Family Provider Active Dr. Jesus Mg MD Primary Care Provider Active Team Status: Inactive Member Role Status Dates Dr. Jesus Mg MD Primary Care Provider Active Dr. Uzma Lenz DO Emergency Provider Active Manager Rehab Relationship Specialty Start Date End Date Jesus Mg MD [address] [facility] [place] [address] PCP - General Internal Medicine 10/10/16 Manager Rehab Relationship Specialty Start Date End Date Jesus Mg MD [address] [facility] [place] [address] PCP - General Internal Medicine 10/10/16 Manager Rehab Relationship Specialty Start Date End Date Jesus Mg MD [address] [facility] [place] [address] PCP - General Internal Medicine 10/10/16 Manager Rehab Relationship Specialty Start Date End Date Jesus Mg MD [address] [facility] [place] [address] PCP - General Internal Medicine 10/10/16 Manager Rehab Relationship Specialty Start Date End Date Jesus Mg MD [address] [place] [address] PCP - General Internal Medicine 10/10/16 Manager Rehab Relationship Specialty Start Date End Date Jesus Mg MD [address] [place] [address] PCP - General Internal Medicine 10/10/16 Manager Rehab Relationship Specialty Start Date End Date Jesus Mg MD [address] [place] [address] PCP - General Internal Medicine 10/10/16 Manager Rehab Relationship Specialty Start Date End Date Jesus Mg MD [address] [place] [address] PCP - General Internal Medicine 10/10/16 Manager Rehab Relationship Specialty Start Date End Date Jesus Mg MD [address] [place] [address] PCP - General Internal Medicine 10/10/16 Manager Rehab Relationship Specialty Start Date End Date Jesus Mg MD [address] [place] [address] PCP - General Internal Medicine 10/10/16 Manager Rehab Relationship Specialty Start Date End Date Jesus Mg MD [address] [place] [address] PCP - General Internal Medicine 10/10/16 Manager Rehab Relationship Specialty Start Date End Date Jesus Mg MD [address] [place] [address] PCP - General Internal Medicine 10/10/16 Manager Rehab Relationship Specialty Start Date End Date Jesus Mg MD [address] [facility] [place] [address] PCP - General Internal Medicine 10/10/16 Manager Rehab Relationship Specialty Start Date End Date Jesus Mg MD [address] [facility] [place] [address] PCP - General Internal Medicine 10/10/16 Manager Rehab Relationship Specialty Start Date End Date Jesus Mg MD [address] [place] [address] PCP - General Internal Medicine 10/10/16 Manager Rehab Relationship Specialty Start Date End Date Jesus Mg MD [address] [place] [address] PCP - General Internal Medicine 10/10/16 Manager Rehab Relationship Specialty Start Date End Date Jesus Mg MD [address] [place] [address] PCP - General Internal Medicine 10/10/16 Manager Rehab Relationship Specialty Start Date End Date Jesus Mg MD [address] [facility] [place] [address] PCP - General Internal Medicine 10/10/16 Manager Rehab Relationship Specialty Start Date End Date Jesus Mg MD [address] [place] [address] PCP - General Internal Medicine 10/10/16 Manager Rehab Relationship Specialty Start Date End Date Jesus Mg MD [address] [facility] [place] [address] PCP - General Internal Medicine 10/10/16 Manager Rehab Relationship Specialty Start Date End Date Jesus Mg MD [address] [facility] [place] [address] PCP - General Internal Medicine 10/10/16 Manager Rehab Relationship Specialty Start Date End Date Jesus Mg MD [address] [facility] [place] [address] PCP - General Internal Medicine 10/10/16 Manager Rehab Relationship Specialty Start Date End Date Jesus Mg MD [address] [facility] [place] [address] PCP - General Internal Medicine 10/10/16 Manager Rehab Relationship Specialty Start Date End Date Jesus Mg MD [address] [facility] [place] [address] PCP - General Internal Medicine 10/10/16 Manager Rehab Relationship Specialty Start Date End Date Jesus Mg MD [address] [facility] [place] [address] PCP - General Internal Medicine 10/10/16 Manager Rehab Relationship Specialty Start Date End Date Jesus Mg MD [address] [facility] [place] [address] PCP - General Internal Medicine 10/10/16 Manager Rehab Relationship Specialty Start Date End Date Jesus Mg MD [address] [facility] [place] [address] PCP - General Internal Medicine 10/10/16 Manager Rehab Relationship Specialty Start Date End Date Jesus Mg MD [address] [place] [address] PCP - General Internal Medicine 10/10/16 Manager Rehab Relationship Specialty Start Date End Date Jesus Mg MD [address] [place] [address] PCP - General Internal Medicine 10/10/16 Manager Rehab Relationship Specialty Start Date End Date Jesus Mg MD [address] [place] [address] PCP - General Internal Medicine 10/10/16 Manager Rehab Relationship Specialty Start Date End Date Jesus Mg MD [address] [place] [address] PCP - General Internal Medicine 10/10/16 Manager Rehab Relationship Specialty Start Date End Date Jesus Mg MD [address] [place] [address] PCP - General Internal Medicine 10/10/16 Manager Rehab Relationship Specialty Start Date End Date Jesus Mg MD [address] [place] [address] PCP - General Internal Medicine 10/10/16 Manager Rehab Relationship Specialty Start Date End Date Jesus Mg MD [address] [place] [address] PCP - General Internal Medicine 10/10/16 Kelly Joiner PA-C [address] [place] [address] [facility] 10/20/24 Rashmi Hendrix APRN.[employer] [address] [facility] [place] [address] [facility] Internal Medicine 10/20/24 Jeanie Joe PA-C [address] [place] [address] [facility] 10/20/24 Manager Rehab Relationship Specialty Start Date End Date Jesus Mg MD [address] [place] [address] PCP - General Internal Medicine 10/10/16 Kelly Joiner PA-C [address] [place] [address] [facility] 10/20/24 Rashmi Hendrix APRN.[employer] [address] [facility] [place] [address] [facility] Internal Medicine 10/20/24 Jeanie Joe PA-C [address] [place] [address] [facility] 10/20/24 Manager Rehab Relationship Specialty Start Date End Date Jesus Mg MD [address] [place] [address] PCP - General Internal Medicine 10/10/16 Kelly Joiner PA-C [address] [place] [address] [facility] 10/20/24 Rashmi Hendrix APRN.[employer] [address] [facility] [place] [address] [facility] Regulator Internal Medicine 10/20/24 Jeanie Joe PA-C [address] [place] [address] [facility] 10/20/24 Manager Rehab Relationship Specialty Start Date End Date Jesus Mg MD [address] [place] [address] PCP - General Internal Medicine 10/10/16 Kelly Joiner PA-C [address] [place] [address] [facility] 10/20/24 Rashmi Hendrix APRN.[employer] [address] [place] [address] [facility] Internal Medicine 10/20/24 Jeanie Joe PA-C [address] [place] [address] Heat Regulator Family [facility] 10/20/24 Manager Rehab Relationship Specialty Start Date End Date Jesus Mg MD [address] [place] [address] PCP - General Internal Medicine 10/10/16 Kelly Joiner PA-C [address] [place] [address] [facility] 10/20/24 Rahsmi Hendrix APRN.[employer] [address] [place] [address] [facility] Internal Medicine 10/20/24 Jeanie Joe PA-C [address] [facility] [place] [address] Heat Regulator Family [facility] 10/20/24 Manager Rehab Relationship Specialty Start Date End Date Jesus Mg MD [address] [place] [address] PCP - General Internal Medicine 10/10/16 Kelly Joiner PA-C [address] [place], [place] [address] [phone] [facility] 10/20/24 Rashmi Hendrix APRN.[employer] [address] [place] [address] [facility] 10/20/24 Jeanie Joe PA-C [address] [place] [address] [facility] Family [facility] 10/20/24 Manager Rehab Relationship Specialty Start Date End Date Jesus Mg MD [address] [place] [address] PCP - General Internal Medicine 10/10/16 Kelly Joiner PA-C [address] [place] [address] [facility] 10/20/24 Rashmi Hendrix APRN.[employer] [address] [place] [address] [facility] Internal Medicine 10/20/24 Jeanie Joe PA-C [address] [place] [address] [facility] 10/20/24 Manager Rehab Relationship Specialty Start Date End Date Jesus Mg MD [address] [place] [address] PCP - General Internal Medicine 10/10/16 Kelly Joiner PA-C [address] [place] [address] [facility] 10/20/24 Rashmi Hendrix APRN.[employer]ACH[employer] [address] [place] [address] [facility] Reg[facility] Internal Medicine 10/20/24 Jeanie Joe PA-C [address] [place] [address] [facility] 10/20/24 Manager Rehab Relationship Specialty Start Date End Date Jesus Mg MD [address] [place] [address] PCP - General Internal Medicine 10/10/16 Kelly Joiner PA-C [address] [place] [address] [facility] 10/20/24 Rashmi Hendrix APRN.MACH[employer] [address] [place] [address] [facility] Reg[facility] Internal Medicine 10/20/24 Jeanie Joe PA-C [address] [place] [address] [facility] 10/20/24 Manager Rehab Relationship Specialty Start Date End Date Jesus Mg MD [address] [facility] [place] [address] PCP - General Internal Medicine 10/10/16 Kelly Joiner PA-C [address] [place] [address] [facility] 10/20/24 Rashmi Hendrix APRN.MACHINE [employer] [address] [facility] [place] [address] Heat Regulator Internal Medicine 10/20/24 Jeanie Joe PA-C [address] [facility] [place] [address] [facility] Family Medicine 10/20/24 Manager Rehab Relationship Specialty Start Date End Date Jesus Mg MD [address] [facility] [place] [address] PCP - General Internal Medicine 10/10/16 Kelly Joiner PA-C [address] [place] [address] [facility] Family Medicine 10/20/24 Rashmi Hendrix APRN.MACHINE [employer] W[employer] [address] [facility] [place] [address] Heat Regulator Internal Medicine 10/20/24 Jeanie Joe PA-C [address] [facility] [place] [address] [facility] Family [facility] 10/20/24 Manager Rehab Relationship Specialty Start Date End Date Jesus Mg MD [address] [place] [address] PCP - General Internal Medicine 10/10/16 Rashmi Hendrix APRN.MACHINE [employer] [address] [place] [address] [facility] Internal Medicine 10/20/24 Manager Rehab Relationship Specialty Start Date End Date Jesus Mg MD [address] [place] [address] PCP - General Internal Medicine 10/10/16 Kelly Joiner PA-C [address] [place] [address] [facility] 10/20/24 02/02/25 Rashmi Hendrix APRN.MACHINE [employer] [address] [place] [address] Heat Reg[facility] Internal Medicine 10/20/24 Jeanie Joe PA-C [address] [place] [address] [facility] Family [facility] 10/20/24 02/02/25 Manager Rehab Relationship Specialty Start Date End Date Jesus Mg MD [address] [place] [address] PCP - General Internal Medicine 10/10/16 Rashmi Hendrix APRN.MACHINE [employer] [address] [place] [address] Heat Regulator Internal Medicine 10/20/24 Manager Rehab Relationship Specialty Start Date End Date Jesus Mg MD [address] [place] [address] PCP - General Internal Medicine 10/10/16 Rashmi Hendrix APRN.MACHINE [employer] W[employer]ER [address] [place] [address] Heat Regulator Internal Medicine 10/20/24 Manager Rehab Relationship Specialty Start Date End Date Jesus Mg MD [address] [place] [address] PCP - General Internal Medicine 10/10/16 Rashmi Hendrix APRN.MACHINE [employer] W[employer]ER [address] [facility] [place] [address] Heat Regulator Internal Medicine 10/20/24 Manager Rehab Relationship Specialty Start Date End Date Jesus Mg MD [address] [place] [address] PCP - General Internal Medicine 10/10/16 Rashmi Hendrix APRN.MACHINE [employer] W[employer]ER [address] [facility] [place] [address] Heat Regulator Internal Medicine 10/20/24 Manager Rehab Relationship Specialty Start Date End Date Jesus Mg MD [address] [place] [address] PCP - General Internal Medicine 10/10/16 Rashmi Hendrix APRN.MACHINE [employer] [address] [facility] [place] [address] Heat Regulator Internal Medicine 10/20/24 Manager Rehab Relationship Specialty Start Date End Date Jesus Mg MD [address] [place] [address] PCP - General Internal Medicine 10/10/16 Rashmi Hendrix APRN.MACHINE [employer] W[employer]ER [address] [place] [address] [facility] 10/20/24 Manager Rehab Relationship Specialty Start Date End Date Jesus Mg MD [address] [place], [place] [address] PCP - General Internal Medicine 10/10/16 Rashmi Hendrix APRN.MACHINE [employer] W[employer]ER [address] [place] [address] [facility] 10/20/24 Goals (unrecognized section and content) Goals may be documented in a n alternate section FOR RECORDS PERTAINING TO PATIENTS WHO ARE OR HAVE BEEN ENROLLED IN A CHEMICAL DEPENDENCY/SUBSTANCEABUSE PROGRAM, SOME INFORMATION MAY BE OMITTED. This clinical summary was aggregated from multiple sources. Caution should be exercised in using it in the provision of clinical care. This summary normalizes information from multiple sources, and as a consequence, information in this document may materially change the coding, format and clinical context of patient data. In addition, data may be omitted in some cases. CLINICAL DECISIONS SHOULD BE BASED ON THE PRIMARY CLINICAL RECORDS. [facility] [employer] [facility]. provides no warranty or guarantee of the accuracy or completeness of information in this document.
[2025-09-28 14:37] LABS: Mucous, Urine 0 SEEN /hpf (<or=2+); Red Blood Cells-Urine 0 SEEN /hpf (0-5)
[2025-09-28 14:38] LABS: Color, Urine Yellow (Yellow); Glucose, Dipstick Normal (Normal); Ketone-Dipstick Negative (Negative); Leukocyte Esterase-Dipstick 100 /ul (Negative); Nitrite-Dipstick Negative (Negative); Occult Blood-Urine 25 /ul (Negative); Protein-Dipstick 30 mg/dl (Negative); Specific Gravity, Urine 1.020 (1.002-1.030); Urine Bilirubin Dipstick Negative (Negative)
[2025-09-28 14:53] LABS: Squamous Epithelial Cells - UA 0-5 SEEN /hpf (5-10)
--- NOTE | 2025-09-28 17:09 | ED.RN ---
upset d/t wait for CT result. states "i see all these signs that say [facility], how is this even possible"
[2025-09-28 17:19] VITALS: BP 180/83; PULSE 54; RESP 16; O2SAT 98
[2025-09-28 18:08] VITALS: BP 141/65; PULSE 74; RESP 16; TEMP 36.4; O2SAT 100
== END 2025-09-28 18:08 | disposition home or self-care (01) ==
PROVIDERS: Emergency Provider Emergency Medicine; PCP Internal Medicine; Visit Provider Emergency Medicine
DX: M48.56XA Collapsed vertebra, not elsewhere classified, lumbar region, initial encounter for fracture (principal); M48.54XA Collapsed vertebra, not elsewhere classified, thoracic region, initial encounter for fracture; M85.80 Other specified disorders of bone density and structure, unspecified site; X58.XXXA Exposure to other specified factors, initial encounter
CPT/HCPCS: 72128; 72131; 81001; 99283